=== PATIENT | female | born 1985 | race Caucasian/White ===

== ENCOUNTER 2023-07-18 10:11 | Outpatient (OUT) | payer BC, SELFPAY ==
[2023-07-18 10:45] LABS: Basophils Percent Auto 0.4 % (0.2-2.0); Eosinophils Absolute Auto 0.2 10^3/uL (0.0-0.7); Eosinophils Percent Auto 2.2 % (0.9-7.0); Hematocrit 36.9 % (36.0-48.0); Hemoglobin 11.5 g/dL (12.0-16.0); Immature Granulocytes Abs Auto 0.02 10^3/uL (0.00-0.03); Immature Granulocytes Pct Auto 0.3 % (0.0-0.5); Lymphocytes Absolute Auto 1.4 10^3/uL (1.2-3.8); Lymphocytes Percent Auto 19.2 % (20.5-60.0); Mean Corpuscular HGB Conc 31.2 g/dL (29.9-35.2); Mean Corpuscular Hemoglobin 27.1 pg (26.7-34.0); Mean Platelet Volume 9.6 fL (9.5-13.5); Monocytes Absolute Auto 0.6 10^3/uL (0.3-0.8); Monocytes Percent Auto 7.5 % (1.7-12.0); Neutrophils Absolute Auto 5.2 10^3/uL (1.4-6.5); Neutrophils Percent Auto 70.4 % (43.0-75.0); Platelet Count 367 10^3/uL (150-450); Red Blood Count 4.24 10^6/uL (4.20-5.40); Red Cell Distribution Width 13.7 % (11.0-15.0); White Blood Count 7.3 10^3/uL (4.0-11.0)
[2023-07-18 11:20] LABS: Estimated Average Glucose 114 mg/dL; Glycohemoglobin A1C 5.6 % (4.5-6.2)
[2023-07-18 11:58] LABS: Alanine Aminotransferase 35 U/L (14-59); Albumin Globulin Ratio 0.8; Albumin Level 3.1 g/dL (3.4-5.0); Alkaline Phosphatase 62 U/L (46-116); Anion Gap 12.5; Aspartate Amino Transferase 23 U/L (15-37); BUN Creatinine Ratio 14.9; Bilirubin Total 0.4 mg/dL (0.2-1.0); Calcium 8.9 mg/dL (8.5-10.1); Carbon Dioxide 29.5 mmol/L (21.0-32.0); Chloride 100 mmol/L (98-107); Cholesterol 140 mg/dL (<=200); Estimated GFR (African America >60 (>=60); Estimated GFR (Non-African Ame >60 (>=60); Free T3 2.97 pg/mL (2.18-3.98); Glucose 87 mg/dL (74-106); HDL Cholesterol 46 mg/dL (40-60); LDL Cholesterol Calculated 66.6 mg/dL; Sodium 139 mmol/L (136-145); Thyroid Stimulating Hormone 2.086 uIU/mL (0.358-3.740); Total Protein 7.1 g/dL (6.4-8.2); Triglycerides 137 mg/dL (<=150); VLDL CHOLESTEROL 27.4 mg/dL
[2023-07-19 11:09] LABS: Insulin 25.7 uIU/mL (2.6-24.9)
== END 2023-07-18 10:12 | disposition home or self-care (01) ==
LOC: LAB 10:16
PROVIDERS: PCP Family Medicine; Visit Provider Family Medicine
DX: Z00.00 Encounter for general adult medical examination without abnormal findings (principal)
CPT/HCPCS: 36415; 80053; 80061; 83036; 83525; 84436; 84443; 84481; 85025

== ENCOUNTER 2023-07-25 11:10 | Outpatient (OUT) | payer BC, SELFPAY ==
--- NOTE | 2023-07-25 11:18 | MM_ITS ---
Patient Name: BRAD FLEMING MR#: [id number] : 1985 Exam Date: 07/25/2023 Ordering Doctor: DR Dino Collins . RADIOLOGY REPORT PROCEDURE: MM TOMOSYNTHESIS SCREENING BI COMPARISON: MG MAMM DX 3D RT CAD, 05/25/2021. MAMMO POST BIOPSY RIGHT, 05/13/2020. MG MAMM SCREEN MONIKA W CAD, 01/30/2020. INDICATIONS: Screening Calculator Name NCI Breast Cancer Risk Assessment Tool 5 Year Breast Cancer Risk 0.60% Lifetime Breast Cancer Risk 15.10% Personal Breast Cancer No Personal Ovarian Cancer No Treatments None Family Cancers Grandmother-maternal with breast cancer at age 55. LOCATION: [facility] BREAST COMPOSITION: There are scattered areas of fibroglandular density. FINDINGS: DIAGNOSTIC CATEGORY 2--BENIGN FINDING: RIGHT BREAST: No significant suspicious finding. Small nodular density within lower-outer quadrant, mid breast containing a coarse benign-appearing calcification. Adjacent biopsy marker clip. LEFT BREAST: No significant suspicious finding. No significant change has occurred. RECOMMENDATIONS: ROUTINE MAMMOGRAM AND CLINICAL EVALUATION IN 12 MONTHS. PLEASE NOTE: A NORMAL MAMMOGRAM DOES NOT EXCLUDE THE POSSIBILITY OF BREAST CANCER. A CLINICALLY SUSPICIOUS PALPABLE LUMP SHOULD BE BIOPSIED. Dictated by: Thanh Kendrick M.D. on 07/25/2023 at 13:12 Approved by: Thanh Kendrick M.D. on 07/25/2023 at 13:17
== END 2023-07-25 11:11 | disposition home or self-care (01) ==
LOC: MAMMO 11:10
PROVIDERS: PCP Family Medicine; Visit Provider Family Medicine
DX: Z12.31 Encounter for screening mammogram for malignant neoplasm of breast (principal); Z80.3 Family history of malignant neoplasm of breast
CPT/HCPCS: 77063; 77067

== ENCOUNTER 2024-06-28 11:39 | Outpatient (OUT) | payer BC, SELFPAY ==
--- OUTSIDE RECORDS SUMMARY | 2024-06-28 11:44 | XMS_ITS | CCD ---
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 BLOOD SPECIMEN Ordering Facility: [facility] Address: [address] [place] [address] Performed By: #### 2 986-8, DHEAS #### [facility] CLIA [id number] [address] [place] [address] [place] NICOTINE METABOLITESon 05-03 Cotinine <1.0 Normal [facility] Comment on above: Result Comment: This test was developed and its performance characteristics determined by [facility]. It has not been cleared or approved by the Food and Drug Administration. Cotinine levels greater than 20.0 are consistent with the use of tobacco or tobacco cessation products. Performed By: #### N ICTBLD #### [facility] [address] [place] [address] Dr. Jolynn Hunt Nicotine <1.0 Normal [facility] Comment on above: Result Comment: This test was developed and its performance characteristics determined by [facility]. It has not been cleared or approved by the Food and Drug Administration. Nicotine levels greater than 2.0 are consistent with the use of tobacco or tobacco cessation products. Performed By: #### N ICTBLD #### [facility] [address] [place] [address] Dr. Jolynn Hunt INSULINon 04-29-2022 Insulin 27.2 uIU/mL Critically high 2.6-24.9 [facility] Comment on above: Performed By: #### I NSULIN ####[facility] [id number] [place], [place] [address]Dr. Jolynn Hunt CBC AUTO DIFFon 04-28-2022 BASO # 0.0 103/ul Normal 0.0-0.1 [facility] Comment on above: Performed By: #### C BC #### [facility] [address] [place] [address] Dr. Jolynn Hunt Basophils/100 WBC (Bld) 0.4 % Normal 0.2-2.0 [facility] Comment on above: Performed By: #### C BC #### [facility] [address] [place] [address] Dr. Jolynn Hunt EO # 0.2 103/ul Normal 0.0-0.7 [facility] Comment on above: Performed By: #### C BC #### [facility] [address] [place] [address] Dr. Jolynn Hunt Eosinophils/100 WBC (Bld) 1.5 % Normal 0.9-7.0 [facility] Comment on above: Performed By: #### C BC #### [facility] [address] [place] [address] Dr. Jolynn Hunt Erythrocyte distribution width (RBC) [Ratio] 15.2 % Critically high 11.0-15.0 [facility] Comment on above: Performed By: #### C BC #### [facility] [address] [place] [address] Dr. Jolynn Hunt Hematocrit (Bld) [Volume fraction] 39.6 % Normal 36.0-48.0 [facility] Comment on above: Performed By: #### C BC #### [facility] [address] [place] [address] Dr. Jolynn Hunt Hemoglobin (Bld) [Mass/Vol] 12.9 g/dL Normal 12.0-16.0 [facility] Comment on above: Performed By: #### C BC #### [facility] [address] [place] [address] Dr. Jolynn Hunt IG # 0.04 10e3/ul Critically high 0.00-0.03 [facility] Comment on above: Performed By: #### C BC #### [facility] [address] [place] [address] Dr. Jolynn Hunt IG % 0.4 % Normal 0.0-0.5 [facility] Comment on above: Performed By: #### C BC #### [facility] [address] [place] [address] Dr. Jolynn Hunt LYMPH # 1.8 103/ul Normal 1.2-3.8 [facility] Comment on above: Performed By: #### C BC #### [facility] [address] [place] [address] Dr. Jolynn Hunt Lymphocytes/100 WBC (Bld) 18.5 % Critically low 20.5-60.0 [facility] Comment on above: Performed By: #### C BC #### [facility] [address] [place] [address] Dr. Jolynn Hunt MANUAL DIFF REQ NO Normal [facility] Comment on above: Performed By: #### C BC #### [facility] [address] [address] [address] Jolynn Hunt MCH (RBC) [Entitic mass] 28.4 pg Normal 26.7-34.0 [facility] Comment on above: Performed By: #### C BC #### [facility] [address] [address] [address] Jolynn Hunt MCHC (RBC) [Mass/Vol] 32.6 g/dL Normal 29.9-35.2 [facility] Comment on above: Performed By: #### C BC #### [facility] [address] [place] [address] Dr. Jolynn Hunt MCV (RBC) [Entitic vol] 87.2 fL Normal 81.0-99.0 [facility] Comment on above: Performed By: #### C BC #### [facility] [address] [place] [address] Dr. Jolynn Hunt MONO # 0.6 103/ul Normal 0.3-0.8 [facility] Comment on above: Performed By: #### C BC #### [facility] [address] [place] [address] Dr. Jolynn Hunt Monocytes/100 WBC (Bld) 5.9 % Normal 1.7-12.0 [facility] Comment on above: Performed By: #### C BC #### [facility] [address] [place] [address] Dr. Jolynn Hunt NEUT # 7.3 103/ul Critically high 1.4-6.5 [facility] Comment on above: Performed By: #### C BC #### [facility] [address] [place] [address] Dr. Jolynn Hunt Neutrophils/100 WBC (Bld) 73.3 % Normal 43.0-75.0 [facility] Comment on above: Performed By: #### C BC #### [facility] [address] [place] [address] Dr. Jolynn Hunt Platelet mean volume (Bld) [Entitic vol] 8.9 fL Critically low 9.5-13.5 [facility] Comment on above: Performed By: #### C BC #### [facility] [address] [address] [address] Jolynn Hunt PLT 438 103/ul Normal 150-450 [facility] Comment on above: Performed By: #### C BC #### [facility] [address] [address] [address] Jolynn Hunt RBC 4.54 106/ul Normal 4.20-5.40 [facility] Comment on above: Performed By: #### C BC #### [facility] [address] [address] [address] Jolynn Hunt WBC 10.0 103/ul Normal 4.0-11.0 [facility] Comment on above: Performed By: #### C BC #### [facility] [address] [address] [address] Jolynn Hunt FREE THYROXINE INDEX T7on FTI 2.64 Normal 1.30-4.50 [facility] Comment on above: Performed By: #### T SH, T7, CMP, LIPID ####[facility] [address] [place], [place] [address]Dr. Jolynn Hunt T3U 29.0 % Critically low 30.0-39.0 [facility] Comment on above: Performed By: #### T SH, T7, CMP, LIPID ####[facility] [address] [place], [place] [address]LvDr. Jolynn Hunt T4 [Mass/Vol] 9.10 ug/dL Normal 4.80-13.90 [facility] Comment on above: Performed By: #### T SH, T7, CMP, LIPID ####[facility] [address] [id number]. Jolynn Hunt GLYCOHEMOGLOBIN A1Con 2022 ADA RECOMMENDATION SEE BELOW Normal [facility] Comment on above: Result Comment: ADA RECOMMENDED LIMIT 4.0 - 6.0 ADA THERAPEUTIC TARGET < 7.0 ACTION SUGGESTED > 7.0 Performed By: #### A 1C #### [facility] [address] [place], [place] [address] Dr. Jolynn Hunt Glucose [Mass/Vol] 108 mg/dL Normal [facility] Comment on above: Performed By: #### A 1C #### [facility] [address] [place], [place] [address] Dr. Jolynn Hunt HbA1c (Bld) [Mass fraction] 5.4 % Normal 4.5-6.2 [facility] Comment on above: Performed By: #### A 1C #### [facility] [address] [id number] [address] Jolynn Hunt LIPID PROFILEon 04-28-2022 CHOL-HDL RATIO NORM SEE BELOW Normal [facility] Comment on above: Result Comment: 3.3 - 4.4 LOW RISK 4.4 - 7.1 AVERAGE RISK 7.1 - 11.0 MODERATE RISK >11.0 HIGH RISK Performed By: #### T SH, T7, CMP, LIPID ####[facility] [address] [place] [id number] Hunt Cholesterol [Mass/Vol] 175 mg/dL Normal <=200 [facility] Comment on above: Performed By: #### T SH, T7, CMP, LIPID ####[facility] [address] [place] [id number] Hunt Cholesterol in HDL [Mass/Vol] 53 mg/dL Normal 40-60 [facility] Comment on above: Performed By: #### T SH, T7, CMP, LIPID ####[facility] [address] [place] [id number] Hunt Cholesterol in LDL [Mass/Vol] 89.8 mg/dL Normal [facility] Comment on above: Performed By: #### T SH, T7, CMP, LIPID ####[facility] [address] [place] [phone] Hunt Cholesterol.total/C holesterol in HDL [Mass ratio] 3.3 {ratio} Normal [facility] Comment on above: Performed By: #### T SH, T7, CMP, LIPID ####[facility] [address] [place] [phone] Hunt HDL NORMAL > or = 60 mg/dl - LO W CARDIOVASCULAR RISK <40 mg/dl - HIGH CARDIOVASCULAR RISK Normal [facility] Comment on above: Performed By: #### T SH, T7, CMP, LIPID ####[facility] [address] [place] [address]Dr. Jolynn Hunt LDL CALC NORMAL SEE BELOW Normal [facility] Comment on above: Result Comment: <100 mg/dl OPTIMAL 100 - 129 mg/dl NEAR OR ABOVE OPTIMAL 130 - 159 mg/dl BORDERLINE HIGH 160 - 189 mg/dl HIGH >190 mg/dl VERY HIGH Performed By: #### T SH, T7, CMP, LIPID ####[facility] [address] [place] [address]Dr. Jolynn Hunt Triglyceride [Mass/Vol] 161 mg/dL Critically high <=150 [facility] Comment on above: Performed By: #### T SH, T7, CMP, LIPID ####[facility] [address] [place] [address]Dr. Jolynn Hunt VLDL CALC 32.2 mg/dL Normal [facility] Comment on above: Performed By: #### T SH, T7, CMP, LIPID ####[facility] [address] [place] [address]Dr. Jolynn Hunt PROF 14(COMP METB)on 023 Albumin [Mass/Vol] 3.6 g/dL Normal 3.4-5.0 [facility] Comment on above: Performed By: #### T SH, T7, CMP, LIPID ####[facility] [address] [place] [address]Dr. Jolynn Hunt Albumin/Globulin [Mass ratio] 0.8 {ratio} Normal [facility] Comment on above: Performed By: #### T SH, T7, CMP, LIPID ####[facility] [address] [place] [address]Dr. Jolynn Hunt ALP [Catalytic activity/Vol] 78 U/L Normal 46-116 [facility] Comment on above: Performed By: #### T SH, T7, CMP, LIPID ####[facility] [address] [place] [id number]. Jolynn Hunt ALT [Catalytic activity/Vol] 29 U/L Normal 14-59 [facility] Comment on above: Performed By: #### T SH, T7, CMP, LIPID ####[facility] [address] [place] [address]Dr. Jolynn Hunt Anion gap [Moles/Vol] 12.8 mmol/L Normal [facility] Comment on above: Performed By: #### T SH, T7, CMP, LIPID ####[facility] [address] [place] [address]Dr. Jolynn Hunt AST [Catalytic activity/Vol] 20 U/L Normal 15-37 [facility] Comment on above: Performed By: #### T SH, T7, CMP, LIPID ####[facility] [address] [place] [address]Dr. Jolynn Hunt Bilirubin [Mass/Vol] 0.4 mg/dL Normal 0.2-1.0 [facility] Comment on above: Performed By: #### T SH, T7, CMP, LIPID ####[facility] [address] [place] [address]Dr. Jolynn Hunt Calcium [Mass/Vol] 9.2 mg/dL Normal 8.5-10.1 [facility] Comment on above: Performed By: #### T SH, T7, CMP, LIPID ####[facility] [address] [place] [address]Dr. Jolynn Hunt Chloride [Moles/Vol] 99 mmol/L Normal 98-107 [facility] Comment on above: Performed By: #### T SH, T7, CMP, LIPID ####[facility] [address] [place] [id number]. Jolynn Hunt CO2 [Moles/Vol] 29.3 mmol/L Normal 21.0-32.0 [facility] Comment on above: Performed By: #### T SH, T7, CMP, LIPID ####[facility] [address] [place] [address]Dr. Jolynn Hunt Creatinine [Mass/Vol] 0.47 mg/dL Critically low 0.55-1.02 [facility] Comment on above: Performed By: #### T SH, T7, CMP, LIPID ####[facility] [address] [place] [address]Dr. Jolynn Hunt EGFR-AF BRUNEIAN >60 Normal >=60 [facility] Comment on above: Performed By: #### T SH, T7, CMP, LIPID ####[facility] [address] [place] [address]Dr. Jolynn Hunt EGFR-NON AF BRUNEIAN >60 Normal >=60 [facility] Comment on above: Performed By: #### T SH, T7, CMP, LIPID ####[facility] [address] [place] [address]Dr. Jolynn Hunt Globulin (S) [Mass/Vol] 4.5 g/dL Normal [facility] Comment on above: Performed By: #### T SH, T7, CMP, LIPID ####[facility] [address] [place], [place] [address]Dr. Jolynn Hunt Glucose [Mass/Vol] 91 mg/dL Normal 74-106 [facility] Comment on above: Performed By: #### T SH, T7, CMP, LIPID ####[facility] [address] [place], [place] [address]Dr. Jolynn Hunt Potassium [Moles/Vol] 3.1 mmol/L Critically low 3.5-5.1 [facility] Comment on above: Performed By: #### T SH, T7, CMP, LIPID ####[facility] [address] [place], [place] [address]Dr. Jolynn Hunt Protein [Mass/Vol] 8.1 g/dL Normal 6.4-8.2 [facility] Comment on above: Performed By: #### T SH, T7, CMP, LIPID ####[facility] [address] [place], [place] [address]Dr. Jolynn Hunt Sodium [Moles/Vol] 138 mmol/L Normal 136-145 [facility] Comment on above: Performed By: #### T SH, T7, CMP, LIPID ####[facility] [address] [place], [place] [address]Uz. Jolynn Hunt Urea nitrogen [Mass/Vol] 9.0 mg/dL Normal 7.0-18.0 [facility] Comment on above: Performed By: #### T SH, T7, CMP, LIPID ####[facility] [address] [place], [place] [address]Qm. Jolynn Hunt Urea nitrogen/Creatinine [Mass ratio] 19.1 mg/mg Normal [facility] Comment on above: Performed By: #### T SH, T7, CMP, LIPID ####[facility] [address] [place], [place] [address]Qb. Jolynn Hunt TSHon 04-28-2022 TSH 6.052 uIU/mL Critically high 0.358-3.740 [facility] Comment on above: Performed By: #### T SH, T7, CMP, LIPID #### [facility] [address] [place], [place] [address] Dr. Jolynn Hunt Bacteria Ur Culton 2 Bacteria identified Cx Nom (U) ORGANISM ID: 1 50,000-<100,000 CFU/ml Escherichia coli ORGANISM ID: 1 (ESCHERICHIA COLI) ANTIBIOTIC INTERPRETATION PRISCILA STATUS REFERENCE RANGE Ampicillin R >=32 F Susceptible <=8 , Intermediate >8 , Resistant >16 Ampicillin/Sulbact R >=32 F Susceptible <=8 , Intermediate >8 , Resistant >16 Cefazolin S <=4 F Susceptible 0-16 , Intermediate <0 or >16 , Resistant >16 Cefepime S <=1 F Susceptible <=2 , Intermediate >2 , Resistant >=16 Ceftriaxone S <=1 F Susceptible <=1 , Intermediate >1 , Resistant >=4 Ciprofloxacin S <=0.25 F Susceptible <0.5 , Intermediate >=.5 , Resistant >=1 Ertapenem S <=0.5 F Susceptible <=0.5 , Intermediate >.5 , Resistant >1 Gentamicin S <=1 F Susceptible <=4 , Intermediate >4 , Resistant >8 Meropenem S <=0.25 F Susceptible <=1 , Intermediate >1 , Resistant >2 Nitrofurantoin S <=16 F Susceptible <=32 , Intermediate >32 , Resistant >64 Piperacillin/Tazobac S <=4 F Susceptible <=16 , Intermediate >16 , Resistant >64 Tobramycin S <=1 F Susceptible <=4 , Intermediate >4 , Resistant >8 Trimeth sulfameth S <=20 F Susceptible <=40 , Resistant >40 Abnormal [facility] Comment on above: Performed By: #### 6 30-4 #### [facility] CLIA [id number] [address] [place] [address] [place] [facility]on SARS-CoV-2 (COVID-19) RNA STEF+probe Ql (Unsp spec) Not detected Normal NOT DETECTED [facility] Comment on above: Result Comment: When diagnostic testing is negative, the possibility of a false negative should be considered in the context of a patient's recent exposures and the presence of clinical signs and symptoms consistent with SARS-CoV-2. This test is not yet approved or cleared by the [place] FDA. When there are no FDA-approved or cleared tests available, and other criteria are met, FDA can make tests available under an emergency access mechanism called an Emergency Use Authorization (EUA). The EUA for this test is supported by the [place] of Health and Human Service's declaration that circumstances exist to justify the emergency use of in vitro diagnostics for the detection and/or diagnosis of the virus that causes COVID-19. This EUA will remain in effect for the duration of the COVID-19 declaration justifying emergency of IVDs, unless it is terminated or revoked by the FDA (after which the test may no longer be used). Performed By: #### C VDTB ####[facility] [address] [place] [address]Dr. Jolynn Hunt INFLUENZA A AND B AGon 02-17 [facility] SEE BELOW Normal [facility] Comment on above: Result Comment: Nega tive for Flu A protein angiten. Infection due to Flu A cannot be ruled out. Flu A angiten in the sample may be below the detection limit of the test. Performed By: #### I NFLUAB #### [facility] [address] [address] [address] Jolynn Hunt [facility] SEE BELOW Normal [facility] Comment on above: Result Comment: Nega tive for Flu B protein antigen. Infection due to Flu B cannot be ruled out. Flu B antigen in the sample may be below the detection limit of the test. Performed By: #### I NFLUAB #### [facility] [address] [place] [address] Dr. Jolynn Hunt INFLUENZA A AG Negative Normal NEGATIVE SEE COMMENT [facility] Comment on above: Performed By: #### I NFLUAB #### [facility] [address] [place] [address] Dr. Jolynn Hunt INFLUENZA B AG Negative Normal NEGATIVE SEE COMMENT [facility] Comment on above: Performed By: #### I NFLUAB #### [facility] [address] [place] [address] Dr. Jolynn Hunt INTERNAL CONTROLS Within Normal Limits Normal Wi thin Normal Limits [facility] Comment on above: Performed By: #### I NFLUAB #### [facility] [address] [place] [address] Dr. Jolynn Hunt CBC panel Auto (Bld)on 11-25 Erythrocyte distribution width (RBC) [Ratio] 14.0 % 11.5 - 15.0 % [facility] Hematocrit (d) [Volume fraction] 40.8 % 36.0 - 46.0 % [facility] Hemoglobin (d) [Mass/Vol] 12.6 g/dL 11.5 - 15.5 g/dL [facility] MCH (RBC) [Entitic mass] 27.3 pg 26.0 - 34.0 pg [facility] MCHC (RBC) [Mass/Vol] 30.9 g/dL 30.5 - 36.0 g/dL [facility] MCV (RBC) [Entitic vol] 88.3 fL 80.0 - 100.0 fL [facility] Nucleated RBC (Bld) [#/Vol] <0.01 k/uL [facility] Platelet mean volume (Bld) [Entitic vol] 9.0 fL 9.0 - 12.7 fL [facility] Platelets (Bld) [#/Vol] 465 10*3/uL High 150 - 400 k/uL [facility] RBC (Bld) [#/Vol] 4.62 10*6/uL 3.90 - 5.2 0 m/uL [facility] WBC (Bld) [#/Vol] 9.74 10*3/uL 3.70 - 11. 00 k/uL [facility] Comprehensive metabolic 2000 panelon 11-25-2021 Albumin [Mass/Vol] 4.5 g/dL 3.9 - 4.9 g/dL [facility] ALP [Catalytic activity/Vol] 92 U/L 34 - 123 U/L [facility] ALT [Catalytic activity/Vol] 21 U/L 7 - 38 U/L [facility] Anion gap [Moles/Vol] 11 mmol/L 9 - 18 mmol/L [facility] AST [Catalytic activity/Vol] 16 U/L 13 - 35 U/L [facility] Bilirubin [Mass/Vol] 0.3 mg/dL 0.2 - 1.3 mg/dL [facility] Calcium [Mass/Vol] 9.6 mg/dL 8.5 - 10. 2 mg/dL [facility] Chloride [Moles/Vol] 98 mmol/L 97 - 105 mmol/L [facility] CO2 [Moles/Vol] 30 mmol/L 22 - 30 mmol/L [facility] Creatinine [Mass/Vol] 0.57 mg/dL Low 0.58 - 0.96 mg/dL [facility] Estimated Glomerular Filtration Rate 122 mL/min/1.73m >=60 mL/min/1.73m [facility] Glucose [Mass/Vol] 98 mg/dL 74 - 99 mg/dL [facility] Potassium [Moles/Vol] 3.4 mmol/L Low 3.7 - 5.1 mmol/L [facility] Protein [Mass/Vol] 8.1 g/dL High 6.3 - 8.0 g/dL [facility] Sodium [Moles/Vol] 139 mmol/L 136 - 144 mmol/L [facility] Urea nitrogen [Mass/Vol] 12 mg/dL 7 - 21 mg/dL [facility] VITAMIN B12 BLOODon 11-26-19 Cobalamin (Vitamin B12) [Mass/Vol] 224 pg/mL Low 232 - 1,245 pg/mL [facility] XR LSPINE MIN 4 VIEWSon XR LSPINE MIN 4 VIEWS EXAMINATION: XR LSPINE MIN 4 VIEWS HISTORY: Prolapsed lumbar intervertebral disc COMPARISON: No relevant comparison available. FINDINGS: BONES: No significant spondylosis, scoliosis, fracture, or visible bony lesion. DISC SPACES: Mild-moderate narrowing L4-L5, L5-S1. PARASPINOUS: Negative. No paraspinous abnormality is seen. OTHER: Negative. IMPRESSION: 1. Mild to moderate disc space narrowing at L4-L5 and L5-S1 suggesting degenerative changes. Consider MRI for further evaluation. Electronically authenticated by: DEANGELO MIGUEL Date: 2021-10-12 19:59 Normal [facility] CBC AUTO DIFFon 07-01-2021 BASO # 0.0 103/ul Normal 0.0-0.1 [facility] Comment on above: Performed By: #### C BC #### [facility] [address] [address] [address] Jolynn Hunt Basophils/100 WBC (Bld) 0.4 % Normal 0.2-2.0 [facility] Comment on above: Performed By: #### C BC #### [facility] [address] [address] [address] Jolynn Hunt EO # 0.1 103/ul Normal 0.0-0.7 [facility] Comment on above: Performed By: #### C BC #### [facility] [address] [address] [address] Jolynn Hunt Eosinophils/100 WBC (Bld) 1.6 % Normal 0.9-7.0 [facility] Comment on above: Performed By: #### C BC #### [facility] [address] [place] [address] Dr. Jolynn Hunt Erythrocyte distribution width (RBC) [Ratio] 13.9 % Normal 11.0-15.0 [facility] Comment on above: Performed By: #### C BC #### [facility] [address] [place] [address] Dr. Jolynn Hunt Hematocrit (Bld) [Volume fraction] 39.9 % Normal 36.0-48.0 [facility] Comment on above: Performed By: #### C BC #### [facility] [address] [place] [address] Dr. Jolynn Hunt Hemoglobin (Bld) [Mass/Vol] 12.2 g/dL Normal 12.0-16.0 [facility] Comment on above: Performed By: #### C BC #### [facility] [address] [place] [address] Dr. Jolynn Hunt IG # 0.03 10e3/ul Normal 0.00-0.03 [facility] Comment on above: Performed By: #### C BC #### [facility] [address] [place] [address] Dr. Jolynn Hunt IG % 0.4 % Normal 0.0-0.5 [facility] Comment on above: Performed By: #### C BC #### [facility] [address] [place] [address] Dr. Jolynn Hunt LYMPH # 1.5 103/ul Normal 1.2-3.8 [facility] Comment on above: Performed By: #### C BC #### [facility] [address] [place] [address] Dr. Jolynn Hunt Lymphocytes/100 WBC (Bld) 17.8 % Critically low 20.5-60.0 [facility] Comment on above: Performed By: #### C BC #### [facility] [address] [place] [address] Dr. Jolynn Hunt MANUAL DIFF REQ NO Normal [facility] Comment on above: Performed By: #### C BC #### [facility] [address] [place] [address] Dr. Jolynn Hunt MCH (RBC) [Entitic mass] 26.5 pg Critically low 26.7-34.0 [facility] Comment on above: Performed By: #### C BC #### [facility] [address] [place] [address] Dr. Jolynn Hunt MCHC (RBC) [Mass/Vol] 30.6 g/dL Normal 29.9-35.2 [facility] Comment on above: Performed By: #### C BC #### [facility] [address] [place] [address] Dr. Jolynn Hunt MCV (RBC) [Entitic vol] 86.7 fL Normal 81.0-99.0 [facility] Comment on above: Performed By: #### C BC #### [facility] [address] [place] [address] Dr. Jolynn Hunt MONO # 0.6 103/ul Normal 0.3-0.8 [facility] Comment on above: Performed By: #### C BC #### [facility] [address] [place] [address] Dr. Jolynn Hunt Monocytes/100 WBC (Bld) 6.8 % Normal 1.7-12.0 [facility] Comment on above: Performed By: #### C BC #### [facility] [address] [place] [address] Dr. Jolynn Hunt NEUT # 6.0 103/ul Normal 1.4-6.5 [facility] Comment on above: Performed By: #### C BC #### [facility] [address] [place] [address] Dr. Jolynn Hunt Neutrophils/100 WBC (Bld) 73.0 % Normal 43.0-75.0 [facility] Comment on above: Performed By: #### C BC #### [facility] [address] [place] [address] Dr. Jolynn Hunt Platelet mean volume (Bld) [Entitic vol] 9.2 fL Critically low 9.5-13.5 [facility] Comment on above: Performed By: #### C BC #### [facility] [address] [place], [place] [address] Dr. Jolynn Hunt PLT 421 103/ul Normal 150-450 [facility] Comment on above: Performed By: #### C BC #### [facility] [address] [place], [place] [address] Dr. Jolynn Hunt RBC 4.60 106/ul Normal 4.20-5.40 [facility] Comment on above: Performed By: #### C BC #### [facility] [address] [place], [place] [address] Dr. Jolynn Hunt WBC 8.2 103/ul Normal 4.0-11.0 [facility] Comment on above: Performed By: #### C BC #### [facility] [address] [place], [place] [address] ABD/PELVIS WO CONon 07-01 CT ABD/PELVIS WO CON EXAMINATION: CT ABD/PELVIS WO CON, 07/01/2021 9:52 AM EDT HISTORY: Left sided abdominal pain COMPARISON: CT 10/03/2015. TECHNIQUE: CT scan of the abdomen and pelvis was performed without IV contrast. CT dose reduction technique was used, including Automated Exposure Control. FINDINGS: Kidneys are normal in size without perinephric stranding or hydronephrosis. There is no discrete renal or ureteral calculus. Bladder is nondistended without bladder stone. Right hemidiaphragm is chronically elevated. There is a background of diffuse fatty infiltration of the liver. The liver measures 14.6 cm craniocaudal in the midclavicular line. No findings of cirrhosis. Gallbladder surgically absent. No biliary ductal dilatation. Pancreas, spleen, and adrenal glands are normal. Small and large bowel loops are of normal caliber. There is a moderate stool burden predominantly in the left colon to the rectum. No significant diverticular disease. No gross bowel inflammation. Normal appendix is seen. Uterus is identified, tilted into the right pelvis. Cysts noted in both ovaries. No adnexal abnormality. There is a amount of free pelvic fluid that is within physiologic limits adjacent to the uterus. No free air. There is an increased number of small lymph nodes within the mesenteric root, similar to previous study and none are enlarged. No abdominal pelvic lymphadenopathy. Limited imaging of lower thorax demonstrates clear lungs. Heart size within normal limits. Mild degenerative changes throughout the spine, worse at L5-S1 where there is vacuum phenomenon. There is a tiny fat-containing umbilical hernia. IMPRESSION: 1. Negative for urinary calculus. No obstructive or inflammatory changes of the kidneys. 2. Normal appendix. 3. Moderate stool burden, predominantly in the left colon to the rectum. No significant diverticular disease. No gross bowel inflammation. 4. No gross adnexal abnormality. Tiny amount of free pelvic fluid adjacent to the uterus is within physiologic limits. 5. Cholecystectomy and upper limits of normal size liver with diffuse fatty infiltration of the liver. Normal noncontrast pancreas. No biliary ductal dilatation. Electronically authenticated by: BEENA CANAS Date: 2021-07-01 10:58 Normal [facility] PREG HCG QUALon 07-01-2021 , QUAL Negative Normal NEGATIVE [facility] Comment on above: Performed By: #### P REG #### [facility] [address] [place] [address] Dr. Jolynn Hunt PROF CHEM 8 (BAS METB)on Anion gap [Moles/Vol] 13.4 mmol/L Normal [facility] Comment on above: Performed By: #### B MP #### [facility] [address] [place] [address] Dr. Jolynn Hunt Calcium [Mass/Vol] 8.9 mg/dL Normal 8.5-10.1 [facility] Comment on above: Performed By: #### B MP #### [facility] [address] [place] [address] Dr. Jolynn Hunt Chloride [Moles/Vol] 100 mmol/L Normal 98-107 [facility] Comment on above: Performed By: #### B MP #### [facility] [address] [place] [address] Dr. Jolynn Hunt CO2 [Moles/Vol] 29.6 mmol/L Normal 22.0-30.0 [facility] Comment on above: Performed By: #### B MP #### [facility] [address] [place] [address] Dr. Jolynn Hunt Creatinine [Mass/Vol] 0.56 mg/dL Normal 0.52-1.04 [facility] Comment on above: Performed By: #### B MP #### [facility] [address] [address] [address] Jolynn Hunt EGFR-AF BRUNEIAN >60 Normal >=60 [facility] Comment on above: Performed By: #### B MP #### [facility] [address] [address] [address] Jolynn Hunt EGFR-NON AF BRUNEIAN >60 Normal >=60 [facility] Comment on above: Performed By: #### B MP #### [facility] [address] [address] [address] Jolynn Hunt Glucose [Mass/Vol] 96 mg/dL Normal 74-106 [facility] Comment on above: Performed By: #### B MP #### [facility] [address] [address] [address] Jolynn Hunt Potassium [Moles/Vol] 3.0 mmol/L Critically low 3.4-5.0 [facility] Comment on above: Performed By: #### B MP #### [facility] [address] [address] [address] Jolynn Hunt Sodium [Moles/Vol] 140 mmol/L Normal 137-145 [facility] Comment on above: Performed By: #### B MP #### [facility] [address] [address] [address] Jolynn Hunt Urea nitrogen [Mass/Vol] 9.0 mg/dL Normal 7.0-18.0 [facility] Comment on above: Performed By: #### B MP #### [facility] [address] [address] [address] Jolynn Hunt Urea nitrogen/Creatinine [Mass ratio] 16.1 mg/mg Normal [facility] Comment on above: Performed By: #### B MP #### [facility] [address] [address] [address] Jolynn Hunt CNOVSPon 12-10-2020 CNOVSP Visit (SP) Office ( [place]) -- BRAD FLEMING ([id number]) 1985 F Date Time Provider Department 12/10/20 1:30 PM JASMINA JACINTO During your visit today, we recorded the following information about you: Temperature Pulse Respiration Blood pressure 98.3 degrees 96/minute 14/minute 135/94 Weight Last Period 92.5 kg 11/25/20 Jasmina Jacinto APRN.MAT PACKER 12/10/2020 3:45 PM Signed DATE OF SERVICE: 12/10/2020 REASON FOR VISIT: Post op visit, pain DIAGNOSIS: Complex ovarian cyst HISTORY TO DATE: 1) 08/2020: She has a pelvic ultrasound on 08/27/2020 as part of her workup and was found to have a 5cm complex right ovarian cyst with a solid area containing vascular flow. Her CA125 was normal. No other tumor markers were checked. 2) 11/10/2020: SURGERY - Laparoscopic right ovarian cystectomy? 3) 11/26/2020: Surgical pathology showed focal psammoma bodies with associated serous epithelium on the outer surface of removed cyst. Plan for conservative management with US q 4-6 months. Date of last office visit: 11/26/2020, post op televisit PAST MEDICAL HISTORY Diagnosis Date - Childhood asthma - Ectopic 2015 at 5 weeks - Essential hypertension - Low iron - PCOS (polycystic ovarian syndrome) - Primary hypertension 10/14/2020 - SAB (spontaneous ) 2011 with D AND C PAST SURGICAL HISTORY Procedure Laterality Date - DILATION AND CURRETAGE 2012 Missed at 12 weeks - ENDOMETRIAL BIOPSY 2017 - EXTRACTION ERUPTED TOOTH removal of wisdom teeth - REMOVAL GALLBLADDER 2007 Family History Problem Relation Age of Onset - Thyroid Mother - Miscarriages / Stillbirths Mother - Hypertension Father - Hypertension Brother - Breast Cancer Maternal Grandmother - Hypertension Paternal Grandmother - Diabetes Paternal Grandmother - Diabetes Paternal Grandfather - Hypertension Paternal Grandfather - Skin Cancer Paternal Grandfather - other (down syndrome) Paternal Uncle - Skin Cancer Paternal Uncle - other (female cancer unknown?) Paternal cousin PATHOLOGY: 10/28/20: FINAL DIAGNOSIS Right ovarian cyst, cystectomy - 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 ? MJM 11/03/2020 COMMENT The entire specimen was submitted for histologic evaluation. Two of the fourteen slides show focal psammoma bodies with associated serous epithelium on the outer surface of the cyst. These are not present in the tissue submitted for frozen section, however. Given this finding, the presence of an ovarian or peritoneal low-grade serous neoplasm cannot be excluded. Drs. Ho and Immanuel Santana reviewed slides A5 and A13 in intradepartmental consultation via telepathology with concurrence. The unexpected finding was discussed with Dr. Robledo by telephone on 11/03/2020 at 13:15. The case was also discussed with, and the slides reviewed by, the frozen section pathologist on the same day. TUMOR MARKERS: CA 125 (U/mL) Date Value 09/01/2020 8 RECENT IMAGIN08/27/2020 - US Pelvis: Indication: Evaluation of abnormal uterine bleeding: menorrhagia Impression Normal appearing anteverted uterus that measures 75 mm x 39 mm x 57 mm. Left ovary is visualized and appears normal. The right ovary is visualized, measures 64 mm x 53 mm x 37 mm, and contains a complex cyst that measures 53 mm x 33 mm x 53 mm. Within the cyst, there is a solid component with vascular flow within it that measures 40 mm x 28 mm x 29 mm. There is no free fluid visualized in the peritoneal cavity. Recommendations Complex ovarian cyst contains concerning features. Consider surgical evaluation or consultation with NEUROUROLOGIST Oncology 12/04/20 CT Abdomen/Pelvis IMPRESSION: 1. ?Ovoid fluid attenuation structure in the lower uterine segment, nonspecific. ?This could represent a subendometrial cyst or loculated fluid in the endometrial cavity. ?Postsurgical fluid collection/abscess is not excluded. 2. ?Otherwise, no acute process noted in the abdomen or pelvis. ?No residual or recurrent adnexal mass is seen. 3. ?Normal CT appearance of the appendix. ?No findings to suggest acute appendicitis. 4. ?Hepatic steatosis. HEALTH MAINTENANCE: Last mammogram: Spring 2020- Negative Last colonoscopy: N/A Last Pap: 2018- Negative Last HPV: 2018 - Negative ECOG performance status ECOG PERFORMANCE STATUS: 0- Fully active, able to carry on all pre-disease performance w/o restriction. SUBJECTIVE/INTERVAL HISTORY: Brad Fleming reports that she feels okay. Reports lower abdominal pain that developed about 10 days ago after squatting. Pain has slightly improved, but worsens throughout the day and patient notices significant cramping generalized to her lower abdomen. Patient also reported she had her period 2 weeks ago and noticed brown discharge yesterday, now res (more content not included)... Normal [facility] 12-08-2020 CNPN Telephone (GYNML) -- BRAD FLEMING ([id number]) 1985 F Date Time Provider Department 12/08/20 JOI SOARES [facility] During your visit today, we recorded the following information about you: Joi Soares RN 12/08/2020 2:07 PM Signed Pt LVM stating she continues to have pressure down there . Attempted to reach pt. LVM for pt to call the office in regards to her complaints. Will await return call. Joi Soares RN 12/08/2020 2:55 PM Signed Pt called back stating her pain/cramping/pressure is just above pubic bone. Denies dysuria, foul smelling urine, hematuria, urgency or frequency. Denies f/c/n/v. States she had her period 2 weeks ago and started having brown discharge last night. Pain/cramping/pressure is worse at night when she lays down, comes and goes and does radiate to the lower back. She has a hx of herniated lumbar disc. Allergies As of Date: 12/08/2020 Noted Allergy Reaction BEE VENOM PROTEIN (HONEY BEE) 08/27/2020 2 - Rash Comments: Rash spreads from bee stings PENICILLINS 09/07/2014 4 - Hives TIZANIDINE 05/07/2020 1 - Mental Status Change TRAMADOL 08/27/2020 14 - Other: See Comments Comments: dizziness Date Reviewed: 11/28/2020 Reviewed by: Caitlyn Sneed MD - Fully Assessed Reason for Visit: Returning Patient's Call [[id number]] Prescriptions as of 12/08/2020 - ibuprofen (MOTRIN) 600 mg tablet Take 1 tablet by mouth every 8 hours as needed for pain. - docusate sodium (COLACE) 100 mg capsule Take 1 capsule by mouth twice daily. - acetaminophen (TYLENOL EXTRA STRENGTH) 500 mg tablet Take 2 tablets by mouth every 6 hours as needed for pain. - acetaminophen/pyrilamine/c aff (MIDOL COMPLETE ORAL) Take by mouth as needed. - ergocalciferol 50,000 unit capsule (VITAMIN D2, DRISDOL) Take 1 capsule by mouth one time a week for 12 doses. for low vitamin D to replenish stores- - cyclobenzaprine (FLEXERIL) 10 mg tablet Take 10 mg by mouth once daily. - Etodolac 500 mg tablet Take 500 mg by mouth twice daily. - ferrous sulfate 325 mg (65 mg iron) tablet Take 1 tablet by mouth twice daily. - lisinopril-hydroCHLOROthia zide (PRINZIDE,ZESTORETIC) 10-12.5 mg per tablet Take 1 tablet by mouth once daily. - metFORMIN (GLUCOPHAGE) 850 mg tablet Take 850 mg by mouth twice daily. - KLOR-CON M20 20 mEq tablet Take 20 mEq by mouth twice daily. - epinephrine (EPIPEN 2-SIMÓN INJECTION) 1 application by INJECTION(UNSPECIFIED PARENTERAL ROUTES) route as needed (for bee sting). - melatonin 10 mg tab Take 10 mg by mouth at bedtime as needed for for insomnia. Problem List As Of Date 12/08/2020 Noted Resolved Primary hypertension [I10] 10/14/2020 Obesity (BMI 30-39.9) [E66.9] 10/14/2020 PCOS (polycystic ovarian syndrome) [E28.2] 10/14/2020 RLS (restless legs syndrome) [G25.81] 10/14/2020 Encounter Status:Closed by JOI SOARES on 12/08/20 [facility] CNPN Telephone (GYNML) -- BERNADETTEBRAD ([id number]) 1985 F Date Time Provider Department 12/08/20 JOI SOARES During your visit today, we recorded the following information about you: Allergies As of Date: 12/08/2020 Noted Allergy Reaction BEE VENOM PROTEIN (HONEY BEE) 08/27/2020 2 - Rash Comments: Rash spreads from bee stings PENICILLINS 09/07/2014 4 - Hives TIZANIDINE 05/07/2020 1 - Mental Status Change TRAMADOL 08/27/2020 14 - Other: See Comments Comments: dizziness Date Reviewed: 11/28/2020 Reviewed by: Caitlyn Sneed MD - Fully Assessed Reason for Visit: error [[id number]] Prescriptions as of 12/09/2020 - ibuprofen (MOTRIN) 600 mg tablet Take 1 tablet by mouth every 8 hours as needed for pain. - docusate sodium (COLACE) 100 mg capsule Take 1 capsule by mouth twice daily. - acetaminophen (TYLENOL EXTRA STRENGTH) 500 mg tablet Take 2 tablets by mouth every 6 hours as needed for pain. - acetaminophen/pyrilamine/c aff (MIDOL COMPLETE ORAL) Take by mouth as needed. - ergocalciferol 50,000 unit capsule (VITAMIN D2, DRISDOL) Take 1 capsule by mouth one time a week for 12 doses. for low vitamin D to replenish stores- - cyclobenzaprine (FLEXERIL) 10 mg tablet Take 10 mg by mouth once daily. - Etodolac 500 mg tablet Take 500 mg by mouth twice daily. - ferrous sulfate 325 mg (65 mg iron) tablet Take 1 tablet by mouth twice daily. - lisinopril-hydroCHLOROthia zide (PRINZIDE,ZESTORETIC) 10-12.5 mg per tablet Take 1 tablet by mouth once daily. - metFORMIN (GLUCOPHAGE) 850 mg tablet Take 850 mg by mouth twice daily. - KLOR-CON M20 20 mEq tablet Take 20 mEq by mouth twice daily. - epinephrine (EPIPEN 2-SIMÓN INJECTION) 1 application by INJECTION(UNSPECIFIED PARENTERAL ROUTES) route as needed (for bee sting). - melatonin 10 mg tab Take 10 mg by mouth at bedtime as needed for for insomnia. Problem List As Of Date 12/08/2020 Noted Resolved Primary hypertension [I10] 10/14/2020 Obesity (BMI 30-39.9) [E66.9] 10/14/2020 PCOS (polycystic ovarian syndrome) [E28.2] 10/14/2020 RLS (restless legs syndrome) [G25.81] 10/14/2020 Encounter Status:Closed by JOI SOARES on 12/09/20 [facility] 12-04-2020 CNPN Telephone (GYNML) -- BRAD FLEMING ([id number]) 1985 F Date Time Provider Department 12/04/20 JASMINA JACINTO [facility] During your visit today, we recorded the following information about you: Jasmina Jacinto APRN.MAT PACKER 12/04/2020 4:47 PM Signed Called patient to discuss CT results: IMPRESSION: 1. ?Ovoid fluid attenuation structure in the lower uterine segment, nonspecific. ?This could represent a subendometrial cyst or loculated fluid in the endometrial cavity. ?Postsurgical fluid collection/abscess is not excluded. 2. ?Otherwise, no acute process noted in the abdomen or pelvis. ?No residual or recurrent adnexal mass is seen. 3. ?Normal CT appearance of the appendix. ?No findings to suggest acute appendicitis. 4. ?Hepatic steatosis. Patient reports ongoing pain just beneath her umbilicus. Reports some relief with motrin. Denies fever or chills. Will discuss imaging further with Dr. Sneed. Instructed patient to avoid heavy lifting, continue motrin/tylenol and discussed symptoms that would warrant an ER visit. Patient agreeable to plan and all questions answered at this time. Jasmina Jacinto APRN.MAT PACKER December 04, 2020 4:46 PM Allergies As of Date: 12/04/2020 Noted Allergy Reaction BEE VENOM PROTEIN (HONEY BEE) 08/27/2020 2 - Rash Comments: Rash spreads from bee stings PENICILLINS 09/07/2014 4 - Hives TIZANIDINE 05/07/2020 1 - Mental Status Change TRAMADOL 08/27/2020 14 - Other: See Comments Comments: dizziness Date Reviewed: 11/28/2020 Reviewed by: Caitlyn Sneed MD - Fully Assessed Reason for Visit: Results [95] Prescriptions as of 12/04/2020 - iv contrast (will be provided with radiology test) CT ABD/PEL -Inject, intravenously, once for 1 dose.No IV access, insert saline lock prior to the beginning of sedation, infusion, injection of imaging exam. Discontinue saline lock post exam. If Pt. has a central line or IVAD, may access for administration according to line specific nursing protocol. Once exam is complete flush line and de-access according to line specific nursing protocol in the CT contrast administration guidelines link. - enteric contrast (will be provided with radiology test) For CT ABD/PEL W IVCON Routine order Administer, As Directed One Time Only, via Oral, Rectal, both Oral and Rectal, Enteric Tube, Stoma or Indwelling Catheter, Enteric Contrast as designated per enteric contrast guidelines - ibuprofen (MOTRIN) 600 mg tablet Take 1 tablet by mouth every 8 hours as needed for pain. - docusate sodium (COLACE) 100 mg capsule Take 1 capsule by mouth twice daily. - acetaminophen (TYLENOL EXTRA STRENGTH) 500 mg tablet Take 2 tablets by mouth every 6 hours as needed for pain. - acetaminophen/pyrilamine/c aff (MIDOL COMPLETE ORAL) Take by mouth as needed. - ergocalciferol 50,000 unit capsule (VITAMIN D2, DRISDOL) Take 1 capsule by mouth one time a week for 12 doses. for low vitamin D to replenish stores- - cyclobenzaprine (FLEXERIL) 10 mg tablet Take 10 mg by mouth once daily. - Etodolac 500 mg tablet Take 500 mg by mouth twice daily. - ferrous sulfate 325 mg (65 mg iron) tablet Take 1 tablet by mouth twice daily. - lisinopril-hydroCHLOROthia zide (PRINZIDE,ZESTORETIC) 10-12.5 mg per tablet Take 1 tablet by mouth once daily. - metFORMIN (GLUCOPHAGE) 850 mg tablet Take 850 mg by mouth twice daily. - KLOR-CON M20 20 mEq tablet Take 20 mEq by mouth twice daily. - epinephrine (EPIPEN 2-SIMÓN INJECTION) 1 application by INJECTION(UNSPECIFIED PARENTERAL ROUTES) route as needed (for bee sting). - melatonin 10 mg tab Take 10 mg by mouth at bedtime as needed for for insomnia. Problem List As Of Date 12/04/2020 Noted Resolved Primary hypertension [I10] 10/14/2020 Obesity (BMI 30-39.9) [E66.9] 10/14/2020 PCOS (polycystic ovarian syndrome) [E28.2] 10/14/2020 RLS (restless legs syndrome) [G25.81] 10/14/2020 Encounter Status:Closed by JASMINA JACINTO on 12/04/[address] [facility] [address] ABD/PEL W IVCONon 021 [facility] 12-02-2020 CNPN Telephone (GYNML) -- BRAD FLEMING ([id number]) 1985 F Date Time Provider Department 12/02/20 SHO MILNER GYN During your visit today, we recorded the following information about you: Sho Milner RN 12/02/2020 10:32 AM Signed Returned patient's call. Patient stated that she has has some consistent right sided abdominal pain since last evening. Stated was squatting and bending at mom's house when she had a sharp pain in her right side, below her belly button incision. Has been unable to lay on that side since. Pain alternates between sharp and a continual dull ache. Did take 600mg of Motrin this AM that helped a bit . When she lays back with no pressure on the area, states that it subsides. Denies fever/ chills. No N/V. No change in bowels/ urination. Passing gas. No abnormal vaginal bleeding. Discussed worsening S/S. She will take Motrin Q6 hours and try heating pad in the meantime.Will update medical team. Sho Milner RN 12/02/2020 12:08 PM Signed Spoke with patient in regards to MAT PACKER recommendation to monitor pain and continue current regimen. She voiced understanding and will update office with any changes. Aware of worsening S/S. Will call office with update. Sho Milner RN 12/03/2020 11:07 AM Signed Patient called to update that the pain she has been having has now moved from the right side to now under her belly button radiating down her stomach. Stated that besides the location moving, everything else is the same. She is unsure what to do as she cannot continue to function with the pain. Will update medical team. Allergies As of Date: 12/02/2020 Noted Allergy Reaction BEE VENOM PROTEIN (HONEY BEE) 08/27/2020 2 - Rash Comments: Rash spreads from bee stings PENICILLINS 09/07/2014 4 - Hives TIZANIDINE 05/07/2020 1 - Mental Status Change TRAMADOL 08/27/2020 14 - Other: See Comments Comments: dizziness Date Reviewed: 11/28/2020 Reviewed by: Caitlyn Sneed MD - Fully Assessed Reason for Visit: Patient Update [1234] Prescriptions as of 12/03/2020 - iv contrast (will be provided with radiology test) CT ABD/PEL -Inject, intravenously, once for 1 dose.No IV access, insert saline lock prior to the beginning of sedation, infusion, injection of imaging exam. Discontinue saline lock post exam. If Pt. has a central line or IVAD, may access for administration according to line specific nursing protocol. Once exam is complete flush line and de-access according to line specific nursing protocol in the CT contrast administration guidelines link. - enteric contrast (will be provided with radiology test) For CT ABD/PEL W IVCON Routine order Administer, As Directed One Time Only, via Oral, Rectal, both Oral and Rectal, Enteric Tube, Stoma or Indwelling Catheter, Enteric Contrast as designated per enteric contrast guidelines - ibuprofen (MOTRIN) 600 mg tablet Take 1 tablet by mouth every 8 hours as needed for pain. - docusate sodium (COLACE) 100 mg capsule Take 1 capsule by mouth twice daily. - acetaminophen (TYLENOL EXTRA STRENGTH) 500 mg tablet Take 2 tablets by mouth every 6 hours as needed for pain. - acetaminophen/pyrilamine/c aff (MIDOL COMPLETE ORAL) Take by mouth as needed. - ergocalciferol 50,000 unit capsule (VITAMIN D2, DRISDOL) Take 1 capsule by mouth one time a week for 12 doses. for low vitamin D to replenish stores- - cyclobenzaprine (FLEXERIL) 10 mg tablet Take 10 mg by mouth once daily. - Etodolac 500 mg tablet Take 500 mg by mouth twice daily. - ferrous sulfate 325 mg (65 mg iron) tablet Take 1 tablet by mouth twice daily. - lisinopril-hydroCHLOROthia zide (PRINZIDE,ZESTORETIC) 10-12.5 mg per tablet Take 1 tablet by mouth once daily. - metFORMIN (GLUCOPHAGE) 850 mg tablet Take 850 mg by mouth twice daily. - KLOR-CON M20 20 mEq tablet Take 20 mEq by mouth twice daily. - epinephrine (EPIPEN 2-SIMÓN INJECTION) 1 application by INJECTION(UNSPECIFIED PARENTERAL ROUTES) route as needed (for bee sting). - melatonin 10 mg tab Take 10 mg by mouth at bedtime as needed for for insomnia. Problem List As Of Date 12/02/2020 Noted Resolved Primary hypertension [I10] 10/14/2020 Obesity (BMI 30-39.9) [E66.9] 10/14/2020 PCOS (polycystic ovarian syndrome) [E28.2] 10/14/2020 RLS (restless legs syndrome) [G25.81] 10/14/2020 Encounter Status:Closed by SHO MILNER on 12/02/20 [facility] 11-27-2020 ANTONIN Telephone (GYN) -- BRAD FLEMING ([id number]) 1985 F Date Time Provider Department 11/27/20 CAITLYN SNEED GYN During your visit today, we recorded the following information about you: Candelaria Reaves 11/27/2020 10:22 AM Signed Called and left voicemail to make US appointment in 4-6 months. Allergies As of Date: 11/27/2020 Noted Allergy Reaction BEE VENOM PROTEIN (HONEY BEE) 08/27/2020 2 - Rash Comments: Rash spreads from bee stings PENICILLINS 09/07/2014 4 - Hives TIZANIDINE 05/07/2020 1 - Mental Status Change TRAMADOL 08/27/2020 14 - Other: See Comments Comments: dizziness Date Reviewed: 11/12/2020 Reviewed by: Jenaro Ribeiro APRN.MAT PACKER - Fully Assessed Reason for Visit: Appointment [186] Prescriptions as of 11/27/2020 - ibuprofen (MOTRIN) 600 mg tablet Take 1 tablet by mouth every 8 hours as needed for pain. - docusate sodium (COLACE) 100 mg capsule Take 1 capsule by mouth twice daily. - acetaminophen (TYLENOL EXTRA STRENGTH) 500 mg tablet Take 2 tablets by mouth every 6 hours as needed for pain. - acetaminophen/pyrilamine/c aff (MIDOL COMPLETE ORAL) Take by mouth as needed. - ergocalciferol 50,000 unit capsule (VITAMIN D2, DRISDOL) Take 1 capsule by mouth one time a week for 12 doses. for low vitamin D to replenish stores- - cyclobenzaprine (FLEXERIL) 10 mg tablet Take 10 mg by mouth once daily. - Etodolac 500 mg tablet Take 500 mg by mouth twice daily. - ferrous sulfate 325 mg (65 mg iron) tablet Take 1 tablet by mouth twice daily. - lisinopril-hydroCHLOROthia zide (PRINZIDE,ZESTORETIC) 10-12.5 mg per tablet Take 1 tablet by mouth once daily. - metFORMIN (GLUCOPHAGE) 850 mg tablet Take 850 mg by mouth twice daily. - KLOR-CON M20 20 mEq tablet Take 20 mEq by mouth twice daily. - epinephrine (EPIPEN 2-SIMÓN INJECTION) 1 application by INJECTION(UNSPECIFIED PARENTERAL ROUTES) route as needed (for bee sting). - melatonin 10 mg tab Take 10 mg by mouth at bedtime as needed for for insomnia. Problem List As Of Date 11/27/2020 Noted Resolved Primary hypertension [I10] 10/14/2020 Obesity (BMI 30-39.9) [E66.9] 10/14/2020 PCOS (polycystic ovarian syndrome) [E28.2] 10/14/2020 RLS (restless legs syndrome) [G25.81] 10/14/2020 Encounter Status:Closed by CANDELARIA REAVES on 11/27/20 [facility] CNOVSPon 11-12-2020 CNOVSP Visit (SP) Office (G YNML) -- BERNADETTEBRAD ([id number]) 1985 F Date Time Provider Department 11/12/20 10:15 AM JENARO RIBEIRO During your visit today, we recorded the following information about you: Temperature Pulse Blood pressure 98.1 degrees 98/minute 119/77 Jenaro Ribeiro APRN.MAT PACKER 11/13/2020 1:21 PM Signed DATE OF SERVICE: 11/12/2020 PROBLEM: Brad Fleming presents for postop visit. 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 ? [facility] 11/03/2020 COMMENT The entire specimen was submitted for histologic evaluation. Two of the fourteen slides show focal psammoma bodies with associated serous epithelium on the outer surface of the cyst. These are not present in the tissue submitted for frozen section, however. Given this finding, the presence of an ovarian or peritoneal low-grade serous neoplasm cannot be excluded. Drs. Ho and Immanuel Santana reviewed slides A5 and A13 in intradepartmental consultation via telepathology with concurrence. The unexpected finding was discussed with Dr. Robledo by telephone on 11/03/2020 at 13:15. The case was also discussed with, and the slides reviewed by, the frozen section pathologist on the same day. SUBJECTIVE/INTERVAL HISTORY: Brad Fleming reports that she feels well. No fever or chills. No shortness of breath, cough, or chest pain. No incisional redness, swelling, or drainage. Patient reports that her appetite is good. No nausea, vomiting, diarrhea, or constipation. No dysuria, gross hematuria, urinary frequency, urinary urgency, or incontinence. Intermittent abdominal pain that is worsened by long car rides. OBJECTIVE: BP 119/77 Pulse 98 Temp 36.7 ?C (98.1 ?F) LMP 10/02/2020 GEN-no acute distress ABDOMEN: Abdomen soft, non-tender, non-distended. Incision healing well. ASSESSMENT: 35 yo female s/p ovarian cystectomy on 11/10/2020 PLAN: - patient doing well post operatively with mild pain relieved w motrin - continue post operative restrictions - arrange tele-visit with Dr.Al Denise to further discuss pathology results. Jenaro Ribeiro APRN.CNP Referring Provider: CAITLYN SNEED [[id number]] Allergies As of Date: 11/12/2020 Noted Allergy Reaction BEE VENOM PROTEIN (HONEY BEE) 08/27/2020 2 - Rash Comments: Rash spreads from bee stings PENICILLINS 09/07/2014 4 - Hives TIZANIDINE 05/07/2020 1 - Mental Status Change TRAMADOL 08/27/2020 14 - Other: See Comments Comments: dizziness Date Reviewed: 11/12/2020 Reviewed by: Jenaro Ribeiro APRN.MAT PACKER - Fully Assessed Reason for Visit: Established Patient [175] Primary Visit Diagnosis:Post-operative state [Z98.890] Order(s):ibuprofen (MOTRIN) 600 mg tabletTake 1 tablet by mouth every 8 hours as needed for pain.Disp: 40 tabletRfl: 0 Prescriptions as of 11/13/2020 - ibuprofen (MOTRIN) 600 mg tablet Take 1 tablet by mouth every 8 hours as needed for pain. - docusate sodium (COLACE) 100 mg capsule Take 1 capsule by mouth twice daily. - acetaminophen (TYLENOL EXTRA STRENGTH) 500 mg tablet Take 2 tablets by mouth every 6 hours as needed for pain. - acetaminophen/pyrilamine/c aff (MIDOL COMPLETE ORAL) Take by mouth as needed. - ergocalciferol 50,000 unit capsule (VITAMIN D2, DRISDOL) Take 1 capsule by mouth one time a week for 12 doses. for low vitamin D to replenish stores- - cyclobenzaprine (FLEXERIL) 10 mg tablet Take 10 mg by mouth once daily. - Etodolac 500 mg tablet Take 500 mg by mouth twice daily. - ferrous sulfate 325 mg (65 mg iron) tablet Take 1 tablet by mouth twice daily. - lisinopril-hydroCHLOROthia zide (PRINZIDE,ZESTORETIC) 10-12.5 mg per tablet Take 1 tablet by mouth once daily. - metFORMIN (GLUCOPHAGE) 850 mg tablet Take 850 mg by mouth twice daily. - KLOR-CON M20 20 mEq tablet Take 20 mEq by mouth twice daily. - epinephrine (EPIPEN 2-SIMÓN INJECTION) 1 application by INJECTION(UNSPECIFIED PARENTERAL ROUTES) route as needed (for bee sting). - melatonin 10 mg tab Take 10 mg by mouth at bedtime as needed for for insomnia. Problem List As Of Date 11/12/2020 Noted Resolved Primary hypertension [I10] 10/14/2020 Obesity (BMI 30-39.9) [E66.9] 10/14/2020 PCOS (polycystic ovarian syndrome) [E28.2] 10/14/2020 RLS (restless legs syndrome) [G25.81] 10/14/2020 Encounter Status:Closed by JENARO RIBEIRO on 11/13/20 [facility] 11-06-2020 OZZIE Telephone (GYN) -- BRAD FLEMING ([id number]) 1985 F Date Time Provider Department 11/06/20 JASMINA JACINTO During your visit today, we recorded the following information about you: Jasmina Jacinto APRN.CNP 11/06/2020 9:21 AM Signed Left voicemail for patient to return call to office to discuss pathology results and plan of care. Will await call back. Jasmina Jacinto APRN.MAT PACKER November 06, 2020 9:21 AM Allergies As of Date: 11/06/2020 Noted Allergy Reaction BEE VENOM PROTEIN (HONEY BEE) 08/27/2020 2 - Rash Comments: Rash spreads from bee stings PENICILLINS 09/07/2014 4 - Hives TIZANIDINE 05/07/2020 1 - Mental Status Change TRAMADOL 08/27/2020 14 - Other: See Comments Comments: dizziness Date Reviewed: 10/28/2020 Reviewed by: Chico Medellin RN - Fully Assessed Reason for Visit: Results [95] Prescriptions as of 11/24/2020 - ibuprofen (MOTRIN) 600 mg tablet Take 1 tablet by mouth every 8 hours as needed for pain. - docusate sodium (COLACE) 100 mg capsule Take 1 capsule by mouth twice daily. - acetaminophen (TYLENOL EXTRA STRENGTH) 500 mg tablet Take 2 tablets by mouth every 6 hours as needed for pain. - acetaminophen/pyrilamine/c aff (MIDOL COMPLETE ORAL) Take by mouth as needed. - ergocalciferol 50,000 unit capsule (VITAMIN D2, DRISDOL) Take 1 capsule by mouth one time a week for 12 doses. for low vitamin D to replenish stores- - cyclobenzaprine (FLEXERIL) 10 mg tablet Take 10 mg by mouth once daily. - Etodolac 500 mg tablet Take 500 mg by mouth twice daily. - ferrous sulfate 325 mg (65 mg iron) tablet Take 1 tablet by mouth twice daily. - lisinopril-hydroCHLOROthia zide (PRINZIDE,ZESTORETIC) 10-12.5 mg per tablet Take 1 tablet by mouth once daily. - metFORMIN (GLUCOPHAGE) 850 mg tablet Take 850 mg by mouth twice daily. - KLOR-CON M20 20 mEq tablet Take 20 mEq by mouth twice daily. - epinephrine (EPIPEN 2-SIMÓN INJECTION) 1 application by INJECTION(UNSPECIFIED PARENTERAL ROUTES) route as needed (for bee sting). - melatonin 10 mg tab Take 10 mg by mouth at bedtime as needed for for insomnia. Problem List As Of Date 11/06/2020 Noted Resolved Primary hypertension [I10] 10/14/2020 Obesity (BMI 30-39.9) [E66.9] 10/14/2020 PCOS (polycystic ovarian syndrome) [E28.2] 10/14/2020 RLS (restless legs syndrome) [G25.81] 10/14/2020 Encounter Status:Closed by JASMINA JACINTO on 11/24/20 [facility] 11-03-2020 CNPN Telephone (GYNML) -- BRAD FLEMING ([id number]) 1985 F Date Time Provider Department 11/03/20 NANCY JAMISON During your visit today, we recorded the following information about you: Nancy Jamison RN 11/03/2020 10:07 AM Signed Patient had Laparoscopic partial right oophorectomy, lysis of adhesions (GynOnc), chromopertubation/ablation of endometriotic lesion. With Dr Gutierrez, on 10/28/20. November 03, 2020 10:03 AM Patient called for post op follow up assessment. Reports she is doing Pretty good Pain: Patient rates pain 2 on a scale of 0-10. 0 being no pain and 10 being worst pain imaginable. Patient states pain is tolerable and managed by Tylenol. Diet: Patient is able tolerate fluids and normal diet. Bowel Movement: Patient is able to pass gas and has had a bowel movement. Voiding: Patient is able to void without difficulty Vaginal Discharge: Denies heavy vaginal bleeding Skin Incision: Denies drainage, redness, or signs of infection. - adhesive present: Yes - Does report hives on abdomen. Noticed on Monday/Monday. Denies itching. Will continue to monitor and call if worsens. Medication: Denies questions or concerns about medication. Post op restrictions reviewed with patient including - activity- no heavy lifting, on pelvic rest - keep incision clean and dry. Ok to use mild antibacterial soap. - reviewed signs and symptoms to notify office including signs of infection, fever, heavy vaginal bleeding. - she is aware of post op appointment with Jenaro Ribeiro NP on 11/12/20 Patient verbalized understanding and denies further questions at this time. Understands to call the office with further concerns/questions. Survivorship treatment summary initiated: Path in process Nancy Jamison RN Allergies As of Date: 11/03/2020 Noted Allergy Reaction BEE VENOM PROTEIN (HONEY BEE) 08/27/2020 2 - Rash Comments: Rash spreads from bee stings PENICILLINS 09/07/2014 4 - Hives TIZANIDINE 05/07/2020 1 - Mental Status Change TRAMADOL 08/27/2020 14 - Other: See Comments Comments: dizziness Date Reviewed: 10/28/2020 Reviewed by: Chico Medellin RN - Fully Assessed Reason for Visit: Post Op Call [[id number]] Prescriptions as of 11/03/2020 - docusate sodium (COLACE) 100 mg capsule Take 1 capsule by mouth twice daily. - ibuprofen (MOTRIN) 600 mg tablet Take 1 tablet by mouth every 6 hours as needed for pain. - oxyCODONE IR (ROXICODONE) 5 mg immediate release tablet Take 1 tablet by mouth every 6 hours as needed for pain for up to 7 days. - acetaminophen (TYLENOL EXTRA STRENGTH) 500 mg tablet Take 2 tablets by mouth every 6 hours as needed for pain. - acetaminophen/pyrilamine/c aff (MIDOL COMPLETE ORAL) Take by mouth as needed. - ergocalciferol 50,000 unit capsule (VITAMIN D2, DRISDOL) Take 1 capsule by mouth one time a week for 12 doses. for low vitamin D to replenish stores- - cyclobenzaprine (FLEXERIL) 10 mg tablet Take 10 mg by mouth once daily. - Etodolac 500 mg tablet Take 500 mg by mouth twice daily. - ferrous sulfate 325 mg (65 mg iron) tablet Take 1 tablet by mouth twice daily. - lisinopril-hydroCHLOROthia zide (PRINZIDE,ZESTORETIC) 10-12.5 mg per tablet Take 1 tablet by mouth once daily. - metFORMIN (GLUCOPHAGE) 850 mg tablet Take 850 mg by mouth twice daily. - KLOR-CON M20 20 mEq tablet Take 20 mEq by mouth twice daily. - epinephrine (EPIPEN 2-SIMÓN INJECTION) 1 application by INJECTION(UNSPECIFIED PARENTERAL ROUTES) route as needed (for bee sting). - melatonin 10 mg tab Take 10 mg by mouth at bedtime as needed for for insomnia. Problem List As Of Date 11/03/2020 Noted Resolved Primary hypertension [I10] 10/14/2020 Obesity (BMI 30-39.9) [E66.9] 10/14/2020 PCOS (polycystic ovarian syndrome) [E28.2] 10/14/2020 RLS (restless legs syndrome) [G25.81] 10/14/2020 Encounter Status:Closed by NANCY JAMISON on 11/03/20 [facility] ANES POSTPROC EVALon 021 ANES POSTPROC EVAL HNO ID: [id number] Author: Antonio Ma I, MD Service: Anesthesiology Author Type: Anesthesiologist Type: Anesthesia Postprocedure Evaluation Filed: 10/28/2020 12:35 PM Note Text: POST ANESTHESIA EVALUATION NOTE : 1985 Procedure Summary Date: 10/28/20 Room / Location: ORA / OR Anesthesia Start: 845 Anesthesia Stop: 1109 Procedures: LAPROSCOPIC OVARY CYSTECTOMY (Right Pelvis) CHROMOTUBATION OVIDUCT (Bilateral Vagina ) LAPAROSCOPIC LYSIS ADHESIONS PERITONEUM (N/A Abdomen) Diagnosis: Cyst of right ovary (Cyst of right ovary [N83.201]) Surgeons: Caitlyn Sneed MD; Bo Galdamez MD Responsible Provider: Antonio Ma I, MD Anesthesia Type: general ASA Status: 2 Anesthesia Type: general Last vitals Vitals Value Taken Time BP 138/80 10/28/20 1230 Temp 36.3 ?C (97.3 ?F) 10/28/20 1106 Pulse 100 10/28/20 1233 Resp 16 10/28/20 1233 SpO2 100 % 10/28/20 1233 Vitals shown include unvalidated device data. Post Anesthesia Patient Status Patient Evaluation: PACU. PACU/ICU Patient Condition: stable. Anticipated Disposition: inpatient floor planned admission. Neurological Status: aware and responsive. Pulmonary Status: breathing comfortably on supplemental oxygen Airway Control: returned to baseline unsupported. Cardiovascular Status: stable. Pain Management: clinically adequate Postoperative Hydration: acceptable. Intraoperative Events: no significant anesthesia events Post Operative Nausea/Vomiting Status: PONV - significant post operative nausea or vomiting with additional medications being ordered/administered. Anesthetic Observations: Recommendation: continue current plan of care. No complications documented. SIGNATURE: Antonio Ma MD PATIENT NAME: Brad Fleming DATE: October 28, 2020 TIME: 12:34 PM CSN: [id number] [facility] ANES PRE-OPon 10-28-2020 ANES PRE-OP HNO ID: [id number] Author: Antonio Ma I, MD Service: Anesthesiology Author Type: Anesthesiologist Type: Anesthesia Preprocedure Evaluation Filed: 10/28/2020 8:11 AM Note Text: ANESTHESIOLOGY DAY OF SURGERY NOTE : 1985 Procedure(s) (LRB): LAPROSCOPIC OVARY CYSTECTOMY (Right) LAPAROSCOPIC OOPHORECTOMY (Right) CHROMOTUBATION OVIDUCT (Bilateral) LAPAROSCOPY SURGICAL WITH SALPINGOSTOMY (Bilateral) LAPAROSCOPIC SALPINGECTOMY (Bilateral) Surgeon(s): MD Bo Smiley MD Estimated body mass index is 39.3 kg/m? as calculated from the following: Height as of 10/14/20: 154.9 cm (5' 1 ). Weight as of 10/14/20: 94.3 kg (208 lb). Most recent hematocrit and potassium results: Hematocrit 40.6 09/01/2020 Potassium 3.7 09/01/2020 Relevant Problems CARDIO (+) Primary hypertension I - PHYSICAL EVALUATION AIRWAY Patient intubated: No. Tracheostomy tube not present Mallampati: III. TM distance: >3 FB. Mouth opening: adequate. Short neck: no. Thick neck: yes DENTAL Dental findings: missing tooth/teeth. Additional exam findings: no II - ANESTHESIA PLAN ASA Score: 2 Anesthetic Plan: general Airway type: ETT NPO Status: adequate Administration of chronic beta velma medication planned. Monitoring plan: standard ASA. Postoperative analgesic plan: parenteral or oral opioids. Anesthetic Risks, Benefits, Alternatives, Personnel Discussed. Consent obtained from: patient.Patient / Surrogate agrees to blood products: blood products not planned DNR status not reviewed with patient and/or family prior to surgery. Significant changes in the patient condition since the History and Physical, not otherwise documented in primary service progress note: no. Vitals Value Taken Time BP 113/67 10/28/20 0721 Pulse 94 10/28/20 0721 Resp 18 10/28/20720 Temp 36.8 ?C (98.2 ?F) 10/28/20720 SpO2 98 % 10/28/20720 Facility-Administered Medications as of 10/28/2020 Medication Dose Route Frequency - lidocaine 10 mg/mL (1 %) 1-2 mg injection (XYLOCAINE) 0.1-0.2 mL INTRADERMAL PRN - lactated ringers iv infusion 5-30 mL/hr INTRAVENOUS CONTINUOUS - clindamycin iv piggyback 900 mg in D5W 50 mL (CLEOCIN) 900 mg INTRAVENOUS Pre-Op Once And - aztreonam 2 g in D5W 100 mL MB+ (AZACTAM) 2 g INTRAVENOUS Pre-Op Once - [COMPLETED] acetaminophen 1,000 mg tab(s) (TYLENOL) 1,000 mg ORAL Pre-Op Once - [COMPLETED] promethazine 12.5 mg tab(s) (PHENERGAN) 12.5 mg ORAL Pre-Op Once Outpatient Medications as of 10/28/2020 Medication Sig - ergocalciferol 50,000 unit capsule (VITAMIN D2, DRISDOL) Take 1 capsule by mouth one time a week for 12 doses. for low vitamin D to replenish stores- - cyclobenzaprine (FLEXERIL) 10 mg tablet Take 10 mg by mouth once daily. - Etodolac 500 mg tablet Take 500 mg by mouth twice daily. - ferrous sulfate 325 mg (65 mg iron) tablet Take 1 tablet by mouth twice daily. - lisinopril-hydroCHLOROthia zide (PRINZIDE,ZESTORETIC) 10-12.5 mg per tablet Take 1 tablet by mouth once daily. - metFORMIN (GLUCOPHAGE) 850 mg tablet Take 850 mg by mouth twice daily. - KLOR-CON M20 20 mEq tablet Take 20 mEq by mouth twice daily. - melatonin 10 mg tab Take 10 mg by mouth at bedtime as needed for for insomnia. - epinephrine (EPIPEN 2-SIMÓN INJECTION) 1 application by INJECTION(UNSPECIFIED PARENTERAL ROUTES) route as needed (for bee sting). I have interviewed and examined the patient. I have reviewed the medical record and/or the pre-anesthesia evaluation, pertinent labs, and test results. This contains updated information obtained within 48 hours of Surgery/Procedure. SIGNATURE: Antonio Ma MD PATIENT NAME: Brad Fleming DATE: October 28, 2020 TIME: 8:10 AM CSN: [id number] Normal [facility] CYTOLOGYon 10-28-2020 CYTOLOGY Specimen originated from [facility] Specimen #: [id number] Submitting Physician: CAITLYN ROBLEDO MD SPECIMEN SUBMITTED A: PELVIC WASHING (THINPREP AND CELL BLOCK) FINAL DIAGNOSIS A. PELVIC WASHING (THINPREP AND CELL BLOCK) Negative for malignant cells. Single psammomatous calcification without associated epithelium. Fam Troy M.D. (Electronic Signature) CLINICAL DATA Cyst of right ovary GROSS DESCRIPTION 19 ml hazy pale pink fluid. 1 ThinPrep, cell block STAINS A: PELVIC WASHING (THINPREP AND CELL BLOCK) THIN PREP Non-White Lead Grinder, CELL BLOCK, H&E, Initial Date of Report: 10/29/2020 Date of Procedure: 10/28/2020 Date of Receipt: 10/29/2020 Submitted by: CAITLYN ROBLEDO MD Location: OR Diagnostic [place] [address]. [place] Number: [id number] Normal [facility] HISTORY PHYSICALon HISTORY PHYSICAL HNO ID: [id number] Author: Bo Galdamez MD Service: Gynecology Author Type: Physician Type: HANDP Filed: 10/28/2020 9:07 AM Note Text: UPDATED HISTORY AND PHYSICAL EXAMINATION SERVICE DATE: 10/28/2020 SERVICE TIME: 8:20 AM PHYSICAL EXAM MUST BE COMPLETED ON ADMISSION The History and Physical (completed in the past 30 days) has been reviewed and the patient has been examined. The contents accurately reflect the patient's condition with the following additions or revisions since the HANDP was completed. Examination indicates no changes. This HANDP can be found in the Electronic Medical Record dated 10/14/2020. SIGNATURE: Carley Mayfield MD PATIENT NAME: Brad Fleming DATE: October 28, 2020 TIME: 8:20 AM Attending note: I spoke to pt prior to the procedure starts and confirm with pt again regarding our plans. The plan for procedure is laparoscopy, chromotubation, possible bilat neosalpingostomy, possible bilat salpingectomy. She agrees to have bilat salpingectomy if we feel that it is necessary. Aidee Mclain MD [facility] NURSING PROGon 10-28-2020 NURSING PROG HNO ID: [id number] Author: Anahy Medley RN Service: Nursing Author Type: Registered Nurse Type: Nursing Progress Note Filed: 10/28/2020 1:52 PM Note Text: PATIENT EDUCATION PATIENT NAME: Brad Fleming PATIENT LOCATION: [facility] OR POOL/FV OR POOL READINESS TO LEARN COGNITIVE ABILITY: Alert and oriented MOTIVATION TO LEARN: Eager FAMILY SUPPORT: High - Very involved in pt care INSTRUCTION PROVIDED TO: Patient and family member PATIENT LEARNS BEST BY: Written Instruction - Hand-outs FACTORS AFFECTING LEARNING: None PHYSICAL LIMITATIONS AFFECTING LEARNING: None LEARNING RESPONSE DIAGNOSIS: ADULT: PATIENT/FAMILY RESPONSE: Verbalizes understanding of instructions givens METHOD OF INSTRUCTION: Written instruction - handouts FOLLOW-UP PLAN: Patient instructed to call with any further issues INSTRUCTIONAL AIDS USED: NA SUPPLEMENTAL MATERIAL PROVIDED TO PATIENT: None REFERRAL (RECOMMENDATION): None Electronically Signed By: Anahy Medley PATIENT EDUCATION PATIENT NAME: Brad Fleming PATIENT LOCATION: [facility] OR POOL/FV OR POOL READINESS TO LEARN COGNITIVE ABILITY: Alert and oriented MOTIVATION TO LEARN: Eager FAMILY SUPPORT: High - Very involved in pt care INSTRUCTION PROVIDED TO: Patient and family member- PATIENT LEARNS BEST BY: Individual Instruction FACTORS AFFECTING LEARNING: None PHYSICAL LIMITATIONS AFFECTING LEARNING: None LEARNING RESPONSE DIAGNOSIS: ADULT:PATIENT/FAMILY RESPONSE: Verbalizes understanding of instructions given METHOD OF INSTRUCTION: Written instruction - handouts FOLLOW-UP PLAN: Patient instructed to call with any further issues INSTRUCTIONAL AIDS USED: NA SUPPLEMENTAL MATERIAL PROVIDED TO PATIENT: None REFERRAL (RECOMMENDATION): None Electronically Signed By: Anahy Medley [facility] NURSING PROG HNO ID: [id number] Author: Yolanda Cifuentes RN Service: Nursing Author Type: Registered Nurse Type: Nursing Progress Note Filed: 10/28/2020 12:24 PM Note Text: Scopolamine Transdermal Patch URL of this page: http://www.nlm.nih.gov/med lineplus/druginfo/meds/a68 2509.html Why is this medication prescribed? Scopolamine is used to prevent nausea and vomiting caused by motion sickness. This medication is sometimes prescribed for other uses; ask your doctor or pharmacist for more information. How should this medicine be used? Scopolamine comes as a patch to be placed on the skin behind your ear. Apply one patch to a clean, dry, hairless area behind the ear. The patch should be applied at least 4 hours before its effects will be needed. Each patch is good for 3 days. Follow the directions on your prescription label carefully, and ask your doctor or pharmacist to explain any part you do not understand. Use the scopolamine patch exactly as directed. To apply the patch, follow the directions provided by the wireless sales associate and these steps: 1. After washing the area behind the ear, wipe the area with a clean, dry tissue to ensure that the area is dry. 2. Remove the patch from its protective pouch. To expose the adhesive surface of the patch, the clear plastic protective strip should be peeled off and discarded. Contact with the exposed adhesive layer should be avoided to prevent contamination of fingers with scopolamine. Temporary blurred vision and dilation of the pupils may result if scopolamine comes into contact with your eyes. 3. Place the adhesive side against the skin. 4. Press the patch firmly for 10 to 20 seconds. Be sure that the edges adhere to your skin. 5. After you have placed the patch behind your ear, wash your hands thoroughly. At the end of 3 days, or when the scopolamine patch is no longer needed, (usually the day after surgery) remove the patch and throw it away. Wrap the patch in tissue or paper to avoid exposing anyone else to the remaining medication. Wash your hands and the area behind your ear thoroughly to remove any traces of scopolamine from the area. If a new patch needs to be applied, place a fresh patch on the hairless area behind your other ear. What special precautions should I follow before using scopolamine patches? tell your doctor and pharmacist if you are allergic to scopolamine or any other drugs. tell your doctor and pharmacist what prescription and nonprescription medications you are taking, especially medications that decrease mental alertness; cough, cold, and allergy products; and vitamins. tell your doctor if you have or have ever had glaucoma; heart, liver, or kidney disease; stomach or intestinal obstruction; or difficulty urinating. tell your doctor if you are , plan to become , or are breast-feeding. If you become while using scopolamine patches, call your doctor immediately. if you are having surgery, including dental surgery, tell the doctor or dentist that you are using scopolamine patches. you should know that this drug may make you drowsy. Do not drive a car or operate machinery until you know how scopolamine patches will affect you. This is especially important during the first 3 to 5 days of therapy and when your dose is increased. talk to your doctor about the safe use of alcohol while taking this drug. Alcohol increases the side effects caused by scopolamine patches. What should I do if I forget a dose? Apply the missed patch as soon as you remember it. Do not apply more than one patch at a time. What side effects can this medication cause? Scopolamine patches may cause side effects. Tell your doctor if any of these symptoms are severe or do not go away: drowsiness disorientation dry mouth blurred vision dilated pupils confusion hallucinations difficulty urinating rash If you experience any of the following symptoms, remove the patch and call your doctor immediately: eye pain dizziness rapid pulse What should I know about storage and disposal of this medication? Keep this medication in the container it came in, tightly closed, and out of reach of children. Store it at room temperature and away from excess heat and moisture (not in the bathroom). Throw away any medication that is outdated or no longer needed. Talk to your pharmacist about the proper disposal of your medication. In case of emergency/overdose In case of overdose, call your local poison control center at . If the victim has collapsed or is not breathing, call local emergency services at 764. What other information should I know? Keep all appointments with your doctor and the laboratory. The patch is not affected by limited exposure to water during bathing or swimming. Do not let anyone else use your medication. Ask your pharmacist any questions you have about refilling (more content not included)... Normal [facility] OPERATIVE NOon 10-28-2020 OPERATIVE NO HNO ID: [id number] Author: Caitlyn Sneed MD Service: Gynecology Oncology Author Type: Physician Type: Operative Report Filed: 11/10/2020 6:38 PM Note Text: OPERATIVE/PROCEDURE REPORT LOG ID: [id number] SURGERY/PROCEDURE DATE: 10/28/2020 INCISION/PROCEDURE START TIME: 9:17 AM INCISION CLOSE/PROCEDURE END TIME: 10:49 AM SURGEON(S)/PROCEDURALIST(S ) AND STICK FEEDER(S): Surgeon(s) and Role: Panel 1: * Caitlyn Sneed MD - Primary Panel 2: * Bo Galdamez MD - Primary * Carley Mayfield MD - Fellow * Wendy Andre MD - Fellow No Additional Staff SURGERY/PROCEDURE(S): 1. Laparoscopic right ovarian cystectomy ANESTHESIA: General SURGERY/PROCEDURE DETAILS: The patient was taken to the operating room. After induction of general anesthesia, she was prepped and draped in the dorsal lithotomy position. A veliz catheter was placed. An incision was made and the subcutaneous tissue was dissected to the level of the fascia. The fascia was elevated and incised sharply and the peritoneal cavity entered using the open Stuart technique. The abdomen was insufflated with CO2 and pneumoperitoneum was created. A 12mm balloon trocar was inserted and a 10mm 0 degree scope was then placed and the peritoneal cavity was inspected. The bowel, omentum, diaphragm and liver were grossly normal in appearance. With the patient in steep trendelenburg, a cyst was visualized arising from the right side. The left adnexa was normal in appearance. A 5mm incisions were placed in the left lower quadrant and one in the right lower quadrant and laparoscopic trocars were inserted. Pelvic washings were obtained. An incision was made using monopolar cautery through the cyst wall. .Next, a cystectomy was performed stripping the cyst out of the ovary. The cyst was then placed in an endobag and submitted to pathology. The ovarian parynchema was inspected and hemostasis was assured. We then turned the procedure over to Dr. Mclain Pathology returned showing benign findings. The ports were then removed and pneumoperitoneum was evacuated. The fascia underlying the umbilical incision was closely using 0-vicryl suture. The skin was closed using 4-0 Monocryl suture.The patient tolerated the procedure well and was taken to recovery in stable condition. All sponge, needle and instrument counts were correct. x2 ? PRE-OP/PRE-PROCEDURE DIAGNOSIS: right ovarian cyst POST-OP/POST-PROCEDURE DIAGNOSIS: Same as Preop ESTIMATED BLOOD LOSS: 5 mls SPECIMENS: right ovarian cyst IMPLANTABLE DEVICES: None DRAINS: None COMPLICATIONS: None PARTICIPATION IN SURGERY/PROCEDURE: I/primary surgeon/proceduralist performed the procedure with assistance. SIGNATURE: Caitlyn Sneed MD PATIENT NAME: Brad Fleming DATE: November 07, 2020 TIME: 1:19 AM [facility] OPERATIVE NO HNO ID: [id number] Author: Bo Galdamez MD Service: Gynecology Author Type: Physician Type: Operative Report Filed: 11/04/2020 6:14 PM Note Text: NEUROUROLOGIST OPERATIVE/PROCEDURE REPORT LOG ID: [id number] Surgery/Procedure Date: 10/28/2020 Incision/Procedure Start Time: 9:17 AM Incision Close/Procedure End Time: Surgeon(s)/Proceduralist(s ) and Bottle House Quality Control Technician(s): Surgeon(s) and Role: Panel 1: * Caitlyn Sneed MD - Primary Panel 2: * Bo Galdamez MD - Primary * Carley Mayfield MD - Fellow * Wendy Andre MD - Fellow Informed Consent: Informed Consent obtained and on the chart Procedure: Laparoscopic partial right oophorectomy, lysis of adhesions (GynOnc), chromopertubation/ablation of endometriotic lesion. (LAMONT) Pre-Op/Pre-Procedure Diagnosis: Complex right ovarian cyst, fertility testing (for the chromotubation part of the procedure) Post-Op/Post-Procedure Diagnosis: Same as pre-op diagnosis Antibiotic: Pre-op antibiotics as ordered Procedure Details: Patient was taken to the operating room where the sign-in and time out were completed. General anesthesia was induced and found to be adequate. Once anesthesia was found to be adequate, her arms were then tucked to the side, she was placed in dorsal lithotomy position her legs were placed in Yellowfin stirrups with careful attention not to hyperflex or hyperextend the knees or hips. SCDs were placed and turned on for DVT prophylaxis. Exam under anesthesia was performed. Patient was prepped and draped in the usual fashion. A Veliz catheter was placed in the urinary bladder under sterile conditions An open-sided speculum was placed in the patient's vagina with clear visualization of the cervix. The anterior lip of the cervix was grasped with a single tooth tenaculum. and the cervix was serially dilated to allow placement of a Rumy device was placed in the uterus and left in place throughout the laparoscopic portion of the procedure. GynOnc then performed the laparoscopic entry with initial evaluation and right ovarian cystectomy with partial oophorectomy. Please see their operative report. Following GynOnc, we then performed chromopertubation, introducing dilute methylene blue through the Rumy manipulator. This demonstrated bilateral fill and spill from both fallopian tubes. Bilateral fallopian tubes had normal gross appearance with fimbrae present. One superficial lesion (less than 5 mm in size) at the left uterosacral ligament that likely endometriotic lesion was ablated using ligasure. The umbilicus was closed by GynOnc with the assistance of LAMONT fellow using 0-vicryl in an open fashion. The remaining skin incisions were closed by GynOnc team. The instruments were removed from the vagina. The Veliz catheter was removed. Sign-out was completed. IV Fluids: 1700mL Urine Output: 300 mL Estimated Blood Loss: 10mL Specimens: Partial right ovary with ovarian cyst, peritoneal washings Implantable Devices: None Drains: None Complications: None A digital sweep of the vaginal canal was performed by Carley Mayfield MD and it was ascertained that no instruments or other foreign bodies are retained within the cavity. Sponge, lap, and needle counts were correct times two and the patient was taken to the recovery room with stable vital signs after tolerating the procedure well. Bo Galdamez MD performed the LAMONT portion of the case with assistance of the LAMONT fellow. Findings: Uterus: Normal in size and appearnce, small subserosal fibroid 1cm in the posterior aspect of the uterus Right Ovary: Enlarged to 6cm with ovarian cyst. Gross rupture of cyst upon removal for mucinous fluid. Approximately 40% of ovarian cortex remained following partial cystectomy. Left Ovary: Normal Right Fallopian Tube: Normal gross appearance, fill and spill with chromopertubation. Left Fallopian Tube: Normal gross appearance, fill and spill with chromopertubation. 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 [facility] 11/03/2020 COMMENT The entire specimen was submitted for histologic evaluation. Two of the fourteen slides show focal psammoma bodies with associated serous epithelium on the outer surface of the cyst. These are not present in the tissue submitted for frozen section, however. Given this finding, the presence of an ovarian or peritoneal low-grade serous neoplasm cannot be excluded. Drs. Ho and Immanuel Santana reviewed slides A5 and A13 in intradepartmental consultation via telepathology with concurrence. The unexpected finding was discussed with Dr. Robledo by telephone on 11/03/2020 at 13:15. The case was also discussed with, and the slides reviewed by, the frozen section pathologist on the same day. Fam Troy M.D. (Electronic Signature) SPECIMEN SUBMITTED A: RIGHT OVARIAN CYST CLINICAL DATA CYST OF RIGHT OVARY LAPAROSCOPIC OVARIAN CYSTECTOMY INTRAOPERATIVE CONSULT DIAGNOSIS FSA1: Mucinous neoplasm. No evidence of borderline tumor or malignancy on entry level sales representative frozen section (Dr. Coles). Intraoperative consultation performed at [facility], [address] [place] [address] GROSS DESCRIPTION A. Received fresh for frozen section designated right ovarian cyst is a ruptured and fragmented cyst that weighs 12 grams and aggregates to 8 x 4 x 0.6 cm. The outer surface is pink-mclain and smooth. The inner lining contains multiple cystic papillations containing mucinous material. These papillations occupy 80% of the inner lining. The cyst wall measures 0.2 cm in thickness. There is no normal appearing ovarian parenchyma. Process Improvement Manager sections are submitted as follows: FSA1 cyst for frozen section, A2-A7 cyst in formalin for permanent section. The remainder of the specimen is subsequently submitted in cassettes A8-A14. WE/virgilio 10/28/2020 MANISHA/jessica 10/30/2020 Gross examination performed at [place] [address] Date of Report: 11/03/2020 Date of Procedure: 10/28/2020 Date of Receipt: 10/28/2020 Submitted by: CAITLYN ROBLEDO MD Location: [facility] Diagnostic interpretation performed at [facility], [address] [place] [address]. CLIA Number: [id number] Normal [facility] 10-23-2020 CNPN Telephone (GYN) -- BRAD FLEMING ([id number]) 1985 F Date Time Provider Department 10/23/20 SHO MILNER During your visit today, we recorded the following information about you: Sho Milner RN 10/23/2020 4:08 PM Signed Patient's FMLA form completed and faxed with confirmation. Will place to be scanned. Sho Milner RN 11/17/2020 11:58 AM Signed Spoke with patient. She stated that [facility] updated that they faxed additional paperwork to our office. Paperwork was not received. Patient will call [facility] to have them send papers to office. Correct fax number given. Allergies As of Date: 10/23/2020 Noted Allergy Reaction BEE VENOM PROTEIN (HONEY BEE) 08/27/2020 2 - Rash Comments: Rash spreads from bee stings PENICILLINS 09/07/2014 4 - Hives TIZANIDINE 05/07/2020 1 - Mental Status Change TRAMADOL 08/27/2020 14 - Other: See Comments Comments: dizziness Date Reviewed: 10/14/2020 Reviewed by: Neva Moore APRN.MAT PACKER - Fully Assessed Reason for Visit: [facility] Paperwork [[id number]] Prescriptions as of 11/17/2020 - ibuprofen (MOTRIN) 600 mg tablet Take 1 tablet by mouth every 8 hours as needed for pain. - docusate sodium (COLACE) 100 mg capsule Take 1 capsule by mouth twice daily. - acetaminophen (TYLENOL EXTRA STRENGTH) 500 mg tablet Take 2 tablets by mouth every 6 hours as needed for pain. - acetaminophen/pyrilamine/c aff (MIDOL COMPLETE ORAL) Take by mouth as needed. - ergocalciferol 50,000 unit capsule (VITAMIN D2, DRISDOL) Take 1 capsule by mouth one time a week for 12 doses. for low vitamin D to replenish stores- - cyclobenzaprine (FLEXERIL) 10 mg tablet Take 10 mg by mouth once daily. - Etodolac 500 mg tablet Take 500 mg by mouth twice daily. - ferrous sulfate 325 mg (65 mg iron) tablet Take 1 tablet by mouth twice daily. - lisinopril-hydroCHLOROthia zide (PRINZIDE,ZESTORETIC) 10-12.5 mg per tablet Take 1 tablet by mouth once daily. - metFORMIN (GLUCOPHAGE) 850 mg tablet Take 850 mg by mouth twice daily. - KLOR-CON M20 20 mEq tablet Take 20 mEq by mouth twice daily. - epinephrine (EPIPEN 2-SIMÓN INJECTION) 1 application by INJECTION(UNSPECIFIED PARENTERAL ROUTES) route as needed (for bee sting). - melatonin 10 mg tab Take 10 mg by mouth at bedtime as needed for for insomnia. Problem List As Of Date 10/23/2020 Noted Resolved Primary hypertension [I10] 10/14/2020 Obesity (BMI 30-39.9) [E66.9] 10/14/2020 PCOS (polycystic ovarian syndrome) [E28.2] 10/14/2020 RLS (restless legs syndrome) [G25.81] 10/14/2020 Encounter Status:Closed by SHO MILNER on 10/23/20 Normal [facility] Type and SCR (30D)on 021 ABO/RH(D) Positive Normal [facility] Comment on above: Performed By: #### T [id number] ####[facility] [place], [place] [phone] [facility] OZZIE Telephone (ABAD) -- BRAD FLEMING ([id number]) 1985 F Date Time Provider Department 10/09/20 NANCY JAMISON During your visit today, we recorded the following information about you: Nancy Jamison RN 10/09/2020 12:24 PM Signed Procedure: Ovarian cystectomy Physician: Caitlyn Owusu Location: [facility]: [phone] Date AND Time: 10/28/20 MEDICAL CLEARANCE: TBd CARDIAC CLEARANCE: TBD PRE ADMISSION TESTIN10/14/20 AT: Nga THE FOLLOWING WAS EVALUATED Motivation To Learn: Interested Family/Significant Other Support: Unable to assess - Family not present Cognitive Ability: Alert and oriented Patient Learns Best By: Individual Instruction Written Instruction - Hand-outs Verbal Instruction The Following Influencing Factors Were Barriers To This Education Session: None The Following Physical Limitations Were Barriers To This Education Session: None Instruction Provided To: Patient MEDICATION INFORMATION ASPIRIN and ADVIL can make you more prone to bleeding after surgery. Please STOP taking these medications at least (5) days before and for (3) days after surgery or procedure. Some common medications that contain ASPIRIN or act like Aspirin are TO BE AVOIDED: This is a list of the medications you should avoid: Advill Celebrex Motrin Aggrenox Clinoril Naprosyn(naproxen) Agrylin NSAIDS Pepto-Bismol Aleve Ecotrin Persantine Martina-W[place] Excedrin Plaquenil Anacin Heparin Plavix Ascriptin Herbals Pletal Aspergum Ibuprofen Ticlid Lev Indocin Trental Bextra Midol Vanquish Bufferin Gingko Biloba Vitamin E (MVI) MEDICATIONS YOU MAY SUBSTITUTE Anacin 3 Fioricet * Tylenol with codeine * Darvocet N 100 * Plenadol Percocet * Datril Sine-Aide Tylenol Excedrin PM (*Denotes prescription needed to obtain these medications) Learning Topic: Pre/Post op information Instructions reviewed for arrival time, parking and admission. Specific topics reviewed and discussed with all surgical patients include: No eating, drinking, or smoking after midnight prior to surgery. Medications as prescribed by anesthesia or the physician. Bowel Prep as indicated. None needed Hibiclens shower tam and morning of surgery. Patient will purchase OTC Review of information contained in surgical packet Pre-operative and intra-operative general activities were reviewed including: Holding Area, assessments, surgical positioning, and Family Waiting Area. Written post-operative instructions were given to the patient regarding post-op activity, pain control, symptoms to report. Post-operative instructions provided and reviewed with patient/family: ACTIVITY - No heavy lifting (>5-10 lbs), no pushing/pulling, OK to climb stairs DRIVING - No driving while taking prescription pain medication, or within 24 hours of anesthesia, OK to ride in a car. DIET - Advance diet as tolerated and as ordered by MD, drink 8 glasses of water a day, eat a diet high in protein and fiber unless otherwise directed by MD. CATHETER - Will be inserted during surgery, you may go home with a catheter. If you go home with a catheter you will have to come back to the office for a voiding trial, UTI symptoms reviewed and patient instructed to notify MD of any of these symptoms. INCISION CARE - Keep incision clean and dry, alyx to be removed 7-10 days after surgery, steristrips do not need to be removed by MD BATHING - OK to shower after surgery unless otherwise directed by MD, no tub baths. PAIN MEDICATION - IV pain medication after surgery, IV DRYWALL INSTALLER if ordered by MD, discharged home with a prescription for PO pain medication, pain management after surgery, side effects of pain medication (including constipation, dizziness, drowsiness, and medication interactions). DVT PROPHYLAXIS - Early ambulation, SCDs, injectable anticoagulants (heparin, lovenox, etc) RESPIRATORY - Incentive spirometer, coughing/deep breathing exercises, ambulation. RETURN TO WORK - As directed by physician, please send any FMLA papers to physician's engineering secretary. SYMPTOMS TO NOTIFY MD - Fever, chills, nausea, vomiting, increased or severe pain, heavy vaginal bleeding, foul smelling vaginal drainage, pain or swelling in extremities. URGENT SYMPTOMS - Call 911 or go to ER if any shortness of breath, difficulty breathing, or chest pain. HOW TO CONTACT PHYSICIAN - Physician's office phone number given to patient, if after hours patient instructed to call gas operator and ask for the doctor infection control nurse. Patient and family have phone number to call 24 hours/day. Patient Evaluation: Verbalizes understanding Patient and/or family express understanding of upcoming surgery and the operative process. Questions answered. Follow Up Plan: Follow up as needed Supplemental Material Given: Pre-operative teaching packet provided to the patient: INPATIENT/OUTPATIEN (more content not included)... Normal [facility] Vital Signs Date Time Vital Sign Value Performing Clinician Mihaela ye 01-03-2023 10:27-0400 Body height 154.9 cm Jenny Fog GASOLINE ENGINE ASSEMBLER.MAT PACKER Work Phone: [facility] 01-03-2023 10:27-0400 Body weight 93.44 kg Jenny Fog GASOLINE ENGINE ASSEMBLER.MAT PACKER Work Phone: [facility] 01-03-2023 10:27-0400 Diastolic blood pressure 82 mm[Hg] Jenny Fog GASOLINE ENGINE ASSEMBLER.MAT PACKER Work Phone: [facility] 01-03-2023 10:27-0400 Systolic blood pressure 130 mm[Hg] Jenny Fog GASOLINE ENGINE ASSEMBLER.MAT PACKER Work Phone: [facility] 11-25-2021 09:52-0400 Body height 154.9 cm Jenny Fog GASOLINE ENGINE ASSEMBLER.MAT PACKER Work Phone: [facility] 11-25-2021 09:52-0400 Body weight 91.17 kg Jenny Ye APRN.MAT PACKER Work Phone: [facility] 11-25-2021 09:52-0400 Diastolic blood pressure 88 mm[Hg] Jenny Ye GASOLINE ENGINE ASSEMBLER.MAT PACKER Work Phone: [facility] 11-25-2021 09:52-0400 Systolic blood pressure 138 mm[Hg] Jenny Ye GASOLINE ENGINE ASSEMBLER.MAT PACKER Work Phone: [facility] Encounters Encounter Date Encounter Type Care Provider Facility Start: 04-05-2024 End: 04-05-2024 Refill Jenny Ye GASOLINE ENGINE ASSEMBLER.MAT PACKER Work Phone: Obstetrics/Gynecology Comment on above: Refill Request Start: 01-08-2024 End: 01-12-2024 Telephone encounter Jenny Ye APRN.MAT PACKER Work Phone: Obstetrics/Gynecology Start: 12-29-2023 End: 12-29-2023 Refill Jenny Ye GASOLINE ENGINE ASSEMBLER.MAT PACKER Work Phone: Obstetrics/Gynecology Comment on above: Refill Request Start: 01-05-2023 Telephone encounter Jenny Varma APRN.MAT PACKER Work Phone: CB/Gynecology Comment on above: Results Start: 01-05-2023 End: 01-05-2023 ambulatory Tayla Willard MD Work Phone: Obstetrics/Gynecology Start: 01-05-2023 End: 01-05-2023 Patient encounter procedure Tayla Willard MD Work Phone: [facility] Start: 01-03-2023 End: 01-04-2023 ambulatory JENNY YE Facility:[facility] Start: 01-03-2023 End: 01-03-2023 Patient encounter procedure Jenny Ye GASOLINE ENGINE ASSEMBLER.MAT PACKER Work Phone: Obstetrics/Gynecology Comment on above: Encounter for gyneco logical examination (general) (routine) without abnormal findings (Primary Dx); Screening for malignant neoplasm of cervix; History of abnormal cervical Pap smear; Counseling for initiation of control method; Encounter for screening breast examination; Abnormal uterine bleeding (AUB); PCOS (polycystic ovarian syndrome); Vaginal discharge Start: 01-03-2023 End: 01-03-2023 Patient encounter status Jenny Ye APRN.CNP Work Phone: [facility] Work Phone: Start: 05-02-2022 Encounter for genera l adult medical examination without abnormal findings DR KEILA MCCORMICK . [facility] Start: 04-28-2022 End: 04-29-[address] KEILA MCCORMICK . Facility:[facility] Start: 04-28-2022 End: 04-29-2022 Encounter for general adult medical examination without abnormal findings DR KEILA MCCORMICK . Facility:[facility] Start: 04-07-2022 End: 04-07-[address] KEILA MCCORMICK . Facility: Start: 02-23-2022 Telephone encounter Jenny Varma APRN.MAT PACKER Work Phone: CB/Gynecology Comment on above: Results Start: 02-21-2022 End: 02-22-2022 ambulatory JENNY YE Facility:[facility] Start: 02-21-2022 Telephone encounter Jenny Varma APRN.MAT PACKER Work Phone: Obstetrics/Gynecology Comment on above: Urinary Problem Start: 02-17-2022 End: 02-17-[address] KEILA MCCORMICK . Facility: Start: 11-25-2021 Telephone encounter Jenny Varma APRN.MAT PACKER Work Phone: Obstetrics/Gynecology Comment on above: Results Start: 11-25-2021 End: 11-25-2021 Patient encounter procedure Jenny Ye APRN.MAT PACKER Work Phone: Obstetrics/Gynecology Comment on above: Encounter for gyneco logical examination (general) (routine) without abnormal findings (Primary Dx); Encounter for screening breast examination; PCOS (polycystic ovarian syndrome); Menorrhagia with regular cycle; Medication management Start: 11-25-2021 End: 11-25-2021 Patient encounter status Jenny Ye APRN.MAT PACKER Work Phone: Obstetrics/Gynecology Start: 10-21-2021 End: 10-22-[address] KEILA MCCORMICK . Facility:[facility] Start: 10-12-2021 End: 10-13-[address] KEILA MCCORMICK . Facility:[facility] Start: 07-01-2021 End: 07-01-[address] KEILA MCCORMICK . Facility:[facility] Start: 12-04-2020 End: 12-04-2020 Subsequent hospital visit by physician [facility] Radiology Ct Scan Comment on above: Post-operative state [Z98.890] Start: 10-09-2017 End: 10-10-2017 Patient encounter DEFAULT PHYSICIAN Facility:[facility] Procedures Date Procedure Procedure Detail Performing Clinician Start: 01-05-2023 Us pelvic nonobstetr ic real-time image complete Jenny Ye GASOLINE ENGINE ASSEMBLER.MAT PACKER Work Phone: Start: 12-04-2020 Ct abdomen & pelvis w/contrast material Jasmina Jacinto APRN.MAT PACKER Work Phone: Start: 10-12-2020 Antibody screen Comment on above: Performed By: #### T [id number] ####[facility] [place], [place] [phone] Plan of Treatment Date Care Activity Detail Author Start: 01-04-2028 HPV Testing HPV Testing [facility] Start: 01-04-2028 Pap Testing Pap Testing [facility] Start: 01-04-2028 Screening for malign ant neoplasm of cervix Cervical Cancer Screening [facility] Start: 09-28-2025 HPV TESTING HPV TESTING [facility] Start: 09-21-2025 PAP TESTING PAP TESTING [facility] Start: 11-19-2024 End: 11-19-2024 Patient encounter procedure 11/19/2024 9:20 AM EDT Office Visit Obstetrics/Gynecology [address] [place] [address] [place] [address] [place] [address] Annual Obstetrics/Gynecology Comment on above: Annual Start: 01-09-2024 End: 01-09-2024 Patient encounter procedure 01/09/2024 11:00 AM EDT Office Visit Obstetrics/Gynecology [address] [place] [address] Jenny Ye APRN.MAT PACKER [address] [facility] [place] [address] annual Obstetrics/Gynecology Comment on above: annual Start: 11-12-2023 Covid-19 Vaccine () Covid-19 Vaccine () [facility] Start: 11-12-2023 Influenza vaccination Influenza Vacc ine (#1) [facility] Start: 01-03-2023 End: 01-04-2024 DHEA-S BLD [facility] Work Phone: Comment on above: Expected: 01/03/2023 , Expires: 01/04/2024 Start: 01-03-2023 End: 01-04-2024 Hemoglobin A1c in Blood [facility] Work Phone: Comment on above: Expected: 01/03/2023 , Expires: 01/04/2024 Start: 01-03-2023 End: 01-04-2024 INSULIN, FREE [facility] Work Phone: Comment on above: Expected: 01/03/2023 , Expires: 01/04/2024 Start: 01-03-2023 End: 01-04-2024 PELVIC US WHI PELVIC US WHI Anc Imaging Routine Abnormal uterine bleeding (AUB) PCOS (polycystic ovarian syndrome) Expected: 01/03/2023, Expires: 01/04/2024 [facility] Work Phone: Comment on above: Expected: 01/03/2023 , Expires: 01/04/2024 Start: 01-03-2023 End: 01-04-2024 Testosterone [Mass/volume] in Serum or Plasma [facility] Work Phone: Comment on above: Expected: 01/03/2023 , Expires: 01/04/2024 Start: 11-11-2022 Covid-19 Vaccine () Covid-19 Vaccine ( season) [facility] Start: 03-13-2022 Depression Assessment Depression Ass essment [facility] Start: 02-21-2022 End: 04-23-2022 Bacteria identified in Urine by Culture [facility] Work Phone: Comment on above: Expected: 02/21/2022 , Expires: 04/23/2022 Start: 12-23-2021 COVID-19 VACCINE (4 - Booster for Pfizer series) COVID-19 VACCINE (4 - Booster for Pfizer series) [facility] Start: 11-11-2021 Influenza vaccination INFLUENZA (#1) [facility] Start: 10-27-2021 COVID-19 VACCINE (3 - Booster for Pfizer series) COVID-19 VACCINE (3 - Booster for Pfizer series) [facility] Start: 03-13-2021 DEPRESSION ASSESSMENT DEPRESSION ASS ESSMENT [facility] Start: 10-10-2006 Hepatitis B Vaccine (1 of 3 - 19+ 3-dose series) Hepatitis B Vaccine (1 of 3 - 19+ 3-dose series) [facility] Start: 10-10-2006 Urine microalbumin profile [facility] Start: 10-10-2005 ANNUAL PCP TEAM JEWELRY COATER DIONNA DISEASE VISIT ANNUAL PCP TEAM CHRONIC DISEASE VISIT [facility] Start: 10-10-2005 Anxiety Screening Anxiety Screening [facility] Start: 10-10-2005 BP CONTROLLED (<130/80) BP CON TROLLED (<130/80) [facility] Start: 10-10-2005 Depression Screening Depression Scre ening [facility] Start: 10-10-2005 HEPATITIS C SCREENING HEPATITIS C [facility] Start: 10-10-2005 Hepatitis C screening Hepatitis C [facility] Start: 10-10-2005 HIV SCREENING HIV SCREENING [facility] Start: 10-10-2005 HIV screening HIV Screening [facility] Start: 1999 Adult depression screening assessment DEPRESSION SCREENING [facility] Start: 1987 HEPATITIS B (1 of 3 - 3-dose series) HEPATITIS B (1 of 3 - 3-dose series) [facility] Start: 1987 Hepatitis B Vaccine (1 of 3 - 3-dose series) Hepatitis B Vaccine (1 of 3 - 3-dose series) [facility] BACTERIAL VAGINOSIS NAAT BACTERI AL VAGINOSIS NAAT Lab Routine Vaginal discharge 01/03/2023 11:00 AM EDT [facility] Work Phone: DEN[place]/TRICHOMONAS NAAT DEN[place] /TRICHOMONAS NAAT Lab Routine Vaginal discharge 01/03/2023 11:00 AM EDT [facility] Work Phone: PAP TEST PAP TEST Lab Rou mary kate Screening for malignant neoplasm of cervix History of abnormal cervical Pap smear 01/03/2023 10:50 AM EDT [facility] Work Phone: [facility] Immunizations Immunization Date Immunization Notes Care Provider Fa [facility] 01-02-2023 influenza virus vacc ine, unspecified formulation Jenny Fog GASOLINE ENGINE ASSEMBLER.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 1987 Unknown [id number] [id number] [id number] 1987 Unknown [id number] 2.16.84 [id number] 1987 Unknown [id number] 2.16.84 [id number] 1987 Unknown [id number] 2.16.84 [id number] 1987 Unknown [id number] 2.16.84 [id number] 1987 Unknown [id number] 2.16.84 [id number] 1959 Unknown [id number] 1959 Unknown [id number] 1959 Unknown [id number] 1959 Unknown [id number] Social History Date Type Detail Facility Start: 08-27-2020 Tobacco smoking stat us GAIS Never smoked tobacco [facility] Start: 08-27-2020 Tobacco use and exposure Smoke less tobacco non-user [facility] Start: 11-25-2021 End: 01-03-2023 Alcohol intake Current drinker of alcohol (finding) [facility] Start: 08-27-2020 History SDOH Alcohol Comment rare [facility] Start: 1985 Sex Assigned At Not on file [facility] Start: 11-15-2021 End: 11-25-2021 Exposure to SARS-CoV-2 (event) Not sure [facility] Start: 08-27-2020 End: 01-03-2023 History of Social function [facility] Start: 08-27-2020 End: 01-03-2023 Tobacco use panel [facility] National Score (1-10 0), lower number is lower risk 86 [facility] Start: 11-02-2020 End: 12-02-2020 Exposure to SARS-CoV-2 (event) Unable to assess [facility] Clinical Notes 10-28-2020 to 04-05-2024 Telephone Encounter - Ruthy Veliz RN - 04/05/2024 10:59 AM ESTTelephone Encounter - Ruthy Veliz RN - 04/05/2024 10:59 AM ESTTelephone Encounter - Marissa Mccabe RN - 04/05/2024 10:47 AM EST Note Date & Type Note Facility 04-05-2024 Telephone encount er Note Annual 11/2024 [facility] 04-05-2024 Miscellaneous Notes Formattin g of this note might be different from the original. Annual 11/2024 Received call from pharmacy requesting refill. Last NEUROUROLOGIST annual: 01/03/2023 Upcoming NEUROUROLOGIST annual: None (cancelled 01/09/2024) Requested Prescriptions Pending Prescriptions Disp Refills metFORMIN ER (GLUCOPHAGE XR) 750 mg 24 hr tablet 180 tablet 0 Sig: Take 1 tablet by mouth two times a day. Call placed to patient, transferred to [facility] to schedule annual. Message sent to Jenny Ye CNP. Marissa Mccabe RN documented in this encounter [facility] 04-05-2024 Telephone encount er Note Received call from pharmacy requesting refill. Last NEUROUROLOGIST annual: 01/03/2023 Upcoming NEUROUROLOGIST annual: None (cancelled 01/09/2024) Requested Prescriptions Pending Prescriptions Disp Refills metFORMIN ER (GLUCOPHAGE XR) 750 mg 24 hr tablet 180 tablet 0 Sig: Take 1 tablet by mouth two times a day. Call placed to patient, transferred to [facility] to schedule annual. Message sent to Jenny Ye CNP. Marissa Mccabe RN [facility] 01-12-2024 Telephone encount er Note Call placed to the patient. Left a message for the patient to call the office and speak with a nurse for any further concerns with pain. [facility] 01-12-2024 Miscellaneous Notes Formattin g of this note might be different from the original. Call placed to the patient. Left a message for the patient to call the office and speak with a nurse for any further concerns with pain. Call placed to the patient. Left a message for the patient to call the office and speak with a nurse. Left message on voicemail to return the call to the office for message below. Shaunna Vasquez RN Patient sent a message that she wants an appt for pain and medication. documented in this encounter [facility] 01-10-2024 Telephone encount er Note Call placed to the patient. Left a message for the patient to call the office and speak with a nurse. [facility] 01-08-2024 Telephone encount er Note Left message on voicemail to return the call to the office for message below. Shaunna Vasquez RN [facility] 01-08-2024 Telephone encount er Note Patient sent a message that she wants an appt for pain and medication. [facility] 12-29-2023 Telephone encount er Note Received call from pharmacy for refill request. Last NEUROUROLOGIST annual: 01/03/2023 Upcoming NEUROUROLOGIST annual: 01/09/2024 (pt requesting before appt) Requested Prescriptions Pending Prescriptions Disp Refills metFORMIN ER (GLUCOPHAGE XR) 750 mg 24 hr tablet 180 tablet 0 Sig: Take 1 tablet by mouth two times a day. Message forwarded to Jenny Ye CNP. Marissa Mccabe RN [facility] 12-29-2023 Miscellaneous Notes Formattin g of this note is different from the original. Received call from pharmacy for refill request. Last NEUROUROLOGIST annual: 01/03/2023 Upcoming NEUROUROLOGIST annual: 01/09/2024 (pt requesting before appt) Requested Prescriptions Pending Prescriptions Disp Refills metFORMIN ER (GLUCOPHAGE XR) 750 mg 24 hr tablet 180 tablet 0 Sig: Take 1 tablet by mouth two times a day. Message forwarded to Jenny Ye CNP. Marissa Mccabe RN documented in this encounter [facility] 01-07-2023 History of Presen t illness Narrative The patient presents for requested ultrasound. Full report available in the Imaging tab in [employer]. Tayla Willard MD documented in this encounter [facility] 01-06-2023 Miscellaneous Notes Formattin g of this note might be different from the original. [employer] message sent with information below. Shaunna Vasquez RN Sounds good. Encourage the following: Fertility -- Make sure you are taking a daily vitamin with folic acid. This will help protect the baby from neural tube defects. We like to have this on board 3 months prior to trying for . It takes most healthy couples 6-12 months to successfully conceive. Fertility is 1/3 female cause, 1/3 male cause, and 1/3 unknown cause. There are ovulation predictor kits that you can get over the counter. These will predict ovulation within 24-48 hours. You should use these from the last day of your menstrual period until you get a ++ peak. Best time for intercourse will be around the time of ovulation (5 days prior, the day of, and the day after). The egg only lasts 24 hours, however semen can last in the female reproductive tract for up to 5 days. Tracking cycles on an shanique, such as [employer] will help to assist in ovulatory timing and optimal intercourse timing. If you are having abnormal periods (less than 21 days or more than 35 days), negative ovulation kits, are unsuccessful within 6-12 months of consecutive trying, or having any other issues or concerns, please call the office. Called patient, verified name and , message below given. Patient verbalizes understanding, denies further questions/concerns. Patient does not want control at this time, she will be trying to conceive in the near future. Shaunna Vasquez, RN US reviewed. No clear / structural cause of aub that occurred this month nor heavy, painful periods. Could be a/w pcos. Pls see if interested in bc. Ensure no contraindications including migraine w/ aura, htn, cva, dvt or smoking. Jenny Ye APRN.MAT PACKER documented in this encounter [facility] 01-03-2023 Miscellaneous Notes Addended by: JENNY YE on: 01/03/2023 10:58 AM Modules accepted: Orders documented in this encounter [facility] 01-03-2023 Nurse Note [employer] Administrator offered: Patient declines. documented in this encounter [facility] 01-03-2023 History of Presen t illness Narrative Brad is a 37 year old who presents for an annual gynecologic exam with complaints, irregular bleeding. Menses: cycles every 25-40 days. Hx pcos. This month she had a normal period on 12/25 then started bleeding this week, heavy w/ large clots only for 1hour. She reports dysmenorrhea. Heavy flow saturating through pads/tampons in 1 hour. Admits to vag discharge. No odor, itching or concerns for std. Contraception: none HPV vaccine: No Last Pap: 09/28/2020 normal HPV: 10/02/2020 negative History of abnormal pap: Yes,colpo 2019 Last mammogram: 2020normal MGM breast cancer Sexually active: Yes, . Patient concerns for STD exposure: No. 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 LMP: 12/25/2022 (Exact Date), Having periods Age at Menarche: Age at First : Age at Menopause: [employer] History Comments: Sexual Activity: Yes; Male Contraception: No contraception data on record PAST MEDICAL HISTORY Diagnosis Date Childhood asthma Ectopic 2015 at 5 weeks Essential hypertension Low iron PCOS (polycystic ovarian syndrome) Primary hypertension 10/14/2020 SAB (spontaneous ) 2012 with D & C PAST SURGICAL HISTORY Procedure Laterality Date DILATION & CURETTAGE DX&/THER NONOBSTETRIC 2011 Missed at 12 weeks ENDOMETRIAL BX W/WO ENDOCERVIX BX W/O DILAT SPX 2018 EXTRACTION ERUPTED TOOTH removal of wisdom teeth REMOVAL GALLBLADDER 2008 FAMILY HISTORY Problem Relation Age of Onset Thyroid Mother Miscarriages / Stillbirths Mother Hypertension Father Hypertension Brother Breast Cancer Maternal Grandmother Hypertension Paternal Grandmother Diabetes Paternal Grandmother Diabetes Paternal Grandfather Hypertension Paternal Grandfather Skin Cancer Paternal Grandfather other (down syndrome) Paternal Uncle Skin Cancer Paternal Uncle other (female cancer unknown?) Paternal cousin SOCIAL HISTORY Social History Tobacco Use Smoking status: Never Smokeless tobacco: Never Vaping Use Vaping Use: Never used Substance Use Topics Alcohol use: Yes Comment: rare Drug use: Never REVIEW OF SYSTEMS Abdomen: No abdominal pain, nausea, vomiting, diarrhea, or constipation. No bloating, early satiety, indigestion, or increased flatulence. Bladder: No dysuria, gross hematuria, urinary frequency, urinary urgency, or incontinence. Breast: No breast lumps, nipple d/c, overlying skin changes, redness or skin retraction. Allergies and current medication updated:Yes EXAM: BP 130/82 Ht 5' 1 (1.55m) Wt 206 lb (93.4kg) LMP 12/25/2022 BMI 38.94 kg/(m^2). GENERAL: pleasant, female in no apparent distress HEENT: Normocephalic NECK: full range of motion DERMATOLOGY: Normal BREAST: soft, non-tender, symmetric, no dominant mass, normal nipple-areolar complex, no lymphadenopathy, and no nipple discharge CHEST: Normal inspiratory effort ABDOMEN: soft and non-tender PELVIC: external genitalia normal, normal Bartholin's glands, urethra, [place]'s glands, no vulvar lesions, no cervical lesions, good vaginal support, physiologic discharge present, normal appearing perineal body and perianal region. Friable cervix w/ pap. BIMANUAL: uterus normal size, shape and consistency, no adnexal masses, and non-tender RECTOVAGINAL: deferred. NEURO: alert and oriented x3,exam grossly non-focal EXTREMITIES: normal ASSESSMENT/PLAN: 1) Health maintenance: Pap done with HPV. If normal, can revert back to q3y Mammogram starting age 40. Nutrition, exercise and routine health maintenance exams reviewed. Pelvic US / fasting labs. Aub could be a/w pcos. Consider bc if desired/results wnl. Vaginitis collected to r/o infection as possible cause. 2) Contraception: none. Contraceptive options reviewed and information provided. 3) STD screening: Declined STD check. 4) Follow up one year or sooner as needed Jenny Ye APRN.CNP documented in this encounter [facility] 02-23-2022 Miscellaneous Notes Formattin g of this note might be different from the original. Call place to patient who was identified by name and . Reviewed/discussed Jenny Ye CNP previous message in detail. Patient verbalized understanding and states has no questions at this time. Terri Peters RN Pls let pt know +UTI. Continue macrobid as prescribed, increase water intake. Call if sx persist. Jenny Ye APRN.CNP documented in this encounter [facility] 02-21-2022 Miscellaneous Notes Formattin g of this note might be different from the original. Outgoing call placed to pt. Pt verified by name and . Pt notified of rx sent to pharmacy. Pt advised to complete UC first before starting medication. Pt verbalizes understanding. No further questions at this time. Ashia Albright RN Rx Macrobid filed. Marian De Los Santos APRN.CNP Outgoing call placed to pt. Pt verified by name and . Pt called in regard to UTI sx. Pt is experiencing cloudy urine, urgency, frequency, urinary incontinence, decreased urine output, an increase in vaginal discharge, itching, burning with urination. Pt denies redness and irritation. Pt denies concern for STI exposure. Pharmacy verified. UC ordered; pt notified. Message sent to Marian De Los Santos CNP for review. Ashia Albright RN Believes she has a UTI documented in this encounter [facility] 11-25-2021 Miscellaneous Notes Formattin g of this note might be different from the original. Outgoing call placed to pt. Pt verified by name and . Reviewed Jenny Ye CNP message in detail. Pt verbalizes understanding. No further questions at this time. Ashia Albright RN Labs look fine. Vitamin B12 slightly low, which could be from metformin. I recommend taking a daily supplement just to help boost this slightly. Also please let her know I changed her metformin to 750 BID from 850, as I want her to try the ER version. Thanks! Jenny Ye APRN.ANTONI documented in this encounter [facility] 11-25-2021 Nurse Note Solaris Administrator offered: Patient declines. documented in this encounter [facility] 11-25-2021 History of Presen t illness Narrative Brad is a 36 year old who presents for an annual gynecologic exam with complaints, heavy bleeding. H/o PCOS and R ovarian cyst removal in 2020. Menses: cycles every 28 days. Usually lasts 5 days with heavy bleeding and clotting. Not currently on control and not interested in starting - pt interested in conceiving, although not actively TTC. Has seen [facility] in the past. HPV vaccine: No Last Pap: 09/28/2020 normal HPV: 10/02/2020 negative History of abnormal pap: Yes; biopsy - benign around 2018 at outside hospital. Last mammogram: Yes, a few months ago. Biopsy - benign in 2019 at outside hospital. Family h/o of breast CA - Materal grandmother. Patient concerns for STD exposure: No. 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 LMP: 11/05/2021 (Exact Date), Having periods Age at Menarche: Age at First : Age at Menopause: White Lead Grinder History Comments: Sexual Activity: Yes; Male Contraception: No contraception data on record PAST MEDICAL HISTORY Diagnosis Date Childhood asthma Ectopic 2015 at 5 weeks Essential hypertension Low iron PCOS (polycystic ovarian syndrome) Primary hypertension 10/14/2020 SAB (spontaneous ) 2012 with D & C PAST SURGICAL HISTORY Procedure Laterality Date DILATION & CURETTAGE DX&/THER NONOBSTETRIC 2011 Missed at 12 weeks ENDOMETRIAL BX W/WO ENDOCERVIX BX W/O DILAT SPX 2018 EXTRACTION ERUPTED TOOTH removal of wisdom teeth REMOVAL GALLBLADDER 2008 FAMILY HISTORY Problem Relation Age of Onset Thyroid Mother Miscarriages / Stillbirths Mother Hypertension Father Hypertension Brother Breast Cancer Maternal Grandmother Hypertension Paternal Grandmother Diabetes Paternal Grandmother Diabetes Paternal Grandfather Hypertension Paternal Grandfather Skin Cancer Paternal Grandfather other (down syndrome) Paternal Uncle Skin Cancer Paternal Uncle other (female cancer unknown?) Paternal cousin SOCIAL HISTORY Social History Tobacco Use Smoking status: Never Smokeless tobacco: Never Vaping Use Vaping Use: Never used Substance Use Topics Alcohol use: Yes Comment: rare Drug use: Never REVIEW OF SYSTEMS Abdomen: No abdominal pain, nausea, vomiting, diarrhea, or constipation. No bloating, early satiety, indigestion, or increased flatulence. Bladder: No dysuria, gross hematuria, urinary frequency, urinary urgency, or incontinence. Breast: No breast lumps, nipple d/c, overlying skin changes, redness or skin retraction. Allergies and current medication updated:Yes EXAM: BP 138/88 Ht 5' 1 (1.55m) Wt 201 lb (91.2kg) LMP 11/05/2021 BMI 38.00 kg/(m^2). GENERAL: pleasant, female in no apparent distress HEENT: Normocephalic NECK: full range of motion DERMATOLOGY: Normal BREAST: soft, non-tender, symmetric, no dominant mass, normal nipple-areolar complex, no lymphadenopathy, no nipple discharge, and dense tissue. CHEST: Normal inspiratory effort ABDOMEN: Deferred PELVIC: external genitalia normal, normal Bartholin's glands, urethra, [place]'s glands, no vulvar lesions, no cervical lesions, good vaginal support, physiologic discharge present, normal appearing perineal body and perianal region BIMANUAL: uterus normal size, shape and consistency, no adnexal masses, and non-tender RECTOVAGINAL: deferred. NEURO: alert and oriented x3,exam grossly non-focal EXTREMITIES: normal ASSESSMENT/PLAN: 1) Health maintenance: Pap/HPV up to date. Guidelines reviewed. Nutrition, exercise and routine health maintenance exams reviewed. 2) Contraception: none. Pt trying to conceive. Discussed use of NSAIDs for heavy bleeding and cramping. Pt to f/u with fertility if no success in 6 months or periods become irregular. Refilled metformin and ordered labs. Pt will sign release form for outside hospital records. 3) STD screening: Declined STD check. 4) Follow up one year or sooner as needed Marian Clifton PEARL DIVER TEACHING PROVIDER (Physician/PA/GASOLINE ENGINE ASSEMBLER) NOTE OF PERSONAL INVOLVEMENT IN CARE: I have personally seen and examined the patient and performed the medical decision-making components. I have reviewed the Advanced Practice Registered Nurse (GASOLINE ENGINE ASSEMBLER) Student's documentation and verified the findings in the note as written. Any additions or changes are noted in bold/italics. I agree with the above. Labs ordered. Pap utd. Metformin refilled. Signature: Jenny Ye Date: 11/25/2021 Time: 10:27 AM Jenny Ye APRN.MAT PACKER documented in this encounter [facility] 12-10-2020 Note HNO ID: [id number] Author: Jasmina Jacinto APRN.ANTONI Service: ? Author Type: Nurse Practitioner Type: Progress Notes Filed: 12/10/2020 3:45 PM Note Text: DATE OF SERVICE: 12/10/2020 REASON FOR VISIT: Post op visit, pain DIAGNOSIS: Complex ovarian cyst HISTORY TO DATE: 1) 08/2020: She has a pelvic ultrasound on 08/27/2020 as part of her workup and was found to have a 5cm complex right ovarian cyst with a solid area containing vascular flow. Her CA125 was normal. No other tumor markers were checked. 2) 11/10/2020: SURGERY - Laparoscopic right ovarian cystectomy? 3) 11/26/2020: Surgical pathology showed focal psammoma bodies with associated serous epithelium on the outer surface of removed cyst. Plan for conservative management with US q 4-6 months. Date of last office visit: 11/26/2020, post op televisit PAST MEDICAL HISTORY Diagnosis Date - Childhood asthma - Ectopic 2015 at 5 weeks - Essential hypertension - Low iron - PCOS (polycystic ovarian syndrome) - Primary hypertension 10/14/2020 - SAB (spontaneous ) 2011 with D AND C PAST SURGICAL HISTORY Procedure Laterality Date - DILATION AND CURRETAGE 2011 Missed at 12 weeks - ENDOMETRIAL BIOPSY 2018 - EXTRACTION ERUPTED TOOTH removal of wisdom teeth - REMOVAL GALLBLADDER 2008 Family History Problem Relation Age of Onset - Thyroid Mother - Miscarriages / Stillbirths Mother - Hypertension Father - Hypertension Brother - Breast Cancer Maternal Grandmother - Hypertension Paternal Grandmother - Diabetes Paternal Grandmother - Diabetes Paternal Grandfather - Hypertension Paternal Grandfather - Skin Cancer Paternal Grandfather - other (down syndrome) Paternal Uncle - Skin Cancer Paternal Uncle - other (female cancer unknown?) Paternal cousin PATHOLOGY: 10/28/20: FINAL DIAGNOSIS Right ovarian cyst, cystectomy - 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 ? [facility] 11/03/2020 COMMENT The entire specimen was submitted for histologic evaluation. Two of the fourteen slides show focal psammoma bodies with associated serous epithelium on the outer surface of the cyst. These are not present in the tissue submitted for frozen section, however. Given this finding, the presence of an ovarian or peritoneal low-grade serous neoplasm cannot be excluded. Drs. Ho and Immanuel Santana reviewed slides A5 and A13 in intradepartmental consultation via telepathology with concurrence. The unexpected finding was discussed with Dr. Robledo by telephone on 11/03/2020 at 13:15. The case was also discussed with, and the slides reviewed by, the frozen section pathologist on the same day. TUMOR MARKERS: CA 125 (U/mL) Date Value 09/01/2020 8 RECENT IMAGIN08/27/2020 - US Pelvis: Indication: Evaluation of abnormal uterine bleeding: menorrhagia Impression Normal appearing anteverted uterus that measures 75 mm x 39 mm x 57 mm. Left ovary is visualized and appears normal. The right ovary is visualized, measures 64 mm x 53 mm x 37 mm, and contains a complex cyst that measures 53 mm x 33 mm x 53 mm. Within the cyst, there is a solid component with vascular flow within it that measures 40 mm x 28 mm x 29 mm. There is no free fluid visualized in the peritoneal cavity. Recommendations Complex ovarian cyst contains concerning features. Consider surgical evaluation or consultation with NEUROUROLOGIST Oncology 12/04/20 CT Abdomen/Pelvis IMPRESSION: 1. ?Ovoid fluid attenuation structure in the lower uterine segment, nonspecific. ?This could represent a subendometrial cyst or loculated fluid in the endometrial cavity. ?Postsurgical fluid collection/abscess is not excluded. 2. ?Otherwise, no acute process noted in the abdomen or pelvis. ?No residual or recurrent adnexal mass is seen. 3. ?Normal CT appearance of the appendix. ?No findings to suggest acute appendicitis. 4. ?Hepatic steatosis. HEALTH MAINTENANCE: Last mammogram: Spring 2020- Negative Last colonoscopy: N/A Last Pap: 2018- Negative Last HPV: 2018 - Negative ECOG performance status ECOG PERFORMANCE STATUS: 0- Fully active, able to carry on all pre-disease performance w/o restriction. SUBJECTIVE/INTERVAL HISTORY: Brad Fleming reports that she feels okay. Reports lower abdominal pain that developed about 10 days ago after squatting. Pain has slightly improved, but worsens throughout the day and patient notices significant cramping generalized to her lower abdomen. Patient also reported she had her period 2 weeks ago and noticed brown discharge yesterday, now resolved. No foul odor present. Patient reports intermittent nausea, decreased appetite. Denies vomiting. Denies any changes to her bowel and bladder habits. No shortness of breath, cough, or chest pain. Her ECOG performance status is 1 (restricted in physically strenuous activity but ambulatory and able t (more content not included)... [facility] 11-26-2020 Note HNO ID: [id number] Author: Caitlyn Sneed MD Service: ? Author Type: Physician Type: Progress Notes Filed: 11/28/2020 1:10 PM Note Text: TELEVISIT PROGRESS NOTE This is a telephone encounter initiated for an established patient, parent or guardian not originating from a related Evaluation AND Management service provided within the previous 7 days nor leading to an Evaluation AND Management service or procedure within the next 24 hours or soonest available appointment. Patient name and birthday verified: Yes Location of patient: Home Duration: 4 minutes Persons Present: patient DATE OF SERVICE: 11/26/2020 REASON FOR VISIT: Post op visit DIAGNOSIS: Complex ovarian cyst HISTORY TO DATE: 1) 08/2020: She has a pelvic ultrasound on 08/27/2020 as part of her workup and was found to have a 5cm complex right ovarian cyst with a solid area containing vascular flow. Her CA125 was normal. No other tumor markers were checked. 2) 11/10/2020: SURGERY - Laparoscopic right ovarian cystectomy? 3) 11/26/2020: Surgical pathology showed focal psammoma bodies with associated serous epithelium on the outer surface of removed cyst. Plan for conservative management with US q 4-6 months. Date of last office visit: 11/12/2020 PAST MEDICAL HISTORY Diagnosis Date - Childhood asthma - Ectopic 2015 at 5 weeks - Essential hypertension - Low iron - PCOS (polycystic ovarian syndrome) - Primary hypertension 10/14/2020 - SAB (spontaneous ) 2012 with D AND C PAST SURGICAL HISTORY Procedure Laterality Date - DILATION AND CURRETAGE 2012 Missed at 12 weeks - ENDOMETRIAL BIOPSY 2018 - EXTRACTION ERUPTED TOOTH removal of wisdom teeth - REMOVAL GALLBLADDER 2008 Family History Problem Relation Age of Onset - Thyroid Mother - Miscarriages / Stillbirths Mother - Hypertension Father - Hypertension Brother - Breast Cancer Maternal Grandmother - Hypertension Paternal Grandmother - Diabetes Paternal Grandmother - Diabetes Paternal Grandfather - Hypertension Paternal Grandfather - Skin Cancer Paternal Grandfather - other (down syndrome) Paternal Uncle - Skin Cancer Paternal Uncle - other (female cancer unknown?) Paternal cousin PATHOLOGY: 10/28/20: FINAL DIAGNOSIS Right ovarian cyst, cystectomy - 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 ? [facility] 11/03/2020 COMMENT The entire specimen was submitted for histologic evaluation. Two of the fourteen slides show focal psammoma bodies with associated serous epithelium on the outer surface of the cyst. These are not present in the tissue submitted for frozen section, however. Given this finding, the presence of an ovarian or peritoneal low-grade serous neoplasm cannot be excluded. Drs. Ho and Immanuel Santana reviewed slides A5 and A13 in intradepartmental consultation via telepathology with concurrence. The unexpected finding was discussed with Dr. Robledo by telephone on 11/03/2020 at 13:15. The case was also discussed with, and the slides reviewed by, the frozen section pathologist on the same day. TUMOR MARKERS: CA 125 (U/mL) Date Value 09/01/2020 8 RECENT IMAGIN08/27/2020 - US Pelvis: Indication: Evaluation of abnormal uterine bleeding: menorrhagia Impression Normal appearing anteverted uterus that measures 75 mm x 39 mm x 57 mm. Left ovary is visualized and appears normal. The right ovary is visualized, measures 64 mm x 53 mm x 37 mm, and contains a complex cyst that measures 53 mm x 33 mm x 53 mm. Within the cyst, there is a solid component with vascular flow within it that measures 40 mm x 28 mm x 29 mm. There is no free fluid visualized in the peritoneal cavity. Recommendations Complex ovarian cyst contains concerning features. Consider surgical evaluation or consultation with NEUROUROLOGIST Oncology HEALTH MAINTENANCE: Last mammogram: Spring 2020- Negative Last colonoscopy: N/A Last Pap: 2018- Negative Last HPV: 2018 - Negative ECOG performance status ECOG PERFORMANCE STATUS: 0- Fully active, able to carry on all pre-disease performance w/o restriction. SUBJECTIVE HISTORY: Brad Fleming reports that she is doing well postoperatively. No abdominal pain, nausea, vomiting, diarrhea, or constipation. No bloating, early satiety, indigestion, or increased flatulence. No dysuria, gross hematuria, urinary frequency, urinary urgency, or incontinence. No shortness of breath, cough, or chest pain. Her ECOG performance status is zero (fully active, able to carry on all pre-disease performance without restriction). OBJECTIVE: Deferred 2/2 telemedicine visit ASSESSMENT: 1. 35 yo F with PCOS presenting with a right complex ovarian cyst - s/p Right ovarian cystectomy. Pathology positive for focal psammoma bodies with associated epithelium on the outer surface of the cyst. *PMHx of HTN, anemia, and prior ectopic (more content not included)... [facility] 11-12-2020 Note HNO ID: [id number] Author: Jenaro Ribeiro APRN.ANTONI Service: ? Author Type: Nurse Practitioner Type: Progress Notes Filed: 11/13/2020 1:21 PM Note Text: DATE OF SERVICE: 11/12/2020 PROBLEM: Brad Fleming presents for postop visit. 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 ? [facility] 11/03/2020 COMMENT The entire specimen was submitted for histologic evaluation. Two of the fourteen slides show focal psammoma bodies with associated serous epithelium on the outer surface of the cyst. These are not present in the tissue submitted for frozen section, however. Given this finding, the presence of an ovarian or peritoneal low-grade serous neoplasm cannot be excluded. Drs. Ho and Immanuel Santana reviewed slides A5 and A13 in intradepartmental consultation via telepathology with concurrence. The unexpected finding was discussed with Dr. Robledo by telephone on 11/03/2020 at 13:15. The case was also discussed with, and the slides reviewed by, the frozen section pathologist on the same day. SUBJECTIVE/INTERVAL HISTORY: Brad Fleming reports that she feels well. No fever or chills. No shortness of breath, cough, or chest pain. No incisional redness, swelling, or drainage. Patient reports that her appetite is good. No nausea, vomiting, diarrhea, or constipation. No dysuria, gross hematuria, urinary frequency, urinary urgency, or incontinence. Intermittent abdominal pain that is worsened by long car rides. OBJECTIVE: BP 119/77 Pulse 98 Temp 36.7 ?C (98.1 ?F) LMP 10/02/2020 GEN-no acute distress ABDOMEN: Abdomen soft, non-tender, non-distended. Incision healing well. ASSESSMENT: 35 yo female s/p ovarian cystectomy on 11/10/2020 PLAN: - patient doing well post operatively with mild pain relieved w motrin - continue post operative restrictions - arrange tele-visit with Dr.Al Denise to further discuss pathology results. Jenaro Ribeiro APRN.[facility] 10-28-2020 Note HNO ID: [id number] Author: Sherry Braun (Insane [employer]) Service: Pharmacy Author Type: ? Type: Plan of Care Filed: 10/28/2020 12:55 PM Note Text: PHARMACY BEDSIDE DELIVERY SERVICE Patient Name: Brad Fleming The marked outpatient medications were FILLED AND PICKED UP AT [facility]. Medication List START taking these medications acetaminophen 500 mg tablet Commonly known as: TYLENOL EXTRA STRENGTH Take 2 tablets by mouth every 6 hours as needed for pain. docusate sodium 100 mg capsule Commonly known as: COLACE Take 1 capsule by mouth twice daily. ibuprofen 600 mg tablet Commonly known as: MOTRIN Take 1 tablet by mouth every 6 hours as needed for pain. oxyCODONE IR 5 mg immediate release tablet Commonly known as: ROXICODONE Take 1 tablet by mouth every 6 hours as needed for pain for up to 7 days. CONTINUE taking these medications cyclobenzaprine 10 mg tablet Commonly known as: FLEXERIL EPIPEN 2-SIMÓN INJECTION ergocalciferol (vitamin D2) 50,000 unit capsule Commonly known as: VITAMIN D2 Take 1 capsule by mouth one time a week for 12 doses. for low vitamin D to replenish stores- Etodolac 500 mg tablet ferrous sulfate 325 mg (65 mg iron) tablet KLOR-CON M20 20 mEq tablet Generic drug: potassium chloride ER lisinopril-hydroCHLOROthiazide 10-12.5 mg per tablet Commonly known as: PRINZIDE,ZESTORETIC melatonin 10 mg Tab metFORMIN 850 mg tablet Commonly known as: GLUCOPHAGE MIDOL COMPLETE ORAL You might also be taking other medications not listed above. If you have questions about any of your other medications, talk to the person who prescribed them or your Primary Care Provider. Sherry Braun ([employer]) PAGER: [phone] October 28, 2020 12:55 PM [facility] 10-28-2020 Note HNO ID: [id number] Author: Desirae Dillon ([employer]) Service: Pharmacy Author Type: ? Type: Plan of Care Filed: 10/28/2020 12:43 PM Note Text: PHARMACY BEDSIDE DELIVERY SERVICE Patient Name: Brad Fleming The marked outpatient medications were filled and picked up at pharmacy. Medication List START taking these medications acetaminophen 500 mg tabletX Commonly known as: TYLENOL EXTRA STRENGTH Take 2 tablets by mouth every 6 hours as needed for pain. docusate sodium 100 mg capsuleX Commonly known as: COLACE Take 1 capsule by mouth twice daily. ibuprofen 600 mg tabletX Commonly known as: MOTRIN Take 1 tablet by mouth every 6 hours as needed for pain. oxyCODONE IR 5 mg immediate release tabletX Commonly known as: ROXICODONE Take 1 tablet by mouth every 6 hours as needed for pain for up to 7 days. CONTINUE taking these medications cyclobenzaprine 10 mg tablet Commonly known as: FLEXERIL EPIPEN 2-SIMÓN INJECTION ergocalciferol (vitamin D2) 50,000 unit capsule Commonly known as: VITAMIN D2 Take 1 capsule by mouth one time a week for 12 doses. for low vitamin D to replenish stores- Etodolac 500 mg tablet ferrous sulfate 325 mg (65 mg iron) tablet KLOR-CON M20 20 mEq tablet Generic drug: potassium chloride ER lisinopril-hydroCHLOROthiazide 10-12.5 mg per tablet Commonly known as: PRINZIDE,ZESTORETIC melatonin 10 mg Tab metFORMIN 850 mg tablet Commonly known as: GLUCOPHAGE MIDOL COMPLETE ORAL You might also be taking other medications not listed above. If you have questions about any of your other medications, talk to the person who prescribed them or your Primary Care Provider. Desirae Dillon ([employer]) PAGER: [phone] October 28, 2020 12:43 PM [facility] 10-28-2020 Note HNO ID: [id number] Author: SYBIL Nixon Service: ? Author Type: Pickle Solution Maker Type: Anesthesia Procedure Notes Filed: 10/28/2020 9:08 AM Note Text: ANESTHESIOLOGY PROCEDURE NOTE PIV General Information Procedure Start Time/Medication Administration: 10/28/2020 8:55 AM Patient Location: OR Staffing Anesthesiologist: Antonio Ma I, MD CAA: SYBIL Nixon Student: SYBIL Mathews Student Performed by: KEVON student Preparation Sterility Preparation: hand hygiene performed prior to procedure Site Prep: alcohol Procedure Details Indication: need for IV access Needle Size/Type: 20 gauge angiocath Orientation: Right Location: Hand Imaging Guidance Used: No SIGNATURE: SYBIL Nixon PATIENT NAME: Brad Fleming DATE: October 28, 2020 TIME: 9:08 AM CSN: [id number] [facility] 10-28-2020 Note HNO ID: [id number] Author: SYBIL Nixon Service: ? Author Type: Pickle Solution Maker Type: Anesthesia Procedure Notes Filed: 10/28/2020 9:01 AM Note Text: ANESTHESIOLOGY PROCEDURE NOTE Airway General Information Procedure Start Time/Medication Administration: 10/28/2020 8:53 AM Patient location during procedure: OR Patient identity confirmed: arm band Staffing KEVON Student: SYBIL Mathews Student Performed by: KEVON student Indications and Patient Condition Preoxygenated: yes Patient position: sniffing Difficult Mask: No Indications for airway management: anesthesia anesthesia circuit Method: sleep Final Airway Details Final airway type: endotracheal airway Final Endotracheal Airway: ETT Cuffed: yes Successful intubation technique: direct laryngoscopy Endotracheal tube insertion site: oral Blade: Ingrid Blade size: #4 ETT size (mm): 7.0 Measured from: teeth Measurement (cm): 21 Placement verified by: chest auscultation and capnometry Cormack-Lehane Classification: grade I - full view of glottis Number of attempts at approach: 1 Airway not difficult SIGNATURE: SYBIL Nixon PATIENT NAME: Brad Fleming DATE: October 28, 2020 TIME: 9:01 AM CSN: [id number] [facility] Evaluation note Diagnosis Encounter for gynecological examination (general) (routine) without abnormal findings- Primary Encounter for screening breast examination PCOS (polycystic ovarian syndrome) Polycystic ovaries Menorrhagia with regular cycle Excessive or frequent menstruation Medication management Encounter for long-term (current) use of other medications [facility] Diagnosis Urinary urgency- Primary Urgency of urination documented in this encounter [facility] note* Diagnosis Encounter for gynecological examination (general) (routine) without abnormal findings- Primary Screening for malignant neoplasm of cervix Screening for malignant neoplasm of the cervix History of abnormal cervical Pap smear Personal history of other genital system and obstetric disorders Counseling for initiation of control method General counseling for initiation of other contraceptive measures Encounter for screening breast examination Abnormal uterine bleeding (AUB) PCOS (polycystic ovarian syndrome) Polycystic ovaries Vaginal discharge Leukorrhea, not specified as infective documented in this encounter [facility]* Diagnosis Abnormal uterine bleeding (AUB) PCOS (polycystic ovarian syndrome) Polycystic ovaries documented in this encounter [facility] note* Diagnosis Post-operative state Other postprocedural status Right lower quadrant abdominal pain Abdominal pain, right lower quadrant documented in this encounter [facility] for referral (narrative)* Diagnostic Procedure Only (Routine) - Authorized Specialty Diagnoses / Procedures [facility] Referred To Contact JINRIKISHA DRIVER Diagnoses Abnormal uterine bleeding (AUB) PCOS (polycystic ovarian syndrome) Procedures PELVIC US WHI US PELVIC NONOBSTETRIC REAL-TIME IMAGE COMPLETE Jenny Ye APRN.CNP [address] [place] [address] [address] [place] [address] [place] [address] Referral ID Status Reason Start Date Expiration Date Visits Requested Visits Authorized [id number] Authorized Auto-Generat ed Referral 03/12/2023 1 1 [facility] for visit Narrative* Diagnostic Procedure Only (Routine) - Closed Specialty Diagnoses / Procedures [facility] Referred To Contact JINRIKISHA DRIVER Diagnoses Abnormal uterine bleeding (AUB) PCOS (polycystic ovarian syndrome) Procedures PELVIC US WHI US PELVIC NONOBSTETRIC REAL-TIME IMAGE COMPLETE Jenny Ye, ELIZABETH.ANTONI [address] [place] [address] Boom Operator [place] [phone] Referral ID Status Reason Start Date Expiration Date V isits Requested Visits Authorized [id number] Closed Auto-Generate d Referral 01/03/2023 03/12/2023 1 1 [facility] Summary Purpose Family History No Family History Records FoundNo Family History Records FoundNo Family History Records FoundNo Family History Records FoundNo Family History Records Found Advance Directives No Advanced Directives Records FoundNo Advanced Directives Records FoundNo Advanced Directives Records FoundNo Advanced Directives Records FoundNo Advanced Directives Records Found Reason for Referral Specialty Diagnoses / Procedures Referred By Wilber t Referred To Contact CT IMAGING Diagnoses Post-operative state Right lower quadrant abdominal pain Procedures CT ABD/PEL W IVCON CT ABD & PELVIS W/CONTRAST Jasmina Jacinto APRN.MAT PACKER [address] [place] [address] [place] [id number] Referral ID Status Reason Start Date Expiration Date V isits Requested Visits Authorized Closed Auto-Generate d Referral 12/04/2020 01/02/2021 2 2 Additional Source Comments INFORMATION SOURCE (unrecogn ized section and content) DATE CREATED AUTHOR 10/10/2017 [facility] DATE CREATED AUTHOR AUTHOR'S ORGANIZ ATION 12/11/2020 [facility] DATE CREATED AUTHOR AUTHOR'S ORGANIZ ATION 05/25/2022 [facility] DATE CREATED AUTHOR AUTHOR'S ORGANIZ ATION 01/07/2023 [facility] DATE CREATED AUTHOR AUTHOR'S ORGANIZ ATION 01/14/2024 [facility] Source Comments (unrecognize d section and content) In the event this informatio n is protected by the Federal Confidentiality of Alcohol and Drug Abuse Patient Records regulations: The Federal rules restrict any use of the information to criminally investigate or prosecute any alcohol or drug abuse patient.[facility] the event this information is protected by the Federal Confidentiality of Alcohol and Drug Abuse Patient Records regulations: The Federal rules restrict any use of the information to criminally investigate or prosecute any alcohol or drug abuse patient.[facility] the event this information is protected by the Federal Confidentiality of Alcohol and Drug Abuse Patient Records regulations: The Federal rules restrict any use of the information to criminally investigate or prosecute any alcohol or drug abuse patient.[facility] the event this information is protected by the Federal Confidentiality of Alcohol and Drug Abuse Patient Records regulations: The Federal rules restrict any use of the information to criminally investigate or prosecute any alcohol or drug abuse patient.[facility] the event this information is protected by the Federal Confidentiality of Alcohol and Drug Abuse Patient Records regulations: The Federal rules restrict any use of the information to criminally investigate or prosecute any alcohol or drug abuse patient.[facility] the event this information is protected by the Federal Confidentiality of Alcohol and Drug Abuse Patient Records regulations: The Federal rules restrict any use of the information to criminally investigate or prosecute any alcohol or drug abuse patient.[facility] the event this information is protected by the Federal Confidentiality of Alcohol and Drug Abuse Patient Records regulations: The Federal rules restrict any use of the information to criminally investigate or prosecute any alcohol or drug abuse patient.[facility] the event this information is protected by the Federal Confidentiality of Alcohol and Drug Abuse Patient Records regulations: The Federal rules restrict any use of the information to criminally investigate or prosecute any alcohol or drug abuse patient.[facility] the event this information is protected by the Federal Confidentiality of Alcohol and Drug Abuse Patient Records regulations: The Federal rules restrict any use of the information to criminally investigate or prosecute any alcohol or drug abuse patient.[facility] the event this information is protected by the Federal Confidentiality of Alcohol and Drug Abuse Patient Records regulations: The Federal rules restrict any use of the information to criminally investigate or prosecute any alcohol or drug abuse patient.[facility] the event this information is protected by the Federal Confidentiality of Alcohol and Drug Abuse Patient Records regulations: The Federal rules restrict any use of the information to criminally investigate or prosecute any alcohol or drug abuse patient.[facility] the event this information is protected by the Federal Confidentiality of Alcohol and Drug Abuse Patient Records regulations: The Federal rules restrict any use of the information to criminally investigate or prosecute any alcohol or drug abuse patient.[facility] Reason for Visit (unrecogniz ed section and content) Reason Comments Well Woman Last pap and HPV was 09/2020--neg, irregular periods Reason Comments Results Reason Comments Urinary Problem Reason Comments Well Woman Last pap and HPV 09/11--neg, Specialty Diagnoses / Procedures Referred By Wilber t Referred To Contact CT IMAGING Diagnoses Post-operative state Right lower quadrant abdominal pain Procedures CT ABD/PEL W IVCON CT ABD & PELVIS W/CONTRAST Jasmina Jacinto APRN.MAT PACKER [address] [place] [address] [place] [address] Referral ID Status Reason Start Date Expiration Date V isits Requested Visits Authorized [id number] Closed Auto-Generate d Referral 12/04/2020 01/02/2021 2 2 Reason Onset Date Comments Refill Request 12/29/2023 Reason Onset Date Comments Refill Request 04/05/2024 Care Teams (unrecognized sec tion and content) Knife Setter Grinder Machine Relationship Specialty Start Date End Date Keila Mccormick MD [address] [place] [address] PCP - General Family Practice 10/14/20 Glenda Martínez Referring JINRIKISHA DRIVER 06/26/20 Knife Setter Grinder Machine Relationship Specialty Start Date End Date Keila Mccormick MD [address] [place] [address] PCP - General Family Practice 10/14/20 Glenda Martínez Referring JINRIKISHA DRIVER 06/26/20 Knife Setter Grinder Machine Relationship Specialty Start Date End Date Keila Mccormick MD [address] [place] [address] PCP - General Family Medicine 10/14/20 Glenda Martínez Referring JINRIKISHA DRIVER 06/26/20 Knife Setter Grinder Machine Relationship Specialty Start Date End Date Keila Mccormick MD [address] [place] [address] PCP - General Family Medicine 10/14/20 Glenda Martínez Referring JINRIKISHA DRIVER 06/26/20 Knife Setter Grinder Machine Relationship Specialty Start Date End Date Keila Mccormick MD PCP - General Family Medicine 10/14/20 Glenda Martínez Referring JINRIKISHA DRIVER 06/26/20 Knife Setter Grinder Machine Relationship Specialty Start Date End Date Keila Mccormick MD PCP - General Family Medicine 10/14/20 Glenda Martínez Referring JINRIKISHA DRIVER 06/26/20 Knife Setter Grinder Machine Relationship Specialty Start Date End Date Keila Mccormick MD PCP - General Family Medicine 10/14/20 Glenda Martínez Referring JINRIKISHA DRIVER 06/26/20 Knife Setter Grinder Machine Relationship Specialty Start Date End Date Keila Mccormick MD PCP - General Family Medicine 10/14/20 Glenda Martínez Referring JINRIKISHA DRIVER 06/26/20 Knife Setter Grinder Machine Relationship Specialty Start Date End Date Keila Mccormick MD PCP - General Family Medicine 10/14/20 Glenda Martínez Referring Student Support Services Director 06/26/20 Knife Setter Grinder Machine Relationship Specialty Start Date End Date Keila Mccormick MD PCP - General Family Medicine 10/14/20 Glenda Martínez Referring Student Support Services Director 06/26/20 FOR RECORDS PERTAINING TO PATIENTS WHO ARE OR HAVE BEEN ENROLLED IN A CHEMICAL DEPENDENCY/SUBSTANCEABUSE PROGRAM, SOME INFORMATION MAY BE OMITTED. This clinical summary was aggregated from multiple sources. Caution should be exercised in using it in the provision of clinical care. This summary normalizes information from multiple sources, and as a consequence, information in this document may materially change the coding, format and clinical context of patient data. In addition, data may be omitted in some cases. CLINICAL DECISIONS SHOULD BE BASED ON THE PRIMARY CLINICAL RECORDS. [facility] [employer] [facility]. provides no warranty or guarantee of the accuracy or completeness of information in this document.
[2024-06-28 12:10] LABS: Estimated Average Glucose 111 mg/dL; Glycohemoglobin A1C 5.5 % (4.5-6.2)
[2024-06-28 12:12] LABS: Basophils Percent Auto 0.4 % (0.2-2.0); Eosinophils Absolute Auto 0.2 10^3/uL (0.0-0.7); Eosinophils Percent Auto 2.2 % (0.9-7.0); Immature Granulocytes Abs Auto 0.02 10^3/uL (0.00-0.03); Immature Granulocytes Pct Auto 0.3 % (0.0-0.5); Lymphocytes Absolute Auto 1.4 10^3/uL (1.2-3.8); Lymphocytes Percent Auto 20.8 % (20.5-60.0); Mean Corpuscular HGB Conc 31.6 g/dL (29.9-35.2); Mean Corpuscular Hemoglobin 27.2 pg (26.7-34.0); Mean Corpuscular Volume 86.2 fL (81.0-99.0); Mean Platelet Volume 9.2 fL (9.5-13.5); Monocytes Absolute Auto 0.5 10^3/uL (0.3-0.8); Monocytes Percent Auto 6.8 % (1.7-12.0); Neutrophils Absolute Auto 4.7 10^3/uL (1.4-6.5); Neutrophils Percent Auto 69.5 % (43.0-75.0); Platelet Count 420 10^3/uL (150-450); Red Blood Count 4.41 10^6/uL (4.20-5.40); Red Cell Distribution Width 13.6 % (11.0-15.0); White Blood Count 6.7 10^3/uL (4.0-11.0)
[2024-06-28 13:20] LABS: Alanine Aminotransferase 42 U/L (14-59); Albumin Globulin Ratio 0.9; Albumin Level 3.6 g/dL (3.4-5.0); Alkaline Phosphatase 71 U/L (46-116); Anion Gap 13.3; Aspartate Amino Transferase 46 U/L (15-37); BUN Creatinine Ratio 19.7; Bilirubin Total 0.3 mg/dL (0.2-1.0); Calcium 9.2 mg/dL (8.5-10.1); Carbon Dioxide 27.7 mmol/L (21.0-32.0); Chloride 102 mmol/L (98-107); Chol HDL Ratio 3.3; Cholesterol 165 mg/dL (<=200); Estimated GFR (African America >60 (>=60 mL/min/1.73m^2); Estimated GFR (Non-African Ame >60 (>=60 mL/min/1.73m^2); Free T3 2.98 pg/mL (2.18-3.98); Globulin 4.1 g/dL; Glucose 86 mg/dL (74-106); HDL Cholesterol 50 mg/dL (40-60); Sodium 140 mmol/L (136-145); Thyroid Stimulating Hormone 2.774 uIU/mL (0.358-3.740); Total Protein 7.7 g/dL (6.4-8.2); Triglycerides 201 mg/dL (<=150); VLDL CHOLESTEROL 40.2 mg/dL
== END 2024-06-28 11:40 | disposition home or self-care (01) ==
PROVIDERS: PCP Family Medicine; Visit Provider Family Medicine
DX: I49.8 Other specified cardiac arrhythmias (principal)
CPT/HCPCS: 36415; 80053; 80061; 83036; 83540; 84436; 84443; 84481; 85025

== ENCOUNTER 2024-07-11 12:49 | Outpatient (OUT) | payer BC, SELFPAY | END 2024-07-11 12:50 | disposition home or self-care (01) | LOC: CARD 12:49 | PROVIDERS: PCP Family Medicine; Visit Provider Family Medicine | DX: I49.8 Other specified cardiac arrhythmias (principal) | CPT/HCPCS: 93242 ==

== ENCOUNTER 2024-07-23 22:33 | Emergency (ER) | payer OTHER, SELFPAY ==
--- OUTSIDE RECORDS SUMMARY | 2024-07-23 22:42 | XMS_ITS | CCD ---
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 Name Role Phone PHYSICIAN, DEFAULT Unavailable Unavailable PHYSICIAN, DEFAULT Unavailable Unavailable Gelnda Martínez Unavailable Keila Mccormick MD Primary Care Provider [phone] Glenda Martínez Unavailable Keila Mccormick MD Primary Care Provider [phone] ANNY ., DR PEDRAZA Primary Care Unavailable RENATA TRERELL Attending Unavailable RENATA TERRELL Admitting Unavailable RENATA TERRELL Consulting Unavailable HOY [...] Unavailable Keila Mccormick MD Primary Care Provider [phone] JENNY YE Referring Unavailable KEILA MCCORMICK Primary Care Unavailable JENNY YE Referring Unavailable KEILA MCCORMICK Primary Care Unavailable Glenda Martínez Unavailable Unavailable Keila Mccormick MD Primary Care Provider [phone] Allergies Allergy Classification Reported Allergen(s) Allergy Type Date of Onset Reaction(s) Facility (13 sources) Penicillins; Translations: [PENICILLINS] Drug Allergy 5 Hives [facility] (13 sources) tiZANidine; Translations: [TIZANIDINE] Drug Allergy 1 Mental Status Change [facility] (13 sources) traMADol; Translations: [TRAMADOL] Drug Allergy 1 Other: See Comments [facility] (13 sources) Bee Venom Protein (Honey Bee); Translations: [BEE VENOM PROTEIN (HONEY BEE)] Drug Allergy 1 Rash [facility] (1 source) Penicillins Drug allergy (disorder) 5 [facility] (1 source) tiZANidine Drug Allergy 1 [facility] (1 source) traMADol Drug Allergy [facility] Medications Current Medications Medication Drug Class(es) [...] Comment on above: Take 1 tablet by [facility] once daily. 24 hr metFORMIN hydrochloride [...] Comment on above: Take 1 tablet by [facility] twice daily. Take 850 mg by mouth twice daily. Take 1 tablet by [facility] two times a day. nitrofurantoin, macrocrystals 25 mg / nitrofurantoin, monohydrate 75 mg oral capsule (2 sources) Nitrofuran Antibacterial Start: End: take 1 capsule by mouth twice daily nitrofurantoin monohydrate and macrocrystal (MACROBID) 100 mg capsule Take 1 capsule by mouth twice daily for 7 days. 14 capsule 0 02/21/2022 02/28/2022 Active Comment on above: Take 1 capsule by [facility] twice daily for 7 days. microencapsulated potassium [...] on above: Take 2 tablets by [facility] every 6 hours as needed for pain. [...] on above: Take 1 capsule by [facility] twice daily. ergocalciferol 1.25 mg oral capsule (6 sources) Provitamin D2 Compound Start: 09-05-19 End: 01-06-20 take 1 capsule by mouth every week ergocalciferol 50,000 unit capsule (VITAMIN D2, DRISDOL) Take 1 capsule by mouth one time a week for 12 doses. for low vitamin D to replenish stores- 12 capsule 0 09/04/2020 01/05/2023 Discontinued Comment on above: Take 1 capsule by [facility] one time a week for 12 doses. [...] Comment on above: Take 1 tablet by [facility] every 8 hours as needed for pain. 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; Translations: [CUSTODIAL USE ORAL HYPOGLYCEMIC DX] Onset: 07-05-2021 Episodic Other aftercare (1 source) Other halfway (current) drug therapy; Translations: [OTH ORTHOTIST PROSTHETIST CURRENT DRUG THERAPY] Onset: 07-05-2021 Episodic Other [...] Test Name Value Interpretation Reference Range Facility [facility] 01-08-2024 OZZIE Telephone (DEIRDRE) -- BRAD FLEMING ([id number]) 1985 F Date Time Provider Department 01/08/24 [...] Date Reviewed: 01/03/2023 Reviewed by: Jenny Ye APRN.EXTENSION WORK DIRECTOR - Fully Assessed Prescriptions as of 01/12/2024 [...] Status:Closed by RUTHY VELIZ on 01/12/24 Normal [facility] PELVIC US WHIon 01-05-2023 [facility] B-HCG SerPl-aCncon HCG.beta subunit Qn m[IU]/mL Normal <5.0 [facility] Comment on above: Order Comment: Speci men Type: BLOOD SPECIMEN Ordering Facility: [facility] Address: [address] [place] [address] Result Comment: Laney marks Performed By: #### 2 1198-7 #### [facility] CLIA [id number] [address] [place] [address] [place] CBC panel Auto (Bld)on 01-03 Erythrocyte distribution width (RBC) [Ratio] 13.7 % Normal 11.5-15.0 [facility] Comment on above: Order Comment: Speci men Type: BLOOD SPECIMEN Ordering Facility: [facility] Address: [address] [place] [address] Performed By: #### 5 8410-2 #### [facility] CLIA [id number] [address] [place] [address] [place] Hematocrit (Bld) [Volume fraction] 39.8 % Normal 36.0-46.0 [facility] Comment on above: Order Comment: Speci men Type: BLOOD SPECIMEN Ordering Facility: [facility] Address: [address] [place] [address] Performed By: #### 5 8410-2 #### [facility] CLIA [id number] [address] [place] [address] [place] Hemoglobin (Bld) [Mass/Vol] 12.5 g/dL Normal 11.5-15.5 [facility] Comment on above: Order Comment: Speci men Type: BLOOD SPECIMEN Ordering Facility: [facility] Address: [address] [place] [address] Performed By: #### 5 8410-2 #### [facility] CLIA [id number] STATES [facility] MCH (RBC) [Entitic mass] 27.7 pg Normal 26.0-34.0 [facility] Comment on above: Order Comment: Speci men Type: BLOOD SPECIMEN Ordering Facility: [facility] Address: [address] [place] [address] Performed By: #### 5 8410-2 #### [facility] CLIA [id number] [place] [address] [place] MCHC (RBC) [Mass/Vol] 31.4 g/dL Normal 30.5-36.0 [facility] Comment on above: Order Comment: Speci men Type: BLOOD SPECIMEN Ordering Facility: [facility] Address: [address] [place] [address] Performed By: #### 5 8410-2 #### [facility] [place] [id number] [address] [place] [address] [place] MCV (RBC) [Entitic vol] 88.1 fL Normal 80.0-100.0 [facility] Comment on above: Order Comment: Speci men Type: BLOOD SPECIMEN Ordering Facility: [facility] Address: [address] [place] [address] Performed By: #### 5 8410-2 #### [facility] [place] [id number] [address] [place] [address] [place] Nucleated RBC (Bld) [#/Vol] 10*3/uL Normal <0.01 [facility] Comment on above: Order Comment: Speci men Type: BLOOD SPECIMEN Ordering Facility: [facility] Address: [address] [place] [address] Performed By: #### 5 8410-2 #### [facility] [place] [id number] [address] [place] [address] [place] Platelet mean volume (Bld) [Entitic vol] 9.1 fL Normal 9.0-12.7 [facility] Comment on above: Order Comment: Speci men Type: BLOOD SPECIMEN Ordering Facility: [facility] Address: [address] [place] [address] Performed By: #### 5 8410-2 #### [facility] CLIA [id number] [address] [place] [address] [place] Platelets (Bld) [#/Vol] 419 10*3/uL High 150-400 [facility] Comment on above: Order Comment: Speci men Type: BLOOD SPECIMEN Ordering Facility: [facility] Address: [address] [place] [address] Performed By: #### 5 8410-2 #### [facility] CLIA [id number] [address] [place] [address] [place] RBC (Bld) [#/Vol] 4.52 10*6/uL Normal 3.90-5.20 [facility] Comment on above: Order Comment: Speci men Type: BLOOD SPECIMEN Ordering Facility: [facility] Address: [address] [place] [address] Performed By: #### 5 8410-2 #### [facility] CLIA [id number] [address] [place] [address] [place] WBC (Bld) [#/Vol] 6.74 10*3/uL Normal 3.70-11.00 [facility] Comment on above: Order Comment: Speci men Type: BLOOD SPECIMEN Ordering Facility: [facility] Address: [address] [place] [address] Performed By: #### 5 8410-2 #### [facility] CLIA [id number] [address] [place] [address] [place] Erythrocyte distribution width (RBC) [Ratio] 13.7 % 11.5 - 15.0 % [facility] Hematocrit (Bld) [Volume fraction] 39.8 % 36.0 - 46.0 % [facility] Hemoglobin (Bld) [Mass/Vol] 12.5 g/dL 11.5 - 15.5 g/dL [facility] MCH (RBC) [Entitic mass] 27.7 pg 26.0 - 34.0 pg [facility] MCHC (RBC) [Mass/Vol] 31.4 g/dL 30.5 - 36.0 g/dL [facility] MCV (RBC) [Entitic vol] 88.1 fL 80.0 - 100.0 fL [facility] Nucleated RBC (Bld) [#/Vol] <0.01 k/uL [facility] Platelet mean volume (Bld) [Entitic vol] 9.1 fL 9.0 - 12.7 fL [facility] Platelets (Bld) [#/Vol] 419 10*3/uL High 150 - 400 k/uL [facility] RBC (Bld) [#/Vol] 4.52 10*6/uL 3.90 - 5.2 0 m/uL [facility] WBC (Bld) [#/Vol] 6.74 10*3/uL 3.70 - 11. 00 k/uL [facility] DHEA-S BLDon 01-03-2023 DHEA-S [Mass/Vol] 140.6 ug/dL Normal 60.9-337.0 [facility] Comment on above: Order Comment: Speci men Type: BLOOD SPECIMEN Ordering Facility: [facility] Address: [address] [place] [address] Result Comment: Refe rence ranges are age and gender specific. For additional information, reference range tables can be found in the laboratory test directory. The normal values are based on the following source: Dehydroepiandrosterone sulfate (DHEA S) [package insert V 17.0 [place] Citizen]. [facility], [place], [place]: October 2012. Performed By: #### 2 986-8, DHEAS #### [facility] CLIA [id number] [address] [place] [address] [place] GLUCOSE FASTING BLDon 2022 Glucose post fast [Mass/Vol] 94 mg/dL 74 - 99 mg/dL [facility] Glucose p fast SerPl-mCncon 01-03-2023 Glucose post fast [Mass/Vol] 94 mg/dL Normal 74-99 [facility] Comment on above: Order Comment: Speci men Type: BLOOD SPECIMEN Ordering Facility: [facility] Address: [address] [place] [address] Result Comment: Amer ican Diabetes Association guidelines [...] Performed By: #### 1 558-6, 3016-3 #### [facility] CLIA [id number] [address] [place] [address] [place] HCG QUANTITATIVEon HCG.beta subunit Qn <5.0 mIU/mL [facility] HbA1c (Bld)on 01-03-2023 Average glucose Estimated from glycated hemoglobin (Bld) [Mass/Vol] 111 mg/dL Normal [facility] Comment on above: Order Comment: Devon delacruz Type: BLOOD SPECIMEN Ordering Facility: [facility] Address: [address] [place] [address] Result Comment: eAG: (Estimated average glucose) is a calculated value from HgbA1c and is visitor services representative of the average blood glucose level in the last 2-3 month period. Performed By: #### 5 5454-3 #### [facility] CLIA [id number] [address] [place] [address] [place] HbA1c (Bld) [Mass fraction] 5.5 % Normal 4.3-5.6 [facility] Comment on above: Order Comment: Devon delacruz Type: BLOOD SPECIMEN Ordering Facility: [facility] Address: [address] [place] [address] Result Comment: Amer ican Diabetes Association guidelines indicate that patients with HgbA1c in the range 5.7-6.4% are at increased risk for development of diabetes, and intervention by lifestyle modification may be beneficial. HgbA1c greater or equal to 6.5% is considered diagnostic of diabetes. Performed By: #### 5 5454-3 #### [facility] CLIA [id number] [address] [place] [id number] [place] INSULIN, FREEon 01-03-2023 Insulin Free Qn 29.8 mU/L High 3.0-25.0 [facility] Comment on above: Order Comment: Speci men Type: BLOOD SPECIMEN Ordering Facility: [facility] Address: [address] [place] [address] Performed By: #### F INS #### [facility] CLIA [id number] [address] [facility] [address] [place] [address] [place] TSH BLDon 01-03-2023 TSH Qn 2.950 m[IU]/L 0.270 - 4.200 mIU/L [facility] TSH SerPl-aCncon 01-03-2023 TSH Qn 2.950 m[IU]/L Normal 0.270-4.200 [facility] Comment on above: Order Comment: Specpa delacruz Type: BLOOD SPECIMEN Ordering Facility: [facility] Address: [address] [place] [address] Result Comment: If t he patient is , TSH reference range varies by gestational period: First Trimester (weeks 9-12): 0.180-2.990 mIU/L Second Trimester: 0.110-3.980 mIU/L Third Trimester: 0.480-4.710 mIU/L Jono Reaves et al. A Practical Approach for the Verifications and Determination of Site- and Trimester-Specific Reference Intervals for Thyroid Function tests in . Thyroid, 2019:29:3:412-420. Isaac Damico, et al. 2017 Guidelines of the [place] Thyroid Association for the Diagnosis and Management of Thyroid Disease during and the . Thyroid, 2017:27:3:315-389. Performed By: #### 1 558-6, 3016-3 #### [facility] CLIA [id number] [facility] [place] [address] [place] Testost SerPl-mCncon 023 Testosterone [Mass/Vol] 23 ng/dL Normal <40 [facility] Comment on above: Order Comment: Devon delacruz Type: BLOOD SPECIMEN Ordering Facility: [facility] Address: [address] [place] [address] Performed By: #### 2 986-8, DHEAS #### [facility] CLIA [id number] [address] [place] [address] [place] NICOTINE METABOLITESon 05-03 Cotinine <1.0 Normal [facility] Comment on above: Result Comment: This test was developed and its performance characteristics determined by [facility]. It has not been cleared or approved by the Food and Drug Administration. Cotinine levels greater than 20.0 are consistent with the use of tobacco or tobacco cessation products. Performed By: #### N ICTBLD #### [facility] [address] [place] [address] Dr. Jolynn Hunt Nicotine <1.0 Normal [facility] Comment on above: Result Comment: This test was developed and its performance characteristics determined by [facility]. It has not been cleared or approved by the Food and Drug Administration. Nicotine levels greater than 2.0 are consistent with the use of tobacco or tobacco cessation products. Performed By: #### N ICTBLD #### [facility] [address] [place] [address] Dr. Jolynn Hunt INSULINon 04-29-2022 Insulin 27.2 uIU/mL Critically high 2.6-24.9 [facility] Comment on above: Performed By: #### I NSULIN ####[facility] [address] [place], [place] [address]Dr. Jolynn Hunt CBC AUTO DIFFon 04-28-2022 BASO # 0.0 103/ul Normal 0.0-0.1 [facility] Comment on above: Performed By: #### C BC #### [facility] [address] [place] [address] Dr. Jolynn Hunt Basophils/100 WBC (Bld) 0.4 % Normal 0.2-2.0 [facility] Comment on above: Performed By: #### C BC #### [facility] [address] [place] [address] Dr. Jolynn Hunt EO # 0.2 103/ul Normal 0.0-0.7 [facility] Comment on above: Performed By: #### C BC #### [facility] [address] [place] [address] Dr. Jolynn Hunt Eosinophils/100 WBC (Bld) 1.5 % Normal 0.9-7.0 [facility] Comment on above: Performed By: #### C BC #### [facility] [address] [place] [address] Dr. Jolynn Hunt Erythrocyte distribution width (RBC) [Ratio] 15.2 % Critically high 11.0-15.0 [facility] Comment on above: Performed By: #### C BC #### [facility] [address] [place] [address] Dr. Jolynn Hunt Hematocrit (Bld) [Volume fraction] 39.6 % Normal 36.0-48.0 [facility] Comment on above: Performed By: #### C BC #### [facility] [address] [place] [address] Dr. Jolynn Hunt Hemoglobin (Bld) [Mass/Vol] 12.9 g/dL Normal 12.0-16.0 [facility] Comment on above: Performed By: #### C BC #### [facility] [address] [place] [address] Dr. Jolynn Hunt IG # 0.04 10e3/ul Critically high 0.00-0.[address] [facility] Comment on above: Performed By: #### C BC #### [facility] [address] [place] [address] Dr. Jolynn Hunt IG % 0.4 % Normal 0.0-0.5 [facility] Comment on above: Performed By: #### C BC #### [facility] [address] [place] [address] Dr. Jolynn Hunt LYMPH # 1.8 103/ul Normal 1.2-3.8 [facility] Comment on above: Performed By: #### C BC #### [facility] [address] [place] [address] Dr. Jolynn Hunt Lymphocytes/100 WBC (Bld) 18.5 % Critically low 20.5-60.0 [facility] Comment on above: Performed By: #### C BC #### [facility] [address] [place] [address] Dr. Jolynn Hunt MANUAL DIFF REQ NO Normal [facility] Comment on above: Performed By: #### C BC #### [facility] [address] [place] [address] [address] Jolynn Hunt MCH (RBC) [Entitic mass] 28.4 pg Normal 26.7-34.0 [facility] Comment on above: Performed By: #### C BC #### [facility] [address] [place] [address] [address] Jolynn Hunt MCHC (RBC) [Mass/Vol] 32.6 g/dL Normal 29.9-35.2 [facility] Comment on above: Performed By: #### C BC #### [facility] [address] [place] [address] Dr. Jolynn Hunt MCV (RBC) [Entitic vol] 87.2 fL Normal 81.0-99.0 [facility] Comment on above: Performed By: #### C BC #### [facility] [address] [place] [address] Dr. Jolynn Hunt MONO # 0.6 103/ul Normal 0.3-0.8 [facility] Comment on above: Performed By: #### C BC #### [facility] [address] [place] [address] Dr. Jolynn Hunt Monocytes/100 WBC (Bld) 5.9 % Normal 1.7-12.0 [facility] Comment on above: Performed By: #### C BC #### [facility] [address] [place] [address] Dr. Jolynn Hunt NEUT # 7.3 103/ul Critically high 1.4-6.5 [facility] Comment on above: Performed By: #### C BC #### [facility] [address] [place] [address] Dr. Jolynn Hunt Neutrophils/100 WBC (Bld) 73.3 % Normal 43.0-75.0 [facility] Comment on above: Performed By: #### C BC #### [facility] [address] [place] [address] Dr. Jolynn Hunt Platelet mean volume (Bld) [Entitic vol] 8.9 fL Critically low 9.5-13.5 [facility] Comment on above: Performed By: #### C BC #### [facility] [address] [place] [address] [address] Jolynn Hunt PLT 438 103/ul Normal 150-450 [facility] Comment on above: Performed By: #### C BC #### [facility] [address] [place] [address] [address] Jolynn Hunt RBC 4.54 106/ul Normal 4.20-5.40 [facility] Comment on above: Performed By: #### C BC #### [facility] [address] [place] [address] [address] Jolynn Hunt WBC 10.0 103/ul Normal 4.0-11.0 [facility] Comment on above: Performed By: #### C BC #### [facility] [address] [place] [address] [address] Jolynn Hunt FREE THYROXINE INDEX T7on FTI 2.64 Normal 1.30-4.50 [facility] Comment on above: Performed By: #### T SH, T7, CMP, LIPID ####[facility] [address] [place], [place] [address]QgDr. Jolynn Hunt T3U 29.0 % Critically low 30.0-39.0 [facility] Comment on above: Performed By: #### T SH, T7, CMP, LIPID ####[facility] [address] [place], [place] [address]HdDr. Jolynn Hunt T4 [Mass/Vol] 9.10 ug/dL Normal 4.80-13.90 [facility] Comment on above: Performed By: #### T SH, T7, CMP, LIPID ####[facility] [address] [place] [id number]. Jolynn Hunt GLYCOHEMOGLOBIN A1Con 2022 ADA RECOMMENDATION SEE BELOW Normal [facility] Comment on above: Result Comment: ADA RECOMMENDED LIMIT 4.0 - 6.0 ADA THERAPEUTIC TARGET < 7.0 ACTION SUGGESTED > 7.0 Performed By: #### A 1C #### [facility] [address] [place], [place] [address] Dr. Jolynn Hunt Glucose [Mass/Vol] 108 mg/dL Normal [facility] Comment on above: Performed By: #### A 1C #### [facility] [address] [place], [place] [address] Dr. Jolynn Hunt HbA1c (Bld) [Mass fraction] 5.4 % Normal 4.5-6.2 [facility] Comment on above: Performed By: #### A 1C #### [facility] [address] [place] [id number] Jolynn Hunt LIPID PROFILEon 04-28-2022 CHOL-HDL RATIO NORM SEE BELOW Normal [facility] Comment on above: Result Comment: 3.3 - 4.4 LOW RISK 4.4 - 7.1 AVERAGE RISK 7.1 - 11.0 MODERATE RISK >11.0 HIGH RISK Performed By: #### T SH, T7, CMP, LIPID ####[facility] [address] [place] [address]DrColby Hunt Cholesterol [Mass/Vol] 175 mg/dL Normal <=200 [facility] Comment on above: Performed By: #### T SH, T7, CMP, LIPID ####[facility] [address] [place] [address]DrColby Hunt Cholesterol in HDL [Mass/Vol] 53 mg/dL Normal 40-60 [facility] Comment on above: Performed By: #### T SH, T7, CMP, LIPID ####[facility] [address] [place] [address]DrColby Hunt Cholesterol in LDL [Mass/Vol] 89.8 mg/dL Normal [facility] Comment on above: Performed By: #### T SH, T7, CMP, LIPID ####[facility] [address] [place] [address]DrColby Hunt Cholesterol.total/C holesterol in HDL [Mass ratio] 3.3 {ratio} Normal [facility] Comment on above: Performed By: #### T SH, T7, CMP, LIPID ####[facility] [address] [place] [address]DrColby Hunt HDL NORMAL > or = 60 mg/dl - LO W CARDIOVASCULAR RISK <40 mg/dl - HIGH CARDIOVASCULAR RISK Normal [facility] Comment on above: Performed By: #### T SH, T7, CMP, LIPID ####[facility] [address] [place] [address]Dr. Jolynn Hunt LDL CALC NORMAL SEE BELOW Normal [facility] Comment on above: Result Comment: <100 mg/dl OPTIMAL 100 - 129 mg/dl NEAR OR ABOVE OPTIMAL 130 - 159 mg/dl BORDERLINE HIGH 160 - 189 mg/dl HIGH >190 mg/dl VERY HIGH Performed By: #### T SH, T7, CMP, LIPID ####[facility] [address] [place] [address]Dr. Jolynn Hunt Triglyceride [Mass/Vol] 161 mg/dL Critically high <=150 [facility] Comment on above: Performed By: #### T SH, T7, CMP, LIPID ####[facility] [address] [place] [address]Dr. Jolynn Hunt VLDL CALC 32.2 mg/dL Normal [facility] Comment on above: Performed By: #### T SH, T7, CMP, LIPID ####[facility] [address] [place] [address]Dr. Jolynn Hunt PROF 14(COMP METB)on 023 Albumin [Mass/Vol] 3.6 g/dL Normal 3.4-5.0 [facility] Comment on above: Performed By: #### T SH, T7, CMP, LIPID ####[facility] [address] [place] [address]Dr. Jolynn Hunt Albumin/Globulin [Mass ratio] 0.8 {ratio} Normal [facility] Comment on above: Performed By: #### T SH, T7, CMP, LIPID ####[facility] [address] [place] [address]Dr. Jolynn Hunt ALP [Catalytic activity/Vol] 78 U/L Normal 46-116 [facility] Comment on above: Performed By: #### T SH, T7, CMP, LIPID ####[facility] [address] [place] [address]Dr. Jolynn Hunt ALT [Catalytic activity/Vol] 29 U/L Normal 14-59 [facility] Comment on above: Performed By: #### T SH, T7, CMP, LIPID ####[facility] [address] [place] [address]Dr. Jolynn Hunt Anion gap [Moles/Vol] 12.8 mmol/L Normal [facility] Comment on above: Performed By: #### T SH, T7, CMP, LIPID ####[facility] [address] [place] [address]Dr. Jolynn Hunt AST [Catalytic activity/Vol] 20 U/L Normal 15-37 [facility] Comment on above: Performed By: #### T SH, T7, CMP, LIPID ####[facility] [address] [place] [address]Dr. Jolynn Hunt Bilirubin [Mass/Vol] 0.4 mg/dL Normal 0.2-1.0 [facility] Comment on above: Performed By: #### T SH, T7, CMP, LIPID ####[facility] [address] [place] [address]Dr. Jolynn Hunt Calcium [Mass/Vol] 9.2 mg/dL Normal 8.5-10.1 [facility] Comment on above: Performed By: #### T SH, T7, CMP, LIPID ####[facility] [address] [place] [address]Dr. Jolynn Hunt Chloride [Moles/Vol] 99 mmol/L Normal 98-107 [facility] Comment on above: Performed By: #### T SH, T7, CMP, LIPID ####[facility] [address] [place] [id number]. Jolynn Hunt CO2 [Moles/Vol] 29.3 mmol/L Normal 21.0-32.0 [facility] Comment on above: Performed By: #### T SH, T7, CMP, LIPID ####[facility] [address] [place] [address]Dr. Jolynn Hunt Creatinine [Mass/Vol] 0.47 mg/dL Critically low 0.55-1.02 [facility] Comment on above: Performed By: #### T SH, T7, CMP, LIPID ####[facility] [address] [place] [address]Dr. Jolynn Hunt EGFR-AF SOUTH [place]OREAN >60 Normal >=60 [facility] Comment on above: Performed By: #### T SH, T7, CMP, LIPID ####[facility] [address] [place] [address]Dr. Jolynn Hunt EGFR-NON AF [place]OU[place]OREAN >60 Normal >=60 [facility] Comment on above: Performed By: #### T SH, T7, CMP, LIPID ####[facility] [address] [place] [address]Dr. Jolynn Hunt Globulin (S) [Mass/Vol] 4.5 g/dL Normal [facility] Comment on above: Performed By: #### T SH, T7, CMP, LIPID ####[facility] [address] [place], [place] [address]Dr. Jolynn Hunt Glucose [Mass/Vol] 91 mg/dL Normal 74-[address] [facility] Comment on above: Performed By: #### T SH, T7, CMP, LIPID ####[facility] [address] [place], [place] [address]Dr. Jolynn Hunt Potassium [Moles/Vol] 3.1 mmol/L Critically low 3.5-5.1 [facility] Comment on above: Performed By: #### T SH, T7, CMP, LIPID ####[facility] [address] [place], [place] [address]Dr. Jolynn Hunt Protein [Mass/Vol] 8.1 g/dL Normal 6.4-8.[address] [facility] Comment on above: Performed By: #### T SH, T7, CMP, LIPID ####[facility] [address] [place], [place] [address]Dr. Jolynn Hunt Sodium [Moles/Vol] 138 mmol/L Normal 136-[address] [facility] Comment on above: Performed By: #### T SH, T7, CMP, LIPID ####[facility] [address] [place], [place] [address]Fi. Jolynn Hunt Urea nitrogen [Mass/Vol] 9.0 mg/dL Normal 7.0-18.0 [facility] Comment on above: Performed By: #### T SH, T7, CMP, LIPID ####[facility] [address] [place], [place] [address]Mz. Jolynn Hunt Urea nitrogen/Creatinine [Mass ratio] 19.1 mg/mg Normal [facility] Comment on above: Performed By: #### T SH, T7, CMP, LIPID ####[facility] [address] [place], [place] [address]Jp. Jolynn Hunt TSHon 04-28-2022 TSH 6.052 uIU/mL Critically high 0.358-3.740 [facility] Comment on above: Performed By: #### T SH, T7, CMP, LIPID #### [facility] [address] [place], [place] [address] Dr. Jolynn Hunt Bacteria Ur Culton 2 [...] F Susceptible <=40 , Resistant >40 Abnormal [facility] Comment on above: Performed By: #### 6 30-4 #### [facility] CLIA [id number] [address] [place] [address] [place] Covid-19 [facility] ([facility])on SARS-CoV-2 (COVID-19) RNA STEF+probe Ql (Unsp spec) Not detected Normal NOT DETECTED [facility] Comment on above: Result Comment: When diagnostic [...] for this test is supported by the [place] of Health and Human Service's declaration that [...] Performed By: #### C VDTB ####[facility] [address] [place] [address]Dr. Jolynn Hunt INFLUENZA A AND B AGon 02-17 [facility] SEE BELOW Normal [facility] Comment on above: Result Comment: Nega tive for Flu A protein angiten. Infection due to Flu A cannot be ruled out. Flu A angiten in the sample may be below the detection limit of the test. Performed By: #### I NFLUAB #### [facility] [address] [place] [address] [address] Jolynn Hunt [facility] SEE BELOW Normal [facility] Comment on above: Result Comment: Nega tive for Flu B protein antigen. Infection due to Flu B cannot be ruled out. Flu B antigen in the sample may be below the detection limit of the test. Performed By: #### I NFLUAB #### [facility] [address] [place] [address] Dr. Jolynn Hunt INFLUENZA A AG Negative Normal NEGATIVE SEE COMMENT [facility] Comment on above: Performed By: #### I NFLUAB #### [facility] [address] [place] [address] Dr. Jolynn Hunt INFLUENZA B AG Negative Normal NEGATIVE SEE COMMENT [facility] Comment on above: Performed By: #### I NFLUAB #### [facility] [address] [place] [address] Dr. Jolynn Hunt INTERNAL CONTROLS Within Normal Limits Normal Wi thin Normal Limits [facility] Comment on above: Performed By: #### I NFLUAB #### [facility] [address] [place] [address] Dr. Jolynn Hunt CBC panel Auto (Bld)on 11-25 Erythrocyte distribution width (RBC) [Ratio] 14.0 % 11.5 - 15.0 % [facility] Hematocrit (d) [Volume fraction] 40.8 % 36.0 - 46.0 % [facility] Hemoglobin (d) [Mass/Vol] 12.6 g/dL 11.5 - 15.5 g/dL [facility] MCH (RBC) [Entitic mass] 27.3 pg 26.0 - 34.0 pg [facility] MCHC (RBC) [Mass/Vol] 30.9 g/dL 30.5 - 36.0 g/dL [facility] MCV (RBC) [Entitic vol] 88.3 fL 80.0 - 100.0 fL [facility] Nucleated RBC (Bld) [#/Vol] <0.01 k/uL [facility] Platelet mean volume (Bld) [Entitic vol] 9.0 fL 9.0 - 12.7 fL [facility] Platelets (Bld) [#/Vol] 465 10*3/uL High 150 - 400 k/uL [facility] RBC (Bld) [#/Vol] 4.62 10*6/uL 3.90 - 5.2 0 m/uL [facility] WBC (Bld) [#/Vol] 9.74 10*3/uL 3.70 - 11. 00 k/uL [facility] Comprehensive metabolic 2000 panelon 11-25-2021 Albumin [Mass/Vol] 4.5 g/dL 3.9 - 4.9 g/dL [facility] ALP [Catalytic activity/Vol] 92 U/L 34 - 123 U/L [facility] ALT [Catalytic activity/Vol] 21 U/L 7 - 38 U/L [facility] Anion gap [Moles/Vol] 11 mmol/L 9 - 18 mmol/L [facility] AST [Catalytic activity/Vol] 16 U/L 13 - 35 U/L [facility] Bilirubin [Mass/Vol] 0.3 mg/dL 0.2 - 1.3 mg/dL [facility] Calcium [Mass/Vol] 9.6 mg/dL 8.5 - 10. 2 mg/dL [facility] Chloride [Moles/Vol] 98 mmol/L 97 - 105 mmol/L [facility] CO2 [Moles/Vol] 30 mmol/L 22 - 30 mmol/L [facility] Creatinine [Mass/Vol] 0.57 mg/dL Low 0.58 - 0.96 mg/dL [facility] Estimated Glomerular Filtration Rate 122 mL/min/1.73m >=60 mL/min/1.73m [facility] Glucose [Mass/Vol] 98 mg/dL 74 - 99 mg/dL [facility] Potassium [Moles/Vol] 3.4 mmol/L Low 3.7 - 5.1 mmol/L [facility] Protein [Mass/Vol] 8.1 g/dL High 6.3 - 8.0 g/dL [facility] Sodium [Moles/Vol] 139 mmol/L 136 - 144 mmol/L [facility] Urea nitrogen [Mass/Vol] 12 mg/dL 7 - 21 mg/dL [facility] VITAMIN B12 BLOODon 11-26-19 Cobalamin (Vitamin B12) [Mass/Vol] 224 pg/mL Low 232 - 1,245 pg/mL [facility] XR LSPINE MIN 4 VIEWSon XR LSPINE [...] Date: 2021-10-12 19:59 Normal [facility] CBC AUTO DIFFon 07-01-2021 BASO # 0.0 103/ul Normal 0.0-0.1 [facility] Comment on above: Performed By: #### C BC #### [facility] [address] [place] [address] [address] Jolynn Hunt Basophils/100 WBC (Bld) 0.4 % Normal 0.2-2.0 [facility] Comment on above: Performed By: #### C BC #### [facility] [address] [place] [address] [address] Jolynn Hunt EO # 0.1 103/ul Normal 0.0-0.7 [facility] Comment on above: Performed By: #### C BC #### [facility] [address] [place] [address] [address] Jolynn Hunt Eosinophils/100 WBC (Bld) 1.6 % Normal 0.9-7.0 [facility] Comment on above: Performed By: #### C BC #### [facility] [address] [place] [address] Dr. Jolynn Hunt Erythrocyte distribution width (RBC) [Ratio] 13.9 % Normal 11.0-15.0 [facility] Comment on above: Performed By: #### C BC #### [facility] [address] [place] [address] Dr. Jolynn Hunt Hematocrit (Bld) [Volume fraction] 39.9 % Normal 36.0-48.0 [facility] Comment on above: Performed By: #### C BC #### [facility] [address] [place] [address] Dr. Jolynn Hunt Hemoglobin (Bld) [Mass/Vol] 12.2 g/dL Normal 12.0-16.0 [facility] Comment on above: Performed By: #### C BC #### [facility] [address] [place] [address] Dr. Jolynn Hunt IG # 0.03 10e3/ul Normal 0.00-0.03 [facility] Comment on above: Performed By: #### C BC #### [facility] [address] [place] [address] Dr. Jolynn Hunt IG % 0.4 % Normal 0.0-0.5 [facility] Comment on above: Performed By: #### C BC #### [facility] [address] [place] [address] Dr. Jolynn Hunt LYMPH # 1.5 103/ul Normal 1.2-3.8 [facility] Comment on above: Performed By: #### C BC #### [facility] [address] [place] [address] Dr. Jolynn Hunt Lymphocytes/100 WBC (Bld) 17.8 % Critically low 20.5-60.0 [facility] Comment on above: Performed By: #### C BC #### [facility] [address] [place] [address] Dr. Jolynn Hunt MANUAL DIFF REQ NO Normal [facility] Comment on above: Performed By: #### C BC #### [facility] [address] [place] [address] Dr. Jolynn Hunt MCH (RBC) [Entitic mass] 26.5 pg Critically low 26.7-34.0 [facility] Comment on above: Performed By: #### C BC #### [facility] [address] [place] [address] Dr. Jolynn Hunt MCHC (RBC) [Mass/Vol] 30.6 g/dL Normal 29.9-35.2 [facility] Comment on above: Performed By: #### C BC #### [facility] [address] [place] [address] Dr. Jolynn Hunt MCV (RBC) [Entitic vol] 86.7 fL Normal 81.0-99.0 [facility] Comment on above: Performed By: #### C BC #### [facility] [address] [place] [address] Dr. Jolynn Hunt MONO # 0.6 103/ul Normal 0.3-0.8 [facility] Comment on above: Performed By: #### C BC #### [facility] [address] [place] [address] Dr. Jolynn Hunt Monocytes/100 WBC (Bld) 6.8 % Normal 1.7-12.0 [facility] Comment on above: Performed By: #### C BC #### [facility] [address] [place] [address] Dr. Jolynn Hunt NEUT # 6.0 103/ul Normal 1.4-6.5 [facility] Comment on above: Performed By: #### C BC #### [facility] [address] [place] [address] Dr. Jolynn Hunt Neutrophils/100 WBC (Bld) 73.0 % Normal 43.0-75.0 [facility] Comment on above: Performed By: #### C BC #### [facility] [address] [place] [address] Dr. Jolynn Hunt Platelet mean volume (Bld) [Entitic vol] 9.2 fL Critically low 9.5-13.5 [facility] Comment on above: Performed By: #### C BC #### [facility] [address] [place], [place] [address] Dr. Jolynn Hunt PLT 421 103/ul Normal 150-450 [facility] Comment on above: Performed By: #### C BC #### [facility] [address] [place], [place] [address] Dr. Jolynn Hunt RBC 4.60 106/ul Normal 4.20-5.40 [facility] Comment on above: Performed By: #### C BC #### [facility] [address] [place], [place] [address] Dr. Jolynn Hunt WBC 8.2 103/ul Normal 4.0-11.0 [facility] Comment on above: Performed By: #### C BC #### [facility] [address] [place], [place] [address] ABD/PELVIS WO CONon [...] Date: 2021-07-01 10:58 Normal [facility] PREG HCG QUALon 07-01-2021 , QUAL Negative Normal NEGATIVE [facility] Comment on above: Performed By: #### P REG #### [facility] [address] [place] [address] Dr. Jolynn Hunt PROF CHEM 8 (BAS METB)on Anion gap [Moles/Vol] 13.4 mmol/L Normal [facility] Comment on above: Performed By: #### B MP #### [facility] [address] [place] [address] Dr. Jolynn Hunt Calcium [Mass/Vol] 8.9 mg/dL Normal 8.5-10.1 [facility] Comment on above: Performed By: #### B MP #### [facility] [address] [place] [address] Dr. Jolynn Hunt Chloride [Moles/Vol] 100 mmol/L Normal 98-107 [facility] Comment on above: Performed By: #### B MP #### [facility] [address] [place] [address] Dr. Jolynn Hunt CO2 [Moles/Vol] 29.6 mmol/L Normal 22.0-30.0 [facility] Comment on above: Performed By: #### B MP #### [facility] [address] [place] [address] Dr. Jolynn Hunt Creatinine [Mass/Vol] 0.56 mg/dL Normal 0.52-1.04 [facility] Comment on above: Performed By: #### B MP #### [facility] [address] [place] [address] [address] Jolynn Hunt EGFR-AF [place]OREAN >60 Normal >=60 [facility] Comment on above: Performed By: #### B MP #### [facility] [address] [place] [address] [address] Jolynn Hunt EGFR-NON AF [place] >60 Normal >=60 [facility] Comment on above: Performed By: #### B MP #### [facility] [address] [place] [address] [address] Jolynn Hunt Glucose [Mass/Vol] 96 mg/dL Normal 74-106 [facility] Comment on above: Performed By: #### B MP #### [facility] [address] [place] [address] [address] Jolynn Hunt Potassium [Moles/Vol] 3.0 mmol/L Critically low 3.4-5.0 [facility] Comment on above: Performed By: #### B MP #### [facility] [address] [place] [address] [address] Jolynn Hunt Sodium [Moles/Vol] 140 mmol/L Normal 137-[address] [facility] Comment on above: Performed By: #### B MP #### [facility] [address] [place] [address] [address] Jolynn Hunt Urea nitrogen [Mass/Vol] 9.0 mg/dL Normal 7.0-18.0 [facility] Comment on above: Performed By: #### B MP #### [facility] [address] [place] [address] [address] Jolynn Hunt Urea nitrogen/Creatinine [Mass ratio] 16.1 mg/mg Normal [facility] Comment on above: Performed By: #### B MP #### [facility] [address] [place] [address] [address] Jolynn Hunt CNOVSPon 12-10-2020 CNOVSP Visit (SP) Office ( YMAL) -- BRAD FLEMING ([id number]) 1985 F Date Time Provider Department 12/10/20 1:30 PM JASMINA JACINTO During your visit today, we recorded the following information about you: Temperature Pulse Respiration Blood pressure 98.3 degrees 96/minute 14/minute 135/94 Weight Last Period 92.5 kg 11/25/20 Jasmina Jacinto APRN.EXTENSION WORK DIRECTOR 12/10/2020 3:45 PM Signed DATE OF SERVICE: [...] features. Consider surgical evaluation or consultation with IT LEAD Oncology 12/04/20 CT Abdomen/Pelvis IMPRESSION: 1. ?Ovoid [...] now res (more content not included)... Normal [facility] 12-08-2020 CNPN Telephone (GYNML) -- BRAD FLEMING ([id number]) 1985 F Date Time Provider Department 12/08/20 JOI SOARES [facility] During your visit today, we recorded the [...] Encounter Status:Closed by JOI SOARES on 12/08/20 [facility] CNPN Telephone (GYNML) -- BERNADETTEBRAD ([id number]) 1985 F Date Time Provider Department 12/08/20 [...] Encounter Status:Closed by JOI SOARES on 12/09/20 [facility] 12-04-2020 CNPN Telephone (GYNML) -- BRAD FLEMING ([id number]) 1985 F Date Time Provider Department 12/04/20 JASMINA JACINTO [facility] During your visit today, we recorded the following information about you: Jasmina Jacinto APRN.EXTENSION WORK DIRECTOR 12/04/2020 4:47 PM Signed Called patient to [...] questions answered at this time. Jasmina Jacinto APRN.EXTENSION WORK DIRECTOR December 04, 2020 4:46 PM Allergies As [...] Encounter Status:Closed by JASMINA JACINTO on 12/04/[address] [facility] [address] ABD/PEL W IVCONon 021 [facility] [place] 12-02-2020 CNPN Telephone (GYNML) -- BRAD FLEMING ([id number]) 1985 F Date Time Provider Department 12/02/20 [...] Signed Spoke with patient in regards to EXTENSION WORK DIRECTOR recommendation to monitor pain and continue current [...] Encounter Status:Closed by SHO MILNER on 12/02/20 [facility] [place] 11-27-2020 ANTONIN Telephone (GYN) -- BRAD LFEMING ([id number]) 1985 F Date Time Provider Department 11/27/20 [...] Date Reviewed: 11/12/2020 Reviewed by: Jenaro Ribeiro APRN.EXTENSION WORK DIRECTOR - Fully Assessed Reason for Visit: Appointment [...] Encounter Status:Closed by CANDELARIA REAVES on 11/27/20 [facility] CNOVSPon 11-12-2020 CNOVSP Visit (SP) Office (G YNML) -- BERNADETTEBRAD ([id number]) 1985 F Date Time Provider Department 11/12/20 10:15 AM JENARO RIBEIRO During your visit today, we recorded the following information about you: Temperature Pulse Blood pressure 98.1 degrees 98/minute 119/77 Jenaro Ribeiro APRN.EXTENSION WORK DIRECTOR 11/13/2020 1:21 PM Signed DATE OF SERVICE: 11/12/2020 PROBLEM: Brad Fleming presents for postop visit. 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 ? [facility] 11/03/2020 COMMENT The entire specimen was submitted [...] Jenaro Ribeiro APRN.CNP Referring Provider: CAITLYN SNEED [[id number]] Allergies As of Date: 11/12/2020 Noted Allergy Reaction BEE VENOM PROTEIN (HONEY BEE) 08/27/2020 2 - Rash Comments: Rash spreads from bee stings PENICILLINS 09/07/2014 4 - Hives TIZANIDINE 05/07/2020 1 - Mental Status Change TRAMADOL 08/27/2020 14 - Other: See Comments Comments: dizziness Date Reviewed: 11/12/2020 Reviewed by: Jenaro Ribeiro APRN.EXTENSION WORK DIRECTOR - Fully Assessed Reason for Visit: Established [...] Encounter Status:Closed by JENARO RIBEIRO on 11/13/20 [facility] 11-06-2020 OZZIE Telephone (GYN) -- BRAD FLEMING ([id number]) 1985 F Date Time Provider Department 11/06/20 JASMINA JACINTO During your visit today, we recorded the following information about you: Jasmina Jacinto APRN.CNP 11/06/2020 9:21 AM Signed Left voicemail for patient to return call to office to discuss pathology results and plan of care. Will await call back. Jasmina Jacinto APRN.EXTENSION WORK DIRECTOR November 06, 2020 9:21 AM Allergies As [...] Encounter Status:Closed by JASMINA JACINTO on 11/24/20 [facility] [place] 11-03-2020 CNPN Telephone (GYNML) -- BRAD FLEMING ([id number]) 1985 F Date Time Provider Department 11/03/20 [...] Encounter Status:Closed by NANCY JAMISON on 11/03/20 [facility] ANES POSTPROC EVALon 021 ANES POSTPROC EVAL HNO ID: [id number] Author: Antonio Ma I, MD Service: Anesthesiology [...] October 28, 2020 TIME: 12:34 PM CSN: [id number] [facility] ANES PRE-OPon 10-28-2020 ANES PRE-OP HNO ID: [id number] Author: Antonio Ma I, MD Service: Anesthesiology [...] October 28, 2020 TIME: 8:10 AM CSN: [id number] [facility] CYTOLOGYon 10-28-2020 CYTOLOGY Specimen originated from [facility] Specimen #: [id number] Submitting Physician: CAITLYN ROBLEDO MD SPECIMEN SUBMITTED [...] WASHING (THINPREP AND CELL BLOCK) THIN PREP Non-Spikemaking Supervisor, CELL BLOCK, H&E, Initial Date of Report: 10/29/2020 Date of Procedure: 10/28/2020 Date of Receipt: 10/29/2020 Submitted by: CAITLYN ROBLEDO MD Location: [place] [address]. [place] Number: [id number] [facility] HISTORY PHYSICALon HISTORY PHYSICAL HNO ID: [id number] Author: Bo Galdamez MD Service: Gynecology Author [...] Electronic Medical Record dated 10/14/2020. SIGNATURE: Carley Mayfiled MD PATIENT NAME: Brad Fleming DATE: October 28, 2020 TIME: 8:20 AM Attending note: I spoke to pt prior to the procedure starts and confirm with pt again regarding our plans. The plan for procedure is laparoscopy, chromotubation, possible bilat neosalpingostomy, possible bilat salpingectomy. She agrees to have bilat salpingectomy if we feel that it is necessary. Aidee Mclain MD [facility] NURSING PROGon 10-28-2020 NURSING PROG HNO ID: [id number] Author: Anahy Medley RN Service: Nursing Author [...] (RECOMMENDATION): None Electronically Signed By: Anahy Medley [facility] NURSING PROG HNO ID: [id number] Author: Yolanda Cifuentes RN Service: Nursing Author [...] patch, follow the directions provided by the wearing apparel shaker and these steps: 1. After washing the [...] not breathing, call local emergency services at 478. What other information should I know? Keep all appointments with your doctor and the laboratory. The patch is not affected by limited exposure to water during bathing or swimming. Do not let anyone else use your medication. Ask your pharmacist any questions you have about refilling (more content not included)... [facility] OPERATIVE NOon 10-28-2020 OPERATIVE NO HNO ID: [id number] Author: Caitlyn Sneed MD Service: Gynecology Oncology Author Type: Physician Type: Operative Report Filed: 11/10/2020 6:38 PM Note Text: OPERATIVE/PROCEDURE REPORT LOG ID: [id number] SURGERY/PROCEDURE DATE: 10/28/2020 INCISION/PROCEDURE START TIME: 9:17 AM INCISION CLOSE/PROCEDURE END TIME: 10:49 AM SURGEON(S)/PROCEDURALIST(S ) AND RELIEF DOCKING MASTER(S): Surgeon(s) and Role: Panel 1: * Caitlyn [...] DATE: November 07, 2020 TIME: 1:19 AM [facility] OPERATIVE NO HNO ID: [id number] Author: Bo Galdamez MD Service: Gynecology Author Type: Physician Type: Operative Report Filed: 11/04/2020 6:14 PM Note Text: IT LEAD OPERATIVE/PROCEDURE REPORT LOG ID: [id number] Surgery/Procedure Date: 10/28/2020 Incision/Procedure Start Time: 9:17 AM Incision Close/Procedure End Time: Surgeon(s)/Proceduralist(s ) and [address] Office Assistant(s): Surgeon(s) and Role: Panel 1: * Caitlyn Sneed MD - Primary Panel 2: * Bo Gladamez MD - Primary * Carley Mayfield MD [...] TIME: 10:41 AM PAGER/CONTACT #: .[email or web address] [facility] SURGICAL PATHOLOGYon 021 SURGICAL PATHOLOGY Specimen originated from [facility] Specimen #: [id number] Submitting Physician: CAITLYN ROBLEDO MD FINAL DIAGNOSIS Right ovarian cyst, cystectomy - 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 [facility] 11/03/2020 COMMENT The entire specimen was submitted [...] evidence of borderline tumor or malignancy on visitor services representative frozen section (Dr. Coles). Intraoperative consultation performed at [facility], [address] [place] [address] GROSS DESCRIPTION A. Received fresh for frozen [...] There is no normal appearing ovarian parenchyma. Tea Bag Packer sections are submitted as follows: FSA1 cyst for frozen section, A2-A7 cyst in formalin for permanent section. The remainder of the specimen is subsequently submitted in cassettes A8-A14. WE/virgilio 10/28/2020 MANISHA/jessica 10/30/2020 Gross examination performed at [place] [address] Date of Report: 11/03/2020 Date of Procedure: 10/28/2020 Date of Receipt: 10/28/2020 Submitted by: CAITLYN ROBLEDO MD Location: [facility] Diagnostic interpretation performed at [facility], [address] [place] [address]. CLIA Number: [id number] Normal [facility] 10-23-2020 CNPN Telephone (GYN) -- BRAD FLEMING ([id number]) 1985 F Date Time Provider Department 10/23/20 SHO MILNER During your visit today, we recorded the following information about you: Sho Milner RN 10/23/2020 4:08 PM Signed Patient's FMLA form completed and faxed with confirmation. Will place to be scanned. Sho Milner RN 11/17/2020 11:58 AM Signed Spoke with patient. She stated that [facility] updated that they faxed additional paperwork to our office. Paperwork was not received. Patient will call [facility] to have them send papers to office. Correct fax number given. Allergies As of Date: 10/23/2020 Noted Allergy Reaction BEE VENOM PROTEIN (HONEY BEE) 08/27/2020 2 - Rash Comments: Rash spreads from bee stings PENICILLINS 09/07/2014 4 - Hives TIZANIDINE 05/07/2020 1 - Mental Status Change TRAMADOL 08/27/2020 14 - Other: See Comments Comments: dizziness Date Reviewed: 10/14/2020 Reviewed by: Neva Moore APRN.EXTENSION WORK DIRECTOR - Fully Assessed Reason for Visit: [facility] Paperwork [4228] Prescriptions as of 11/17/2020 - ibuprofen (MOTRIN) [...] Status:Closed by SHO MILNER on 10/23/20 Normal [facility] Type and SCR (30D)on 021 ABO/RH(D) Positive [facility] Comment on above: Performed By: #### T SCR30 ####[facility] [place], [place] [phone] [facility]2020 OZZIE Telephone (ABAD) -- BRAD FLEMING ([id number]) 1985 F Date Time Provider Department 10/09/20 NANCY JAMISON During your visit today, we recorded the following information about you: Nancy Jamison RN 10/09/2020 12:24 PM Signed Procedure: Ovarian cystectomy Physician: Caitlyn Owusu Location: [facility]: [phone] Date AND Time: 10/28/20 MEDICAL CLEARANCE: TBd [...] Naprosyn(naproxen) Agrylin NSAIDS Pepto-Bismol Aleve Ecotrin Persantine Martina-Lee Excedrin Plaquenil Anacin Heparin Plavix Ascriptin Herbals [...] - IV pain medication after surgery, IV DAIRY PROCESSING EQUIPMENT OPERATOR if ordered by MD, discharged home with a prescription for PO pain medication, pain management after surgery, side effects of pain medication (including constipation, dizziness, drowsiness, and medication interactions). DVT PROPHYLAXIS - Early ambulation, SCDs, injectable anticoagulants (heparin, lovenox, etc) RESPIRATORY - Incentive spirometer, coughing/deep breathing exercises, ambulation. RETURN TO WORK - As directed by physician, please send any FMLA papers to physician's medical secretary teacher. SYMPTOMS TO NOTIFY MD - Fever, chills, nausea, vomiting, increased or severe pain, heavy vaginal bleeding, foul smelling vaginal drainage, pain or swelling in extremities. URGENT SYMPTOMS - Call 911 or go to ER if any shortness of breath, difficulty breathing, or chest pain. HOW TO CONTACT PHYSICIAN - Physician's office phone number given to patient, if after hours patient instructed to call tube operator and ask for the doctor solution make up operator. Patient and family have phone number to call 24 hours/day. Patient Evaluation: Verbalizes understanding Patient and/or family express understanding of upcoming surgery and the operative process. Questions answered. Follow Up Plan: Follow up as needed Supplemental Material Given: Pre-operative teaching packet provided to the patient: INPATIENT/OUTPATIEN (more content not included)... [facility] Vital Signs Date Time Vital Sign Value Performing Clinician Mihaela ye 01-03-2023 10:27-0400 Body height 154.9 cm Jenny Fog ESTIMATOR AND DRAFTER SUPERVISOR.EXTENSION WORK DIRECTOR Work Phone: [facility] 01-03-2023 10:27-0400 Body weight 93.44 kg Jenny Fog ESTIMATOR AND DRAFTER SUPERVISOR.EXTENSION WORK DIRECTOR Work Phone: [facility] 01-03-2023 10:27-0400 Diastolic blood pressure 82 mm[Hg] Jenny Fog ESTIMATOR AND DRAFTER SUPERVISOR.EXTENSION WORK DIRECTOR Work Phone: [facility] 01-03-2023 10:27-0400 Systolic blood pressure 130 mm[Hg] Jenny Fog ESTIMATOR AND DRAFTER SUPERVISOR.EXTENSION WORK DIRECTOR Work Phone: [facility] 11-25-2021 09:52-0400 Body height 154.9 cm Jenny Fog ESTIMATOR AND DRAFTER SUPERVISOR.EXTENSION WORK DIRECTOR Work Phone: [facility] 11-25-2021 09:52-0400 Body weight 91.17 kg Jenny Ye APRN.EXTENSION WORK DIRECTOR Work Phone: [facility] 11-25-2021 09:52-0400 Diastolic blood pressure 88 mm[Hg] Jenny Ye ESTIMATOR AND DRAFTER SUPERVISOR.EXTENSION WORK DIRECTOR Work Phone: [facility] 11-25-2021 09:52-0400 Systolic blood pressure 138 mm[Hg] Jenny Ye ESTIMATOR AND DRAFTER SUPERVISOR.EXTENSION WORK DIRECTOR Work Phone: [facility] Encounters Encounter Date Encounter Type Care Provider Facility Start: 04-05-2024 End: 04-05-2024 Refill Jenny Ye ESTIMATOR AND DRAFTER SUPERVISOR.EXTENSION WORK DIRECTOR Work Phone: Obstetrics/Gynecology Comment on above: Refill Request Start: 01-08-2024 End: 01-12-2024 Telephone encounter Jenny Ye APRN.EXTENSION WORK DIRECTOR Work Phone: Obstetrics/Gynecology Start: 12-29-2023 End: 12-29-2023 Refill Jenny Ye ESTIMATOR AND DRAFTER SUPERVISOR.EXTENSION WORK DIRECTOR Work Phone: Obstetrics/Gynecology Comment on above: Refill Request Start: 01-05-2023 Telephone encounter Jenny Varma APRN.EXTENSION WORK DIRECTOR Work Phone: CB/Gynecology Comment on above: Results Start: 01-05-2023 End: 01-05-2023 ambulatory Tayla Willard MD Work Phone: Obstetrics/Gynecology Start: 01-05-2023 End: 01-05-2023 Patient encounter procedure Tayla Willard MD Work Phone: [facility] Start: 01-03-2023 End: 01-04-2023 ambulatory JENNY YE Facility:[facility] Start: 01-03-2023 End: 01-03-2023 Patient encounter procedure Jenny Ye ESTIMATOR AND DRAFTER SUPERVISOR.EXTENSION WORK DIRECTOR Work Phone: Obstetrics/Gynecology Comment on above: Encounter for gyneco logical examination (general) (routine) without abnormal findings (Primary Dx); Screening for malignant neoplasm of cervix; History of abnormal cervical Pap smear; Counseling for initiation of control method; Encounter for screening breast examination; Abnormal uterine bleeding (AUB); PCOS (polycystic ovarian syndrome); Vaginal discharge Start: 01-03-2023 End: 01-03-2023 Patient encounter status Jenny Ye APRN.CNP Work Phone: [facility] Work Phone: Start: 05-02-2022 Encounter for genera l adult medical examination without abnormal findings DR KEILA MCCORMICK . [facility] Start: 04-28-2022 End: 04-29-[address] KEILA MCCORMICK . Facility:[facility] Start: 04-28-2022 End: 04-29-2022 Encounter for general adult medical examination without abnormal findings DR KEILA MCCORMICK . Facility:[facility] Start: 04-07-2022 End: 04-07-[address] KEILA MCCORMICK . Facility: Start: 02-23-2022 Telephone encounter Jenny Varma APRN.EXTENSION WORK DIRECTOR Work Phone: CB/Gynecology Comment on above: Results Start: 02-21-2022 End: 02-22-2022 ambulatory JENNY YE Facility:[facility] Start: 02-21-2022 Telephone encounter Jenny Varma APRN.EXTENSION WORK DIRECTOR Work Phone: Obstetrics/Gynecology Comment on above: Urinary Problem Start: 02-17-2022 End: 02-17-[address] KEILA MCCORMICK . Facility: Start: 11-25-2021 Telephone encounter Jenny Varma APRN.EXTENSION WORK DIRECTOR Work Phone: Obstetrics/Gynecology Comment on above: Results Start: 11-25-2021 End: 11-25-2021 Patient encounter procedure Jenny Ye APRN.EXTENSION WORK DIRECTOR Work Phone: Obstetrics/Gynecology Comment on above: Encounter for gyneco logical examination (general) (routine) without abnormal findings (Primary Dx); Encounter for screening breast examination; PCOS (polycystic ovarian syndrome); Menorrhagia with regular cycle; Medication management Start: 11-25-2021 End: 11-25-2021 Patient encounter status Jenny Ye APRN.EXTENSION WORK DIRECTOR Work Phone: Obstetrics/Gynecology Start: 10-21-2021 End: 10-22-[address] KEILA MCCORMICK . Facility:[facility] Start: 10-12-2021 End: 10-13-[address] KEILA MCCORMICK . Facility:[facility] Start: 07-01-2021 End: 07-01-[address] KEILA MCCORMICK . Facility:[facility] Start: 12-04-2020 End: 12-04-2020 Subsequent hospital visit by physician [facility] Radiology Ct Scan Comment on above: Post-operative state [Z98.890] Start: 10-09-2017 End: 10-10-2017 Patient encounter DEFAULT PHYSICIAN Facility:[facility] Procedures Date Procedure Procedure Detail Performing Clinician Start: 01-05-2023 Us pelvic nonobstetr ic real-time image complete Jenny Ye ESTIMATOR AND DRAFTER SUPERVISOR.EXTENSION WORK DIRECTOR Work Phone: Start: 12-04-2020 Ct abdomen & pelvis w/contrast material Jasmina Jacinto APRN.EXTENSION WORK DIRECTOR Work Phone: Start: 10-12-2020 Antibody screen Comment on above: Performed By: #### T SCR30 ####[facility] [place], [place] [phone] Plan of Treatment Date Care Activity Detail Author Start: 01-04-2028 HPV Testing HPV Testing [facility] Start: 01-04-2028 Pap Testing Pap Testing [facility] Start: 01-04-2028 Screening for malign ant neoplasm of cervix Cervical Cancer Screening [facility] Start: 09-28-2025 HPV TESTING HPV TESTING [facility] Start: 09-21-2025 PAP TESTING PAP TESTING [facility] Start: 11-19-2024 End: 11-19-2024 Patient encounter procedure 11/19/2024 9:20 AM EDT Office Visit Obstetrics/Gynecology [id number] [place] [id number] [place] [id number] [place] [id number] Annual Obstetrics/Gynecology Comment on above: Annual Start: 01-09-2024 End: 01-09-2024 Patient encounter procedure 01/09/2024 11:00 AM EDT Office Visit Obstetrics/Gynecology [id number] [place] [id number] Jenny Ye APRN.EXTENSION WORK DIRECTOR [id number] [facility] [place] [id number] annual Obstetrics/Gynecology Comment on above: annual Start: 11-12-2023 Covid-19 Vaccine () Covid-19 Vaccine () [facility] Start: 11-12-2023 Influenza vaccination Influenza Vacc ine (#1) [facility] Start: 01-03-2023 End: 01-04-2024 DHEA-S BLD [facility] Work Phone: Comment on above: Expected: 01/03/2023 , Expires: 01/04/2024 Start: 01-03-2023 End: 01-04-2024 Hemoglobin A1c in Blood [facility] Work Phone: Comment on above: Expected: 01/03/2023 , Expires: 01/04/2024 Start: 01-03-2023 End: 01-04-2024 INSULIN, FREE [facility] Work Phone: Comment on above: Expected: 01/03/2023 , Expires: 01/04/2024 Start: 01-03-2023 End: 01-04-2024 PELVIC US WHI PELVIC US WHI Anc Imaging Routine Abnormal uterine bleeding (AUB) PCOS (polycystic ovarian syndrome) Expected: 01/03/2023, Expires: 01/04/2024 [facility] Work Phone: Comment on above: Expected: 01/03/2023 , Expires: 01/04/2024 Start: 01-03-2023 End: 01-04-2024 Testosterone [Mass/volume] in Serum or Plasma [facility] Work Phone: Comment on above: Expected: 01/03/2023 , Expires: 01/04/2024 Start: 11-11-2022 Covid-19 Vaccine () Covid-19 Vaccine ( season) [facility] Start: 03-13-2022 Depression Assessment Depression Ass essment [facility] Start: 02-21-2022 End: 04-23-2022 Bacteria identified in Urine by Culture [facility] Work Phone: Comment on above: Expected: 02/21/2022 , Expires: 04/23/2022 Start: 12-23-2021 COVID-19 VACCINE (4 - Booster for Pfizer series) COVID-19 VACCINE (4 - Booster for Pfizer series) [facility] Start: 11-11-2021 Influenza vaccination INFLUENZA (#1) [facility] Start: 10-27-2021 COVID-19 VACCINE (3 - Booster for Pfizer series) COVID-19 VACCINE (3 - Booster for Pfizer series) [facility] Start: 03-13-2021 DEPRESSION ASSESSMENT DEPRESSION ASS ESSMENT [facility] Start: 10-10-2006 Hepatitis B Vaccine (1 of 3 - 19+ 3-dose series) Hepatitis B Vaccine (1 of 3 - 19+ 3-dose series) [facility] Start: 10-10-2006 Urine microalbumin profile [facility] Start: 10-10-2005 ANNUAL PCP TEAM BLANKET BINDER DIONNA DISEASE VISIT ANNUAL PCP TEAM CHRONIC DISEASE VISIT [facility] Start: 10-10-2005 Anxiety Screening Anxiety Screening [facility] Start: 10-10-2005 BP CONTROLLED (<130/80) BP CON TROLLED (<130/80) [facility] Start: 10-10-2005 Depression Screening Depression Scre ening [facility] Start: 10-10-2005 HEPATITIS C SCREENING HEPATITIS C [facility] Start: 10-10-2005 Hepatitis C screening Hepatitis C [facility] Start: 10-10-2005 HIV SCREENING HIV SCREENING [facility] Start: 10-10-2005 HIV screening HIV Screening [facility] Start: 1999 Adult depression screening assessment DEPRESSION SCREENING [facility] Start: 1985 HEPATITIS B (1 of 3 - 3-dose series) HEPATITIS B (1 of 3 - 3-dose series) [facility] Start: 1985 Hepatitis B Vaccine (1 of 3 - 3-dose series) Hepatitis B Vaccine (1 of 3 - 3-dose series) [facility] BACTERIAL VAGINOSIS NAAT BACTERI AL VAGINOSIS NAAT Lab Routine Vaginal discharge 01/03/2023 11:00 AM EDT [facility] Work Phone: DENVER/TRICHOMONAS NAAT [place] /TRICHOMONAS NAAT Lab Routine Vaginal discharge 01/03/2023 11:00 AM EDT [facility] Work Phone: PAP TEST PAP TEST Lab Rou mary kate Screening for malignant neoplasm of cervix History of abnormal cervical Pap smear 01/03/2023 10:50 AM EDT [facility] Work Phone: [facility] Immunizations Immunization Date Immunization Notes Care Provider Fa [facility] 01-02-2023 influenza virus vacc ine, unspecified formulation Jenny Fog ESTIMATOR AND DRAFTER SUPERVISOR.EXTENSION WORK DIRECTOR Work Phone: [facility] 01-08-2020 influenza virus vacc ine, unspecified formulation Jenny Fog ESTIMATOR AND DRAFTER SUPERVISOR.EXTENSION WORK DIRECTOR Work Phone: [facility] Payers Date Payer Category Payer Unknown 2017 Medicaid [id number] 1985 Unknown [id number] 2.16.84 [id number] 1985 Unknown [id number] 2.16.84 [id number] 1985 Unknown [id number] 2.16.84 [id number] 1985 Unknown [id number] 2.16.84 [id number] 1985 Unknown [id number] 2.16.84 [id number] 1985 Unknown [id number] 2.16.84 [id number] 1959 Unknown [id number] 1959 Unknown [id number] 1959 Unknown [id number] 1959 Unknown [id number] Social History Date Type Detail Facility Start: 08-27-2020 Tobacco smoking stat us TXIS Never smoked tobacco [facility] Start: 08-27-2020 Tobacco use and exposure Smoke less tobacco non-user [facility] Start: 11-25-2021 End: 01-03-2023 Alcohol intake Current drinker of alcohol (finding) [facility] Start: 08-27-2020 History SDOH Alcohol Comment rare [facility] Start: 1985 Sex Assigned At Not on file [facility] Start: 11-15-2021 End: 11-25-2021 Exposure to SARS-CoV-2 (event) Not sure [facility] Start: 08-27-2020 End: 01-03-2023 History of Social function [facility] Start: 08-27-2020 End: 01-03-2023 Tobacco use panel [facility] National Score (1-10 0), lower number is lower risk 86 [facility] Start: 11-02-2020 End: 12-02-2020 Exposure to SARS-CoV-2 (event) Unable to assess [facility] Clinical Notes 10-28-2020 to 04-05-2024 Telephone Encounter - Ruthy Veliz RN - 04/05/2024 10:59 AM ESTTelephone Encounter - Ruthy Veliz RN - 04/05/2024 10:59 AM ESTTelephone Encounter - Marissa Mccabe RN - 04/05/2024 10:47 AM EST Note Date & Type Note Facility 04-05-2024 Telephone encount er Note Annual 11/2024 [facility] 04-05-2024 Miscellaneous Notes Formattin g of this note might be different from the original. Annual 11/2024 Received call from pharmacy requesting refill. Last IT LEAD annual: 01/03/2023 Upcoming IT LEAD annual: None (cancelled 01/09/2024) Requested Prescriptions Pending Prescriptions Disp Refills metFORMIN ER (GLUCOPHAGE XR) 750 mg 24 hr tablet 180 tablet 0 Sig: Take 1 tablet by mouth two times a day. Call placed to patient, transferred to [facility] to schedule annual. Message sent to Jenny Ye CNP. Marissa Mccabe RN documented in this encounter [facility] 04-05-2024 Telephone encount er Note Received call from pharmacy requesting refill. Last IT LEAD annual: 01/03/2023 Upcoming IT LEAD annual: None (cancelled 01/09/2024) Requested Prescriptions Pending Prescriptions Disp Refills metFORMIN ER (GLUCOPHAGE XR) 750 mg 24 hr tablet 180 tablet 0 Sig: Take 1 tablet by mouth two times a day. Call placed to patient, transferred to [facility] to schedule annual. Message sent to Jenny Ye CNP. Marissa Mccabe RN [facility] 01-12-2024 Telephone encount er Note Call placed to the patient. Left a message for the patient to call the office and speak with a nurse for any further concerns with pain. [facility] 01-12-2024 Miscellaneous Notes Formattin g of this [...] pain and medication. documented in this encounter [facility] 01-10-2024 Telephone encount er Note Call placed to the patient. Left a message for the patient to call the office and speak with a nurse. [facility] 01-08-2024 Telephone encount er Note Left message on voicemail to return the call to the office for message below. Shaunna Vasquez RN [facility] 01-08-2024 Telephone encount er Note Patient sent a message that she wants an appt for pain and medication. [facility] 12-29-2023 Telephone encount er Note Received call from pharmacy for refill request. Last IT LEAD annual: 01/03/2023 Upcoming IT LEAD annual: 01/09/2024 (pt requesting before appt) Requested Prescriptions Pending Prescriptions Disp Refills metFORMIN ER (GLUCOPHAGE XR) 750 mg 24 hr tablet 180 tablet 0 Sig: Take 1 tablet by mouth two times a day. Message forwarded to Jenny Ye CNP. Marissa Mccabe RN [facility] 12-29-2023 Miscellaneous Notes Formattin g of this note is different from the original. Received call from pharmacy for refill request. Last IT LEAD annual: 01/03/2023 Upcoming IT LEAD annual: 01/09/2024 (pt requesting before appt) Requested Prescriptions Pending Prescriptions Disp Refills metFORMIN ER (GLUCOPHAGE XR) 750 mg 24 hr tablet 180 tablet 0 Sig: Take 1 tablet by mouth two times a day. Message forwarded to Jenny Ye CNP. Marissa Mccabe RN documented in this encounter [facility] 01-07-2023 History of Presen t illness Narrative The patient presents for requested ultrasound. Full report available in the Imaging tab in [employer]. Tayla Willard MD documented in this encounter [facility] 01-06-2023 Miscellaneous Notes Formattin g of this note might be different from the original. Guidefitter message sent with information below. Shaunna Vasquez [...] Tracking cycles on an shanique, such as [employer] will help to assist in ovulatory timing [...] htn, cva, dvt or smoking. Jenny Ye APRN.EXTENSION WORK DIRECTOR documented in this encounter [facility] 01-03-2023 Miscellaneous Notes Addended by: JENNY YE on: 01/03/2023 10:58 AM Modules accepted: Orders documented in this encounter [facility] 01-03-2023 Nurse Note Fresh Food Manager offered: Patient declines. documented in this encounter [facility] 01-03-2023 History of Presen t illness Narrative [...] L0 SAB1 IAB0 Ectopic1 Multiple0 Live Births0 Spikemaking Supervisor History LMP: 12/25/2022 (Exact Date), Having periods Age at Menarche: Age at First : Age at Menopause: Spikemaking Supervisor History Comments: Sexual Activity: Yes; Male Contraception: [...] external genitalia normal, normal Bartholin's glands, urethra, [place]'s glands, no vulvar lesions, no cervical lesions, [...] Jenny Ye APRN.CNP documented in this encounter [facility] 02-23-2022 Miscellaneous Notes Formattin g of this [...] Jenny Ye APRN.CNP documented in this encounter [facility] 02-21-2022 Miscellaneous Notes Formattin g of this [...] has a UTI documented in this encounter [facility] 11-25-2021 Miscellaneous Notes Formattin g of this [...] Jenny Ye APRN.ANTONI documented in this encounter [facility] 11-25-2021 Nurse Note Fresh Food Manager offered: Patient declines. documented in this encounter [facility] 11-25-2021 History of Presen t illness Narrative [...] L0 SAB1 IAB0 Ectopic1 Multiple0 Live Births0 Spikemaking Supervisor History LMP: 11/05/2021 (Exact Date), Having periods Age at Menarche: Age at First : Age at Menopause: Spikemaking Supervisor History Comments: Sexual Activity: Yes; Male Contraception: [...] external genitalia normal, normal Bartholin's glands, urethra, [place]'s glands, no vulvar lesions, no cervical lesions, [...] year or sooner as needed Marian Clifton FIELD RADIO TECHNICIAN TEACHING PROVIDER (Physician/PA/ESTIMATOR AND DRAFTER SUPERVISOR) NOTE OF PERSONAL INVOLVEMENT IN CARE: I have personally seen and examined the patient and performed the medical decision-making components. I have reviewed the Advanced Practice Registered Nurse (ESTIMATOR AND DRAFTER SUPERVISOR) Student's documentation and verified the findings in the note as written. Any additions or changes are noted in bold/italics. I agree with the above. Labs ordered. Pap utd. Metformin refilled. Signature: Jenny Ye Date: 11/25/2021 Time: 10:27 AM Jenny Ye APRN.EXTENSION WORK DIRECTOR documented in this encounter [facility] 12-10-2020 Note HNO ID: [id number] Author: Jasmina Jacinto APRN.ANTONI Service: ? Author [...] features. Consider surgical evaluation or consultation with IT LEAD Oncology 12/04/20 CT Abdomen/Pelvis IMPRESSION: 1. ?Ovoid [...] and able t (more content not included)... [facility] 11-26-2020 Note HNO ID: [id number] Author: Caitlyn Sneed MD Service: ? Author [...] of a mucinous cystadenoma (see comment). ? [facility] 11/03/2020 COMMENT The entire specimen was submitted [...] features. Consider surgical evaluation or consultation with IT LEAD Oncology HEALTH MAINTENANCE: Last mammogram: Spring 2020- [...] and prior ectopic (more content not included)... [facility] 11-12-2020 Note HNO ID: [id number] Author: Jenaro Ribeiro APRN.ANTONI Service: ? Author Type: Nurse Practitioner Type: Progress Notes Filed: 11/13/2020 1:21 PM Note Text: DATE OF SERVICE: 11/12/2020 PROBLEM: Brad Fleming presents for postop visit. 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 ? [facility] 11/03/2020 COMMENT The entire specimen was submitted [...] to further discuss pathology results. Jenaro Ribeiro APRN.[facility] 10-28-2020 Note HNO ID: [id number] Author: Sherry Braun ([employer]) Service: Pharmacy Author Type: ? Type: Plan of Care Filed: 10/28/2020 12:55 PM Note Text: PHARMACY BEDSIDE DELIVERY SERVICE Patient Name: Brad Fleming The marked outpatient medications were FILLED AND PICKED UP AT [facility]. Medication List START taking these medications acetaminophen [...] or your Primary Care Provider. Sherry Braun ([facility]) PAGER: [phone] October 28, 2020 12:55 PM [facility] 10-28-2020 Note HNO ID: [id number] Author: Desirae Dillon ([facility]) Service: Pharmacy Author Type: ? Type: Plan [...] or your Primary Care Provider. Desirae Dillon ([facility]) PAGER: [phone] October 28, 2020 12:43 PM [facility] 10-28-2020 Note HNO ID: [id number] Author: SYBIL Nixon Service: ? Author Type: Research & Analytics Manager Type: Anesthesia Procedure Notes Filed: 10/28/2020 9:08 [...] October 28, 2020 TIME: 9:08 AM CSN: [id number] [facility] 10-28-2020 Note HNO ID: [id number] Author: SYBIL Nixon Service: ? Author Type: Research & Analytics Manager Type: Anesthesia Procedure Notes Filed: 10/28/2020 9:01 [...] October 28, 2020 TIME: 9:01 AM CSN: [id number] [facility] Evaluation note Diagnosis Encounter for gynecological examination (general) (routine) without abnormal findings- Primary Encounter for screening breast examination PCOS (polycystic ovarian syndrome) Polycystic ovaries Menorrhagia with regular cycle Excessive or frequent menstruation Medication management Encounter for long-term (current) use of other medications [facility] Urinary urgency- Primary Urgency of urination documented in this encounter [facility] note* Diagnosis Encounter for gynecological examination (general) [...] specified as infective [facility] Diagnosis Abnormal uterine bleeding (AUB) PCOS (polycystic ovarian syndrome) Polycystic ovaries documented in this encounter [facility] note* Diagnosis Post-operative state Other postprocedural status Right lower quadrant abdominal pain Abdominal pain, right lower quadrant documented in this encounter [facility] for referral (narrative)* Diagnostic Procedure Only (Routine) - Authorized Specialty Diagnoses / Procedures [facility] Referred To Contact COMMERCIAL FRONT LOAD DRIVER Diagnoses Abnormal uterine bleeding (AUB) PCOS (polycystic ovarian syndrome) Procedures PELVIC US WHI US PELVIC NONOBSTETRIC REAL-TIME IMAGE COMPLETE Jenny Ye APRN.CNP [address] [place] [address] [address] [place] [address] Referral ID Status Reason Start Date Expiration Date Visits Requested Visits Authorized [id number] Authorized Auto-Generat ed Referral 03/12/2023 1 1 [facility] for visit Narrative* Diagnostic Procedure Only (Routine) - Closed Specialty Diagnoses / Procedures [facility] Referred To Contact COMMERCIAL FRONT LOAD DRIVER Diagnoses Abnormal uterine bleeding (AUB) PCOS (polycystic ovarian syndrome) Procedures PELVIC US WHI US PELVIC NONOBSTETRIC REAL-TIME IMAGE COMPLETE Jenny Ye, ELIZABETH.ANTONI [address] [place] [address] Cane Cutter [place] [id number] Referral ID Status Reason Start Date Expiration Date V isits Requested Visits Authorized [id number] Closed Auto-Generate d Referral 01/03/2023 03/12/2023 1 1 [facility] Summary Purpose Family History No Family History [...] CT ABD & PELVIS W/CONTRAST Jasmina Jacinto APRN.EXTENSION WORK DIRECTOR [address] [place] [address] [place] [id number] Referral ID Status Reason Start Date Expiration Date V isits Requested Visits Authorized Closed Auto-Generate d Referral 12/04/2020 01/02/2021 2 2 Additional Source Comments INFORMATION SOURCE (unrecogn ized section and content) DATE CREATED AUTHOR 10/10/2017 [facility] DATE CREATED AUTHOR AUTHOR'S ORGANIZ ATION 12/11/2020 [facility] DATE CREATED AUTHOR AUTHOR'S ORGANIZ ATION 05/25/2022 [facility] DATE CREATED AUTHOR AUTHOR'S ORGANIZ ATION 01/07/2023 [facility] DATE CREATED AUTHOR AUTHOR'S ORGANIZ ATION 01/14/2024 [facility] Source Comments (unrecognize d section and content) In the event this informatio n is protected by the Federal Confidentiality of Alcohol and Drug Abuse Patient Records regulations: The Federal rules restrict any use of the information to criminally investigate or prosecute any alcohol or drug abuse patient.[facility] the event this information is protected by the Federal Confidentiality of Alcohol and Drug Abuse Patient Records regulations: The Federal rules restrict any use of the information to criminally investigate or prosecute any alcohol or drug abuse patient.[facility] the event this information is protected by the Federal Confidentiality of Alcohol and Drug Abuse Patient Records regulations: The Federal rules restrict any use of the information to criminally investigate or prosecute any alcohol or drug abuse patient.[facility] the event this information is protected by the Federal Confidentiality of Alcohol and Drug Abuse Patient Records regulations: The Federal rules restrict any use of the information to criminally investigate or prosecute any alcohol or drug abuse patient.[facility] the event this information is protected by the Federal Confidentiality of Alcohol and Drug Abuse Patient Records regulations: The Federal rules restrict any use of the information to criminally investigate or prosecute any alcohol or drug abuse patient.[facility] the event this information is protected by the Federal Confidentiality of Alcohol and Drug Abuse Patient Records regulations: The Federal rules restrict any use of the information to criminally investigate or prosecute any alcohol or drug abuse patient.[facility] the event this information is protected by the Federal Confidentiality of Alcohol and Drug Abuse Patient Records regulations: The Federal rules restrict any use of the information to criminally investigate or prosecute any alcohol or drug abuse patient.[facility] the event this information is protected by the Federal Confidentiality of Alcohol and Drug Abuse Patient Records regulations: The Federal rules restrict any use of the information to criminally investigate or prosecute any alcohol or drug abuse patient.[facility] the event this information is protected by the Federal Confidentiality of Alcohol and Drug Abuse Patient Records regulations: The Federal rules restrict any use of the information to criminally investigate or prosecute any alcohol or drug abuse patient.[facility] the event this information is protected by the Federal Confidentiality of Alcohol and Drug Abuse Patient Records regulations: The Federal rules restrict any use of the information to criminally investigate or prosecute any alcohol or drug abuse patient.[facility] the event this information is protected by the Federal Confidentiality of Alcohol and Drug Abuse Patient Records regulations: The Federal rules restrict any use of the information to criminally investigate or prosecute any alcohol or drug abuse patient.[facility] the event this information is protected by the Federal Confidentiality of Alcohol and Drug Abuse Patient Records regulations: The Federal rules restrict any use of the information to criminally investigate or prosecute any alcohol or drug abuse patient.[facility] Reason for Visit (unrecogniz ed section and [...] CT ABD & PELVIS W/CONTRAST Jasmina Jacinto APRN.EXTENSION WORK DIRECTOR [address] [place] [address] [place] [id number] Referral ID Status Reason Start Date Expiration Date V isits Requested Visits Authorized [id number] Closed Auto-Generate d Referral 12/04/2020 01/02/2021 2 2 Reason Onset Date Comments Refill Request 12/29/2023 Reason Onset Date Comments Refill Request 04/05/2024 Care Teams (unrecognized sec tion and content) Body Shop Supervisor Relationship Specialty Start Date End Date Keila Mccormick MD [address] [place] [address] PCP - General Family Practice 10/14/20 Glenda Martínez Referring COMMERCIAL FRONT LOAD DRIVER 06/26/20 Body Shop Supervisor Relationship Specialty Start Date End Date Keila Mccormick MD [address] [place] [address] PCP - General Family Practice 10/14/20 Glenda Martínez Referring COMMERCIAL FRONT LOAD DRIVER 06/26/20 Body Shop Supervisor Relationship Specialty Start Date End Date Keila Mccormick MD [address] [place] [address] PCP - General Family Medicine 10/14/20 Glenda Martínez Referring COMMERCIAL FRONT LOAD DRIVER 06/26/20 Body Shop Supervisor Relationship Specialty Start Date End Date Keila Mccormick MD [address] [place] [address] PCP - General Family Medicine 10/14/20 Glenda Martínez Referring COMMERCIAL FRONT LOAD DRIVER 06/26/20 Body Shop Supervisor Relationship Specialty Start Date End Date Keila Mccormick MD PCP - General Family Medicine 10/14/20 Glenda Martínez Referring COMMERCIAL FRONT LOAD DRIVER 06/26/20 Body Shop Supervisor Relationship Specialty Start Date End Date Keila Mccormick MD PCP - General Family Medicine 10/14/20 Glenda Martínez Referring COMMERCIAL FRONT LOAD DRIVER 06/26/20 Body Shop Supervisor Relationship Specialty Start Date End Date Keila Mccormick MD PCP - General Family Medicine 10/14/20 Glenda Martínez Referring COMMERCIAL FRONT LOAD DRIVER 06/26/20 Body Shop Supervisor Relationship Specialty Start Date End Date Keila Mccormick MD PCP - General Family Medicine 10/14/20 Glenda Martínez Referring COMMERCIAL FRONT LOAD DRIVER 06/26/20 Body Shop Supervisor Relationship Specialty Start Date End Date Keila Mccormick MD PCP - General Family Medicine 10/14/20 Glenda Martínez Referring Ict Educator 06/26/20 Body Shop Supervisor Relationship Specialty Start Date End Date Keila Mccormick MD PCP - General Family Medicine 10/14/20 Glenda Martínez Referring Ict Educator 06/26/20 FOR RECORDS PERTAINING TO PATIENTS WHO [...] BE BASED ON THE PRIMARY CLINICAL RECORDS. [facility]. provides no warranty or guarantee of the accuracy or completeness of information in this document.
[2024-07-23 22:44] VITALS: BP 140/83; PULSE 91; TEMP 36.8; O2SAT 96; BMI 40.2
--- NOTE | 2024-07-23 23:33 | ED_ITS ---
HPI HPI - Extremity Injury (Upper) General Chief Complaint: Extremity Injury, Upper Stated Complaint: right upper extremity injury Time Seen by Provider: 07/23/24 23:32 Source: patient Mode of arrival: walk-in Limitations: no limitations History of Present Illness HPI narrative: states toilet seat at work came down and struck her on the right hand. Presents complaining of pain of her hand. Denies numbness or weakness. No othe injury Related Data Home Medications ?Medication ?Instructions ?Recorded ?Confirmed lisinopril 10 tab 07/23/24 mg-hydrochlorothiazide 12.5 mg tablet metformin 750 mg tablet,extended mg PO 07/23/24 release 24 hr Allergies Allergy/AdvReac Type Severity Reaction Status Date / Time Penicillins Allergy Anaphylaxis Verified 07/23/24 22:49 tizanidine (From Zanaflex) Allergy Hallucinati Verified 07/23/24 22:49 ng Opioid HPI Opioid Management Most Recent Pain and Opioid Data: Last Pain Scale 6 Today, 22:53 Review of Systems ROS Status of ROS 10 or more systems reviewed and unremark able except as noted in history and below PFSH PFSH Social History Little interest or pleasure in doing things: not at all Feeling down, depressed, or hopeless: not at all Exam Constitutional Vital Signs, click to edit/add: Last Vital Signs Temp 98.3 F 07/23/24 22:44 Pulse 91 H 07/23/24 22:44 Resp 18 07/23/24 22:44 BP 140/83 07/23/24 22:44 Pulse Ox 96 07/23/24 22:44 O2 Del Method Room Air 07/23/24 22:44 Common normals: no apparent distress, average body habitus, oriented x3, no limitations, healthy appearing, alert and well nourished [facility] Common normals: normocephalic and head/scalp atraumatic Eye Common normals: PERRL and EOMs intact bilaterally Respiratory Common normals: normal respiratory effort, no retractions, no use of accessory muscles and clear to auscultation bilaterally Cardio Common normals: regular rate, regular rhythm, S1 normal heart sound and S2 normal heart sound Extremity Other: mild swelling dorsum right hand at web space btw thumb and index finger. No discoloration Neuro Common normals: oriented x3, CN's II-XII intact bilaterally, moves all extremities and no focal motor deficits Sensorium/orientation: awake Psych Appearance: grossly normal Course Vital Signs Vital signs: Vital Signs Temperature 98.3 F 07/23/24 22:44 Pulse Rate 91 H 07/23/24 22:44 Respiratory Rate 18 07/23/24 22:44 Blood Pressure 140/83 07/23/24 22:44 Pulse Oximetry 96 07/23/24 22:44 Oxygen Delivery Method Room Air 07/23/24 22:44 Temperature 98.3 F 07/23/24 22:44 Pulse Rate 91 H 07/23/24 22:44 Respiratory Rate 18 07/23/24 22:44 Blood Pressure 140/83 07/23/24 22:44 Pulse Oximetry 96 07/23/24 22:44 Oxygen Delivery Method Room Air 07/23/24 22:44 MDM - Extremity Injury (Upper) MDM Narrative Medical decision making narrative: patient presents from work after toilet seat fell onto her hand. has mild contusion of the right hand. xray neg for fracture. She has FROM of the hand. Given dose of ibuprofen and discharged home Discharge Plan Discharge Chief Complaint: Extremity Injury, Upper Clinical Impression: Contusion of hand, right Patient Disposition: Home, Self-Care Prescriptions / Home Meds: No Action lisinopril-hydrochlorothiazide 10-12.5 mg tablet metformin 750 mg tablet extended release 24 hr PO Print Language: Tajik Instructions: Contusion in Adults (ED) Referrals: Dino Collins MD [Primary Care Provider, Family Practice] - 1 week
[2024-07-23] MEDS: IBUPROFEN 400 MG TABLET 800 MG PO (23:57)
== END 2024-07-23 23:59 | disposition home or self-care (01) ==
PROVIDERS: Emergency Provider Internal Medicine; PCP Family Medicine
DX: S60.221A Contusion of right hand, initial encounter (principal); W23.0XXA Caught, crushed, jammed, or pinched between moving objects, initial encounter
CPT/HCPCS: 73130; 99283

== ENCOUNTER 2025-02-04 10:59 | Outpatient (OUT) | payer BC, SELFPAY ==
--- OUTSIDE RECORDS SUMMARY | 2025-02-04 11:02 | XMS_ITS | Clinical Summary ---
Demographics Address [address] [place] [address] Home Phone Work Phone Mobile Phone Email Address Preferred Language Unknown Marital Status Church Affiliation Unknown Race White Ethnic Group Unknown Author Organization [facility] Healthcare Address [address] [place] [address] Care Team Providers Care Electrician Outside Name Role Phone Unavailable Primary Care Provider Unavailabl e Social History Tobacco UseTypesPacks/DayYears UsedDateSmoking Tobacco: Never Assessed CommentsUnknownSex and Gender InformationValueDate RecordedSex Assigned at Not on fileLegal PtmOfsaxb24/15/2023 7:21 PM EDTGender IdentityNot on fileSexual OrientationNot on file Last Filed Vital Signs Vital SignReadingTime TakenCommentsBlood Viqyuslr548/8101/23/2019 12:00 PM EST Pulse--Temperature--Respiratory Rate--Oxygen Saturation--Inhaled Oxygen Concentration--Hjbwtg88.3 kg (208 lb)01/23/2019 12:00 PM MAUPkoste749.6 cm (5' 1.25 )01/19/2021 12:00 PM ESTBody Mass Index38.9801/23/2019 12:00 PM EST Plan of Treatment Not on file Insurance * Guarantor: Anjali Lehman TypeRelation to PatientDate of BirthPhone Billing AddressPersonal/LstjboHccr86/31/1986 [address] [place] [address]
--- OUTSIDE RECORDS SUMMARY | 2025-02-04 11:07 | XMS_ITS | CCD ---
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 assessed and is not applicable. Implants: are not applicable. Sign Out: Specimens are all correctly labeled and sent. All instruments, equipment, possible retained foreign bodies are accounted for. Yes. The post-procedure plan of care has been communicated to the patient or surrogate. PROCEDURE NOTE: GROSS LESIONS: Yes, left vulvar lesions sup/inf/medial BIOPSY: Area was cleansed with betadine and anesthetized with 3mL 1% lidocaine. 5mm Ap punch used to biopsy region. HEMOSTASIS: Obtained with suture 4-0 vicryl Procedure Summary: Patient tolerated procedure well. Pt tolerated the procedure well ASSESSMENT: left vulvar lesions PLAN: Specimens labeled and sent to Pathology. Will notify patient of results in 1-2 weeks. Post-procedure instructions reviewed and written material given to the patient. MD Naina Oakley Amy L, MD 12/02/2024 11:03 AM Signed VULVAR BIOPSY PATIENT INSTRUCTIONS Many conditions may cause your wire preparation machine tender to suggest a vulvar biopsy including vulvar itching unresponsive to therapy, ulcerated lesions, pigmented lesions, and tumors. The biopsy result will assist your wire preparation machine tender to devise a treatment plan suitable to your condition. 1. Usually, there is a local discomfort, swelling, and skin discoloration. Using cold compresses overnight usually alleviates the discomfort considerably. Warm compresses thereafter can be used as needed. Prescribed analgesic (pain killers) are not necessary. You may use Advil, Tylenol, etc. for pain relief. 2. You may shower or take tub baths. 3. If sutures are used, they will dissolve in 7-14 days. 4. You should call the office if there is excessive bleeding, swelling, fever, chills, sweats, or difficulty walking. 5. Biopsy results will be available in 7-10 days. If you have not heard your results in 2 weeks please contact your physician. Referring Provider: NANCY GOOD [[id number]] Allergies As of Date: 12/02/2024 Noted Allergy Reaction BEE VENOM PROTEIN (HONEY BEE) 08/27/2020 2 - Rash Comments: Rash spreads from bee stings PENICILLINS 09/07/2014 4 - Hives TIZANIDINE 05/07/2020 1 - Mental Status Change TRAMADOL 08/27/2020 14 - Other: See Comments Comments: dizziness Date Reviewed: 12/02/2024 Reviewed by: Michelle Pat MA - Fully Assessed Reason for Visit: Vulvar Biopsy [Other] Primary Visit Diagnosis:Vulvar lesion [N90.89] Order(s):SURGICAL PATHOLOGY [YFV0555] Order #: [id number]. #:[id number] Prescriptions as of 12/02/2024 - metFORMIN ER (GLUCOPHAGE XR) 750 mg 24 hr tablet Take 1 tablet by mouth two times a day. - cyclobenzaprine (FLEXERIL) 10 mg tablet Take 10 mg by mouth once daily. - Etodolac 500 mg tablet Take 500 mg by mouth twice daily. - ferrous sulfate 325 mg (65 mg iron) tablet Take 1 tablet by mouth twice daily. - lisinopril-hydroCHLOROthiazide (PRINZIDE,ZESTORETIC) 10-12.5 mg per tablet Take 1 tablet by mouth once daily. - KLOR-CON M20 20 mEq tablet Take 20 mEq by mouth twice daily. - epinephrine (EPIPEN 2-SIMÓN INJECTION) 1 application by INJECTION(UNSPECIFIED PARENTERAL ROUTES) route as needed (for bee sting). Problem List As Of Date 12/02/2024 Noted Resolved Primary hypertension [I10] 10/14/2020 Obesity (BMI 30-39.9) [E66.9] 10/14/2020 PCOS (polycystic ovarian syndrome) [E28.2] 10/14/2020 RLS (restless legs syndrome) [G25.81] 10/14/2020 Other instructions from your clinician: VULVAR BIOPSY PATIENT INSTRUCTIONS Many conditions may cause your gyneco (more content not included)...Normal [facility] OhioPathology biopsy report Abhijeet (Tiss)on [id number] DISCLAIMERNormOhioHealth Marion General HospitalComment on above:Order Comment: Specimen Type: TISSUE SPECIMEN Ordering Facility: [facility] Address: [address] [place], [place] [address]Result Comment: Laboratory Developed Test (LDT) Disclaimer: Performance characteristics of immunohistochemical, immunofluorescent, and chromogenic in-situ hybridization tests have been determined by the performing laboratory within the [facility] Department of Pathology and Laboratory Medicine ([facility], [facility], [facility], [facility], [facility], [facility], or [facility]) in a manner consistent with CLIA requirements. One or more of these tests may not have been cleared or approved by the FDA. The [facility] Department of Pathology and Laboratory Medicineis regulated under CLIA as qualified to perform high-complexity testing. These tests are used for clinical purposes. These should not be regarded as investigational or for research. Positive and negative controls stain appropriately.Performed By: #### 34598-8 #### [facility] CLIA [id number] [address] [place], [place] [address]K [address] OF AMERICACASE REPORTNormOhioHealth Marion General HospitalComment on above:Order Comment: Specimen Type: TISSUE SPECIMEN Ordering Facility: [facility] Address: [address] [place], [place] [address]Result Comment: Surgical Pathology Report Case: [id number] Authorizing Provider: Nancy Good MD Collected: 12/02/2024 11:40 AM Ordering Location: Obstetrics/Gynecology Received: 12/02/2024 11:02 PM Pathologist: Urban Sandhu MD Specimens: A) - Vulva, Biopsy, superior B) - Vulva, Biopsy, inferior C) - Vulva, Biopsy, medialPerformed By: #### 51354-5 #### [facility] CLIA [id number] [address] [place] [address] STATES OF AMERICACLINICAL HISTORYVulvar lesionsNormalCFostoria City Hospital on above:Order Comment: Specimen Type: TISSUE SPECIMEN Ordering Facility: [facility] Address: [address] [place], [place] [address]Performed By: #### 07988-9 #### [facility] CLIA [id number] [address] [place], [place] [address]FINVA DIAGNOSISNormal [facility] on above:Order Comment: Specimen Type: TISSUE SPECIMEN Ordering Facility: [facility] Address: [address] [place], [place] [address]Result Comment: A. Superior vulva, excision: - Hemangioma. B . Inferior vulva, excision: - Benign squamous papilloma. C. Medial vulva, excision: - Benign basal hyperpigmentation. ACV/jdn 12/04/2024 at 1408 EDT Performed By: #### 19884-8 #### [facility] CLIA [id number] [address] [place] [address] PERFORMING LABNoVeterans Health Administration on above:Order Comment: Specimen Type: TISSUE SPECIMEN Ordering Facility: [facility] Address: [address] [place], [place] [address]Result Comment: Diagnostic interpretation performed at: [facility], [address] [place] [address] CLIA# [id number] Harpooner: JOSHUA Dominguezerformed By: #### 84929-7 #### [facility] [id number] [address] [place] [address] [place] STATES OF AMERICAGROSS DESCRIPTIONNormal [facility] OhioComment on above:Order Comment: Specimen Type: TISSUE SPECIMEN Ordering Facility: [facility] Address: [address] [place], [place] [address]Result Comment: A. Vulva, Biopsy Received in formalin is a cylindrical segment of skin and subcutaneous tissue measuring 0.5 x 0.4 x0.5 cm. On the skin surface there is a 0.4 cm, mclain-brown, slightly elevated area. The specimen is bisected. Totally submitted in one cassette. B. Vulva, Biopsy Received in formalin is a cylindrical segment of skin and subcutaneous tissue measuring 0.2 x 0.2 x0.3 cm. On the skin surface there is a 0.2 cm, mclain, slightly elevated area. The specimen is not sectioned. Totally submitted in one cassette. C. Vulva, Biopsy Received in formalin is a cylindrical segment of skin and subcutaneous tissue measuring 0.5 x 0.4 x0.3 cm. On the skin surface there is a 0.4 cm, mclain-brown, slightly elevated area. The specimen is bisected. Totally submitted in one cassette. 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 Please see report under the imaging tab. Ricco Bermudez MD Referring Provider: NANCY GOOD [[id number]] Allergies As of Date: 11/21/2024 Noted Allergy Reaction BEE VENOM PROTEIN (HONEY BEE) 08/27/2020 2 - Rash Comments: Rash spreads from bee stings PENICILLINS 09/07/2014 4 - Hives TIZANIDINE 05/07/2020 1 - Mental Status Change TRAMADOL 08/27/2020 14 - Other: See Comments Comments: dizziness Date Reviewed: 11/19/2024 Reviewed by: Nancy Good MD - Fully Assessed Visit Diagnoses:Pelvic pain in female [R10.2] Dyspareunia in female [N94.10] Order(s):ENDOMETRIOSIS [facility] [[id number]] Order #: [id number]. #:[id number]: 1 Prescriptions as of 11/21/2024 - metFORMIN ER (GLUCOPHAGE XR) 750 mg 24 hr tablet Take 1 tablet by mouth two times a day. - cyclobenzaprine (FLEXERIL) 10 mg tablet Take 10 mg by mouth once daily. - Etodolac 500 mg tablet Take 500 mg by mouth twice daily. - ferrous sulfate 325 mg (65 mg iron) tablet Take 1 tablet by mouth twice daily. - lisinopril-hydroCHLOROthiazide (PRINZIDE,ZESTORETIC) 10-12.5 mg per tablet Take 1 tablet by mouth once daily. - KLOR-CON M20 20 mEq tablet Take 20 mEq by mouth twice daily. - epinephrine (EPIPEN 2-SIMÓN INJECTION) 1 application by INJECTION(UNSPECIFIED PARENTERAL ROUTES) route as needed (for bee sting). Problem List As Of Date 11/21/2024 Noted Resolved Primary hypertension [I10] 10/14/2020 Obesity (BMI 30-39.9) [E66.9] 10/14/2020 PCOS (polycystic ovarian syndrome) [E28.2] 10/14/2020 RLS (restless legs syndrome) [G25.81] 10/14/2020 Encounter Status:Closed by RICCO BERMUDEZ on 11/21/24NoUniversity [facility] endometriosis confirmed by laparoscopy [PhenX]on 11-21-2024 Indication pelvic pain, dyspareunia Impression 1. Anteverted fibroid uterus that measures 72 mm x 43 mm x 51 mm. The two largest fibroids are described below. This measurement does not include the 30 mm x 31 mm x 28 mm posterior pedunculated fibroid. 2. The left ovary measures 28 mm x 19 mm x 25 mm, and contains a 15 mm x 11 mm x 13 mm unilocular non-simple cyst with low level echoes, smooth inner wall and some surrounding blood flow (O-RADS 2) . This finding is suggestive of a hemorrhagic corpus luteum vs endometrioma. However, other ovarian pathology cannot be completely excluded. 3. Normal appearing right ovary. 4. No adnexal masses were observed. 5. There is no free fluid visualized in the peritoneal cavity. 6. Focused transvaginal ultrasound with sliding sign evaluation. Anterior compartment: normal bladder, no adhesions along vesicouterine reflexion. Posterior compartment: No lesions along rectovaginal septum or within anterior rectal wall. The posterior cervix is adherent to surrounding bowel with tethering. There is thickening of the left uterosacral ligament. Adnexa: Both ovaries are lateral and separate from the uterus. Both ovaries are adherent to the pelvic side wall. Recommendations Consider MRI of pelvis to further evaluate patient's symptoms, ultrasound findings and evaluate for possible deep infiltrating endometriosis. Menstrual History LMP on 10/21/2024 Method Transabdominal and transvaginal ultrasound examination. 3D ultrasound examination. Color Doppler examination Uterus Uterus: Visualized Uterus position: anteverted Description of uterine malformations: normally shaped Myometrium: heterogeneous Endometrium: homogenous Cervix details: normal Uterus length 72 mm Uterus width 51 mm Uterus height 43 mm Uterus Vol 82.8 cm Endometrial thickness, total 6.4 mm Fibroids: Fibroids identified Uterine fibroid D1 11 mm Uterine fibroid D2 11 mm Uterine fibroid D3 10 mm Uterine fibroid mean 10.6 mm Uterine fibroid vol 0.619 cm Uterine fibroids findings: intramural Uterine fibroid D1 30 mm Uterine fibroid D2 31 mm Uterine fibroid D3 28 mm Uterine fibroid mean 30.0 mm Uterine fibroid vol 14.062 cm Uterine fibroids findings: Pedunculated Right Ovary Rt ovary: Normal Rt ovary morphology: premenopausal normal follicular Rt ovary D1 24 mm Rt ovary D2 16 mm Rt ovary D3 13 mm Rt ovary Vol 2.6 cm Left Ovary Lt ovary: Visualized Lt ovary D1 28 mm Lt ovary D2 19 mm Lt ovary D3 25 mm Lt ovary Vol 6.8 cm Lt ovarian corpus luteum: Lt ovarian cyst(s): Cysts identified Lt ovarian cyst D1 15 mm Lt ovarian cyst D2 11 mm Lt ovarian cyst D3 13 mm Lt ovarian cyst mean 13.0 mm Lt ovarian cyst vol 1.123 cm Lt ovarian cyst findings: Unilocular non-simple cyst with low level echoes, smooth wall and surrounding blood flow. Cul de Sac Visualized. no free fluid visualized Performed By: Aidee Nicholson RDMS Read By: Ricco Bermudez M.D.MATERNAL MEDICINESamaritan HospitalRadiology Study observation (narrative)[facility]itan HospitalCNOVon [id number] Visit (DEIRDRE) BRAD FLEMING ([id number]) 1985 F Date Time Provider Department 11/19/24 9:20 AM NANCY GOOD During your visit today, we recorded the following information about you: Blood pressure Weight Height Last Period 108 93.9 kg 1.549 m 10/21/24 Jacqueline Josue MA 11/19/2024 9:54 AM Signed Senior Design Engineering Specialist offered: Patient declines. Nancy Good MD 11/19/2024 9:54 AM Signed Brad is a 39 year old who presents for an annual gynecologic exam with complaints, pain with intercourse. States at times occurs only with insertion but sometimes during the entire time and sometimes afterwards Still get period: Yes Bleeding amount bothersome: Yes Bleeding between periods: No Period symptoms: Acne; Cramps; Mood change; Pelvic pain Time with current partner: 10.5 years Number of lifetime partners: 5 control frequency: Never HPV vaccine: Unsure; HPV:negative Last pap smear: 2022 History of abnormal pap: Yes, history of abnormal PAP smears Leep: No. Cone biopsy: No. 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 OB History Gravida2 Para0 Term0 Preterm0 AB2 Living0 SAB1 IAB0 Ectopic1 Multiple0 Live Births0 Senior Director Marketing History LMP: 10/21/2024, Having periods Age at Menarche: 12 Age at First : Age at Menopause: Senior Director Marketing History Comments: Sexual Activity: Yes; Male Contraception: None Menstrual Tracking History Flowsheet Row Office Visit from 11/19/2024 in Obstetrics/Gynecology Period Cycle (Days) 30 Period Duration (Days) 5 Menstrual Flow Heavy PAST MEDICAL HISTORY Diagnosis Date Childhood asthma (HCC) Coitus painful for female Ectopic (HCC) 2014 at 5 weeks Essential hypertension Infertility, female Low iron PCOS (polycystic ovarian syndrome) Polycystic ovary syndrome Postcoital bleeding Little Primary hypertension 10/14/2020 SAB (spontaneous ) (HCC) 2011 with D AND C PAST SURGICAL HISTORY Procedure Laterality Date COLPOSCOPY CERVIX VAG LOOP ELTRD BX CERVIX DILATION AND CURETTAGE DXAND/THER NONOBSTETRIC 2011 Missed at 12 weeks ENDOMETRIAL BX W/WO ENDOCERVIX BX W/O DILAT SPX 2018 EXTRACTION ERUPTED TOOTH removal of wisdom teeth PAST SURGICAL HISTORY OF 10/28/2020 LAPROSCOPIC OVARY CYSTECTOMY (Right) REMOVAL GALLBLADDER 2008 FAMILY HISTORY Problem Relation [...] Never Smokeless tobacco: Never Vaping Use Vaping status: Never Used Substance Use Topics Alcohol use: Yes Comment: rare Drug use: Never REVIEW OF SYSTEMS Abdomen: No abdominal pain, nausea, vomiting, diarrhea, or constipation. No bloating, early satiety, indigestion, or increased flatulence. Bladder: No dysuria, gross hematuria, urinary frequency, urinary urgency, or incontinence. Breast: No breast lumps, nipple d/c, overlying skin changes, redness or skin retraction. Allergies and current medication updated:Yes SENSITIVE EXAM: The sensitive examination was discussed with the Patient or Patient's Authorized Edge Setter. As applicable, any other physician, advance practice provider, medical student, or other health professional student that will be observing or involved in the sensitive examination for educational or training purposes was discussed with the Patient or Authorized Edge Setter. The Patient or Authorized Edge Setter has agreed to proceed with the sensitive examination. (Sensitive examination includes inspection and/or palpation of the breasts, pelvis, prostate and anorectal regions). EXAM: BP 108/78 Ht 5' 1 (1.55m) Wt 207 lb 0.2 oz (93.9kg) LMP 10/21/2024 BMI 39.13 kg/(m2). GENERAL: pleasant, female in no apparent distress HEENT: Normocephalic, atraumatic, mucus membranes moist, and no lesions NECK: Supple, full range of motion, no adenopathy, and thyroid normal DERMATOLOGY: Normal, without lesions, non-icteric, and non-hirsute BREAST: soft, non-tender, symmetric, no dominant mass, normal nipple-areolar complex, no lymphadenopathy, and no nipple discharge CHEST: Normal inspiratory effort ABDOMEN: soft, non-tender, and no masses PELVIC: external genitalia normal, normal Bartholin's glands, urethra, [place]'s glands, left sided pigmented ? Skin tag vs lesion, right side pigmented lesions, no cervical lesio (more content not included)...NormalPremier Health Miami Valley HospitalLVIC US WHIon [id number] ClinicB-HCG SerPl-aCncon 01-03-2023 HCG.beta subunit Qnm[IU]/mLNormal<5.0Avon HospitalComment on above:Order Comment: Specimen Type: BLOOD SPECIMEN Ordering Facility: [facility] Address: [address] [place], [place] [address]Nvrqfp Comment: NegativePerformed By: #### 72167-4 #### [facility] CLIA [id number] [address] [address] [facility] OF AMERICACB panel Auto (Bld)on 01-03-2023 Erythrocyte distribution width (RBC) [Ratio]13.7 %Iefcaf53.5-15.0Av Hospital Comment on above:Order Comment: Specimen Type: BLOOD SPECIMEN Ordering Facility: [facility] Address: [address] [place], [place] [address]Performed By: #### 21427-4 #### [facility] IA [id number] [address] [place] [address] [facility] AMERICAHematocrit (Bld) [Volume fraction]39.8 % Ulxpkv48.0-46.0Av HospitalComment on above:Order Comment: Specimen Type: BLOOD SPECIMEN Ordering Facility: [facility] Address: [address] [place], [place] [address]Performed By: #### 34618-9 #### [facility] IA [id number] [address] [place] [address] [facility] OF AMERICAHemoglobin (Bld) [Mass/Vol]12.5 g/dL Vlaxpu49.5-15.5Avo HospitalComment on above:Order Comment: Specimen Type: BLOOD SPECIMEN Ordering Facility: [facility] Address: [address] [place], [place] [address]Performed By: #### 94333-9 #### [facility] IA [id number] [address] [place] [address] [facility] CENTERMCH (RBC) [Entitic mass]27.7 pgNormal 26.0-34.0Av HospitalComment on above:Order Comment: Specimen Type: BLOOD SPECIMEN Ordering Facility: [facility] Address: [address] [place], [place] [address]Performed By: #### 99365-9 #### [facility] IA [id number] [address] [place] [address] [facility] CENTERMC (RBC) [Mass/Vol]31.4 g/dLNormal 30.5-36.0Av HospitalComment on above:Order Comment: Specimen Type: BLOOD SPECIMEN Ordering Facility: [facility] Address: [address] [place], [place] [address]Performed By: #### 60436-5 #### [facility] IA [id number] [address] [place] [address] [place] OF AMERICAMCV (RBC) [Entitic vol]88.1 fLNormal 80.0-100.0Avon HospitalComment on above:Order Comment: Specimen Type: BLOOD SPECIMEN Ordering Facility: [facility] Address: [address] [place], [place] [address]Performed By: #### 17688-2 #### [facility] IA [id number] [address] [place] [address] [facility] AMERICANucleated RBC (Bld) [#/Vol]10*3/uLNormal <0.01Av HospitalComment on above:Order Comment: Specimen Type: BLOOD SPECIMEN Ordering Facility: [facility] Address: [address] [place], [place] [address]Performed By: #### 34867-2 #### [facility] IA [id number] [address] [address] [place] AMERICAPlatelet mean volume (Bld) [Entitic vol] 9.1 fLNormal9.0-12.7Avon HospitalComment on above:Order Comment: Specimen Type: BLOOD SPECIMEN Ordering Facility: [facility] Address: [address] [place], [place] [address]Performed By: #### 64960-7 #### [facility] IA [id number] [address] [address] [place] AMERICAPlatelets (Bld) [#/Vol]419 10*3/uLHigh 150-400Avon HospitalComment on above:Order Comment: Specimen Type: BLOOD SPECIMEN Ordering Facility: [facility] Address: [address] [place], [place] [address]Performed By: #### 37304-0 #### [facility] IA [id number] [address] [address] [place] AMERICARBC (Bld) [#/Vol]4.52 10*6/uLNormal 3.90-5.20Avon HospitalComment on above:Order Comment: Specimen Type: BLOOD SPECIMEN Ordering Facility: [facility] Address: [address] [place], [place] [address]Jbmjjepdc By: #### 89388-1 #### [facility] CLIA [id number] [address] [place], [place] [address] [place], [place] [address]WBC (Bld) [#/Vol]6.74 10*3/uLNormal 3.70-11.00Pittsfield HospitalComment on above:Order Comment: Specimen Type: BLOOD SPECIMEN Ordering Facility: [facility] Address: [address] [place], [place] [address]Sabganxmz By: #### 99841-5 #### [facility] CLIA [id number] [address] [place] [address] [facility] MEDICAL CENTERErythrocyte distribution width (RBC) [Ratio]13.7 %11.5 - 15.0 %[facility] HospitalHematocrit (Bld) [Volume fraction]39.8 %36.0 - 46.0 %[facility] HospitalHemoglobin (Bld) [Mass/Vol]12.5 g/dL11.5 - 15.5 g/dLKettering Health Greene MemorialH (RBC) [Entitic mass]27.7 pg26.0 - 34.0 pgClevelTyler HospitalHC (RBC) [Mass/Vol]31.4 g/dL30.5 - 36.0 g/dLKettering Health Greene MemorialV (RBC) [Entitic vol]88.1 fL80.0 - 100.0 fLCleveland ClinicNucleated RBC (Bld) [#/Vol] <0.01 k/uLSamaritan HospitalPlatelet mean volume (Bld) [Entitic vol]9.1 fL9.0 - 12.7 fLCleveland ClinicPlatelets (Bld) [#/Vol]419 10*3/qHIxza569 - 400 k/uL [facility] HospitalRBC (Bld) [#/Vol]4.52 10*6/uL3.90 - 5.20 m/uLSamaritan HospitalWBC (Bld) [#/Vol]6.74 10*3/uL3.70 - 11.00 k/uLSamaritan HospitalDHEA-S BLDon 94-74-8670VEQZ-S [Mass/Vol]140.6 ug/nOXryjbf82.9-337.0Av HospitalComment on above:Order Comment: Specimen Type: BLOOD SPECIMEN Ordering Facility: [facility] Address: [address] [place], [place] [address]Qnpcue Comment: Reference ranges are age and gender specific. For additional information, referencerange tables can be found in the laboratory test directory. The normal values are based on the following source: Dehydroepiandrosterone sulfate (DHEA S) [package insert V 17.0 Swiss]. [facility], [place], [place]: October 2012.Performed By: #### 2986-8, DHEAS #### [facility] CLIA [id number] [address] [facility] [place] [address] [place] OF AMERICAGLUCOSE FASTING BLDon 99-04-6941Haxrzzo post fast [Mass/Vol]94 mg/dL74 - 99 mg/dLSamaritan Hospital Glucose p fast SerPl-mCncon 50-20-2949Wpnekpg post fast [Mass/Vol]94 mg/dLNormal 74-99Av HospitalComment on above:Order Comment: Specimen Type: BLOOD SPECIMEN [facility] [facility]OSP[facility] Address: [address] [place] [address]Kwdmfr Comment: [place] [employer] guidelines state that a diabetes mellitus diagnosis is preliminarily made when the fasting plasma glucose meets or exceeds 126 mg/dL. In the absence of unequivocal hyperglycemia, results should be confirmed with repeat testing. Patients are at increasedrisk for diabetes mellitus (prediabetes) when the fasting glucose is 100 to 125 mg/dL.Performed By: #### 1558-6, 3016-3 #### [facility] CLIA [id number] [address] [place] [address] [place] OF AMERICAHCG QUANTITATIVEon 92-43-2359BHM.beta subunit Qn<5.0 mIU/mLCleveland GuvaclUvC6o (Bld)on 36-93-6054Plmtqct glucose Estimated from glycated hemoglobin (Bld) [Mass/Vol]111 mg/dLNoVA Hospital Comment on above:Order Comment: Specimen Type: BLOOD SPECIMEN Ordering Facility: [facility] Address: [address] [id number] Comment: eAG: (Estimated average glucose) is a calculated value from HgbA1c and is manufacturers representative of the average blood glucose level in the last 2-3 month period.Performed By: #### 07419-5 #### [facility] IA [id number] [address] [place] [address] [place] PAWDXJPNdT3y (Bld) [Mass fraction] 5.5 %Normal4.3-5.6Avon HospitalComment on above:Order Comment: Specimen Type: BLOOD SPECIMEN Ordering Facility: [facility] Address: [address] [place], [place] [address]Result Comment: [place] [employer] guidelines indicate that patients with HgbA1c in the range 5.7-6.4% are at increased risk for development of diabetes, and intervention by lifestyle modification may be beneficial. HgbA1c greater or equal to 6.5% is considered diagnostic of diabetes.Performed By: #### 21471-2 #### [facility] IA [id number] [address] [place] [address] [place] OF AMERICAINSULIN, FREEon 01-03-2023 Insulin Free Qn29.8 mU/LHigh3.0-25.0Av HospitalComment on above:Order Comment: Specimen Type: BLOOD SPECIMEN Ordering Facility: [facility] Address: [address] [place], [place] [address]Performed By: #### FINS #### [facility] IA [id number] [address] [place] [address] [place] OF AMERICATS BLDon 34-04-1400WAE Qn 2.950 m[IU]/L0.270 - 4.200 mIU/LCleveland [facility] Medical CenterTS SerPl-aCncon 12-87-9033NGI Qn2.950 m[IU]/LNormal0.270-4.200Avon HospitalComment on above:Order Comment: Specimen Type: BLOOD SPECIMEN Ordering Facility: [facility] Address: [address] [place], [place] [id number] Comment: If the patient is , TSH reference range varies by gestational period: First Trimester (weeks 9-12): 0.180-2.990 mIU/L Second Trimester: 0.110-3.980 mIU/L Third Trimester: 0.480-4.710 mIU/L Jono Reaves et al. A Practical Approach for the Verifications and Determination of Site- and Trimester-Specific Reference Intervals for Thyroid Function tests in . Thyroid, 2019:29:3:412-420.Isaac Damico, et al. 2017 Guidelines of the [place] Thyroid Association for the Diagnosis and Management of Thyroid Disease during and the . Thyroid, 2017:27:3:315-389. Performed By: #### 1558-6, 3016-3 #### [facility] CLIA [id number] [address] [place] [address] [place] OF AMERICATestost SerPl-mCncon 01-03-2023 Testosterone [Mass/Vol]23 ng/dLNormal<40Pittsfield HospitalComment on above:Order Comment: Specimen Type: BLOOD SPECIMEN Ordering Facility: [facility] Address: [address] [place], [place] [address]Performed By: #### 2986-8, DHEAS #### [facility] CLIA [id number] [address] [facility] [id number] [place] [address] [place] OF AMERICANICOTINE METABOLITESon 15-44-8774Jievatjh<1.0NoBlanchard Valley Health System Bluffton HospitalComment on above:Result Comment: This test was developed and its performance characteristics determined by [facility]. It has not been cleared or approved by the Food and Drug Administration. Cotinine levels greater than 20.0 are consistent with the use of tobacco or tobacco cessation products.Performed By: #### NICTBLD #### [facility] [address] [address] [address] Jolynn Camara<1.0NormSt. Vincent HospitalComment on above:Result Comment: This test was developed and its performance characteristics determined by [facility]. It has not been cleared or approved by the Food and Drug Administration. Nicotine levels greater than 2.0 are consistent with the use of tobacco or tobacco cessation products.Performed By: #### NICTBLD #### [facility] [address] [address] [address] Jolynn HuntINSULINon 34-35-2845Dfkglnp21.2 uIU/mLCritically high2.6-24.9The [facility] HospitalComment on above:Performed By: #### INSULIN ####[facility] [address] [address]Dr. Jolynn VargasC AUTO DIFFon 46-24-9500RAUY #0.0 103/ulNormal0.0-0.1The [facility] HospitalComment on above:Performed By: #### CBC #### [facility] [address] [address] [address] Jloynn HuntBasophils/100 WBC (Bld)0.4 %Normal0.2-2.0[facility] Comment on above:Performed By: #### CBC #### [facility] [address] [address] [address] Jolynn Soares #0.2 103/ulNormal0.0-0.7The [facility] HospitalComment on above: Performed By: #### CBC #### [facility] [address] [place] [address] Dr. Jolynn Fuentesosinophils/100 WBC (Bld)1.5 %Normal0.9-7.0The [facility] Comment on above:Performed By: #### CBC #### [facility] [address] [address] [address] Jolynn Fuentesrythrocyte distribution width (RBC) [Ratio]15.2 %Critically high 11.0-15.0The [facility] HospitalComment on above:Performed By: #### CBC #### [facility] [address] [place] [address] Dr. Jolynn HuntHematocrit (Bld) [Volume fraction]39.6 %Pacbpk38.0-48.0The [facility] HospitalComment on above:Performed By: #### CBC #### [facility] [address] [place], [place] [id number] Dr. Jolynn HuntHemoglobin (Bld) [Mass/Vol]12.9 g/yTHsbcky20.0-16.0The [facility] HospitalComment on above:Performed By: #### CBC #### [facility] [address] [place] [address] Dr. Jolynn Shipman #0.04 10e3/ulCritically high0.00-0.03The [facility] Comment on above:Performed By: #### CBC #### [facility] [address] [place] [address] Dr. Jolynn Shipman %0.4 %Normal0.0-0.5The [facility] HospitalComment on above: Performed By: #### CBC #### [facility] [address] [place] [address] Dr. Jolynn Brady #1.8 103/ulNormal1.2-3.8The [facility] HospitalComment on above:Performed By: #### CBC #### [facility] [address] [place] [address] Dr. Jolynn Scruggshocytes/100 WBC (Bld)18.5 %Critically low20.5-60.0The [facility] HospitalComment on above:Performed By: #### CBC #### [facility] [address] [place] [address] Dr. Jolynn MarieUAL DIFF REQNONormalThe [facility] HospitalComment on above: Performed By: #### CBC #### [facility] [address] [place] [address] Dr. Jolynn Torre (RBC) [Entitic mass]28.4 imOyjkiq00.7-34.0The [facility] HospitalComment on above:Performed By: #### CBC #### [facility] [address] [place] [address] Dr. Jolynn Torre (RBC) [Mass/Vol]32.6 g/fIRzjpcp06.9-35.2The [facility] HospitalComment on above:Performed By: #### CBC #### [facility] [address] [address] [address] Jolynn TorreV (RBC) [Entitic vol]87.2 cTHjvatt57.0-99.0The [facility] HospitalComment on above:Performed By: #### CBC #### [facility] [address] [place] [address] Dr. Jolynn Yu #0.6 103/ulNormal0.3-0.8The [facility] HospitalComment on above:Performed By: #### CBC #### [facility] [address] [place] [address] Dr. Jolynn Whiteocytes/100 WBC (Bld)5.9 %Normal1.7-12.0The [facility] Comment on above:Performed By: #### CBC #### [facility] [address] [place] [address] Dr. Jolynn Beck #7.3 103/ulCritically high1.4-6.5The [facility] Comment on above:Performed By: #### CBC #### [facility] [address] [place] [address] Dr. Jolynn Dos Santosutrophils/100 WBC (Bld)73.3 %Hyppto36.0-75.0The [facility] HospitalComment on above:Performed By: #### CBC #### [facility] [address] [place] [address] Dr. Jolynn Larkin mean volume (Bld) [Entitic vol]8.9 fLCritically low 9.5-13.5The [facility] HospitalComment on above:Performed By: #### CBC #### [facility] [address] [place] [address] Dr. Jolynn HuntPLT438 103/evWtikjz226-792Ity [facility] HospitalComment on above: Performed By: #### CBC #### [facility] [address] [place] [address] Dr. Jolynn HuntRBC4.54 106/ulNormal4.20-5.40The [facility] HospitalComment on above:Performed By: #### CBC #### [facility] [address] [address] [address] Jolynn HuntWBC10.0 103/ulNormal4.0-11.0The [facility] on above:Performed By: #### CBC #### [facility] [address] [address] [address] Jolynn Lozoya THYROXINE INDEX T7on 85-74-5122WCN8.42Qobssr9.30-4.50The [facility] HospitalCommclaren lapeer region on above:Performed By: #### TSH, T7, CMP, LIPID ####[facility] [address] [address]DrColby HuntT3U29.0 %Critically low30.0-39.0The [facility] on above:Performed By: #### TSH, T7, CMP, LIPID ####[facility] [address]afa[address] [address]Dr. Jolynn HuntT4 [Mass/Vol] 9.10 ug/dLNormal4.80-13.90The [facility] on above:Performed By: #### TSH, T7, CMP, LIPID ####[facility] [address] [address]Dr. Jolynn HuntGLYCOHEMOGLOBIN A1Con 75-67-6138JCJ RECOMMENDATIONSEE [facility] CenterCommclaren lapeer region on above:Result Comment: ADA RECOMMENDED LIMIT 4.0 - 6.0 ADA THERAPEUTIC TARGET < 7.0 ACTION SUGGESTED > 7.0Performed By: #### A1C #### [facility] [address] [address] [address] Jolynn HuntGlucose [Mass/Vol]108 mg/dLCorey Hospital on above:Performed By: #### A1C #### [facility] [address] [address] [address] Jolynn HuntHbA1c (Bld) [Mass fraction]5.4 %Normal4.5-6.2The [facility] on above:Performed By: #### A1C #### [facility] [address] [address] [address] Jolynn HuntLIPID PROFILEon 84-42-4183OZAT-HDL RATIO NORMSMercy Health West HospitalCommclaren lapeer region on above:Result Comment: 3.3 - 4.4 LOW RISK 4.4 - 7.1 AVERAGE RISK 7.1 - 11.0 MODERATE RISK >11.0 HIGH RISKPerformed By: #### TSH, T7, CMP, LIPID ####[facility] [address] [address]Dr. Jolynn HuntCholesterol [Mass/Vol]175 mg/dLNormal<=200[facility] on above:Performed By: #### TSH, T7, CMP, LIPID ####[facility] [address] [place], [place] [address]Dr. Jolynn Hunt Cholesterol in HDL [Mass/Vol]53 mg/iZEpecnc59-72Ptb [facility] HospitalCommclaren lapeer region on above:Performed By: #### TSH, T7, CMP, LIPID ####[facility] [address] [address]Dr. Jolynn HuntCholesterol in LDL [Mass/Vol]89.8 mg/dLCorey Hospital on above:Performed By: #### TSH, T7, CMP, LIPID ####[facility] [address] [address]Dr. Jolynn HuntCholesterol.total/Cholesterol in HDL [Mass ratio]3.3 {ratio}NormalWexner Medical CenterCommclaren lapeer region on above:Performed By: #### TSH, T7, CMP, LIPID ####[facility] [address] [address]Dr. Jolynn ChangHDL NORMAL> or = 60 mg/dl - LOW CARDIOVASCULAR RISK <40 mg/dl - HIGH CARDIOVASCULAR RISKRegional Medical CenterCommclaren lapeer region on above:Performed By: #### TSH, T7, CMP, LIPID ####[facility] [address] [address]Dr. Yumikolan ChangLDL CALC NORMALSEE [facility] Conne[facility] Medical CenterCommclaren lapeer region on above:Result Comment: <100 mg/dl OPTIMAL 100 - 129 mg/dl NEAR OR ABOVE OPTIMAL 130 - 159 mg/dl BORDERLINE HIGH 160 - 189 mg/dl HIGH >190 mg/dl VERY HIGHPerformed By: #### TSH, T7, CMP, LIPID ####[facility] [address] [address]Dr. Jolynn HuntTriglyceride [Mass/Vol]161 mg/dLCritically high<=150The [facility] on above:Performed By: #### TSH, T7, CMP, LIPID ####[facility] [address] [address]Dr. Jolynn HuntVLDL CALC32.2 mg/dLNormalThe [facility] HospitalComment on above: Performed By: #### TSH, T7, CMP, LIPID ####[facility] [address] [address]Dr. Jolynn ChangPROF 14(COMP METB)on 04-28-2022 Albumin [Mass/Vol]3.6 g/dLNormal3.4-5.0The [facility] on above: Performed By: #### TSH, T7, CMP, LIPID ####[facility] [address] [address]Dr. Jolynn HuntAlbumin/Globulin [Mass ratio]0.8 {ratio}NormalThe [facility] on above:Performed By: #### TSH, T7, CMP, LIPID ####[facility] [address] [address]Dr. Jolynn HuntALP [Catalytic activity/Vol]78 U/FRzkjcs16-128Hwm [facility] on above:Performed By: #### TSH, T7, CMP, LIPID ####[facility] [address]bsii[address] [address]Dr. Jolynn HuntALT [Catalytic activity/Vol]29 U/WIaocyh03-97Amv [facility] on above: Performed By: #### TSH, T7, CMP, LIPID ####[facility] [address] [address]Dr. Jolynn HuntAnion gap [Moles/Vol]12.8 mmol/L NormalThe Eva HospitalComment on above:Performed By: #### TSH, T7, CMP, LIPID ####[facility] [address]bb[address] [address]Dr. Yilan ChangAST [Catalytic activity/Vol]20 U/JJxpzat00-99Syd [facility] on above:Performed By: #### TSH, T7, CMP, LIPID ####[facility] [address] [address]Dr. Yilan Hunt Bilirubin [Mass/Vol]0.4 mg/dLNormal0.2-1.0The [facility] HospitalCommclaren lapeer region on above: Performed By: #### TSH, T7, CMP, LIPID ####[facility] Yinncfrvjw[address] [place], [place] [address]Dr. Yilan ChangCalcium [Mass/Vol]9.2 mg/dLNormal 8.5-10.1The [facility] on above:Performed By: #### TSH, T7, CMP, LIPID ####[facility] Awhlvcvrhr[address] [place], [place] [address]Dr. Yilan ChangChloride [Moles/Vol]99 mmol/PJcware46-927Tud [facility] on above:Performed By: #### TSH, T7, CMP, LIPID ####[facility] Ituosizgbn[address] [place], [place] [address]Dr. Yilan ChangCO2 [Moles/Vol]29.3 mmol/AHubxkf26.0-32.0The [facility] on above: Performed By: #### TSH, T7, CMP, LIPID ####[facility] Yszrlujjno[address] [place], [place] [address]Dr. Yilan ChangCreatinine [Mass/Vol]0.47 mg/dL Critically low0.55-1.02The [facility] on above:Performed By: #### TSH, T7, CMP, LIPID ####[facility] W[address]fs[address] [place], [place] [address]Dr. Yilan ChangEGFR-AF ALGERIAN>60Normal>=60The [facility] Hospitalment on above:Performed By: #### TSH, T7, CMP, LIPID ####[facility] [address] [address]Dr. Yilan ChangEGFR-NON AF ALGERIAN>60Normal>=60The [facility] Hospitalment on above:Performed By: #### TSH, T7, CMP, LIPID ####[facility] [address]hua[address] [address]Dr. Jolynn HuntGlobulin (S) [Mass/Vol]4.5 g/dLNormalThe [facility] HospitalComment on above:Performed By: #### TSH, T7, CMP, LIPID ####[facility] [address] [address]Dr. Yilan ChangGlucose [Mass/Vol]91 mg/qNUqssqa36-959 The [facility] HospitalComment on above:Performed By: #### TSH, T7, CMP, LIPID ####[facility] [address] [address]Dr. Jolynn HuntPotassium [Moles/Vol]3.1 mmol/LCritically low3.5-5.1The [facility] HospitalComment on above:Performed By: #### TSH, T7, CMP, LIPID ####[facility] [address] [address]Dr. Jolynn Hunt Protein [Mass/Vol]8.1 g/dLNormal6.4-8.2The [facility] HospitalComment on above: Performed By: #### TSH, T7, CMP, LIPID ####[facility] [address]gk[address] [place], [place] [address]Dr. Yilan ChangSodium [Moles/Vol]138 mmol/L Kjoakp174-059Evw [facility] Hospitalment on above:Performed By: #### TSH, T7, CMP, LIPID ####[facility] Mydnnuylkk[address] [place], [place] [address]Dr. Yilan ChangUrea nitrogen [Mass/Vol]9.0 mg/dLNormal7.0-18.0The [facility] Hospitalment on above:Performed By: #### TSH, T7, CMP, LIPID ####[facility] Msxzcaww[address] [place], [place] [address]DrColby HuntUrea nitrogen/Creatinine [Mass ratio]19.1 mg/mgNormalThe [facility] HospitalComment on above:Performed By: #### TSH, T7, CMP, LIPID ####[facility] [address] [place], [place] [address]MoDr. Jolynn Robledo 78-64-1581AME7.052 uIU/mLCritically high0.358-3.740[facility] CenterCommclaren lapeer region on above:Performed By: #### TSH, T7, CMP, LIPID #### [facility] [address] [place], [place] [address] Dr. Jolynn Recinos 16-80-4410Yukpsbqb identified Cx Nom (U) ORGANISM ID: 1 [...] S <=20 F Susceptible <=40 , Resistant >40AbWhitesburg ARH HospitalComment on above:Performed By: #### 630-4 #### [facility] CLIA [id number] [address] [place] [address] OF AMERICACovid-19 PCR (CVDTBH)on 05-37-8274ZBLO-CoV-2 (COVID-19) RNA STEF+probe Ql (Unsp spec)Not detectedNormal NOT DETECTEDThe [facility] HospitalComment on above:Result Comment: When diagnostic testing is negative, the possibility of a false negative should be c onsidered in the context of a patient's recent [...] for this test is supported by the [place] of Health and Human Service's declaration that circumstances exist to justify the emergency use of in vitro diagnostics for the detection and/or diagnosis of the virus that causes COVID-19. This EUA will remain in effect for the duration of the COVID-19 declaration justifying emergency of IVDs, unless it is terminated or revoked by the FDA (after which the test may no longer be used).Performed By: #### CVDTBH ####[facility] [address] [place] [address] Jolynn Díaz A AND B AGon 04-25-8680NEIHPVTGXIPLS BELOWNormut The [facility] HospitalComment on above:Result Comment: Negative for Flu A protein angiten. Infection due to Flu A cannot be ruled out. FluA angiten in the sample may be below the detection limit of the test.Performed By: #### INFLUAB #### [facility] [address] [place] [address] Dr. Jolynn HuntINFLUBNEGHSEE BELOWRegional Medical CenterComment on above: Result Comment: Negative for Flu B protein antigen. Infection due to Flu B cannot be ruled out. FluB antigen in the sample may be below the detection limit of the test.Performed By: #### INFLUAB #### [facility] [address] [place] [address] Dr. Jolynn Mabry AGNegativeNormalNEGATIVE SEE COMMENTThe [facility] on above:Performed By: #### INFLUAB #### [facility] [address] [place] [address] Dr. Jolynn Gomez AGNegativeNormalNEGATIVE SEE COMMENTThe [facility] on above:Performed By: #### INFLUAB #### [facility] [address] [place] [address] Dr. Jolynn HuntINTERNAL CONTROLSWithin Normal LimitsNormalWithin Normal Limits [facility] CenterCommclaren lapeer region on above:Performed By: #### INFLUAB #### [facility] [address] [place] [address] Dr. Jolynn HuntMARY [facility] panel Auto (Bld)on 88-96-1107Cngqpvtpzbt distribution width (RBC) [Ratio]14.0 %11.5 - 15.0 %[facility]aritan HospitalHematocrit (Bld) [Volume fraction]40.8 %36.0 - 46.0 %[facility] HospitalHemoglobin (Bld) [Mass/Vol]12.6 g/dL 11.5 - 15.5 g/dLPaulding County Hospital (RBC) [Entitic mass]27.3 pg26.0 - 34.0 pg Jacques ClinicMCHC (RBC) [Mass/Vol]30.9 g/dL30.5 - 36.0 g/dLSamaritan Hospital MCV (RBC) [Entitic vol]88.3 fL80.0 - 100.0 fLCleveland ClinicNucleated RBC (Bld) [#/Vol]<0.01 k/uLSamaritan HospitalPlatelet mean volume (Bld) [Entitic vol]9.0 fL 9.0 - 12.7 fLCleveland ClinicPlatelets (Bld) [#/Vol]465 10*3/kGEkfq724 - 400 k/uLSamaritan HospitalRBC (Bld) [#/Vol]4.62 10*6/uL3.90 - 5.20 m/uLSamaritan HospitalWBC (Bld) [#/Vol]9.74 10*3/uL3.70 - 11.00 k/uLSamaritan Hospital Comprehensive metabolic 2000 panelon 36-88-4585Oqfxemd [Mass/Vol]4.5 g/dL3.9 - 4.9 g/dLJohnston ClinicALP [Catalytic activity/Vol]92 U/L34 - 123 U/LCleveland ClinicALT [Catalytic activity/Vol]21 U/L7 - 38 U/LCleveland ClinicAnion gap [Moles/Vol]11 mmol/L9 - 18 mmol/LCleveland ClinicAST [Catalytic activity/Vol]16 U/L13 - 35 U/LCleveland ClinicBilirubin [Mass/Vol]0.3 mg/dL0.2 - 1.3 mg/dL [facility] HospitalCalcium [Mass/Vol]9.6 mg/dL8.5 - 10.2 mg/dLSamaritan Hospital Chloride [Moles/Vol]98 mmol/L97 - 105 mmol/LCleveland ClinicCO2 [Moles/Vol]30 mmol/L22 - 30 mmol/LCleveland ClinicCreatinine [Mass/Vol]0.57 mg/dLLow0.58 - 0.96 mg/dLSamaritan HospitalEstimated Glomerular Filtration Nfat974 mL/min/1.73m >=60 mL/min/1.73mCleveland Cambridge Medical CenterGlucose [Mass/Vol]98 mg/dL74 - 99 mg/dL [facility] HospitalPotassium [Moles/Vol]3.4 mmol/LLow3.7 - 5.1 mmol/LCleveland ClinicProtein [Mass/Vol]8.1 g/dLHigh6.3 - 8.0 g/dLWyandot Memorial Hospitalodium [Moles/Vol]139 mmol/L136 - 144 mmol/LCleveland ClinicUrea nitrogen [Mass/Vol]12 mg/dL7 - 21 mg/dLSamaritan HospitalVITAMIN B12 BLOODon 70-61-4852Wxzyjemxs (Vitamin B12) [Mass/Vol]224 pg/gAOck842 - 1,245 pg/mLCleveland ClinicXR LSPINE MIN 4 VIEWSon 02-25-9409JB LSPINE MIN 4 VIEWSEXAMINATION: XR LSPINE MIN 4 VIEWS HISTORY: Prolapsed [...] Electronically authenticated by: DEANGELO MIGUEL Date: 2021-10-12 19:59NormPremier Health [facility] AUTO DIFFon [id number] #0.0 103/ulNormal0.0-0.1[facility] Medical CenterComment on above:Performed By: #### CBC #### [facility] [address] [address] [address] Jolynn Proctorsophils/100 WBC (Bld)0.4 %Normal0.2-2.0[facility] Comment on above:Performed By: #### CBC #### [facility] [address] [address] [address] Jolynn Soares #0.1 103/ulNormal0.0-0.7ThAultman HospitalComment on above: Performed By: #### CBC #### [facility] [address] [address] [address] Jolynn Fuentesosinophils/100 WBC (Bld)1.6 %Normal0.9-7.0[facility] Comment on above:Performed By: #### CBC #### [facility] [address] [place] [address] Dr. Jolynn Fuentesrythrocyte distribution width (RBC) [Ratio]13.9 %Hklkdm85.0-15.0 The [facility] on above:Performed By: #### CBC #### [facility] [address] [place] [address] Dr. Jolynn HuntHematocrit (Bld) [Volume fraction]39.9 %Wtvxod68.0-48.0The [facility] HospitalComment on above:Performed By: #### CBC #### [facility] [address] [place] [address] Dr. Jolynn HuntHemoglobin (Bld) [Mass/Vol]12.2 g/kYTegdwh56.0-16.0The [facility] HospitalComment on above:Performed By: #### CBC #### [facility] [address] [place] [address] Dr. Jolynn Shipman #0.03 10e3/ulNormal0.00-0.03The [facility] HospitalCommclaren lapeer region on above:Performed By: #### CBC #### [facility] [address] [place] [address] Dr. Jolynn Shipman %0.4 %Normal0.0-0.5The [facility] HospitalCommclaren lapeer region on above: Performed By: #### CBC #### [facility] [address] [place] [address] Dr. Jolynn ScruggsH #1.5 103/ulNormal1.2-3.8The [facility] HospitalComment on above:Performed By: #### CBC #### [facility] [address] [place] [address] Dr. Jolynn Rdzmphocytes/100 WBC (Bld)17.8 %Critically low20.5-60.0The [facility] HospitalCommclaren lapeer region on above:Performed By: #### CBC #### [facility] [address] [place] [address] Dr. Jolynn MarieUAL DIFF REQNONormalThe Salem City HospitalComment on above: Performed By: #### CBC #### [facility] [address] [address] [address] Jolynn Torre (RBC) [Entitic mass]26.5 pgCritically low26.7-34.0The [facility] City HospitalComment on above:Performed By: #### CBC #### [facility] [address] [address] [address] Jolynn Torre (RBC) [Mass/Vol]30.6 g/iNLpycll01.9-35.2The [place] HospitalComment on above:Performed By: #### CBC #### [facility] [address] [place] [address] Dr. Jolynn TorreV (RBC) [Entitic vol]86.7 kTRgnjot12.0-99.0The [facility] City HospitalComment on above:Performed By: #### CBC #### [facility] [address] [place] [address] Dr. Jolynn Yu #0.6 103/ulNormal0.3-0.8The [facility] City HospitalComment on above:Performed By: #### CBC #### [facility] [address] [place] [address] Dr. Jolynn Whiteocytes/100 WBC (Bld)6.8 %Normal1.7-12.0The [facility] Comment on above:Performed By: #### CBC #### [facility] [address] [address] [address] Jolynn Beck #6.0 103/ulNormal1.4-6.5The [facility] City HospitalComment on above:Performed By: #### CBC #### [facility] [address] [address] [address] Jolynn Dos Santosutrophils/100 WBC (Bld)73.0 %Dzwwzq12.0-75.0The [facility] City HospitalComment on above:Performed By: #### CBC #### [facility] [address] [place] [address] Dr. Jolynn Pylelet mean volume (Bld) [Entitic vol]9.2 fLCritically low 9.5-13.5The [facility] City HospitalComment on above:Performed By: #### CBC #### [facility] [address] [address] [address] Jolynn HuntPLT421 103/jkKwdmeo171-815Orz [facility] City HospitalComment on above: Performed By: #### CBC #### [facility] [address] [address] [address] Jolynn HuntRBC4.60 106/ulNormal4.20-5.40The [facility] City HospitalComment on above:Performed By: #### CBC #### [facility] [address] [address] [address] Jolynn HuntWBC8.2 103/ulNormal4.0-11.0The [facility] City HospitalComment on above: Performed By: #### CBC #### [facility] [address] [place] [address] Dr. Jolynn HuntCT ABD/PELVIS WO CONon [id number] ABD/PELVIS WO CONEXAMINATION: CT ABD/PELVIS WO CON, 07/01/2021 9:52 AM [...] Electronically authenticated by: BEENA CANAS Date: 2021-07-01 10:58NormSt. Vincent HospitalPREG HCG QUALon [id number], QUALNegativeNormalNEGATIVE The [facility] City HospitalComment on above:Performed By: #### PREG #### [facility] [address] [place] [address] Dr. Jolynn HuntPROF CHEM 8 (BAS METB)on 40-48-1847Hzloi gap [Moles/Vol]13.4 mmol/LNormalWexner Medical CenterComment on above:Performed By: #### BMP #### [facility] [address] [place] [address] Dr. Jolynn HuntCalcium [Mass/Vol]8.9 mg/dLNormal8.5-10.1[facility] Comment on above:Performed By: #### BMP #### [facility] [address] [address] [address] Jolynn HuntChloride [Moles/Vol]100 mmol/MYoppyw72-914Cyh [facility] Comment on above:Performed By: #### BMP #### [facility] [address] [place] [address] Dr. Jolynn HuntCO2 [Moles/Vol]29.6 mmol/PQalang77.0-30.0[facility] Comment on above:Performed By: #### BMP #### [facility] [address] [address] [address] Jolynn HuntCreatinine [Mass/Vol]0.56 mg/dLNormal0.52-1.04The [facility] City HospitalComment on above:Performed By: #### BMP #### [facility] [address] [address] [address] Neil ChangEGFR-AF ALGERIAN>60Normal>=60The [facility] City HospitalComment on above:Performed By: #### BMP #### [facility] [address] [address] [address] Jolynn FuentesGFR-NON AF ALGERIAN>60Normal>=60The [facility] City HospitalComment on above:Performed By: #### BMP #### [facility] [address] [address] [address] Jolynn HuntGlucose [Mass/Vol]96 mg/uDDunfps36-610Mel [facility] Comment on above:Performed By: #### BMP #### [facility] [address] [address] [address] Jolynn HuntPotassium [Moles/Vol]3.0 mmol/LCritically low3.4-5.0The [facility] City HospitalComment on above:Performed By: #### BMP #### [facility] [address] [place] [address] Dr. Jolynn HuntSodium [Moles/Vol]140 mmol/RAlkium598-456Crw [facility] Comment on above:Performed By: #### BMP #### [facility] [address] [address] [address] Jolynn HuntUrea nitrogen [Mass/Vol]9.0 mg/dLNormal7.0-18.0The [facility] City HospitalComment on above:Performed By: #### BMP #### [facility] [address] [address] [address] Jolynn HuntUrea nitrogen/Creatinine [Mass ratio]16.1 mg/mgNormalThe [facility] City HospitalComment on above:Performed By: #### BMP #### [facility] [address] [address] [address] Jolynn Jacobo 27-20-2402VVCQAHRmxvw (SP) Office (GYNML) BRAD FLEMING ([id number]) 1985 F Date Time Provider Department 12/10/20 1:30 PM JASMINA JACINTO During your visit today, we recorded the following information about you: Temperature Pulse Respiration Blood pressure 98.3 degrees 96/minute 14/minute 135/94 Weight Last Period 92.5 kg 11/25/20 Jasmina Jacinto APRN.SPECIAL ED ASSISTANT 12/10/2020 3:45 PM Signed DATE OF SERVICE: [...] features. Consider surgical evaluation or consultation with TRAFFIC CONTROL FLAGGER Oncology 12/04/20 CT Abdomen/Pelvis IMPRESSION: 1. ?Ovoid [...] 2020- Negative Last colonoscopy: N/A Last Pap: 2019- Negative Last HPV: 2018 - Negative ECOG [...] discharge yesterday, now res (more content not included)...[facility] [id number] Telephone (GYN) BRAD FLEMING ([id number]) 1985 F Date Time Provider Department 12/08/20 [...] 6 hours as needed for pain. - acetaminophen/pyrilamine/caff (MIDOL COMPLETE ORAL) Take by mouth as [...] 1 tablet by mouth twice daily. - lisinopril-hydroCHLOROthiazide (PRINZIDE,ZESTORETIC) 10-12.5 mg per tablet Take 1 [...] 10/14/2020 Encounter Status:Closed by JOI SOARES on 12/08/20[facility] Telephone (GYNML) BRAD FLEMING ([id number]) 1985 F Date Time Provider Department 12/08/20 JOI SOARES [facility] During your visit today, we recorded [...] 6 hours as needed for pain. - acetaminophen/pyrilamine/caff (MIDOL COMPLETE ORAL) Take by mouth as [...] 1 tablet by mouth twice daily. - lisinopril-hydroCHLOROthiazide (PRINZIDE,ZESTORETIC) 10-12.5 mg per tablet Take 1 [...] 10/14/2020 Encounter Status:Closed by JOI SOARES on 12/09/20[facility] [id number] (GYNML) BRAD FLEMING ([id number]) 1985 F Date Time Provider Department 12/04/20 JASMINA JACINTO During your visit today, we recorded the following information about you: Jasmina Jacinto APRN.SPECIAL ED ASSISTANT 12/04/2020 4:47 PM Signed Called patient to [...] questions answered at this time. Jasmina Jacinto APRN.SPECIAL ED ASSISTANT December 04, 2020 4:46 PM Allergies As [...] 6 hours as needed for pain. - acetaminophen/pyrilamine/caff (MIDOL COMPLETE ORAL) Take by mouth as [...] 1 tablet by mouth twice daily. - lisinopril-hydroCHLOROthiazide (PRINZIDE,ZESTORETIC) 10-12.5 mg per tablet Take 1 [...] 10/14/2020 Encounter Status:Closed by JASMINA JACINTO on 12/04/20[facility] CT ABD/PEL W IVCONon 49-55-9791Zplutigxn ClinicCNPNon 71-42-9309YIUJYjjxyfadq (GYNML) BRAD FLEMING ([id number]) 1985 F Date Time Provider Department 12/02/20 SHO MILNER During your visit today, we [...] Signed Spoke with patient in regards to SPECIAL ED ASSISTANT recommendation to monitor pain and continue current [...] 6 hours as needed for pain. - acetaminophen/pyrilamine/caff (MIDOL COMPLETE ORAL) Take by mouth as [...] 1 tablet by mouth twice daily. - lisinopril-hydroCHLOROthiazide (PRINZIDE,ZESTORETIC) 10-12.5 mg per tablet Take 1 [...] 10/14/2020 Encounter Status:Closed by SHO MILNER on 12/02/20[facility] [place] [id number] (GYNML) BRAD FLEMING ([id number]) 1985 F Date Time Provider Department 11/27/20 CAITLYN SNEED During your visit today, we recorded the [...] Date Reviewed: 11/12/2020 Reviewed by: Jenaro Ribeiro APRN.SPECIAL ED ASSISTANT - Fully Assessed Reason for Visit: Appointment [...] 6 hours as needed for pain. - acetaminophen/pyrilamine/caff (MIDOL COMPLETE ORAL) Take by mouth as [...] 1 tablet by mouth twice daily. - lisinopril-hydroCHLOROthiazide (PRINZIDE,ZESTORETIC) 10-12.5 mg per tablet Take 1 [...] 10/14/2020 Encounter Status:Closed by CANDELARIA REAVES on 11/27/20[facility] CNOVSPon [id number] (SP) Office (GYNML) BRAD FLEMING ([id number]) 1985 F Date Time Provider Department 11/12/20 10:15 AM JENARO RIBEIRO [facility] During your visit today, we recorded the following information about you: Temperature Pulse Blood pressure 98.1 degrees 98/minute 119/77 Jenaro Ribeiro APRN.SPECIAL ED ASSISTANT 11/13/2020 1:21 PM Signed DATE OF SERVICE: 11/12/2020 PROBLEM: Brad Fleming presents for postop visit. 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 ? [facility] 11/03/2020 COMMENT The entire specimen was [...] to further discuss pathology results. Jenaro Ribeiro APRN.ANTONI Referring Provider: CAITLYN SNEED [[id number]] Allergies As of Date: 11/12/2020 Noted Allergy Reaction BEE VENOM PROTEIN (HONEY BEE) 08/27/2020 2 - Rash Comments: Rash spreads from bee stings PENICILLINS 09/07/2014 4 - Hives TIZANIDINE 05/07/2020 1 - Mental Status Change TRAMADOL 08/27/2020 14 - Other: See Comments Comments: dizziness Date Reviewed: 11/12/2020 Reviewed by: Jenaro Ribeiro APRN.SPECIAL ED ASSISTANT - Fully Assessed Reason for Visit: Established [...] 6 hours as needed for pain. - acetaminophen/pyrilamine/caff (MIDOL COMPLETE ORAL) Take by mouth as [...] 1 tablet by mouth twice daily. - lisinopril-hydroCHLOROthiazide (PRINZIDE,ZESTORETIC) 10-12.5 mg per tablet Take 1 [...] 10/14/2020 Encounter Status:Closed by JENARO RIBEIRO on 11/13/20[facility] [id number] (GYNML) BRAD FLEMING ([id number]) 1985 F Date Time Provider Department 11/06/20 JASMINA JACINTO During your visit today, we recorded the following information about you: Jasmina Jacinto APRN.CNP 11/06/2020 9:21 AM Signed Left voicemail for patient to return call to office to discuss pathology results and plan of care. Will await call back. Jasmina Jacinto APRN.CNP November 06, 2020 9:21 AM Allergies As [...] 6 hours as needed for pain. - acetaminophen/pyrilamine/caff (MIDOL COMPLETE ORAL) Take by mouth as [...] 1 tablet by mouth twice daily. - lisinopril-hydroCHLOROthiazide (PRINZIDE,ZESTORETIC) 10-12.5 mg per tablet Take 1 [...] 10/14/2020 Encounter Status:Closed by JASMINA JACINTO on 11/24/20[facility] 61-18-7915SNDEEexvpkxpy (GYNML) BRAD FLEMING ([id number]) 1985 F Date Time Provider Department 11/03/20 [...] 6 hours as needed for pain. - acetaminophen/pyrilamine/caff (MIDOL COMPLETE ORAL) Take by mouth as [...] 1 tablet by mouth twice daily. - lisinopril-hydroCHLOROthiazide (PRINZIDE,ZESTORETIC) 10-12.5 mg per tablet Take 1 [...] 10/14/2020 Encounter Status:Closed by NANCY JAMISON on 11/03/20[facility] POSTPROC EVALon [id number] POSTPROC EVALHNO ID: [id number] Author: Antonio Ma I, MD Service: Anesthesiology [...] October 28, 2020 TIME: 12:34 PM CSN: [id number] Hospital PRE-OPon 55-34-3462NHFH PRE-OPHNO ID: [id number] Author: Antonio Ma I, MD Service: Anesthesiology [...] no. Vitals Value Taken Time BP 113/67 10/28/20720 Pulse 94 10/28/20720 Resp 18 10/28/20720 Temp 36.8 ?C (98.2 [...] 1 tablet by mouth twice daily. - lisinopril-hydroCHLOROthiazide (PRINZIDE,ZESTORETIC) 10-12.5 mg per tablet Take 1 [...] October 28, 2020 TIME: 8:10 AM CSN: [id number] HospitalCYTOLOGYon [id number] Specimen originated from [facility] Specimen #: [id number] Submitting Physician: CAITLYN ROBLEDO MD SPECIMEN SUBMITTED [...] WASHING (THINPREP AND CELL BLOCK) THIN PREP Non-Senior Director Marketing, CELL BLOCK, H&E, Initial Date of Report: 10/29/2020 Date of Procedure: 10/28/2020 Date of Receipt: 10/29/2020 Submitted by: CAITLYN ROBLEDO MD Location: [facility] Diagnostic interpretation performed at [facility], [address] [place] [address] [place] [address]. CLIA Number: [id number] HospitalHISTORY PHYSICALon [id number] PHYSICALHNO ID: [id number] Author: oB Galdamez MD Service: Gynecology Author Type: Physician [...] feel that it is necessary. Aidee Mclain [facility] [id number] PROGHNO ID: [id number] Author: Anahy Medley RN Service: Nursing Author [...] REFERRAL (RECOMMENDATION): None Electronically Signed By: Anahy BedoyaWestwood Lodge Hospital ANAM ID: [id number] Author: Yolanda Cifuentes RN Service: Nursing Author Type: Registered Nurse Type: Nursing Progress Note Filed: 10/28/2020 12:24 PM Note Text: Scopolamine Transdermal Patch URL of this page: http://www.nlm.nih.gov/medlineplus/druginfo/meds/p759760.html Why is this medication prescribed? Scopolamine is [...] patch, follow the directions provided by the tag meter operator and these steps: 1. After washing the [...] not breathing, call local emergency services at 911. What other information should I know? Keep all appointments with your doctor and the laboratory. The patch is not affected by limited exposure to water during bathing or swimming. Do not let anyone else use your medication. Ask your pharmacist any questions you have about refilling (more content not included)...[facility] HospitalOPERATIVE NOon [id number] NOHNO ID: [id number] Author: Caitlyn Sneed MD Service: Gynecology Oncology Author Type: Physician Type: Operative Report Filed: 11/10/2020 6:38 PM Note Text: OPERATIVE/PROCEDURE REPORT LOG ID: [id number] SURGERY/PROCEDURE DATE: 10/28/2020 INCISION/PROCEDURE START TIME: 9:17 AM INCISION CLOSE/PROCEDURE END TIME: 10:49 AM SURGEON(S)/PROCEDURALIST(S) AND HARPOONER(S): Surgeon(s) and Role: Panel 1: * Caitlyn [...] Fleming DATE: November 07, 2020 TIME: 1:19 [facility] ID: [id number] Author: Bo Galdamez MD Service: Gynecology Author Type: Physician Type: Operative Report Filed: 11/04/2020 6:14 PM Note Text: TRAFFIC CONTROL FLAGGER OPERATIVE/PROCEDURE REPORT LOG ID: [id number] Surgery/Procedure Date: 10/28/2020 Incision/Procedure Start Time: 9:17 AM Incision Close/Procedure End Time: Surgeon(s)/Proceduralist(s) and District Service Manager(s): Surgeon(s) and Role: Panel 1: * Caitlyn [...] 28, 2020 TIME: 10:41 AM PAGER/CONTACT #: .[facility] PATHOLOGYon [id number] PATHOLOGY Specimen originated from [facility] Specimen #: [id number] Submitting Physician: CAITLYN ROBLEDO MD FINAL DIAGNOSIS Right ovarian cyst, cystectomy - 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 [facility] 11/03/2020 COMMENT The entire specimen was [...] evidence of borderline tumor or malignancy on manufacturers representative frozen section (Dr. Coles). Intraoperative consultation performed at [facility], [address] [place] [address] GROSS DESCRIPTION A. Received fresh for frozen [...] There is no normal appearing ovarian parenchyma. Edge Setter sections are submitted as follows: FSA1 cyst for frozen section, A2-A7 cyst in formalin for permanent section. The remainder of the specimen is subsequently submitted in cassettes A8-A14. WE/virgilio 10/28/2020 MANISHA/jessica 10/30/2020 Gross examination performed at [place] [address] Date of Report: 11/03/2020 Date of Procedure: 10/28/2020 Date of Receipt: 10/28/2020 Submitted by: CAITLYN ROBLEDO MD Location: [facility] Diagnostic interpretation performed at [facility], [address] [place] [address]. [place] Number: [id number] HospitalCNPNon 84-74-4817NNZQCcyebjesn (GYNML) BRAD FLEMING ([id number]) 1985 F Date Time Provider Department 10/23/20 SHO MILNER GYN During your visit today, we recorded the following information about you: Sho Milner RN 10/23/2020 4:08 PM Signed Patient's FMLA form completed and faxed with confirmation. Will place to be scanned. Sho Milner RN 11/17/2020 11:58 AM Signed Spoke with patient. She stated that [facility] updated that they faxed additional paperwork to our office. Paperwork was not received. Patient will call [email or web address] to have them send papers to office. Correct fax number given. Allergies As of Date: 10/23/2020 Noted Allergy Reaction BEE VENOM PROTEIN (HONEY BEE) 08/27/2020 2 - Rash Comments: Rash spreads from bee stings PENICILLINS 09/07/2014 4 - Hives TIZANIDINE 05/07/2020 1 - Mental Status Change TRAMADOL 08/27/2020 14 - Other: See Comments Comments: dizziness Date Reviewed: 10/14/2020 Reviewed by: Neva Moore APRN.SPECIAL ED ASSISTANT - Fully Assessed Reason for Visit: [place] Paperwork [8795] Prescriptions as of 11/17/2020 - ibuprofen (MOTRIN) 600 mg tablet Take 1 tablet by mouth every 8 hours as needed for pain. - docusate sodium (COLACE) 100 mg capsule Take 1 capsule by mouth twice daily. - acetaminophen (TYLENOL EXTRA STRENGTH) 500 mg tablet Take 2 tablets by mouth every 6 hours as needed for pain. - acetaminophen/pyrilamine/caff (MIDOL COMPLETE ORAL) Take by mouth as [...] 1 tablet by mouth twice daily. - lisinopril-hydroCHLOROthiazide (PRINZIDE,ZESTORETIC) 10-12.5 mg per tablet Take 1 [...] 10/14/2020 Encounter Status:Closed by SHO MILNER on 10/23/20[facility] Type and SCR (30D)on [id number]/RH(D)PositiveSaint Anne's HospitalComment on above:Performed By: #### [id number] ####[facility] [place], [place] [id number] 60-07-6758WERTVyslbsqlu (ABAD) BRAD FLEMING ([id number]) 1985 F Date Time Provider Department 10/09/20 NANCY JAMISON During your visit today, we recorded the following information about you: Nancy Jamison RN 10/09/2020 12:24 PM Signed Procedure: Ovarian cystectomy Physician: Caitlyn Owusu Location: [facility]: [phone] Date AND Time: 10/28/20 MEDICAL CLEARANCE: TBd [...] Naprosyn(naproxen) Agrylin NSAIDS Pepto-Bismol Aleve Ecotrin Persantine [place] Excedrin Plaquenil Anacin Heparin Plavix Ascriptin Herbals [...] - IV pain medication after surgery, IV FOAM TANK LAMINATOR if ordered by MD, discharged home with a prescription for PO pain medication, pain management after surgery, side effects of pain medication (including constipation, dizziness, drowsiness, and medication interactions). DVT PROPHYLAXIS - Early ambulation, SCDs, injectable anticoagulants (heparin, lovenox, etc) RESPIRATORY - Incentive spirometer, coughing/deep breathing exercises, ambulation. RETURN TO WORK - As directed by physician, please send any FMLA papers to physician's secretary of state. SYMPTOMS TO NOTIFY MD - Fever, chills, nausea, vomiting, increased or severe pain, heavy vaginal bleeding, foul smelling vaginal drainage, pain or swelling in extremities. URGENT SYMPTOMS - Call 911 or go to ER if any shortness of breath, difficulty breathing, or chest pain. HOW TO CONTACT PHYSICIAN - Physician's office phone number given to patient, if after hours patient instructed to call shot core drill operator helper and ask for the doctor senior treasury consultant. Patient and family have phone number to call 24 hours/day. Patient Evaluation: Verbalizes understanding Patient and/or family express understanding of upcoming surgery and the operative process. Questions answered. Follow Up Plan: Follow up as needed Supplemental Material Given: Pre-operative teaching packet provided to the patient: INPATIENT/OUTPATIEN (more content not included)...[facility] Vital Signs Date TimeVital SignValuePerforming CnnijcqyuTdapgulw02-61-9044 09:14-0400Body xudfqx778.9 Minal Good MD Work Phone: [facility]09-09-2025 09:14-0400Body mass index (BMI) [Ratio]39.11 kg/m2Nancy Good MD Work Phone: [facility]09-09-2025 09:14-0400Body ywszsw10.9 kgNancy Good MD Work Phone: [facility]09-09-2025 09:14-0400Diastolic blood drynuzee43 mm[Hg]Nancy Good MD Work Phone: [facility]09-09-2025 09:14-0400Systolic blood vbfijxqg384 mm[Hg]Nancy Good MD Work Phone: [facility]10-24-2023 10:27-0400Body .9 cmErica Fog CUSTOMER SALES SPECIALIST.SPECIAL ED ASSISTANT Work Phone: [facility]10-24-2023 10:27-0400Body wctumx34.44 kgErica Fog CUSTOMER SALES SPECIALIST.SPECIAL ED ASSISTANT Work Phone: [facility]10-24-2023 10:27-0400Diastolic blood fzufifmd94 mm[Hg]Jenny Fog CUSTOMER SALES SPECIALIST.SPECIAL ED ASSISTANT Work Phone: [facility]10-24-2023 10:27-0400Systolic blood mjixcfaq687 mm[Hg]Jenny Fog CUSTOMER SALES SPECIALIST.SPECIAL ED ASSISTANT Work Phone: [facility]09-15-2022 09:52-0400Body woygdo704.9 cmErica Fog CUSTOMER SALES SPECIALIST.SPECIAL ED ASSISTANT Work Phone: [facility]09-15-2022 09:52-0400Body oldkri92.17 kgErica Fog CUSTOMER SALES SPECIALIST.SPECIAL ED ASSISTANT Work Phone: [facility]09-15-2022 09:52-0400Diastolic blood guxopqpk79 mm[Hg]Jenny Fog CUSTOMER SALES SPECIALIST.SPECIAL ED ASSISTANT Work Phone: [facility]09-15-2022 09:52-0400Systolic blood mm[Hg]Jenny Fog CUSTOMER SALES SPECIALIST.SPECIAL ED ASSISTANT Work Phone: [facility] Encounters Encounter DateEncounter [facility] ProviderFacilityStart: 81-20-0928hsuhfbyoes MARCO FINKFacility:[facility] HospitalStart: 01-14-2025 End: 09-85-8545bxnyeggrzlPdsoaci Sakina NILLFacility:[facility]tart: 01-14-2025 End: 16-10-6769Xvymtlz encounter procedureMichael R NILL [phone]-JahnhLima [facility] [place] Start: 72-25-9811lnfejlpukmVdvhkaq NILLFacility:[facility]ueStart: 12-23-2024 End: 28-15-5979kitrcdplxuOJVNRGK HAIBACHFacility:[facility] Hospitaltart: 12-02-2024 End: 26-72-5856xiouiikltbWLH Jean Paul GOODFacility:[facility] Hospitaltart: 11-21-2024 End: 07-43-0301Gzhoxf-up encounterNancy Good MD Work Phone: Obstetrics/GynecologyStart: 11-21-2024 End: 74-10-6967Maxufbb encounter procedureOb Senior Director Marketing Main Us Work Phone: GynecologyComment on above:Pelvic pain in female; Dyspareunia in femaleStart: 11-21-2024 End: 51-81-7484rvucezbsmaPCZ L STEPHENSFacility:[facility] Hospitaltart: 11-19-2024 End: 37-58-8856Awhvwye encounter procedureNancy Good MD Work Phone: Obstetrics/GynecologyComment on above:Encounter for gynecological examination (general) (routine) without abnormal findings (Primary Dx); Pelvic pain in female; Dyspareunia in female; Vulvar lesionStart: 11-19-2024 End: 84-79-9612Smqgamo encounter statusNancy Good MD Work Phone: [facility]: 11-19-2024 End: 58-70-1603itldlrofrwQKJ L STEPHENSFacility:[facility] Hospitaltart: 97-29-8319Drtvicfvu for gynecological examination (general) (routine) without abnormal findingsNANCY LOTTTriHealth Bethesda Butler HospitalStart: 04-05-2024 End: 08-18-9392LudiybJbahkLoreta Ye APRN.CNP Work Phone: Obstetrics/GynecologyComment on above:Refill Request Start: 01-08-2024 End: 61-23-1538Kbwucggkb encounterJenny Ye APRN.ANTONI Work Phone: Obstetrics/GynecologyStart: 12-29-2023 End: 87-15-2403LhmjuoHxazp Lynne Fog APRN.SPECIAL ED ASSISTANT Work Phone: Obstetrics/GynecologyComment on above:Refill Request Start: 32-25-7151Obojtwqnh encounterJenny Ye APRN.SPECIAL ED ASSISTANT Work Phone: CB/GynecologyComment on above:ResultsStart: 01-05-2023 End: 22-31-0966bcukydiqkuBknideaj Kshettry MD Work Phone: Obstetrics/GynecologyStart: 01-05-2023 End: 97-79-6474Mebnnpe encounter Jet Willard MD Work Phone: cOLUMBIA ROADStart: 01-03-2023 End: 72-59-0471pafyfeomweFQWIN LYNNE FOGFacility:[facility] HospitalStart: 01-03-2023 End: 04-89-0951Tyietoe encounter procedureJenny eY APRN.SPECIAL ED ASSISTANT Work Phone: Obstetrics/GynecologyComment on above:Encounter for gynecological examination (general) (routine) without abnormal findings (Primary Dx); Screening for malignant neoplasm of cervix; History of abnormal cervical Pap smear; Counseling for initiation of control method; Encounter for screening breast examination; Abnormal uterine bleeding (AUB); PCOS (polycystic ovarian syndrome); Vaginal dischargeStart: 01-03-2023 End: 85-70-9148Damyyvu encounter statusJenny Ye APRN.CNP Work Phone: [facility] Work Phone: Start: 86-39-6912Xqlkstpal for general adult medical examination without abnormal findingsDR KEILA MCCORMICK .[facility]Start: [facility]28[facility]2022 End: 86-79-1951rbnuiwekqeMP KEILA HOY .Facility:Y6Inbfi: 04-28-2022 End: 11-61-2161Rxbyfztfl for general adult medical examination without abnormal findingsDR KELIA HOY .Facility:P4Idrdf: 04-07-2022 End: 06-68-2831cjhskpkpbiST KEILA HOY .Facility:G5Zjyzz: 87-49-4217Njwgivtmg encounterJenny Ye APRN.CNP Work Phone: CB/GynecologyComment on above:ResultsStart: 02-21-2022 End: 48-93-5626plwispqmfuUIRCG LYNNE FOGFacility:[facility]tart: 02-21-2022 Telephone encounterJenny Ye APRN.CNP Work Phone: Obstetrics/GynecologyComment on above:Urinary Problem Start: 02-17-2022 End: 43-69-2962xmdayyjchoZG KEILA HOY .Facility:F2Aeejn: 93-55-1885Cmtvivkoe encounterJenny Ye APRN.CNP Work Phone: Obstetrics/GynecologyComment on above:ResultsStart: 11-25-2021 End: 64-40-2005Ogjqznh encounter procedureJenny Ye APRN.CNP Work Phone: Obstetrics/GynecologyComment on above:Encounter for gynecological examination (general) (routine) without abnormal findings (Primary Dx); Encounter for screening breast examination; PCOS (polycystic ovarian syndrome); Menorrhagia with regular cycle; Medication managementStart: 11-25-2021 End: 52-21-2404Uvgfgju encounter statusJenny Ye APRN.CNP Work Phone: Obstetrics/GynecologyStart: 10-21-2021 End: 60-13-4215nfjpaexgqnLL KEILA HOY .Facility:D3Uliud: 10-12-2021 End: 14-97-0492uuagitunzkMB KEILA HOY .Facility:Q0Gxjxc: 07-01-2021 End: 27-92-2911kqietrbpkwJI KEILA HOY .Facility:P9Dmjkh: 12-04-2020 End: 78-99-8880Wadxkevyuk hospital visit by physicianCt [facility] Radiology Ct ScanComment on above:Post-operative state [Z98.890]Start: 10-09-2017 End: 16-92-0240Gpbzsag encounterDEFAULT PHYSICIANFacility:[facility] Procedures DateProcedureProcedure DetailPerforming ClinicianStart: 38-94-9555Pi pelvic nonobstetric real-time image completeNancy Good MD Work Phone: Start: 73-32-4882Zh pelvic nonobstetric real-time image completeJenny Ye CUSTOMER SALES SPECIALIST.SPECIAL ED ASSISTANT Work Phone: Start: 78-05-1084Xs abdomen & pelvis w/contrast materialStepalicia Jacinto CUSTOMER SALES SPECIALIST.SPECIAL ED ASSISTANT Work Phone: Start: 34-78-5448Towndoru screenComment on above: Performed By: #### [id number] ####[id number] [place], [place] [phone] NILL Dilation and curettageMichael NILL Excision of cyst of ovaryMichael NILL Plan of Treatment DateCare ActivityDetailAuthorStart: 66-69-8857IZH TestingHPV TestingWyandot Memorial Hospitaltart: 64-58-7821Dxe TestingPap TestingJohnston ClinicStart: 01-04-2028 Screening for malignant neoplasm of cervixCervical Cancer ScreeningJohnston ClinicStart: 11-21-2025 End: 24-47-1440Dubhbig encounter lgrjbyghp57/11/2026 10:45 AM EDT Office Visit Obstetrics/Gynecology [address] [place] [address] [place] [address] [address] [facility] [place] [address] annualObstetrics/GynecologyComment on above:annualStart: 50-37-7512PAH TESTINGHPV TESTINGWyandot Memorial Hospitaltart: 84-19-1740LDL TESTINGPAP TESTING [facility]tart: 12-02-2024 End: 27-48-0738Utohplk encounter jupgcsfuy84/22/2025 11:35 AM EDT Office Visit Obstetrics/Gynecology [address] [place] [address] [place] [address] [place] [address] Vulvar lesion [N90.89]Obstetrics/GynecologyComment on above:Vulvar lesion [N90.89]Start: 11-20-2024 End: 17-10-7570Ikugzah encounter zvavkwizs92/10/2025 2:30 PM EDT Office Visit Gynecology [address] [address] [address] [employer] [address] [place] [address] Pelvic pain in female [R10.2]; Dyspareunia in female [N94.10]GynecologyComment on above:Pelvic pain in female [R10.2]; Dyspareunia in female [N94.10]Start: 11-19-2024 End: 30-36-4104Tnm endometriosis confirmed by laparoscopy [PhenX]ENDOMETRIOSIS [facility] Anc Imaging Routine Pelvic pain in female Dyspareunia in female Expected: 11/19/2024, Expires: 11/19/2025[facility] Work Phone: Comment on above:Expected: 11/19/2024, Expires: 11/19/2025Start: 11-19-2024 End: 82-57-1495Fznctgv encounter ykslqzwcm20/09/2025 9:20 AM EDT Office Visit Obstetrics/Gynecology [address] [place] [address] [place] [address] [place] [address] AnnualObstetrics/GynecologyComment on above:AnnualStart: 11-11-2024 Influenza vaccinationInfluenza Vaccine (#1)[facility]: 01-09-2024 End: 57-32-7447Yfvovmg encounter onusiaiyy64/29/2024 11:00 AM EDT Office Visit Obstetrics/Gynecology [address] [facility] [place] [address] Jenny Ye APRN.SPECIAL ED ASSISTANT [address] [facility] [place] [address] annualObstetrics/GynecologyComment on above:annualStart: 88-58-4335Gfprw-19 Vaccine ()Covid-19 Vaccine ()[facility]tart: 52-28-7423Orziyvujd vaccinationInfluenza Vaccine (#1)[facility]tart: 01-03-2023 End: 88-92-0358VDGS-S BLDCCity Hospital Work Phone: Comment on above:Expected: 01/03/2023, Expires: 01/04/2024Start: 01-03-2023 End: 00-69-1914Xmwhfniwhy A1c in BloodChildren'S Hospital For Rehabilitation Work Phone: Comment on above:Expected: 01/03/2023, Expires: 01/04/2024Start: 01-03-2023 End: 58-23-9828PWDJCQB, FREEChildren'S Hospital For Rehabilitation Work Phone: Comment on above:Expected: 01/03/2023, Expires: 01/04/2024Start: 01-03-2023 End: 64-75-5685BYIJKA US WHIPELVIC US WHI Anc Imaging Routine Abnormal uterine bleeding (AUB) PCOS (polycystic ovarian syndrome) Expected: 01/03/2023, Expires: 01/04/2024[facility] Work Phone: Comment on above:Expected: 01/03/2023, Expires: 01/04/2024Start: 01-03-2023 End: 70-73-7831Bkluytjjonhs [Mass/volume] in Serum or PlasmaChildren'S Hospital For Rehabilitation Work Phone: Comment on above:Expected: 01/03/2023, Expires: 01/04/2024Start: 20-83-5048Uifqi-19 Vaccine ()Covid-19 Vaccine ()[facility]: 68-02-2245Kkbktoqjsw Assessment Depression AssessmentWyandot Memorial Hospitaltart: 02-21-2022 End: 26-86-2912Kumhdyrv identified in Urine by CultureChildren'S Hospital For Rehabilitation Work Phone: Comment on above:Expected: 02/21/2022, Expires: 04/23/2022Start: 12-22-0716IAUWF-19 VACCINE (4 - Booster for Pfizer series) COVID-19 VACCINE (4 - Booster for Pfizer series)[facility]: 18-90-8661Dcwkjigfx vaccinationINFLUENZA (#1)[facility]: 10-27-2021 COVID-19 VACCINE (3 - Booster for Pfizer series)COVID-19 VACCINE (3 - Booster for Pfizer series)[facility]: 36-75-2555JLUXGGWVCR ASSESSMENT DEPRESSION ASSESSMENTWyandot Memorial Hospitaltart: 27-80-6037SPT Vaccine (1 - 3-dose SCDM series)HPV Vaccine (1 - 3-dose SCDM series)[facility]: 62-44-9762Naavrrijw B Vaccine (1 of 3 - 19+ 3-dose series)Hepatitis B Vaccine (1 of 3 - 19+ 3-dose series)[facility]: 47-58-0009Ghqbs microalbumin profileWyandot Memorial Hospitaltart: 95-15-9242SZZJOC PCP TEAM CHRONIC DISEASE VISIT ANNUAL PCP TEAM CHRONIC DISEASE VISITWyandot Memorial Hospitaltart: 54-07-1208Mavhncj ScreeningAnxiety ScreeningWyandot Memorial Hospitaltart: 98-25-4959MF CONTROLLED (<130/80)BP CONTROLLED (<130/80)[facility]: 50-23-4611Vecchsxhga ScreeningDepression ScreeningWyandot Memorial Hospitaltart: 65-91-2723OCLHHGEMM C SCREENINGHEPATITIS C SCREENINGWyandot Memorial Hospitaltart: 15-59-2335Lzbcnmjil C screeningHepatitis C ScreeningWyandot Memorial Hospitaltart: 04-98-2036ZVS SCREENINGHIV SCREENINGUK Healthcarert: 57-65-6160XIK screeningHIV ScreeningWyandot Memorial Hospitaltart: 09-28-2767Smjre depression screening assessmentDEPRESSION SCREENING [facility]: 06-45-1047BEYWBVNZB B (1 of 3 - 3-dose series)HEPATITIS B (1 of 3 - 3-dose series)[facility]: 11-39-0705Uszgbqeid B Vaccine (1 of 3 - 3-dose series)Hepatitis B Vaccine (1 of 3 - 3-dose series)[facility] HospitalBACTERIAL VAGINOSIS NAATBACTERIAL VAGINOSIS NAAT Lab Routine Vaginal discharge 01/03/2023 11:00 AM [facility] Work Phone: Biopsy vulva/perineum 1 lesion spxBIOPSY OF VULVA Procedures Routine Vulvar lesion Ordered: 5CWright-Patterson Medical CenterComment on above:Ordered: 5CANDIDA/TRICHOMONAS NAATCANDIDA/TRICHOMONAS NAAT Lab Routine Vaginal discharge 01/03/2023 11:00 AM [facility] Work Phone: PAP TESTPAP TEST Lab Routine Screening for malignant neoplasm of cervix History of abnormal cervical Pap smear 01/03/2023 10:50 AM [facility] Work Phone: [facility] Immunizations Immunization DateImmunizationNotesCare HizgcqtnDkyayfks34-40-9978yvoyqmfnq virus vaccine, unspecified formulationNancy Good MD Work Phone: [facility] HospitalEoxodl70-91-7704gnjdfvcdl virus vaccine, unspecified formulationErica Chary CUSTOMER SALES SPECIALIST.SPECIAL ED ASSISTANT Work Phone: [facility] HospitalTwalqt04-08-1071JTZJW-77 original vaccine, age 12+ yr, monovalent (PFIZER-BIONTECH - PURPLE TOP)Nancy Good MD Work Phone: [facility] HospitalAkujkm31-72-2295UKQJT-89 original vaccine, age 12+ yr, monovalent (PFIZER-BIONTECH - CURRIE TOP)Nancy Good MD Work Phone: [facility] HospitalIffmpe47-49-2420BVAJ-VpX-7 mRNA (avokmzpzjyj-nypc-eppkawv) vaccineMichael NILL [phone]-IudiiLima City Hospital [facility] [place] 26-50-3010NPCMK-19 original vaccine, age 12+ yr, monovalent (Enlighted-XtremeMortgageWorx - CURRIE TOP)Nancy Good MD Work Phone: [facility] HospitalYiassp90-46-5065SKPQ-ZqU-1 mRNA (awngejthgwa-revp-jbynlpc) vaccineMichael NILL [phone]-BpvvvLima City Hospital [facility] [place] 85-15-8549ptnxsifax virus vaccine, unspecified formulationErica Fog CUSTOMER SALES SPECIALIST.SPECIAL ED ASSISTANT Work Phone: [facility] Payers DatePayer CategoryPayerPolicy [id number] Cross Blue ShieldBLUE CARD PPO OOS Member Subscriber Plan / Payer (Effective 2024-Present) Name: Annette Flemingember ID: [id number] Relation to Subscriber: Self Name: Brad Fleming Payer ID: [id number] (NAIC) Type: PPO Address: [facility] [id number] [id number] 2..1.517717.3.57[id number] 2..1.565139.3.57[id number] 2..1.473171.3.579.[id number] 2..1.344319.3.579.2.78065-98-1465Yhtjgxo1473105 2..840.1.850651.3.57[id number] 2..840.1.128074.3.57[id number] 2.0.1.331871.3.579.2.67504-90-4283ZyceginKKQ066L9267112-08-1107Wjqurio [id number] Social History DateTypeDetailFacilityStart: 08-27-2020 End: 02-77-8776Utqouxj smoking status NHISNever smoked tobaccoSamaritan Hospital Start: 08-27-2020 End: 33-64-9310Ezrvjic use and exposureSmokeless tobacco non-userWyandot Memorial Hospitaltart: 11-25-2021 End: 18-84-8404Hfdskrk intakeCurrent drinker of alcohol (finding)[facility] Hospitaltart: 23-42-5818Mzhsgjv SDOH Alcohol CommentrareClevelunc health blue ridge - valdese ClinicStart: 42-33-1228Trk Assigned At BirthNot on fileWyandot Memorial Hospitaltart: 11-15-2021 End: 40-49-8289Xvdhcczx to SARS-CoV-2 (event)Not sureWyandot Memorial Hospitaltart: 01-03-2023 End: 47-26-1221Bysuxrw of Social functionWyandot Memorial Hospitaltart: 01-03-2023 End: 06-29-0719Pjtrfgg use panelWilson Memorial Hospitaltart: 06-26-2020 National Score (1-100), lower number is lower ophc43WhptvpijmWyandot Memorial Hospitaltart: 11-02-2020 End: 62-74-6899Cvphwcru to SARS-CoV-2 (event)Unable to assessSamaritan Hospital Sexual OrientationLima City Hospital [facility] [place] Start: 58-67-1209TmjXotccu (finding)[facility] Clinical Notes 10-28-2020 to 01-15-2025 Note Date & VhtuGvbfJfiuxjuc64-77-2221 NoteHNO ID: [id number] Author: BONY RICHARDS RT(R) Service: Radiology Author Type: Technologist Type: Progress Notes Filed: 01/15/2025 19:52 Note Text: Radiology Service Progress Note PATIENT NAME: Brad Fleming DATE OF SERVICE: January 15, 2025 TIME: 7:52 PM PATIENT IDENTITY VERIFICATION COMPLETED USING TWO (2) IDENTIFIERS: Name and Date of confirmed by patient verbally and Name and Date of confirmed by identification band. FALL SCREENING: Has the patient had 2 falls in the last year or 1 fall with injury or currently using an Ambulatory Assistive Device (Walker, Cane, Wheelchair, Crutches, etc.)? No PATIENT GENDER DATA: Assigned female at . status: : No status: NO. PATIENT RELEVANT IMPLANT DATA REVIEWED: Yes PATIENT PRESENTS WITH AN IMPLANTABLE OR ATTACHED BUREAU DIRECTOR: No RADIOLOGY DEPARTMENT: MR; Exam(s) Completed: Body: Female Pelvis. Anesthesia: No. Aromatherapy Administered: No PERIPHERAL IV DATA: Site assessment: Clean,Dry and Intact, Site disposition Discontinued SIGNED BY: RT Frederick(R) January 15, 2025 7:52 [facility]11-05-2025 NoteHNO ID: [id number] Author: EMMA BURR RN Service: Nursing Author Type: Registered Nurse Type: Progress Notes Filed: 01/15/2025 19:32 Note Text: Radiology Service Progress Note DATE OF SERVICE: January 15, 2025 TIME: 7:27 PM PATIENT WEIGHT: 206 LBS PATIENT IDENTITY VERIFICATION COMPLETED USING TWO (2) STANDARD IDENTIFIERS: Name and Date of confirmed by patient verbally and Name and Date of confirmed by identification band. FALL SCREENING: Has the patient had 2 falls in the last year or 1 fall with injury or currently using an Ambulatory Assistive Device (Walker, Cane, Wheelchair, Crutches, etc.)? No PATIENT GENDER DATA: Assigned female at . status: : No status: NO. ALLERGIES: Reviewed and unchanged CONTRAST ALLERGY: No EXAM: MRI - CONTRAST TYPE: GROUP II IV SITE: Ambulatory: A peripheral IV was started in the Left antecubital site with a Angio cath: 22 gauge. and A Saline lock was inserted per protocol IV SITE APPEARANCE: Clean,Dry and Intact SIGNATURE: Emma Burr RN PATIENT NAME: Brad Fleming DATE: January 15, 2025 TIME: 7:27 [facility]11-04-2025 NoteGeneral Surgery Office/Clinic Note Chief Complaint consultation for rectal bleeding HPI Staff 39 year old female presents on consultation from Dr. Mccormick for rectal bleeding. Reports approximately5 year history of intermittent rectal bleeding with bowel movements. Reports blood is bright red. Verbalized blood on toilet tissue and in toilet water. She denies rectal pain. Denies change in bowelhabits but reports she has been experiencing recent rectal leakage. She believes leakage is stool. Denies nausea, vomiting or weight loss. Never had colonoscopy in the past. No known family history of colon cancer. No known family history of IBD. History of Present Illness 39 yo female with h/o htn, hypothyroidism, DMII, polycystic ovary syndrome, referred for rectal bleeding; patient reports 5 year h/o intermittent rectal bleeding with bms, now occurs with majority ofbms; red blood in toilet bowel and with wiping, rare clots; no pain or hemorrhoid prolapse; no crampy pain; stools chronically loose since cholecystectomy; no N/V or wt loss; has mild iron deficiencyfor many years due to heavy menses; on iron supplement; no previous colonoscopy; abd operations significant for ovarian cystectomy and cholecystectomy; on Etodolac daily, no asa; no tobacco use; no fmhx of GI malignancy or IBD. Review of Systems PHQ Score Initial Depression Screen Score: 0 SCORE ROS - Provider Constitutional: no fever, no sweats, no weight loss. Eyes: yes glasses, no blurred vision, no visual loss. ENMT: no dentures, no hoarseness, no swallowing difficulties, no hearing loss, no ear infection(s),no nose bleeds. Cardiovascular: normal blood pressure, no chest pain, regular heartbeat, no heart murmur. Respiratory: no shortness of breath, no cough, no asthma, no wheezing. Gastrointestinal: no nausea, no vomiting, no diarrhea, no constipation, no blood in stool, no change in bowel habits, no abdominal pain, no hepatitis. Genitourinary: no kidney stones, no urine infection, no dysuria. Musculoskeletal: no pain, no weakness. Skin: no changing moles, no rash, no skin lumps. Neurologic: no seizures, no epilepsy, no headache. Psychiatric: no emotional or psychiatric problem. Heme/Lymph: no bleeding problems, no anemia, no blood clots, no transfusions. Allergy/Immunologic: no swollen lymph nodes/glands, no IV drug abuse. Other: Additional ROS info: Except as noted in the above Review of Systems and in the History of Present Illness, all other systems have been reviewed and are negative or noncontributory. Physical Exam Vitals & Measurements HR: 72(Peripheral) RR: 16 BP: 118/74 HT: 61 in HT: 154.9 cm WT: 94.8 kg WT: 208.998 lb BMI: 39.51 HEENT: normal conjunctiva, sclera clear, no scleral icterus, EOM intact, PERRLA, oral mucosa moist without lesions. Neck: trachea midline, no mass, symmetric, no thyromegaly or nodules, no adenopathy Respiratory: lungs CTA, respirations non labored. Cardiovascular: regular rate and rhythm, no murmur, no pedal edema or varicosities. Gastrointestinal: obese, soft, non distended, no tenderness, no masses, no palpable hernias, diastasis recti no, no hepatosplenomegaly; normal bs Musculoskeletal: normal gait, digits and nails without infection, nodes, cyanosis, clubbing. Skin: no rashes, no lesions, no ulcers, no subcutaneous nodules, induration. Psychiatric/Neuro: oriented to time, place, person, judgement normal, affect appropriate for age, insight intact, no focal deficits. Tests: labs reviewed, review of old records completed , Discussed surgical options, risks, and possible complications with patient. Assessment/Plan 1. Rectal bleeding (K62.5: Hemorrhage of anus and rectum) plan colonoscopy under anesthesia for further evaluation, informed consent obtained. Follow-up No qualifying data available Problem List/Past Medical History Ongoing BMI 39.0-39.9,adult Endometriosis Essential hypertension Hypothyroidism Obesity due to excess calories Polycystic ovary syndrome Rectal bleeding Type 2 diabetes mellitus Historical No qualifying data Procedure/Surgical History Cholecystectomy, Dilation and curettage, Ovarian cystectomy. Medications cyclobenzaprine 10 mg Tab, 10 mg= 1 tab(s), Oral, TID, PRN etodolac 500 mg Tab, 500 mg= 1 tab(s), Oral, BID ferrous sulfate 325 mg Tab, 325 mg= 1 tab(s), Oral, BID hydrochlorothiazide-lisinopril 12.5 mg-10 mg Tab, 1 tab(s), Oral, Daily metformin 750 mg ER Tab, 750 mg= 1 tab(s), Oral, BID potassium chloride 20 mEq ER Tab, 20 mEq= 1 tab(s), Oral, Daily Allergies Zanaflex (Hallucinations) penicillin (Hives) traMADol (Dizziness) Social History Alcohol Never., 01/11/2025 Substance Abuse Never., 01/11/2025 Tobacco Never (less than 100 in lifetime) Tobacco Use:. Never Smokeless Tobacco Use:., 01/14/2025 Family History Hypertension: Father and Brother. Rectal cancer: Grandparent. Immunizations Vaccine Date Status SARS-CoV-2 (COVID-19) mRN (more content not included)...[facility] - AkronComment on above:Result Comment: Electronically Signed By: Chico COLE MD\Date and Time Signed: 01/14/25 15:21 GMG59-77-5084 NoteHNO ID: [id number] Author: MARCO FINK APRN.SPECIAL ED ASSISTANT Service: ? Author Type: Nurse Practitioner Type: Progress Notes Filed: 12/23/2024 12:10 Note Text: [facility] [place] Department of Benign Gynecology [facility] PATIENT NAME: Brad Fleming DATE: 12/23/2024 Patient Name and verified: Yes Patient Location: [place] This Virtual Visit was completed using My Chart Zoom platform. I have communicated my name and active licensure. The patient's identity and physical location were verified at the time of this visit. Either the patient or their legal manufacturers representative has been informed of the risks and benefits of -- and alternatives to -- treatment through a remote evaluation and consents to proceed with the evaluation remotely. Chief Complaint CC/REASON FOR VIRTUAL VISIT: menorrhagia History of Present Illness: Brad is a 39 year old who presents for a Distance Health visit to discuss pelvic pain and heavy menstrual bleeding. . Brad Fleming is a 39-year-old female with a history of PCOS, presenting with pelvic pain and heavy menstrual bleeding. Brad Fleming reports severe pelvic pain and heavy menstrual bleeding, which have been ongoing for several years. She can saturate an ultra tampon within 30 minutes. Her menstrual cycle occurs monthly, lasting approximately 7 days, with intermittent cessation of bleeding for 1-2 days before resuming. The bleeding is both heavy and painful. She has not tried hormonal treatments or control due to her desire to conceive. She has a history of two pregnancies: a miscarriage at 12 weeks and an ectopic at approximately 5.5 weeks, which was treated with an injection. She has been unable to conceive for the past 10 years despite a year of active trying. She previously sought fertility treatment, during which a 5 cm solid cyst was removed from her ovary. She has not pursued further fertility treatments since. The patient reports dyspareunia for almost a year. She denies pain with bowel or bladder movements but notes frequent rectal bleeding during defecation, which she initially attributed to hemorrhoids. She has not undergone a colonoscopy. 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 [facility] 11/03/2020 CONVERTED CLINICAL HISTORY CYST OF RIGHT OVARY LAPAROSCOPIC OVARIAN CYSTECTOMY FSA1: Mucinous neoplasm. No evidence of borderline tumor or malignancy on manufacturers representative frozen section (Dr. Coles). Intraoperative consultation performed at [facility] IMAGING 11/21/2024 2:11 PM - [facility], Scanning In Results-Findings Indication pelvic pain, dyspareunia Impression 1. Anteverted fibroid uterus that measures 72 mm x 43 mm x 51 mm. The two largest fibroids are described below. This measurement does not include the 30 mm x 31 mm x 28 mm posterior pedunculated fibroid. 2. The left ovary measures 28 mm x 19 mm x 25 mm, and contains a 15 mm x 11 mm x 13 mm unilocular non-simple cyst with low level echoes, smooth inner wall and some surrounding blood flow (O-RADS 2) . This finding is suggestive of a hemorrhagic corpus luteum vs endometrioma. However, other ovarian pathology cannot be completely excluded. 3. Normal appearing right ovary. 4. No adnexal masses were observed. 5. There is no free fluid visualized in the peritoneal cavity. 6. Focused transvaginal ultrasound with sliding sign evaluation. Anterior compartment: normal bladder, no adhesions along vesicouterine reflexion. Posterior compartment: No lesions along rectovaginal septum or within anterior rectal wall. The posterior cervix is adherent to surrounding bowel with tethering. There is thickening of the left uterosacral ligament. Adnexa: Both ovaries are lateral and separate from the uterus. Both ovaries are adherent to the pelvic side wall. Recommendations Consider MRI of pelvis to further evaluate patient's symptoms, ultrasound findings and evaluate for possible deep infiltrating endometriosis. Menstrual History LMP on 10/21/2024 Method Transabdominal and transvaginal ultrasound examination. 3D ultrasound examination. Color Doppler examination Uterus Uterus: Visualized Uterus position: anteverted Description of uterine malformations: normally shaped Myometrium: heterogeneous Endometrium: homogenous Cervix details: normal Uterus length 72 mm Uterus width 51 mm Uterus height 43 mm Uterus Vol 82.8 cm? Endometrial thicknes (more content not included)...[facility] 12-02-2024 NoteHNO ID: [id number] Author: NANCY GOOD MD Service: ? Author Type: Physician Type: Progress Notes Filed: 12/02/2024 11:27 Note Text: Brad Fleming is a 39 year old female who presents today for a vulvar biopsy. Indication: new vulvar lesion. UNIVERSAL PROTOCOL / SAFETY CHECKLIST Procedure to be Performed: vulvar biopsy/biopsies Sign In: A Moment of CARE was completed. Appropriate PPE (Personal Protective Equipment) worn by all providers involved with the procedure. Special equipment not required. Patient/Surrogate Stated/Verified: Patient name, Date of , Relevant allergies, and The intended procedure Time Out: Relevant labs, photos, and/or imaging studies have been reviewed. Intended patient and procedure match the source document(s) (e.g. consent, HANDP, associated studies [imaging, pathology]) match the intended patient and procedure. Consent obtained and matches the intended procedure. Yes. Correct side/site is not applicable. Medications required for this procedure are verified. Fire risk assessed and is not applicable. Implants: are not applicable. Sign Out: Specimens are all correctly labeled and sent. All instruments, equipment, possible retained foreign bodies are accounted for. Yes. The post-procedure plan of care has been communicated to the patient or surrogate. PROCEDURE NOTE: GROSS LESIONS: Yes, left vulvar lesions sup/inf/medial BIOPSY: Area was cleansed with betadine and anesthetized with 3mL 1% lidocaine. 5mm [place] punch used to biopsy region. HEMOSTASIS: Obtained with suture 4-0 vicryl Procedure Summary: Patient tolerated procedure well. Pt tolerated the procedure well ASSESSMENT: left vulvar lesions PLAN: Specimens labeled and sent to Pathology. Will notify patient of results in 1-2 weeks. Post-procedure instructions reviewed and written material given to the patient. Nancy Good, [facility]09-22-2025 NoteHNO ID: [id number] Author: MICHELLE PAT MA Service: ? Author Type: Motion Picture Critic Type: Progress Notes Filed: 12/02/2024 11:27 Note Text: Senior Design Engineering Specialist offered: Patient accepts, visit chaperoned by Michelle Pat MA. [facility]09-11-2025 Telephone encounter Note* Telephone Encounter - Shaunna Vasquez RN - 11/21/2024 3:18 PM EDT Patient calling back in to review message below. All questions answered. Patient's mom also has questions - advised would send information in [facility], can let mom review, message back or call in withany further needs/complaints. Patient verbalized understanding. Shaunna Vasquez RN [facility]09-11-2025 Miscellaneous Notes* Telephone Encounter - Shaunna Vasquez RN - 11/21/2024 3:18 PM EDT Patient calling back in to review message below. All questions answered. Patient's mom also has questions - advised would send information in [facility], can let mom review, message back or call in withany further needs/complaints. Patient verbalized understanding. Shaunna Vasquez RN * Telephone Encounter - Shaunna Vasquez RN - 11/21/2024 2:34 PM EDT Called patient, verified name and , message below given. Patient verbalizes understanding, denies further questions/concerns. Shaunna Vasquez RN * Telephone Encounter - Nancy Good MD - 11/21/2024 2:24 PM EDT Benign appearing left ovarian cyst, small fibroids and The posterior cervix is adherent to surrounding bowel with tethering. There is thickening of the left uterosacral ligament. Findings are cw endometriosis. Consult to migs placed.Migs will discuss treatment options [facility] Telephone encounter Note * Telephone Encounter - Shaunna Vasquez RN - 11/21/2024 2:34 PM EDT Called patient, verified name and , message below given. Patient verbalizes understanding, denies further questions/concerns. Shaunna Vasquez RN [facility]09-11-2025 Telephone encounter Note* Telephone Encounter - Nancy Good MD - 11/21/2024 2:24 PM EDT Benign appearing left ovarian cyst, small fibroids and The posterior cervix is adherent to surrounding bowel with tethering. There is thickening of the left uterosacral ligament. Findings are cw endometriosis. Consult to migs placed.Migs will discuss treatment options [facility]09-11-2025 NoteHNO ID: [id number] Author: RICCO BERMUDEZ MD Service: ? 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 Please see report under the imaging tab. 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 Please see report under the imaging tab. Ricco Bermudez MD [facility]25 NoteHNO ID: [id number] Author: NANCY GOOD MD Service: ? Author Type: Physician Type: Progress Notes Filed: 11/19/2024 09:54 Note Text: Brad is a 39 year old who presents for an annual gynecologic exam with complaints, pain with intercourse. States at times occurs only with insertion but sometimes during the entire time and sometimes afterwards Still get period: Yes Bleeding amount bothersome: Yes Bleeding between periods: No Period symptoms: Acne; Cramps; Mood change; Pelvic pain Time with current partner: 10.5 years Number of lifetime partners: 5 control frequency: Never HPV vaccine: Unsure; HPV:negative Last pap smear: 2022 History of abnormal pap: Yes, history of abnormal PAP smears Leep: No. Cone biopsy: No. 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 OB History Gravida2 Para0 Term0 Preterm0 AB2 Living0 SAB1 IAB0 Ectopic1 Multiple0 Live Births0 Senior Director Marketing History LMP: 10/21/2024, Having periods Age at Menarche: 12 Age at First : Age at Menopause: Senior Director Marketing History Comments: Sexual Activity: Yes; Male Contraception: None Menstrual Tracking History Flowsheet Row Office Visit from 11/19/2024 in Obstetrics/Gynecology Period Cycle (Days) 30 Period Duration (Days) 5 Menstrual Flow Heavy PAST MEDICAL HISTORY Diagnosis Date Childhood asthma (HCC) Coitus painful for female Ectopic (HCC) 2014 at 5 weeks Essential hypertension Infertility, female Low iron PCOS (polycystic ovarian syndrome) Polycystic ovary syndrome Postcoital bleeding Little Primary hypertension 10/14/2020 SAB (spontaneous ) (HCC) 2012 with D AND C PAST SURGICAL HISTORY Procedure Laterality Date COLPOSCOPY CERVIX VAG LOOP ELTRD BX CERVIX DILATION AND CURETTAGE DXAND/THER NONOBSTETRIC 2011 Missed at 12 weeks ENDOMETRIAL BX W/WO ENDOCERVIX BX W/O DILAT SPX 2018 EXTRACTION ERUPTED TOOTH removal of wisdom teeth PAST SURGICAL HISTORY OF 10/28/2020 LAPROSCOPIC OVARY CYSTECTOMY (Right) REMOVAL GALLBLADDER 2008 FAMILY HISTORY Problem Relation [...] Never Smokeless tobacco: Never Vaping Use Vaping status: Never Used Substance Use Topics Alcohol use: Yes Comment: rare Drug use: Never REVIEW OF SYSTEMS Abdomen: No abdominal pain, nausea, vomiting, diarrhea, or constipation. No bloating, early satiety, indigestion, or increased flatulence. Bladder: No dysuria, gross hematuria, urinary frequency, urinary urgency, or incontinence. Breast: No breast lumps, nipple d/c, overlying skin changes, redness or skin retraction. Allergies and current medication updated:Yes SENSITIVE EXAM: The sensitive examination was discussed with the Patient or Patient's Authorized Edge Setter. As applicable, any other physician, advance practice provider, medical student, or other health professional student that will be observing or involved in the sensitive examination for educational or training purposes was discussed with the Patient or Authorized Edge Setter. The Patient or Authorized Edge Setter has agreed to proceed with the sensitive examination. (Sensitive examination includes inspection and/or palpation of the breasts, pelvis, prostate and anorectal regions). EXAM: BP 108/78 Ht 5' 1 (1.55m) Wt 207 lb 0.2 oz (93.9kg) LMP 10/21/2024 BMI 39.13 kg/(m2). GENERAL: pleasant, female in no apparent distress HEENT: Normocephalic, atraumatic, mucus membranes moist, and no lesions NECK: Supple, full range of motion, no adenopathy, and thyroid normal DERMATOLOGY: Normal, without lesions, non-icteric, and non-hirsute BREAST: soft, non-tender, symmetric, no dominant mass, normal nipple-areolar complex, no lymphadenopathy, and no nipple discharge CHEST: Normal inspiratory effort ABDOMEN: soft, non-tender, and no masses PELVIC: external genitalia normal, normal Bartholin's glands, urethra, [place]'s glands, left sided pigmented ? Skin tag vs lesion, right side pigmented lesions, no cervical lesions, good vaginal support, physiologic discharge present, normal appearing perineal body and perianal region BIMANUAL: uterus normal size, shape and consistency, no adnexal masses, and non-tender RECTOVAGINAL: deferred. NEURO: alert and oriented x3,exam grossly non-focal EXTREMITIES: normal ASSESSMENT/PLAN: 1) Health maintenance: Pap/H (more content not included)...[facility]09-09-2025 History of Present illness Narrative* Nancy Good MD - 11/19/2024 9:38 AM EDT Brad is a 39 year old who presents for an annual gynecologic exam with complaints, pain with intercourse. States at times occurs only with insertion but sometimes during the entire time and sometimes afterwards Still get period: Yes Bleeding amount bothersome: Yes Bleeding between periods: No Period symptoms: Acne; Cramps; Mood change; Pelvic pain Time with current partner: 10.5 years Number of lifetime partners: 5 control frequency: Never HPV vaccine: Unsure; HPV:negative Last pap smear: 2022 History of abnormal pap: Yes, history of abnormal PAP smears Leep: No. Cone biopsy: No. 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 OB History Gravida2 Para0 Term0 Preterm0 AB2 Living0 SAB1 IAB0 Ectopic1 Multiple0 Live Births0 Senior Director Marketing History LMP: 10/21/2024, Having periods Age at Menarche: 12 Age at First : Age at Menopause: Senior Director Marketing History Comments: Sexual Activity: Yes; Male Contraception: None Menstrual Tracking History Flowsheet Row Office Visit from 11/19/2024 in Obstetrics/Gynecology Period Cycle (Days) 30 Period Duration (Days) 5 Menstrual Flow Heavy PAST MEDICAL HISTORY Diagnosis Date Childhood asthma (HCC) Coitus painful for female Ectopic (HCC) 2015 at 5 weeks Essential hypertension Infertility, female Low iron PCOS (polycystic ovarian syndrome) Polycystic ovary syndrome Postcoital bleeding Little Primary hypertension 10/14/2020 SAB (spontaneous ) (HCC) 2011 with D & C PAST SURGICAL HISTORY Procedure Laterality Date COLPOSCOPY CERVIX VAG LOOP ELTRD BX CERVIX DILATION & CURETTAGE DX&/THER NONOBSTETRIC 2011 Missed at 12 weeks ENDOMETRIAL BX W/WO ENDOCERVIX BX W/O DILAT SPX 2018 EXTRACTION ERUPTED TOOTH removal of wisdom teeth PAST SURGICAL HISTORY OF 10/28/2020 LAPROSCOPIC OVARY CYSTECTOMY (Right) REMOVAL GALLBLADDER 2007 FAMILY HISTORY Problem Relation Age of Onset [...] Never Smokeless tobacco: Never Vaping Use Vaping status: Never Used Substance Use Topics Alcohol use: Yes Comment: rare Drug use: Never REVIEW OF SYSTEMS Abdomen: No abdominal pain, nausea, vomiting, diarrhea, or constipation. No bloating, early satiety, indigestion, or increased flatulence. Bladder: No dysuria, gross hematuria, urinary frequency, urinary urgency, or incontinence. Breast: No breast lumps, nipple d/c, overlying skin changes, redness or skin retraction. Allergies and current medication updated:Yes SENSITIVE EXAM: The sensitive examination was discussed with the Patient or Patient's Authorized Edge Setter. As applicable, any other physician, advance practice provider, medical student, or other health professional student that will be observing or involved in the sensitive examination for educational or training purposes was discussed with the Patient or Authorized Edge Setter. The Patient or Authorized Edge Setter has agreed to proceed with the sensitive examination. (Sensitive examination includes inspection and/or palpation of the breasts, pelvis, prostate and anorectal regions). EXAM: BP 108/78 Ht 5' 1 (1.55m) Wt 207 lb 0.2 oz (93.9kg) LMP 10/21/2024 BMI 39.13 kg/(m^2). GENERAL: pleasant, female in no apparent distress HEENT: Normocephalic, atraumatic, mucus membranes moist, and no lesions NECK: Supple, full range of motion, no adenopathy, and thyroid normal DERMATOLOGY: Normal, without lesions, non-icteric, and non-hirsute BREAST: soft, non-tender, symmetric, no dominant mass, normal nipple-areolar complex, no lymphadenopathy, and no nipple discharge CHEST: Normal inspiratory effort ABDOMEN: soft, non-tender, and no masses PELVIC: external genitalia normal, normal [place]'s glands, urethra, [place]'s glands, left sided pigmented ? Skin tag vs lesion, right side pigmented lesions, no cervical lesions, good vaginal support, physiologic discharge present, normal appearing perineal body and perianal region BIMANUAL: uterus normal size, shape and consistency, no adnexal masses, and non-tender RECTOVAGINAL: deferred. NEURO: alert and oriented x3,exam grossly non-focal EXTREMITIES: normal ASSESSMENT/PLAN: 1) Health maintenance: Pap/HPV up to date. Nutrition, exercise and routine health maintenance exams reviewed. Calcium/Vitamin D supplementation information provided. HPV vaccine: interested, literature given 2) Contraception: condoms. Contraceptive options reviewed and information provided. 3) STD screening: Declined STI check. 4) Follow up ultrasound and vulvar lesions ?endometriosis vs adenomyosis- treatment options dw pt ocps/iud/depo/nsaids. Nancy Good MD * Jacqueline Josue MA - 11/19/2024 9:09 AM EDT Senior Design Engineering Specialist offered: Patient declines. [facility] Instructions* Patient Instructions* Nancy Good MD - 11/19/2024 9:38 AM EDT Images from the original note were not included. ACOG Screening Guidelines The following health screening schedule is recommended by the [employer] (ACOG). Some of these tests may be ordered or performed by your primary care doctor. Pap test screening The pap test looks at cells on the cervix (the opening from the vagina to the uterus) to look for cancer or pre-cancerous changes. These changes are caused by the human papillomavirus (HPV). Studies estimate that half of all women will test positive for this virus within 3 years of starting sexual activity. For young women with a normal immune system, 90% of HPV infections will resolve within 2 years. There is a vaccine available against some forms of HPV. This is recommended for girls and women age 9-45. For ages 9-14, two injections are given at 0 and 6 months. For ages 15-45, three injections are given at 0,2 and 6 months. Because this vaccine does not protect against all HPV types whichcan cause cervical cancer, women who received the vaccine still need pap tests. Pap smear screening should be started at age 21. The pap test should be done every 3 years from [id number]. From age 30-65, pap smears can be done every 5 years if HPV test is negative or every 3 years if HPV testing is not done. For women over the age of 65, ACOG recommends against screening women who have had adequate prior screening and are not otherwise at high risk for cervical cancer. Women who have had a hysterectomy also do not need routine pap smear screening unless the pap smear was done for a cervical cancer or moderate to severe dysplasia. Breast cancer screening Mammogram should be performed every 1-2 years starting at age 40 and every year starting at age 50.Screening may be started earlier depending on family history. Cholesterol screening Lipid panel (cholesterol test) should be checked every 5 years starting at age 45. Diabetes screening Fasting glucose (blood sugar) test should be performed every 3 years starting at age 45. Colorectal cancer screening Starting at age 45, women should have a screening colonoscopy at least every 10 years. Screening may be started earlier depending on family history. Thyroid screening Thyroid function test (TSH) should be checked every 5 years starting at age 50. Bone mineral density screening All postmenopausal women age 65 and over and postmenopausal women with risk factors for osteoporosis should have a bone mineral density test performed. Risk factors include race, family history of osteoporosis, personal history of fractures, poor nutrition, smoking, heavy alcohol use, early menopause, low calcium intake and low body weight. Certain medical conditions and long-term use of some medications may also increase risk. Body Mass Index (BMI) For more information: [facility] BMI Screening for health risks with BMI If you have a BMI less than 18.5 (underweight), you may be at a higher risk for developing the following conditions: Malnutrition Anemia Weakened immune system, which could lead to more frequent infections and illnesses Osteoporosis Infertility If you have underweight, your healthcare provider will likely order certain blood tests and other tests to check your overall health and to see if you re malnourished. In general, the higher your BMI, the higher your risk for the following conditions: Heart disease High blood pressure (hypertension) Type 2 diabetes Gallstones Osteoarthritis Sleep apnea Certain cancers, including colon, breast, endometrial and gallbladder Depression and other mental health conditions It s important to remember that you could have any of the above health conditions without having a high BMI. Similarly, you could have a high BMI without having any of these conditions. Genetics and other factors, such as smoking cigarettes, play a large role in the development of these conditions. If your BMI reveals you may have obesity, your provider will likely order certain blood tests to check your general health, such as a comprehensive metabolic panel and lipid panel. Calcium and Vitamin D Supplementation For more information:[facility] Osteopenia Calcium Age Recommended Daily Allowance Age 19-50 1000 mg elemental calcium per day Age > 50 or menopausal 1200 mg elemental calcium per day Vitamin D Age Recommended Daily Allowance Age < 70 600 international units Vitamin D per day Age > 70 800 international units Vitamin D per day Centers for Disease Control and Prevention recommends that all adults engage in at least 150 to 300minutes per week of moderate-intensity activity or 75 minutes to 150 minutes per week of vigorous-intensity aerobic physical activity (or a combination of both). [employer] (ACOG) and several other major osteoporosis guidelinegroups recommend screening for osteoporosis with Dual- energy X-ray Absorptiometry (DXA) in all postmenopausal Control Options control is a way for men and women to prevent . There are many different methods of control. By learning more about the options, you can decide which method is right for you and your partner. If you are sexually active and don't want a baby, don't wait to use control. An unwanted can happen any time you have unprotected sex. IUD What is it? An IUD, or intrauterine device, is a small, plastic, flexible, T- shaped device that is placed into the uterus (womb). There two types of IUDs. One type, ParaGard , can be kept in place for 10 years. (It contains copper, which stops the sperm from making it through the vagina and uterus to reach the egg, thus preventing fertilization.) It does NOT contain hormones. There are four IUD sthat contain progesterone.Mirena is an IUD that contains a small amount of progesterone and is keptin place for 7 years. Kyleena is approved for 5 years and has a slightly lower dose. Corrie is similar but smaller and is good for 3 years. Liletta is also approved for 6 years and is ideal for those without insurance coverage. They all release the hormone progesterone, which causes the cervical mucus to become thicker so the sperm cannot reach the egg. The hormone also changes the lining of the uterus, so implantation of a fertilized egg cannot occur. How is it available? You must get a pelvic exam and your provider may check vaginal cultures. The IUD is placed into the uterus through the cervix during an exam in the office by a trained health care provider. How effective is it? The IUD is 99% effective. You should know: Side effects are different for the different IUDs. In some cases copper IUDs can cause more painful and heavy periods and backaches. All of the hormonal IUD s cause periods to be mail rider and some women will have spotting or stop getting periods all together. It is normal to have 3 months of light spotting after insertion. IUDs should not be used if you have a recent history of pelvic infections or are at risk for infections. IUDs do not protect against sexually transmitted diseases (STDs), including HIV (the virus that causes AIDS). The male condom provides the best protection against most STDs. THE CONTROL PILL (ORAL CONTRACEPTIVE) How does it work? Pills work by thickening the cervical mucus so the sperm cannot reach the egg. The hormone in the pills also changes the lining of the uterus, so implantation of a fertilized egg cannot occur. In most cases, pills stop ovulation (the release of an egg). How is it used? A pill is taken at the same time every day. There are several different types of pills. Some are designed to allow the woman to have a period every month and others allow the women tohave period every 3 months. You need to discuss which pill is best for you with your health care provider. How can I get it? The pill must be ordered for you by your health care provider. It is obtained by prescription. How effective is it? The pill is 99% effective, if taken correctly. However, up to 8% of women may get each year if they do not use it correctly. You should know: Certain medications, which your provider will discuss, cause the pill to lose effectiveness. You should use back-up control while taking these medications. The pill can cause minor side effects such as mood symptoms, breast tenderness, nausea and headaches. The hormones in pills can increase the risk of blood clots which usually form in the legs. This risk is higher in women who smoke. The pill is not recommended for women who are over 35 years of age and smoke, but can be used until menopause if you don't smoke cigarettes and are in good health. The Pill does not protect against STDs, including HIV (the virus that causes AIDS). VAGINAL RING (NuvaRing ) What is it? A small, flexible ring that slowly releases the hormones estrogen and progesterone intothe bloodstream through the vaginal wall. It works to prevent the same ways as the pill. How is it used? A vaginal ring is inserted high into the vagina like a tampon. It stays in place for 3 weeks in a row. It is removed for a 1-week break - when the menstrual period occurs - before a new ring is inserted. How can I get it? Your health care provider must order the vaginal ring, which is obtained by prescription. How effective is it? The vaginal ring is 99% effective, if used correctly. However, if used incorrectly, up to 8% of women might get within 1 year. If the ring is removed for more than 3 hours, an additional form of control should be used. You should know: The vaginal ring can cause side effects similar to control pills. The vaginal ring does not protect against STDs, including HIV (the virus that causes AIDS). ANNOVERA is a NEW reusable contraceptive ring approved for one year s use. It is used in a similar fashion as the [place], but when it is removed, it is stored in a compact case and reused each month for an entire year. ORTHO EVRA -- THE PATCH'' What is it? A patch that prevents by delivering continuous levels of the hormones estrogen and progesterone transdermally (through the skin) and into the bloodstream. It works to prevent the same ways as the pill. How is it used? Ortho Evra is a 1 -inch square patch with hormones embedded in its adhesive layer. It is worn on the lower abdomen, buttocks or upper arm. One patch is worn continuously for 1 week and is replaced with a new patch on the same day of the week (patch change day) for a total of 3 weeks. No patch is worn during the fourth week (patch-free week), when the menstrual period occurs. Although the patch is designed to remain in place during bathing, showering and swimming, you should not apply lotion or oil on or near the patch site. How can I get it? Your health care provider must order the patch, which is obtained by prescription. You apply the patch yourself. How effective is it? The patch is about 99% effective, if used correctly. It is slightly less effective (92%) in women weighing more than 198 pounds. You should know: The patch can cause side effects similar to control pills and can cause an allergic reaction to the adhesive. Some studies have shown the patch delivers higher levels of the hormone estrogen and women may be at greater risk for blood clots. The patch does not protect against STDs, including HIV (the virus that causes AIDS). DEPO-PROVERA What is it? Depo-Provera is a form of the hormone progestin. How is it used? It is given as an injection into the woman's buttocks or arm. Each injection provides protection against for 12 weeks. How is it available? Depo-Provera must be ordered by a health care provider. It is given every 3 months, usually given at the doctor's office. How effective is it? Depo-Provera is 99% effective. You should know: Depo-Provera can cause side effects including mood changes, headaches, breast tenderness, irregular periods and weight gain. Fifty percent of women who use Depo-Provera for more thana year stop getting their periods while on the medication. Because of the risk of bone loss, your provider may recommend calcium supplements for women who use Depo-Provera. Depo-Provera does not protect against STDs, including HIV (the virus that causes AIDS). IMPLANTED HORMONE - NEXPLANON What is it? Nexplanon is a single plastic ketty (1.5 inches long) that is placed directly under the skin of the upper arm by a physician. It delivers the hormone progesterone slowly over a 3-year period. How can I get it? Nexplanon is placed by a physician who is certified in this procedure. How effective is it? It is greater than 99% effective You should know: The side effects are similar to Depo-Provera. Specific side effects include swelling and/or pain at time of placement, breakage or internal scarring of tissue. The device is effective for 3 years and can be removed at any time before if desired. MALE CONDOM What is it? The male condom, or rubber, is a thin covering made of latex, plastic or animal membrane that is rolled over an erect penis. The covering prevents semen, the fluid that contains sperm, from entering a woman's vagina. Latex condoms are best for most people. Use plastic (Rubi ) condoms if you or your partner is allergic to latex. Condoms made from animal skins may not provide good protection from sexually transmitted diseases (STDs). How is it used? The condom is rolled over the erect penis before sexual activity begins. If the condom does not have a built-in nipple, leave -inch of the condom free at the tip of the penis so that semen has a place to collect. A new condom must be used each time you have sex. The condom must be in place before the penis gets near the vagina. How can I get it? Condoms can be purchased at most drug stores. Condoms also are sold in vending machines in restrooms. How effective is it? About 15% of women will get each year when condoms are used. However,condoms can be more effective when they are used exactly as intended. You should know: Latex condoms provide the best protection -- although not 100% protection -- from STDs by preventing the infected area from coming into contact with the partner. Use only water-basedlubricants, such as K-Y Jelly or Astroglide . Oil-based lubricants (Vaseline ) can cause condoms toleak or break. If a condom breaks, a woman is at increased risk of getting . She should seeher health care provider and consider emergency contraception. FEMALE CONDOM What is it? The female condom is a lubricated polyurethane (plastic) tube that has a flexible ring at each end. One end of the tube is closed. How is it used? Before sexual activity begins, the woman inserts the condom into her vagina so thatthe closed end of the tube covers the cervix, and the other end slightly covers the labia (lips on the outside of the vagina). The condom blocks sperm from entering the womb. How can I get it? Like the male condom, the female condom is available at drug stores without a prescription. How effective is it? About 21% of women get each year despite using a female condom, but the condom can be more effective when used exactly as instructed. You should know: Female condoms provide some protection against STDs, but the male condom provides the best protection. SPERMICIDES What is it? Spermicides are foams, jellies, tablets, sponges or suppositories that a woman places in her vagina and up next to the cervix (the opening leading from the vagina to the womb) before sex.Spermicides block the cervix and paralyze the sperm, making them unable to travel into the womb. Some women who choose this method will also use a diaphragm (a round piece of flexible rubber with a rigid rim which is inserted with spermicide prior to sex). How is it used? The woman places the spermicide inside the vagina within 1 hour before intercourse.More spermicide must be used each time you have sex. Follow the directions on the package carefully. How can I get it? Spermicides can be bought at most drug stores. Be careful not to confuse them with feminine hygiene products, such as douche or lubricants. Diaphragms are fitted in your doctor's office and if you gain or lose more than 10-15 pounds you may need to be re-fitted. How effective is it? About 29% of women get each year despite using spermicides, but they can be more effective when used exactly as instructed. You should know: Do not douche after sex when using a spermicide. You can wear a feminine pad to absorb spermicide that comes out. Spermicides do not protect against some STDs, including HIV (the virus that causes AIDS). EMERGENCY CONTRACEPTION What is it? Emergency contraception -- also called Plan B , Michelle , Next Choice or referred to as the morning after pill -- is a form of control that may be used by women within 120 hours (5 days) of having unprotected sex. It is more effective when taken soon after unprotected intercourse. The most commonly used emergency contraception consists of two doses of hormone pills taken in one day 12 hours apart. How does it work? The pill may prevent by temporarily blocking eggs from being produced, by stopping fertilization or keeping a fertilized egg from becoming implanted in the uterus. How is it available? Plan B can be purchased at a pharmacy without a prescription. For those under 17, a health care provider must order the medication. All pharmacies do not have to carry it, so youcan sometimes search ahead of time which pharmacy is likely to carry it. See the website: www.[employer].org. How effective is it? Plan B is about 90% effective when take within 72 hours of unprotected intercourse. Michelle is slightly more effective. You should know: Plan B is generally reserved for emergency situations and is not a regular method of control. Emergencies include being raped, having a condom break or slip off during sex, missing two or more control pills during a monthly cycle and having unplanned sex. ABSTINENCE Abstinence is also the best way to protect you against STDs. You may not be ready to have sex. Don't let someone pressure you into having sex if you don't feel ready. It is an important decision withserious emotional and physical consequences. VASECTOMY Vasectomy is a simple, safe operation that involves interrupting the tubes call the vas deferens that transport sperm. Vasectomy is a one-time procedure that provides permanent sterilization. The procedure is performed in the office under a local anesthetic. Most men are recovered within a few daysof the procedure. To schedule a consultation call [phone] or to learn more about vasectomy, visit [email or web address] Reference Centers for Disease Control: [place] medical eligibility criteria for contraceptive use. www.CDC.gov. Updated 06/30 EMERGENCY CONTRACEPTION INSTRUCTIONS What is the morning-after pill? The morning-after pill is a medication that can be used as emergency contraception ( control).Emergency contraception isn't the same as typical control pills that you might use daily or other forms of routine control. It's used in situations where your control has either failed or you were unable to use protection. Some situations where emergency contraception might be used can include: Having sexual intercourse without any form of control Experiencing control failure (a broken condom, forgotten control pill or missed dose ofthe control shot) Experiencing non-consensual sexual intercourse (rape) There are many different brand names for the morning-after pill. The progestin- only morning-after pill is levonorgestrel (Plan B One-Step ). This medication is available over the counter. Another type of morning-after pill called ulipristal (michelle ) is only available by prescription. Other options for emergency contraception aside from the pill include the intrauterine device (IUD). There are two types of IUDs available: the Copper IUD and the Levonorgestrel IUD. These devices are placed into your uterus by a healthcare provider. IUDs can also be used for emergency contraception if inserted up to five days after unprotected sex. Are there different types of morning-after pill? There are three main types of morning-after pill -- each with popular brand names you might have heard of. Progestin-only pill (Plan B One-Step ) Plan B is a type of emergency contraception that's taken as one pill. For the best results, you should take Plan B as soon as possible -- typically within the first three days after unprotected sex. You can take it up to five days after unprotected sex, but the effectiveness of the medication drops. Ulipristal (michelle ) This type of morning-after pill also works by preventing ovulation. Ulipristal can be more effective than other morning-after pill options when it's taken correctly (within the window of time when it's most effective). People can take ulipristal up to five days after unprotected sex. The most common brand name for this medication is michelle . Your healthcare provider needs to prescribe ulipristal. Combined control This type of emergency contraception involves taking control pills that contain both progestin and estrogen. Unlike a progestin-only medication like Plan B, this option is typically taken in two doses. It's important to talk to your healthcare provider or pharmacist about the exact dosage (amount of the medication) you'll need and how far apart you should take the two medications. When you use combination control as an emergency contraception option, you're taking a typical control pill at a higher dose. This isn't something you should do without talking to your provider because different brands of control can change the amount you need to take. Combined control (Yuzpe regimen) This type of emergency contraception involves taking extra pills from a regular control pack.It's referred to as the Yuzpe regimen. This method involves combining pills from an available birthcontrol pack to total 100 mcg of ethinyl estradiol and 0.5 mg levonorgestrel. A second dose is thenrepeated in 12 hours. It's important to know that this regimen is less effective and less well-john paul ated than other forms of emergency contraception. While the most common side effects include nauseaand vomiting, taking extra control pills can cause more serious side effects in some people. It increases your risk of blood clots. It should only be considered in cases where other forms of emergency contraception aren't readily available. How does the morning-after pill work? The morning-after pill doesn't reverse . Instead, it's a type of emergency control that prevents . The main way the morning-after pill works is by preventing ovulation. Ovulation is a part of your normal reproductive cycle. This is the phase when your ovaries release an egg that can then be fertilized by sperm and begin the development process. If you don't ovulate, you can't get . How effective is the morning-after pill? When you're thinking about how effective the morning-after pill is at preventing , it's important to factor in time. This is love to the medication's effectiveness. All forms of the emergencycontraception pill are more effective the sooner you take it. You don't need to wait to take these medications until the next day -- despite the name morning-after pill. There are certain time frames for each type of morning-after pill. The progestin-only option shouldbe taken within the first 72 hours (three days) after unprotected sexual intercourse. The ulipristal and combined options can be taken up to 120 hours (five days) after sex. Each day you wait outside of these recommended windows of time makes the medication less effective. Procedure Details How long after unprotected sex should I wait before taking the morning-after pill? You don't need to wait until the next morning to take the morning-after pill. Emergency contraception pills are most effective at preventing when they're taken as quickly as possible after unprotected sexual intercourse. The amount of time you have can vary between different medications. Progestin-only pills (Plan B One-Step ): For these medications, you typically have about a three-day window of time when Plan B will still be effective. It becomes less effective at preventing the longer you wait. If you take a progestin-only medication within five days of unprotected sex, it can be moderately effective. Ulipristal (Michelle ): This type of emergency contraception pill is more effective for a longer periodof time. With this medication, you have up to five days after unprotected sex where it's still effective at preventing . Combined control pills: Combining control pills that contain progestin and estrogen canbe used as emergency contraception for up to five days after intercourse. There can be a lot of variety between different brands of control pills, so it's a good idea to talk to your healthcareprovider about the exact timing and dosage. How many times can you take emergency contraception medications? Even though there isn't a set restriction on how many times you can take the morning-after pill, you shouldn't use it as routine control. This type of control is meant to be used in emergency situations when your control has failed, wasn't used or in cases of non-consensual intercourse. What are the signs that emergency contraception hasn't worked? If you take the morning-after pill in the immediate time window after having unprotected sex, it can be very effective. But it doesn't always work. Emergency contraception medications become less effective the longer you wait before taking them. One of the main signs that a morning-after pill hasn't worked is a missed menstrual period. If your period is more than seven days (a week) later than you expected, take a test. [facility] and [place] What are the side effects of the morning-after pill? For many people, there are no serious side effects of the morning-after pill. Some symptoms of taking a morning-after pill (Plan B One-Step or Michelle ) can include: Changes to your normal menstrual cycles (your period might be earlier or later than normal). Spotting (light bleeding) Nausea and vomiting Tiredness (fatigue) Headaches and dizziness Pain in your abdomen or breast The side effects of the morning-after pill are mild for most people. But if you notice more severe symptoms or have concerns after taking the morning-after pill, reach out to your healthcare provider. Is there bleeding after I take the morning-after pill? You might experience light bleeding -- called spotting -- after taking the morning-after pill. Eventhough this doesn't happen to everyone who takes the morning-after pill, it isn't something that should worry you. If you notice that the bleeding is heavier or happens after you've missed a period, reach out to your healthcare provider. Spotting that happens after a missed period could be implantation bleeding. This light bleeding happens early during development when the embryo embeds itself into the lining of your uterus (endometrium). Can morning-after pill make your period late or disrupt your cycle? The morning-after pill can cause your next period to be irregular. If your period is late or abnormal, contact your healthcare provider and consider taking a home test. Your provider will advise you on your next steps if your menstrual cycle doesn't return to normal. Can I get again after taking the morning-after pill? The morning-after pill isn't a permanent form of control. It won't harm your chances of getting in the future or impact your fertility. These medications (Plan B One-Step , michelle and other generic options) are a temporary way to prevent -- they aren't long-term forms of control. When to Call the Doctor Should I see my doctor after taking the morning-after pill? In most cases you won't need to see your healthcare provider after taking the morning-after pill. However, if you haven't gotten your period within a week of when you expect it or you experience unusual bleeding, it's often a good idea to talk to your healthcare provider. A missed period is one of the earlier signs of . It's also important to remember that the morning-after pill won't protect you from sexually transmitted infections (STIs). If you have any concerns that you might have been exposed to an STI, reach out to your provider. Frequently Asked Questions Does the morning-after pill work if I take it first and then have unprotected sex? The morning-after pill is designed to be taken shortly after unprotected sex to prevent . It's not meant to be regular control. Talk to your healthcare provider about your options for control to find an option that works best for your lifestyle. Can my weight impact the effectiveness of the morning-after pill? There's research that suggests that your weight can impact how effective the morning-after pill will be for you. People with a higher body mass index (BMI) may not experience the same level of effectiveness when using the morning-after pill as people with a lower BMI. One type of emergency contraception that's highly effective at any weight is an intrauterine device (IUD). Is the morning-after pill available over the counter? The Plan B One-Step pill and other progestin-only forms of emergency contraception are available over the counter. However, ulipristal (michelle ) is a prescription-only medication. You should also talk to your healthcare provider before taking combined control pills to make sure you take the correct dosage (amount). A note from [facility] The morning-after pill is a form of emergency contraception ( control) that's meant to help prevent . This medication doesn't end an already established . If you take a morning-after pill, it's important to remember that the medication will be the most effective the sooner you take it. You typically have between three to five days after unprotected sex when the morning-after pill is most effective at preventing . If you have any questions about emergency contraception, talk to your healthcare provider. References: [employer]. Emergency Contraception. (https://www.aafp.org/afp/0815/p707.html) Accessed 09/10/2021. Centers for Disease Control and Prevention. Emergency Contraception. (https://www.cdc.gov/reproductivehealth/contraception/mmwr/spr/emergency.html) Accessed 09/10/2021. National Health Service. Emergency contraception (morning after pill, IUD). (https://www.nhs.uk/conditions/contraception/emergency-contraception/) Accessed 09/10/2021. [employer]. Emergency Contraception. (https://www.acog.org/womens-health/faqs/emergency-contraception) Accessed 09/10/2021. U.S. Department of Health and Human Services, Office on Women's Health. Emergency contraception. (ht tps://www.womenshealth.gov/a-z-topics/emergency-contraception) Accessed 09/10/2021. Terms Linked In This Article: control (https://[employer]/health/articles/14169-wrmkl-cglpdjy-oibgyfm) condom (https://[employer]/health/drugs/9404-condoms) control pill (https://[employer]/health/drugs/3295-feaot-twflxta-the-pill) control shot (https://[employer]/health/drugs/2698-thbw-iucqluk%C2%XO-elqis-wvbgl ol-shot) rape (https://[employer]/health/articles/5451-qvdt-dnw-date-rape) Copper IUD (https://[employer]/health/drugs/16206-rbepqhwa%C2%HI-dqgjzk-ftd) Levonorgestrel IUD (https://[employer]/health/drugs/91590-ibopohwjgsjddz-yekoslblkttc-j evice-iud) normal reproductive cycle (https://[employer]/articles/7933-yyqasj-wtemqmpafhdq-system) development process (https://[employer]/health/articles/3577-sfwie-imjsrrwpgxd-sta cnc-hn-gklxtz) test (https://[employer]/health/articles/7719-pkdzwvfgr-kldes) Nausea and vomiting (https://[employer].org/health/symptoms/8106-nausea--vomiting) Headaches (https://[employer].org/health/diseases/9639-headaches) dizziness (https://[employer].org/health/symptoms/6422-dizziness) Pain in your abdomen (https://[employer]/health/symptoms/0170-hswgsjxpa-dgcv) earlier signs of (https://[employer]/health/articles/1197-cruudfzbm-zg-i-) sexually transmitted infections (STIs) (https://[employer].org/health/diseases/9138-sexually -transmitted-diseases--infections-stds--stis) body mass index (BMI) (https://my.[facility].org/health/articles/4175-wnug-rray-index-bmi) intrauterine device (IUD) (https://my.[facility]/health/drugs/57193-uxmkkpmi%C2%WE-ifwgae-nig) Last reviewed by a [facility] medical professional on 09/10/2021 Original Article https://my.[facility]/health/treatments/01092-fvpbonu-gjudx-zrah Date Published September 23, 2021 Call Appointment Center 03/10 [phone] Medroxyprogesterone acetate (Depo-Provera) For more information: My [facility] Depo Provera Commonly referred to as the control shot, Depo-Provera is an injectable form of control. It s a shot of progestin that you get every three months, most commonly in your arm or butt. You don t have to take a daily pill, and it s very effective when you take it as scheduled. What is Depo-Provera ? Depo-Provera (medroxyprogesterone acetate) is a type of control that comes as an injectable shot. It s sometimes called the Depo shot or control shot. Your healthcare provider injects it into your arm or buttocks. There is also a version of Depo that you can inject at home on your own. Depo-Provera protects against for up to 14 weeks -- though you typically need to receive one shot every 12 weeks. With perfect use, it can be 99% effective at preventing . But we re all human, and sometimes, people forget or miss their shot. So, its average effectiveness is about 96%. That means 4 in 100 users will get each year. Gardasil Gardasil is a vaccine to protect against Human Papillomavirus (HPV) types 6, 11, 16, 18, 31,33,45, 52, 58. These viruses cause cancer and precancerous lesions on the cervix (opening between vagina and uterus), in the vagina and on the vulva (skin around the outside of the vagina) as well as genitalwarts. The vaccine cannot cause these diseases and cannot treat them if already present. Gardasil works best if given before contact with HPV. Most people are exposed to HPV soon after starting sexual activity. The vaccine is recommended between the ages of 9 and 45. Gardasil does not protect against all strains of HPV. Women who receive the vaccine still need to have regular pelvic exams and cervical cancer screening with the pap smear. You should ask your doctor if Gardasil is right for you if you have a weakened immune system, a bleeding disorder, plan to become soon or have a current illness causing fever. Gardasil is not recommended for women. You should be sure your doctor is aware of any allergies you have and all medications and herbal supplements you take. Gardasil is given to those ages 9-14 in 2 doses at 0 and 8 months. In ages 15- 45, three injections are given at 0,2,6 months. Common side effects include pain, redness, itching and swelling at the injection site, nausea, fever, dizziness and fainting. Rare but potentially serious reactions have been reported. These include allergic reaction, swollen glands, joint and muscle pain, weakness and Guillain-Cove syndrome. [facility]25 NoteHNO ID: [id number] Author: JACQUELINE JOSUE MA Service: ? Author Type: Motion Picture Critic Type: Progress Notes Filed: 11/19/2024 09:54 Note Text: Senior Design Engineering Specialist offered: Patient declines.[facility]01-24-2025 Telephone encounter Note* Telephone Encounter - Ruthy Veliz RN - 04/05/2024 10:59 AM EST Annual 11/2024 [facility]-24[facility] Miscellaneous Notes* Telephone Encounter - Ruthy Veliz RN - 04/05/2024 10:59 AM EST Annual 11/2024 * Telephone Encounter - Marissa Mccabe RN - 04/05/2024 10:47 AM EST Received call from pharmacy requesting refill. Last TRAFFIC CONTROL FLAGGER annual: 01/03/2023 Upcoming TRAFFIC CONTROL FLAGGER annual: None (cancelled 01/09/2024) Requested Prescriptions Pending Prescriptions Disp Refills metFORMIN ER (GLUCOPHAGE XR) 750 mg 24 hr tablet 180 tablet 0 Sig: Take 1 tablet by mouth two times a day. Call placed to patient, transferred to PSS to schedule annual. Message sent to Jenny Ye CNP. Marissa Mccabe RN documented in [facility]01-24-2025 Telephone encounter Note * Telephone Encounter - Marissa Mccabe RN - 04/05/2024 10:47 AM EST Received call from pharmacy requesting refill. Last TRAFFIC CONTROL FLAGGER annual: 01/03/2023 Upcoming TRAFFIC CONTROL FLAGGER annual: None (cancelled 01/09/2024) Requested Prescriptions Pending Prescriptions Disp Refills metFORMIN ER (GLUCOPHAGE XR) 750 mg 24 hr tablet 180 tablet 0 Sig: Take 1 tablet by mouth two times a day. Call placed to patient, transferred to PSS to schedule annual. Message sent to Jenny Ye CNP. Marissa Mccabe RN [facility]11-01-2024 Telephone encounter Note* Telephone Encounter - Ruthy Veliz RN - 01/12/2024 11:10 AM EDT Call placed to the patient. Left a message for the patient to call the office and speak with a nurse for any further concerns with pain. [facility]11-01-[facility]24 Miscellaneous Notes* Telephone Encounter - Ruthy Veliz RN - 01/12/2024 11:10 AM EDT Call placed to the patient. Left a message for the patient to call the office and speak with a nurse for any further concerns with pain. * Telephone Encounter - Ruthy Veliz RN - 01/10/2024 10:23 AM EDT Call placed to the patient. Left a message for the patient to call the office and speak with a nurse. * Telephone Encounter - Shaunna Vasquez RN - 01/08/2024 9:52 AM EDT Left message on voicemail to return the call to the office for message below. Shaunna Vasquez RN * Telephone Encounter - Ruthy Maier - 01/08/2024 6:53 AM EDT Patient sent a message that she wants an appt for pain and medication. documented in [facility] encounter[facility]10-30-2024 Telephone encounter Note * Telephone Encounter - Ruthy Veliz RN - 01/10/2024 10:23 AM EDT Call placed to the patient. Left a message for the patient to call the office and speak with a nurse. [facility]-28-[facility] Telephone encounter Note* Telephone Encounter - Shaunna Vasquez RN - 01/08/2024 9:52 AM EDT Left message on voicemail to return the call to the office for message below. Shaunna Vasquez RN [facility]10-28-2024 Telephone encounter Note* Telephone Encounter - Ruthy Maier - 01/08/2024 6:53 AM EDT Patient sent a message that she wants an appt for pain and medication. [facility]-18-[facility] Telephone encounter Note* Telephone Encounter - Marissa Mccabe RN - 12/29/2023 10:36 AM EDT Received call from pharmacy for refill request. Last TRAFFIC CONTROL FLAGGER annual: 01/03/2023 Upcoming TRAFFIC CONTROL FLAGGER annual: 01/09/2024 (pt requesting before appt) Requested Prescriptions Pending Prescriptions Disp Refills metFORMIN ER (GLUCOPHAGE XR) 750 mg 24 hr tablet 180 tablet 0 Sig: Take 1 tablet by mouth two times a day. Message forwarded to Jenny Ye CNP. Marissa Mccabe RN [facility]10-18-2024 Miscellaneous Notes* Telephone Encounter - Marissa Mccabe RN - 12/29/2023 10:36 AM EDT Received call from pharmacy for refill request. Last TRAFFIC CONTROL FLAGGER annual: 01/03/2023 Upcoming TRAFFIC CONTROL FLAGGER annual: 01/09/2024 (pt requesting before appt) Requested Prescriptions Pending Prescriptions Disp Refills metFORMIN ER (GLUCOPHAGE XR) 750 mg 24 hr tablet 180 tablet 0 Sig: Take 1 tablet by mouth two times a day. Message forwarded to Jenny Ye CNP. Marissa Mccabe RN documented in this encounterSam[facility]itan Hospital10-28-2023 History of Present illness Narrative* Tayla Willard MD - 01/07/2023 5:14 PM EDT The patient presents for requested ultrasound. Full report available in the Imaging tab in Epic. Tayla Willard MD documented in this encounterSam[facility] Hospital10-27-2023 Miscellaneous Notes* Telephone Encounter - Shaunna Vasquez RN - 01/06/2023 11:23 AM EDT [facility] message sent with information below. Shaunna Vasquez RN * Telephone Encounter - Jenny Ye APRN.CNP - 01/06/2023 9:56 AM EDT Sounds good. Encourage the following: Fertility -- [...] Tracking cycles on an shanique, such as Glyde will help to assist in ovulatory timing and optimal intercourse timing. If you are having abnormal periods (less than 21 days or more than 35 days), negative ovulation kits, are unsuccessful within 6-12 months of consecutive trying, or having any other issues or concerns, please call the office. * Telephone Encounter - Shaunna Vasquez RN - 01/06/2023 9:25 AM EDT Called patient, verified name and , message below given. Patient verbalizes understanding, denies further questions/concerns. Patient does not want control at this time, she will be trying to conceive in the near future. Shaunna Vasquez RN * Telephone Encounter - Jenny Ye APRN.CNP - 01/05/2023 4:23 PM EDT US reviewed. No clear / structural cause of aub that occurred this month nor heavy, painful periods. Could be a/w pcos. Pls see if interested in bc. Ensure no contraindications including migraine w/ aura, htn, cva, dvt or smoking. Jenny Ye APRN.CNP documented in this encounterSam[facility]10-24-2023 Miscellaneous Notes* Addendum Note - Jenny Ye APRN.CNP - 01/03/2023 10:58 AM EDTAddended by: JENNY YE on: 01/03/2023 10:58 AM Modules accepted: Orders documented in this [facility]10-24-2023 Nurse Note* Michelle Pat MA - 01/03/2023 10:27 AM EDT Senior Design Engineering Specialist offered: Patient declines. documented in this [facility]10-24-2023 History of Present illness Narrative* Jenny Ye APRN.CNP - 01/03/2023 10:24 AM EDT Brad is a 37 year old who [...] L0 SAB1 IAB0 Ectopic1 Multiple0 Live Births0 Senior Director Marketing History LMP: 12/25/2022 (Exact Date), Having periods Age at Menarche: Age at First : Age at Menopause: Senior Director Marketing History Comments: Sexual Activity: Yes; Male Contraception: [...] external genitalia normal, normal Bartholin's glands, urethra, [place]'s glands, no vulvar lesions, no cervical lesions, [...] needed Jenny Ye APRN.CNP documented in this encounterSam[facility]12-14-2022 Miscellaneous Notes* Telephone Encounter - Terri Peters RN - 02/23/2022 12:[address] to patient who was identified by name and . Reviewed/discussed Jenny Ye CNP previous message in detail. Patient verbalized understanding and states has no questions at this time. Terri Peters RN * Telephone Encounter - Jenny Ye APRN.CNP - 02/23/2022 12:07 PM EST Pls let pt know +UTI. Continue macrobid as prescribed, increase water intake. Call if sx persist. Jenny Ye APRN.CNP documented in this encounterSam[facility] Hospital12-12-2022 Miscellaneous Notes* Telephone Encounter - Ashia Albright RN - 02/21/2022 1:38 PM EST Outgoing call placed to pt. Pt verified by name and . Pt notified of rx sent to pharmacy. Pt advised to complete UC first before starting medication. Pt verbalizes understanding. No further questions at this time. Ashia Albright RN * Telephone Encounter - Marian De Los Santos APRN.CNP - 02/21/2022 1:30 PM EST Rx Macrobid filed. Marian De Los Santos APRN.ANTONI * Telephone Encounter - Ashia Albright RN - 02/21/2022 1:25 PM EST Outgoing call placed to pt. Pt verified [...] Santos CNP for review. Ashia Albright RN * Telephone Encounter - Soledad Mcginnis Pss - 02/21/2022 12:57 PM EST Believes she has a UTI documented in this encounterSam[facility]09-15-2022 Miscellaneous Notes* Telephone Encounter - Ashia Albright RN - 11/25/2021 12:59 PM EDT Outgoing call placed to pt. Pt verified by name and . Reviewed Jenny Ye CNP message in detail. Pt verbalizes understanding. No further questions at this time. Ashia Albright RN * Telephone Encounter - Jenny Ye APRN.ANTONI - 11/25/2021 12:31 PM EDT Labs look fine. Vitamin B12 slightly low, which could be from metformin. I recommend taking a dailysupplement just to help boost this slightly. Also please let her know I changed her metformin to 750 BID from 850, as I want her to try the ER version. Thanks! Jenny Ye APRN.ANTONI documented in this encounterSam[facility]itan Hospital09-15-2022 Nurse Note* Michelle Pat MA - 11/25/2021 9:51 AM EDT Senior Design Engineering Specialist offered: Patient declines. documented in this encounterSam[facility]09-15-2022 History of Present illness Narrative* Jenny Ye APRN.CNP - 11/25/2021 9:41 AM EDT Brad is a 36 year old who [...] L0 SAB1 IAB0 Ectopic1 Multiple0 Live Births0 Senior Director Marketing History LMP: 11/05/2021 (Exact Date), Having periods Age at Menarche: Age at First : Age at Menopause: Senior Director Marketing History Comments: Sexual Activity: Yes; Male Contraception: [...] external genitalia normal, normal Bartholin's glands, urethra, [place]'s glands, no vulvar lesions, no cervical lesions, [...] year or sooner as needed Marian Clifton CORPORATE WEBMASTER TEACHING PROVIDER (Physician/PA/CUSTOMER SALES SPECIALIST) NOTE OF PERSONAL INVOLVEMENT IN CARE: I have personally seen and examined the patient and performed the medical decision-making components. I have reviewed the Advanced Practice Registered Nurse (CUSTOMER SALES SPECIALIST) Student's documentation and verified the findings in the note as written. Any additions or changes are noted in bold/italics. I agree with the above. Labs ordered. Pap utd. Metformin refilled. Signature: Jenny Ye Date: 11/25/2021 Time: 10:27 AM Jenny Ye APRN.SPECIAL ED ASSISTANT documented in this encounterSamaritan Hospital09-30-2021 NoteHNO ID: [id number] Author: Jasmina Jacinto APRN.ANTONI Service: ? Author [...] features. Consider surgical evaluation or consultation with TRAFFIC CONTROL FLAGGER Oncology 12/04/20 CT Abdomen/Pelvis IMPRESSION: 1. ?Ovoid [...] 2020- Negative Last colonoscopy: N/A Last Pap: 2019- Negative Last HPV: 2018 - Negative ECOG [...] and able t (more content not included)... [id number] NoteHNO ID: [id number] Author: Caitlyn Sneed MD Service: ? Author [...] of a mucinous cystadenoma (see comment). ? [facility] 11/03/2020 COMMENT The entire specimen was [...] features. Consider surgical evaluation or consultation with TRAFFIC CONTROL FLAGGER Oncology HEALTH MAINTENANCE: Last mammogram: Spring 2020- Negative Last colonoscopy: N/A Last Pap: 2019- Negative Last HPV: 2018 - Negative ECOG [...] all pre-disease performance without restriction). OBJECTIVE: Deferred 04/14 telemedicine visit ASSESSMENT: 1. 35 yo F with PCOS presenting with a right complex ovarian cyst - s/p Right ovarian cystectomy. Pathology positive for focal psammoma bodies with associated epithelium on the outer surface of the cyst. *PMHx of HTN, anemia, and prior ectopic (more content not included)...[facility] [id number] NoteHNO ID: [id number] Author: Jenaro Ribeiro APRN.SPECIAL ED ASSISTANT Service: ? Author Type: Nurse Practitioner Type: Progress Notes Filed: 11/13/2020 1:21 PM Note Text: DATE OF SERVICE: 11/12/2020 PROBLEM: Brad Fleming presents for postop visit. 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 ? [facility] 11/03/2020 COMMENT The entire specimen was [...] to further discuss pathology results. Jenaro Ribeiro APRN.[facility]08-18-2021 NoteHNO ID: [id number] Author: Sherry Braun (Employment Training Specialist) Service: Pharmacy Author Type: ? Type: Plan of Care Filed: 10/28/2020 12:55 PM Note Text: PHARMACY BEDSIDE DELIVERY SERVICE Patient Name: Brad Fleming The marked outpatient medications were FILLED AND PICKED UP AT [facility]. Medication List START taking these medications [...] or your Primary Care Provider. Sherry Braun ([place]) PAGER: [phone] October 28, 2020 12:55 [facility]08-18-2021 NoteHNO ID: [id number] Author: Desirae Dillon ([place]) Service: Pharmacy Author Type: ? Type: Plan [...] or your Primary Care Provider. Desirae Dillon (Employment Training Specialist) PAGER: [phone] October 28, 2020 12:43 [facility]08-18-2021 NoteHNO ID: [id number] Author: SYBIL Nixon Service: ? Author Type: Accounts Specialist Type: Anesthesia Procedure Notes Filed: 10/28/2020 9:08 AM Note Text: ANESTHESIOLOGY PROCEDURE NOTE PIV General Information Procedure Start Time/Medication Administration: 10/28/2020 8:55 AM Patient Location: OR Staffing Anesthesiologist: Antonio Ma I, MD CAA: SYBIL Nixon Student: SYBIL Mathews Student Performed by: KEVON lainez Preparation Sterility Preparation: hand hygiene performed prior to procedure Site Prep: alcohol Procedure Details Indication: need for IV access Needle Size/Type: 20 gauge angiocath Orientation: Right Location: Hand Imaging Guidance Used: No SIGNATURE: SYBIL Nixon PATIENT NAME: Brad Fleming DATE: October 28, 2020 TIME: 9:08 AM CSN: [id number] NoteHNO ID: [id number] Author: SYBIL Nixon Service: ? Author Type: Accounts Specialist Type: Anesthesia Procedure Notes Filed: 10/28/2020 9:01 AM Note Text: ANESTHESIOLOGY PROCEDURE NOTE Airway General Information Procedure Start Time/Medication Administration: 10/28/2020 8:53 AM Patient location during procedure: OR Patient identity confirmed: arm band Staffing CAA Student: SYBIL Mathews Student Performed by: KEVON lainez Indications and Patient Condition Preoxygenated: yes Patient [...] October 28, 2020 TIME: 9:01 AM CSN: [id number]* Diagnosis Encounter for gynecological examination (general) (routine) without abnormal findings- Primary Encounter for screening breast examination PCOS (polycystic ovarian syndrome) Polycystic ovaries Menorrhagia with regular cycle Excessive or frequent menstruation Medication management Encounter for long-term (current) use of other medications documented in this encounter [facility] note* Diagnosis Urinary urgency- Primary Urgency of urination documented in this encounter [facility] note* Diagnosis Encounter for gynecological examination [...] specified as infective documented in this encounter [facility] note* Diagnosis Abnormal uterine bleeding (AUB) PCOS (polycystic ovarian syndrome) Polycystic ovaries documented in this encounter [facility] note* Diagnosis Post-operative state Other postprocedural status Right lower quadrant abdominal pain Abdominal pain, right lower quadrant documented in this encounter [facility] note* Diagnosis Preop examination- Primary Preoperative examination, unspecified Cyst of right ovary Other and unspecified ovarian cyst Primary hypertension Unspecified essential hypertension Obesity (BMI 30-39.9) Obesity, unspecified PCOS (polycystic ovarian syndrome) Polycystic ovaries RLS (restless legs syndrome) Restless legs syndrome (RLS) Encounter for gynecological examination (general) (routine) without abnormal findings- Primary Pelvic pain in female Unspecified symptom associated with female genital organs Dyspareunia in female Vulvar lesion Other specified noninflammatory disorder of vulva and perineum documented in this encounter [facility] note* Diagnosis Preop examination- Primary Preoperative examination, unspecified Cyst of right ovary Other and unspecified ovarian cyst Primary hypertension Unspecified essential hypertension Obesity (BMI 30-39.9) Obesity, unspecified PCOS (polycystic ovarian syndrome) Polycystic ovaries RLS (restless legs syndrome) Restless legs syndrome (RLS) Pelvic pain in female Unspecified symptom associated with female genital organs Dyspareunia in female documented in this encounter [facility] note* Diagnosis Preop examination- Primary Preoperative examination, unspecified Cyst of right ovary Other and unspecified ovarian cyst Primary hypertension Unspecified essential hypertension Obesity (BMI 30-39.9) Obesity, unspecified PCOS (polycystic ovarian syndrome) Polycystic ovaries RLS (restless legs syndrome) Restless legs syndrome (RLS) Dyspareunia in female- Primary Endometriosis Endometriosis, site unspecified documented in this encounter [facility] course Narrative No data available for this section [facility] Discharge instructions No data available for this section [facility] [place] [facility] note No data available for this section [facility] [place] Reason for referral (narrative)* Diagnostic Procedure Only (Routine) - AuthorizedSpecialtyDiagnoses / ProceduresReferred By Contact Referred To ContactOB/TRAFFIC CONTROL FLAGGER Diagnoses Abnormal uterine bleeding (AUB) PCOS (polycystic ovarian syndrome) Procedures PELVIC US WHI US PELVIC NONOBSTETRIC REAL-TIME IMAGE COMPLETE Jenny Ye, JOSE ANTONIO [address] [facility] [place] [address] Instructor Apparel Manufacture [facility]ly [facility] [address] [place] [address] Referral IDStatusReasonStart DateExpiration DateVisits RequestedVisits [id number] Auto-Generated Referral / [facility] ClinicReason for visit Narrative* Diagnostic Procedure Only (Routine) - ClosedSpecialtyDiagnoses / ProceduresReferred By ContactReferred To Contact CAR PINCHER Diagnoses Abnormal uterine bleeding (AUB) PCOS (polycystic ovarian syndrome) Procedures PELVIC US [facility] PELVIC NONOBSTETRIC REAL-TIME IMAGE COMPLETE Jenny Ye APRN.SPECIAL ED ASSISTANT [address] [place] [address] Instructor Apparel Manufacture [facility] [address] [place] [address] Referral IDStatusReasonStart DateExpiration DateVisits RequestedVisits [id number] Auto-Generated Referral / [facility] Narrative* Diagnostic Procedure Only (Routine) - ClosedSpecialtyDiagnoses / ProceduresReferred By ContactReferred To Contact [facility] Diagnoses Pelvic pain in female Dyspareunia in female Procedures ENDOMETRIOSIS U/S [facility] PELVIC NONOBSTETRIC REAL-[place] [address] [place] [address] Phone: tel: fax: [facility] [address] [place] [address] Referral IDStatusReasonStart DateExpiration DateVisits RequestedVisits [id number] Auto-Generated Referral [facility] Summary Purpose Family History No Family History Records FoundNo Family History Records FoundNo Family History Records FoundNo Family History Records Found No data available for this section No Family History Records FoundNo Family History Records Found Advance Directives No Advanced Directives Records FoundNo Advanced Directives Records FoundNo Advanced Directives Records FoundNo Advanced Directives Records FoundNo Advanced Directives Records FoundNo Advanced Directives Records Found Reason for Referral SpecialtyDiagnoses / ProceduresReferred By ContactReferred To ContactCT IMAGING Diagnoses Post-operative state Right lower quadrant abdominal pain Procedures CT ABD/PEL W IVCON CT ABD & PELVIS W/CONTRAST Jasmina Jacinto APRN.SPECIAL ED ASSISTANT [address] [place] [address] [place] [address] Referral IDStatusReasonStjennifer DateExpiration DateVisits RequestedVisits [id number] Auto-Generated Referral / Additional Source Comments INFORMATION SOURCE (unrecogn ized section and content) DATE CREATED AUTHOR 10/10/2017 [facility] DATE CREATED AUTHOR AUTHOR'S ORGANIZ ATION 12/11/2020 [facility] DATE CREATED AUTHOR AUTHOR'S ORGANIZ ATION 05/25/2022 [facility] DATE CREATED AUTHOR AUTHOR'S ORGANIZ ATION 01/07/2023 [facility] DATE CREATED AUTHOR AUTHOR'S ORGANIZ ATION 01/16/2025 [facility] DATE CREATED AUTHOR AUTHOR'S ORGANIZ ATION 01/17/2025 [facility] Source Comments (unrecognize d section and content) In the event this informatio n is protected by the Federal Confidentiality of Alcohol and Drug Abuse Patient Records regulations: The Federal rules restrict any use of the information to criminally investigate or prosecute any alcohol or drug abuse patient.[facility] HospitalIn the event this information is protected by the Federal Confidentiality of Alcohol and Drug Abuse Patient Records regulations: The Federal rules restrict any use of the information to criminally investigate or prosecute any alcohol or drug abuse patient.[facility] HospitalIn the event this information is protected by the Federal Confidentiality of Alcohol and Drug Abuse Patient Records regulations: The Federal rules restrict any use of the information to criminally investigate or prosecute any alcohol or drug abuse patient.[facility] HospitalIn the event this information is protected by the Federal Confidentiality of Alcohol and Drug Abuse Patient Records regulations: The Federal rules restrict any use of the information to criminally investigate or prosecute any alcohol or drug abuse patient.[facility] HospitalIn the event this information is protected by the Federal Confidentiality of Alcohol and Drug Abuse Patient Records regulations: The Federal rules restrict any use of the information to criminally investigate or prosecute any alcohol or drug abuse patient.[facility] HospitalIn the event this information is protected by the Federal Confidentiality of Alcohol and Drug Abuse Patient Records regulations: The Federal rules restrict any use of the information to criminally investigate or prosecute any alcohol or drug abuse patient.[facility] HospitalIn the event this information is protected by the Federal Confidentiality of Alcohol and Drug Abuse Patient Records regulations: The Federal rules restrict any use of the information to criminally investigate or prosecute any alcohol or drug abuse patient.[facility] HospitalIn the event this information is protected by the Federal Confidentiality of Alcohol and Drug Abuse Patient Records regulations: The Federal rules restrict any use of the information to criminally investigate or prosecute any alcohol or drug abuse patient.[facility] HospitalIn the event this information is protected by the Federal Confidentiality of Alcohol and Drug Abuse Patient Records regulations: The Federal rules restrict any use of the information to criminally investigate or prosecute any alcohol or drug abuse patient.[facility] HospitalIn the event this information is protected by the Federal Confidentiality of Alcohol and Drug Abuse Patient Records regulations: The Federal rules restrict any use of the information to criminally investigate or prosecute any alcohol or drug abuse patient.[facility] HospitalIn the event this information is protected by the Federal Confidentiality of Alcohol and Drug Abuse Patient Records regulations: The Federal rules restrict any use of the information to criminally investigate or prosecute any alcohol or drug abuse patient.[facility] HospitalIn the event this information is protected by the Federal Confidentiality of Alcohol and Drug Abuse Patient Records regulations: The Federal rules restrict any use of the information to criminally investigate or prosecute any alcohol or drug abuse patient.[facility] HospitalIn the event this information is protected by the Federal Confidentiality of Alcohol and Drug Abuse Patient Records regulations: The Federal rules restrict any use of the information to criminally investigate or prosecute any alcohol or drug abuse patient.[facility] HospitalIn the event this information is protected by the Federal Confidentiality of Alcohol and Drug Abuse Patient Records regulations: The Federal rules restrict any use of the information to criminally investigate or prosecute any alcohol or drug abuse patient.[facility] HospitalIn the event this information is protected by the Federal Confidentiality of Alcohol and Drug Abuse Patient Records regulations: The Federal rules restrict any use of the information to criminally investigate or prosecute any alcohol or drug abuse patient.[facility] Reason for Visit (unrecogniz ed section and content) ReasonCommentsWell WomanLast pap and HPV was 09/2020--neg, irregular periods ReasonCommentsResultsReasonCommentsUrinary ProblemReasonCommentsWell WomanLast pap and HPV 09/30--neg,SpecialtyDiagnoses / ProceduresReferred By ContactReferred To ContactCT IMAGING Diagnoses Post-operative state Right lower quadrant abdominal pain Procedures CT ABD/PEL W IVCON CT ABD & PELVIS W/CONTRAST Jasmina Jacinto APRN.SPECIAL ED ASSISTANT [address] [place] [address] [facility] [place] [address] Referral IDStatusReasonStart DateExpiration DateVisits RequestedVisits [id number] Auto-Generated Referral [id number] DateCommentsRefill Kdebttu59/18/2024ReasonOnset DateCommentsRefill Vuoehqi9204/05/2024ReasonCommentsGyn ExamLast pap--12/2022--pap and hpv was neg patient having pain with intercourse Care Teams (unrecognized sec tion and content) Team MemberRelationshipSpecialtyStart DateEnd Date Keila Mccormick MD [address] [place] [address] PCP - GeneralFamily Practice10/14/20 Glenda Martínez ReferringOB/GYN4/Team MemberRelationshipSpecialtyStart DateEnd Date Keila Mccormick MD [address] [place] [facility] [address] PCP - GeneralFamily Practice10/14/20 Glenda Martínez ReferringOB/GYN4Team MemberRelationshipSpecialtyStart DateEnd Date Keila Mccormick MD [address] [place] [address] PCP - GeneralFamily Medicine10/14/20 Glenda Martínez ReferringOB/GYN4Team MemberRelationshipSpecialtyStart DateEnd Date Keila Mccormick MD [address] [place] [address] PCP - GeneralFamily Medicine10/14/20 Glenda Martínez ReferringOB/GYN4Team MemberRelationshipSpecialtyStart DateEnd Date Keila Mccormick MD PCP - GeneralFamily Medicine10/14/20 Glenda Martínez ReferringOB/GYN4Team MemberRelationshipSpecialtyStart DateEnd Date Keila Mccormick MD PCP - GeneralFamily Medicine10/14/20 Glenda Martínez ReferringOB/GYN4/Team MemberRelationshipSpecialtyStart DateEnd Date Keila Mccormick MD PCP - GeneralFamily Medicine10/14/20 Glenda Martínez ReferringOB/GYN4Team MemberRelationshipSpecialtyStart DateEnd Date Keila Mccormick MD PCP - GeneralFamily Medicine10/14/20 Glenda Martínez ReferringOB/GYN4/Team MemberRelationshipSpecialtyStart DateEnd Date Keila Mccormick MD PCP - GeneralFamily Medicine10/14/20 Glenda Martínez ReferringOb/Gyn4Team MemberRelationshipSpecialtyStart DateEnd Date Keila Mccormick MD PCP - GeneralFamily Medicine10/14/20 Glenda Martínez ReferringOb/Gyn4Team MemberRelationshipSpecialtyStart DateEnd Date Keila Mccormick MD PCP - GeneralFamily Medicine10/14/20 Glenda Martínez ReferringOb/Gyn4Team MemberRelationshipSpecialtyStart DateEnd Date Keila Mccormick MD PCP - GeneralFamily Medicine10/14/20 Glenda Martínez ReferringOb/Gyn4Team MemberRelationshipSpecialtyStart DateEnd Date Keila Mccormick MD PCP - GeneralFamily Medicine10/14/20 Glenda Martínez ReferringOb/Gyn06/26/20 FOR RECORDS PERTAINING TO PATIENTS WHO ARE [...] BE BASED ON THE PRIMARY CLINICAL RECORDS. [facility] [employer] [facility] provides no warranty or guarantee of the accuracy or completeness of information in this document.
== END 2025-02-04 11:00 | disposition home or self-care (01) ==
LOC: PST 10:59
PROVIDERS: PCP Family Medicine; Visit Provider Surgery
DX: Z01.818 Encounter for other preprocedural examination (principal); K62.5 Hemorrhage of anus and rectum

== ENCOUNTER 2025-02-12 08:18 | Day surgery (SDC) | payer BC, SELFPAY ==
--- NOTE | 2025-02-12 | OP_ITS ---
OPERATION DATE: 02/12/2025 PREOPERATIVE DIAGNOSIS: Rectal bleeding. POSTOPERATIVE DIAGNOSIS: Poor prep. PROCEDURE: Attempted colonoscopy, only to distal sigmoid, due to poor prep. SURGEON: Chico Chavez M.D. ANESTHESIA: Monitored anesthesia care. ESTIMATED BLOOD LOSS: Zero. INDICATIONS AND CONSENT: Patient is a 39-year-old female with a five year history of intermittent rectal bleeding, which has worsened over the last month. She reports frequent red blood with bowel movements and wiping. She has had no previous colonoscopies. Indications, risks, benefits, alternatives of proceeding with colonoscopy were explained extensively to the patient, including the risks of bleeding, colon perforation or anesthetic complications. All of her questions were answered. Informed consent was obtained. PROCEDURE: Patient brought to the operating room, placed in the left lateral decubitus position. Monitored anesthesia care was provided. Rectal exam was performed which showed some brown stool within the rectal vault. No masses or blood. There was noted to be some small internal/external hemorrhoids without active bleeding. The scope was inserted into the anal canal. Under direct visualization was advanced. There was noted to be a large amount of brown cloudy stool with particulate matter. The scope was only able to be advanced to the distal sigmoid, where visualization was poor. So the procedure was abandoned due to poor prep. No large polyps or mass lesions were noted in the distal sigmoid or rectum. There were no large internal hemorrhoids, prominent rectal veins. The scope was then withdrawn. Patient tolerated procedure well, was sent to recovery room in good condition. She will require a repeat colonoscopy with a two day prep. CC: Dino Collins M.D. MIKE
--- OUTSIDE RECORDS SUMMARY | 2025-02-12 08:21 | XMS_ITS | Clinical Summary ---
Demographics Address [address] [place] [address] Home Phone Work Phone Mobile Phone Email Address Preferred Language Unknown Marital Status Tenriism Affiliation Unknown Race White Ethnic Group Unknown Author Organization [facility] Address [address] [place] [address] Care Team Providers Care Pool Attendant Name Role Phone Unavailable Primary Care Provider Unavailabl e Social History Tobacco UseTypesPacks/DayYears UsedDateSmoking Tobacco: Never Assessed CommentsUnknownSex and Gender InformationValueDate RecordedSex Assigned at Not on fileLegal DjcWsxxeh98/15/2023 7:21 PM EDTGender IdentityNot on fileSexual OrientationNot on file Last Filed Vital Signs Vital SignReadingTime TakenCommentsBlood Vojubgif535/8101/23/2019 12:00 PM EST Pulse--Temperature--Respiratory Rate--Oxygen Saturation--Inhaled Oxygen Concentration--Tu[place]18.3 kg (208 lb)01/23/2019 12:00 PM TZVHedspt719.6 cm (5' 1.25 )01/19/2021 12:00 PM ESTBody Mass Index38.9801/23/2019 12:00 PM EST Plan of Treatment Not on file Insurance * Guarantor: Anjali Lehman TypeRelation to PatientDate of BirthPhone Billing AddressPersonal/KqhtrjKqml47/31/1986 [address] [place] [address]
--- OUTSIDE RECORDS SUMMARY | 2025-02-12 08:22 | XMS_ITS | CCD ---
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 [address] [place], [place] [address]Performed By: #### 63183-2 #### [facility] IA [id number] [address] [facility] [place] [address] [place] AMERICAMCV (RBC) [Entitic vol]88.1 fLNormal 80.0-100.0Avon HospitalComment on above:Order Comment: Specimen Type: BLOOD SPECIMEN Ordering Facility: [facility] Address: [address] [place], [place] [address]Performed By: #### 10419-2 #### [facility] IA [id number] [address] [facility] [place] [address] [facility] AMERICANucleated RBC (Bld) [#/Vol]10*3/uLNormal <0.01Av HospitalComment on above:Order Comment: Specimen Type: BLOOD SPECIMEN Ordering Facility: [facility] Address: [address] [place], [place] [address]Performed By: #### 96762-7 #### [facility] IA [id number] [address] [address] [place] AMERICAPlatelet mean volume (Bld) [Entitic vol] 9.1 fLNormal9.0-12.7Avon HospitalComment on above:Order Comment: Specimen Type: BLOOD SPECIMEN Ordering Facility: [facility] Address: [address] [place] [address]Performed By: #### 73202-1 #### [facility] IA [id number] [address] [address] [place] AMERICAPlatelets (Bld) [#/Vol]419 10*3/uLHigh 150-400Avon HospitalComment on above:Order Comment: Specimen Type: BLOOD SPECIMEN Ordering Facility: [facility] Address: [address] [place], [place] [address]Performed By: #### 32924-7 #### [facility] IA [id number] [address] [place] [address] [place] AMERICARBC (Bld) [#/Vol]4.52 10*6/uLNormal 3.90-5.20Avon HospitalComment on above:Order Comment: Specimen Type: BLOOD SPECIMEN Ordering Facility: [facility] Address: [address] [place], [place] [address]Ufxwlpojw By: #### 15429-7 #### [facility] CLIA [id number] [address] [place], [place] [address] [place], [place] [address]WBC (Bld) [#/Vol]6.74 10*3/uLNormal 3.70-11.00Pleasant Lake HospitalComment on above:Order Comment: Specimen Type: BLOOD SPECIMEN Ordering Facility: [facility] Address: [address] [place], [place] [address]Pdtesqwgo By: #### 58120-9 #### [facility] CLIA [id number] [address] [place] [address] [facility] BIRMINGHAMErythrocyte distribution width (RBC) [Ratio]13.7 %11.5 - 15.0 %[facility] HospitalHematocrit (Bld) [Volume fraction]39.8 %36.0 - 46.0 %[facility] HospitalHemoglobin (Bld) [Mass/Vol]12.5 g/dL11.5 - 15.5 g/dLMarietta Memorial HospitalH (RBC) [Entitic mass]27.7 pg26.0 - 34.0 pgClevelRegency Hospital of MinneapolisHC (RBC) [Mass/Vol]31.4 g/dL30.5 - 36.0 g/dLMarietta Memorial HospitalV (RBC) [Entitic vol]88.1 fL80.0 - 100.0 fLCleveland ClinicNucleated RBC (Bld) [#/Vol] <0.01 k/uLMercy Health West HospitalPlatelet mean volume (Bld) [Entitic vol]9.1 fL9.0 - 12.7 fLCleveland ClinicPlatelets (Bld) [#/Vol]419 10*3/hUUnrh661 - 400 k/uL [facility] HospitalRBC (Bld) [#/Vol]4.52 10*6/uL3.90 - 5.20 m/uLMercy Health West HospitalWBC (Bld) [#/Vol]6.74 10*3/uL3.70 - 11.00 k/uLMercy Health West HospitalDHEA-S BLDon 08-40-6135DTFC-S [Mass/Vol]140.6 ug/uCPjqfhb28.9-337.0Av HospitalComment on above:Order Comment: Specimen Type: BLOOD SPECIMEN Ordering Facility: [facility] Address: [address] [place], [place] [address]Jxkquk Comment: Reference ranges are age and gender specific. For additional information, referencerange tables can be found in the laboratory test directory. The normal values are based on the following source: Dehydroepiandrosterone sulfate (DHEA S) [package insert V 17.0 Wolof]. [facility], [place], [place]: October 2012.Performed By: #### 2986-8, DHEAS #### [facility] CLIA [id number] [address] [facility] [place] [address] [place] AMERICAGLUCOSE FASTING BLDon 39-67-2319Zqphsnu post fast [Mass/Vol]94 mg/dL74 - 99 mg/dLMercy Health West Hospital Glucose p fast SerPl-mCncon 25-86-9761Ztwmywp post fast [Mass/Vol]94 mg/dLNormal 74-99Av HospitalComment on above:Order Comment: Specimen Type: BLOOD SPECIMEN Ordering Facility: [facility] Address: [address] [place] [address]Zqgdjw Comment: [place] Diabetes Association guidelines state that a diabetes mellitus diagnosis is preliminarily made when the fasting plasma glucose meets or exceeds 126 mg/dL. In the absence of unequivocal hyperglycemia, results should be confirmed with repeat testing. Patients are at increasedrisk for diabetes mellitus (prediabetes) when the fasting glucose is 100 to 125 mg/dL.Performed By: #### 1558-6, 3016-3 #### [facility] CLIA [id number] [address] [facility] [place] [address] [place] AMERICAHCG QUANTITATIVEon 96-24-5668URY.beta subunit Qn<5.0 mIU/mLCleveland YauqssTqN5s (Bld)on 64-61-6606Opxipfm glucose Estimated from glycated hemoglobin (Bld) [Mass/Vol]111 mg/dLNoLifePoint Hospitals Comment on above:Order Comment: Specimen Type: BLOOD SPECIMEN Ordering Facility: [facility] Address: [address] [id number] Comment: eAG: (Estimated average glucose) is a calculated value from HgbA1c and is home furnishings sales representative of the average blood glucose level in the last 2-3 month period.Performed By: #### 59830-6 #### [facility] IA [id number] [address] [place] [address] [place] MEOMABLYfT2x (Bld) [Mass fraction] 5.5 %Normal4.3-5.6Avon HospitalComment on above:Order Comment: Specimen Type: BLOOD SPECIMEN Ordering Facility: [facility] Address: [address] [place], [place] [address]Result Comment: [place] Diabetes Association guidelines indicate that patients with HgbA1c in the range 5.7-6.4% are at increased risk for development of diabetes, and intervention by lifestyle modification may be beneficial. HgbA1c greater or equal to 6.5% is considered diagnostic of diabetes.Performed By: #### 53389-0 #### [facility] IA [id number] [address] [place] [address] [place] OF AMERICAINSULIN, FREEon 01-03-2023 Insulin Free Qn29.8 mU/LHigh3.0-25.0Av HospitalComment on above:Order Comment: Specimen Type: BLOOD SPECIMEN Ordering Facility: [facility] Address: [address] [place], [place] [address]Performed By: #### FINS #### [facility] IA [id number] [address] [place] [address] [place] AMERICATS BLDon 54-08-1159DAF Qn 2.950 m[IU]/L0.270 - 4.200 mIU/LCleveland Ortonville HospitalTS SerPl-aCncon 62-91-7055EWD Qn2.950 m[IU]/LNormal0.270-4.200Avon HospitalComment on above:Order Comment: Specimen Type: BLOOD SPECIMEN Ordering Facility: [facility] Address: [address] [place], [place] [address]Result Comment: If the patient is , TSH reference range varies by gestational period: First Trimester (weeks 9-12): 0.180-2.990 mIU/L Second Trimester: 0.110-3.980 mIU/L Third Trimester: 0.480-4.710 mIU/L Jono Reaves et al. A Practical Approach for the Verifications and Determination of Site- and Trimester-Specific Reference Intervals for Thyroid Function tests in . Thyroid, 2019:29:3:412-420.Isaac Damico, et al. 2017 Guidelines of the [place] Thyroid Association for the Diagnosis and Management of Thyroid Disease during and the . Thyroid, 2017:27:3:315-389. Performed By: #### 1558-6, 3016-3 #### [facility] CLIA [id number] [address] [place] [address] [place] AMERICATestost SerPl-mCncon 01-03-2023 Testosterone [Mass/Vol]23 ng/dLNormal<40Pleasant Lake HospitalComment on above:Order Comment: Specimen Type: BLOOD SPECIMEN Ordering Facility: [facility] Address: [address] [place] [address]Performed By: #### 2986-8, DHEAS #### [facility] CLIA [id number] [address] [facility]ALK [id number] [place] [address] [place] AMERICANICOTINE METABOLITESon 16-44-5759Xxbjzzee<1.0NoOhio State East HospitalComment on above:Result Comment: This test was developed and its performance characteristics determined by [facility]. It has not been cleared or approved by the Food and Drug Administration. Cotinine levels greater than 20.0 are consistent with the use of tobacco or tobacco cessation products.Performed By: #### NICTBLD #### [facility] [address] [address] [address] Jolynn Camara<1.0NormUniversity Hospitals Cleveland Medical CenterComment on above:Result Comment: This test was developed and its performance characteristics determined by [facility]. It has not been cleared or approved by the Food and Drug Administration. Nicotine levels greater than 2.0 are consistent with the use of tobacco or tobacco cessation products.Performed By: #### NICTBLD #### [facility] [address] [address] [address] Jolynn HuntINSULINon 95-26-7365Jlxcfxi32.2 uIU/mLCritically high2.6-24.9The [facility]S HospitalComment on above:Performed By: #### INSULIN ####[facility] [address] [address]Dr. Jolynn VargasC AUTO DIFFon 18-69-2816AXKG #0.0 103/ulNormal0.0-0.1The [facility]'S HospitalComment on above:Performed By: #### CBC #### [facility] [address] [address] [address] Jolynn HuntBasophils/100 WBC (Bld)0.4 %Normal0.2-2.0[facility] Comment on above:Performed By: #### CBC #### [facility] [address] [address] [address] Jolynn Soares #0.2 103/ulNormal0.0-0.7The [facility]'S HospitalComment on above: Performed By: #### CBC #### [facility] [address] [place] [address] Dr. Jolynn Fuentesosinophils/100 WBC (Bld)1.5 %Normal0.9-7.0The [facility] Comment on above:Performed By: #### CBC #### [facility] [address] [address] [address] Jolynn Fuentesrythrocyte distribution width (RBC) [Ratio]15.2 %Critically high 11.0-15.0The [facility]'S HospitalComment on above:Performed By: #### CBC #### [facility] [address] [place] [address] Dr. Jolynn HuntHematocrit (Bld) [Volume fraction]39.6 %Yhgehu93.0-48.0The [facility]'S HospitalComment on above:Performed By: #### CBC #### [facility] [address] [place], [place] [address] Dr. Jolynn HuntHemoglobin (Bld) [Mass/Vol]12.9 g/oYAcvwzo48.0-16.0The [facility]'S HospitalComment on above:Performed By: #### CBC #### [facility] [address] [place] [address] Dr. Jolynn Shipman #0.04 10e3/ulCritically high0.00-0.03The [facility] Comment on above:Performed By: #### CBC #### [facility] [address] [place] [address] Dr. Jolynn Shipman %0.4 %Normal0.0-0.5The [facility]'S HospitalComment on above: Performed By: #### CBC #### [facility] [address] [place] [address] Dr. Jolynn Brady #1.8 103/ulNormal1.2-3.8The [facility]'S HospitalComment on above:Performed By: #### CBC #### [facility] [address] [place] [address] Dr. Jolynn Scruggshocytes/100 WBC (Bld)18.5 %Critically low20.5-60.0The [facility]'S HospitalComment on above:Performed By: #### CBC #### [facility] [address] [place] [address] Dr. Jolynn MarieUAL DIFF REQNONormalThe [facility]'S HospitalComment on above: Performed By: #### CBC #### [facility] [address] [place] [address] Dr. Jolynn Torre (RBC) [Entitic mass]28.4 cbFcdzod82.7-34.0The [facility]'S HospitalComment on above:Performed By: #### CBC #### [facility] [address] [place] [address] Dr. Jolynn Torre (RBC) [Mass/Vol]32.6 g/hQYeeggn60.9-35.2The [facility]'S HospitalComment on above:Performed By: #### CBC #### [facility] [address] [address] [address] Jolynn TorreV (RBC) [Entitic vol]87.2 hZRfabdm91.0-99.0The [facility]S HospitalComment on above:Performed By: #### CBC #### [facility] [address] [place] [address] Dr. Jolynn Yu #0.6 103/ulNormal0.3-0.8The [facility]S HospitalComment on above:Performed By: #### CBC #### [facility] [address] [place] [address] Dr. Jolynn Whiteocytes/100 WBC (Bld)5.9 %Normal1.7-12.0The [facility] Comment on above:Performed By: #### CBC #### [facility] [address] [place] [address] Dr. Jolynn Beck #7.3 103/ulCritically high1.4-6.5The [facility] Comment on above:Performed By: #### CBC #### [facility] [address] [place] [address] Dr. Jolynn Dos Santosutrophils/100 WBC (Bld)73.3 %Nhmguc58.0-75.0The [facility]'S HospitalComment on above:Performed By: #### CBC #### [facility] [address] [place] [address] Dr. Jolynn Larkin mean volume (Bld) [Entitic vol]8.9 fLCritically low 9.5-13.5The [facility]S HospitalComment on above:Performed By: #### CBC #### [facility] [address] [place] [address] Dr. Jolynn HuntPLT438 103/trYnsgrh284-493Bgu [facility] HospitalComment on above: Performed By: #### CBC #### [facility] [address] [place] [address] Dr. Jolynn HuntRBC4.54 106/ulNormal4.20-5.40The [facility]'S HospitalComment on above:Performed By: #### CBC #### [facility] [address] [address] [address] Jolynn HuntWBC10.0 103/ulNormal4.0-11.0The [facility] on above:Performed By: #### CBC #### [facility] [address] [address] [address] Jolynn Lozoya THYROXINE INDEX T7on 66-71-8420KAE9.23Wuyabw9.30-4.50The [facility]'S HospitalComforest view hospital on above:Performed By: #### TSH, T7, CMP, LIPID ####[facility] [address] [address]DrColby HuntT3U29.0 %Critically low30.0-39.0The [facility] on above:Performed By: #### TSH, T7, CMP, LIPID ####[facility] [address] [address]Dr. Jolynn HuntT4 [Mass/Vol] 9.10 ug/dLNormal4.80-13.90The [facility] on above:Performed By: #### TSH, T7, CMP, LIPID ####[facility] [address] [address]Dr. Jolynn HuntGLYCOHEMOGLOBIN A1Con 25-30-5343FKF RECOMMENDATIONSEE [facility] CenterComforest view hospital on above:Result Comment: ADA RECOMMENDED LIMIT 4.0 - 6.0 ADA THERAPEUTIC TARGET < 7.0 ACTION SUGGESTED > 7.0Performed By: #### A1C #### [facility] [address] [address] [address] Jolynn HuntGlucose [Mass/Vol]108 mg/dLThe [facility] on above:Performed By: #### A1C #### [facility] [address] [address] [address] Jolynn HuntHbA1c (Bld) [Mass fraction]5.4 %Normal4.5-6.2The [facility] on above:Performed By: #### A1C #### [facility] [address] [address] [address] Jolynn HuntLIPID PROFILEon 71-73-5109ZDCF-HDL RATIO NORMSUniversity Hospitals Health SystemComforest view hospital on above:Result Comment: 3.3 - 4.4 LOW RISK 4.4 - 7.1 AVERAGE RISK 7.1 - 11.0 MODERATE RISK >11.0 HIGH RISKPerformed By: #### TSH, T7, CMP, LIPID ####[facility] [address] [address]Dr. Jolynn HuntCholesterol [Mass/Vol]175 mg/dLNormal<=200[facility] on above:Performed By: #### TSH, T7, CMP, LIPID ####[facility] I[address] [place], [place] [address]Dr. Jolynn Hunt Cholesterol in HDL [Mass/Vol]53 mg/xICvwwqi81-15Eky [facility] HospitalComforest view hospital on above:Performed By: #### TSH, T7, CMP, LIPID ####[facility] Vptjmztord[address] [address]Dr. Jolynn HuntCholesterol in LDL [Mass/Vol]89.8 mg/dLThe [facility] on above:Performed By: #### TSH, T7, CMP, LIPID ####[facility] Pubpcbtafk[address] [address]Dr. Jolynn HuntCholesterol.total/Cholesterol in HDL [Mass ratio]3.3 {ratio}NormalTrihealth Mccullough-Hyde Memorial HospitalComforest view hospital on above:Performed By: #### TSH, T7, CMP, LIPID ####[facility] [address] [address]Dr. Jolynn ChangHDL NORMAL> or = 60 mg/dl - LOW CARDIOVASCULAR RISK <40 mg/dl - HIGH CARDIOVASCULAR RISKSelect Medical Specialty Hospital - AkronComforest view hospital on above:Performed By: #### TSH, T7, CMP, LIPID ####[facility] [address]ol[address] [address]Dr. Yumikolan ChangLDL CALC NORMALSEE [facility] CenterComforest view hospital on above:Result Comment: <100 mg/dl OPTIMAL 100 - 129 mg/dl NEAR OR ABOVE OPTIMAL 130 - 159 mg/dl BORDERLINE HIGH 160 - 189 mg/dl HIGH >190 mg/dl VERY HIGHPerformed By: #### TSH, T7, CMP, LIPID ####[facility] [address]ks[address] [address]Dr. Jolynn HuntTriglyceride [Mass/Vol]161 mg/dLCritically high<=150The [facility] on above:Performed By: #### TSH, T7, CMP, LIPID ####[facility] [address]ipm[address] [address]Dr. Jolynn HuntVLDL CALC32.2 mg/dLNormalThe [facility]S HospitalComment on above: Performed By: #### TSH, T7, CMP, LIPID ####[facility] [address] [address]Dr. Jolynn ChangPROF 14(COMP METB)on 04-28-2022 Albumin [Mass/Vol]3.6 g/dLNormal3.4-5.0The [facility] on above: Performed By: #### TSH, T7, CMP, LIPID ####[facility] V[address]amg[address] [address]Dr. Jolynn HuntAlbumin/Globulin [Mass ratio]0.8 {ratio}NormalThe [facility] on above:Performed By: #### TSH, T7, CMP, LIPID ####[facility] [address]ma[address] [address]Dr. Jolynn HuntALP [Catalytic activity/Vol]78 U/IWtubgh56-895Sxu [facility] on above:Performed By: #### TSH, T7, CMP, LIPID ####[facility] Wi[address]wjfv[address] [address]Dr. Jolynn HuntALT [Catalytic activity/Vol]29 U/JGzbsxi87-60Amo [facility] on above: Performed By: #### TSH, T7, CMP, LIPID ####[facility] [address]asbx[address] [address]Dr. Jolynn HuntAnion gap [Moles/Vol]12.8 mmol/L NormalThe Eva HospitalComment on above:Performed By: #### TSH, T7, CMP, LIPID ####[facility] R[address]tecsoxuj[address] [address]Dr. Yilan ChangAST [Catalytic activity/Vol]20 U/SKotpep97-61Qaj [facility] on above:Performed By: #### TSH, T7, CMP, LIPID ####[facility] [address]mltnd[address] [address]Dr. Yilan Hunt Bilirubin [Mass/Vol]0.4 mg/dLNormal0.2-1.0The [facility] HospitalComforest view hospital on above: Performed By: #### TSH, T7, CMP, LIPID ####[facility] Qzawoeciew[address] [place], [place] [address]Dr. Yilan ChangCalcium [Mass/Vol]9.2 mg/dLNormal 8.5-10.1The [facility] on above:Performed By: #### TSH, T7, CMP, LIPID ####[facility] Xajnilyour[address] [place], [place] [address]Dr. Yilan ChangChloride [Moles/Vol]99 mmol/LJpjwrl75-695Ijs [facility] on above:Performed By: #### TSH, T7, CMP, LIPID ####[facility] Cqyxvgvhlu[address] [place], [place] [address]Dr. Yilan ChangCO2 [Moles/Vol]29.3 mmol/ZNgkiuy15.0-32.0The [facility] on above: Performed By: #### TSH, T7, CMP, LIPID ####[facility] Muwpeyzxzg[address] [place], [place] [address]Dr. Yilan ChangCreatinine [Mass/Vol]0.47 mg/dL Critically low0.55-1.02The [facility] on above:Performed By: #### TSH, T7, CMP, LIPID ####[facility] Mvgklselcm[address] [place], [place] [address]Dr. Yilan ChangEGFR-AF BELIZEAN>60Normal>=60The [facility] Mary Hospitalment on above:Performed By: #### TSH, T7, CMP, LIPID ####[facility] Ch[address]hcunon[address] [address]Dr. Yilan ChangEGFR-NON AF BELIZEAN>60Normal>=60The [facility] Mary Hospitalment on above:Performed By: #### TSH, T7, CMP, LIPID ####[facility] Y[address]pyne[address] [address]Dr. Jolynn HuntGlobulin (S) [Mass/Vol]4.5 g/dLNormalThe [facility]S HospitalComment on above:Performed By: #### TSH, T7, CMP, LIPID ####[facility] N[address]ubtvpybk[address] [address]Dr. Yilan ChangGlucose [Mass/Vol]91 mg/zRYxdbmq97-663 The [facility]S HospitalComment on above:Performed By: #### TSH, T7, CMP, LIPID ####[facility] Awcxfsyopu[address] [address]Dr. Jolynn HuntPotassium [Moles/Vol]3.1 mmol/LCritically low3.5-5.1The [facility]S HospitalComment on above:Performed By: #### TSH, T7, CMP, LIPID ####[facility] H[address]bkaitpxp[address] [address]Dr. Jolynn Hunt Protein [Mass/Vol]8.1 g/dLNormal6.4-8.2The [facility]S HospitalComment on above: Performed By: #### TSH, T7, CMP, LIPID ####[facility] Qoxkniccvz[address] [place], [place] [address]Dr. Yilan ChangSodium [Moles/Vol]138 mmol/L Hblxic776-732Emd [facility] Mary Hospitalment on above:Performed By: #### TSH, T7, CMP, LIPID ####[facility] Yoxtwxzrwa[address] [place], [place] [address]Dr. Yilan ChangUrea nitrogen [Mass/Vol]9.0 mg/dLNormal7.0-18.0The [facility] Hospitalment on above:Performed By: #### TSH, T7, CMP, LIPID ####[facility] Amlte[address] [place], [place] [address]DrColby HuntUrea nitrogen/Creatinine [Mass ratio]19.1 mg/mgNormalThe [facility]S HospitalComment on above:Performed By: #### TSH, T7, CMP, LIPID ####[facility] Swotmdqmvm[address] [place], [place] [address]KgDr. Jolynn Robledo 10-66-9259RLI0.052 uIU/mLCritically high0.358-3.740[facility] HospitalComforest view hospital on above:Performed By: #### TSH, T7, CMP, LIPID #### [facility] [address] [place], [place] [address] Dr. Jolynn Recinos 30-40-1287Ejzbgmqg identified Cx Nom (U) ORGANISM ID: 1 [...] S <=20 F Susceptible <=40 , Resistant >40AbClinton County HospitalComment on above:Performed By: #### 630-4 #### [facility] CLIA [id number] [address] [place] [address] OF AMERICACovid-19 PCR (CVDTBH)on 05-32-9302NWUP-CoV-2 (COVID-19) RNA STEF+probe Ql (Unsp spec)Not detectedNormal NOT DETECTEDThe [facility]S HospitalComment on above:Result Comment: When diagnostic testing [...] for this test is supported by the [place] of Health and Human Service's declaration that [...] no longer be used).Performed By: #### CVDTBH ####[facility] [address] [place] [address] Jolynn Díaz A AND B AGon 57-32-5374YSMQZXNLHZXYJ BELOWNormtx The [facility]'S HospitalComment on above:Result Comment: Negative for Flu A protein angiten. Infection due to Flu A cannot be ruled out. FluA angiten in the sample may be below the detection limit of the test.Performed By: #### INFLUAB #### [facility] [address] [place] [address] Dr. Jolynn HuntINFLUBNEGHSEE BELOWSelect Medical Specialty Hospital - AkronComment on above: Result Comment: Negative for Flu B protein antigen. Infection due to Flu B cannot be ruled out. FluB antigen in the sample may be below the detection limit of the test.Performed By: #### INFLUAB #### [facility] [address] [place] [address] Dr. Jolynn Mabry AGNegativeNormalNEGATIVE SEE COMMENTThe [facility] on above:Performed By: #### INFLUAB #### [facility] [address] [place] [address] Dr. Jolynn Gomez AGNegativeNormalNEGATIVE SEE COMMENTThe [facility] on above:Performed By: #### INFLUAB #### [facility] [address] [place] [address] Dr. Jolynn HuntINTERNAL CONTROLSWithin Normal LimitsNormalWithin Normal Limits [facility] HospitalComforest view hospital on above:Performed By: #### INFLUAB #### [facility] [address] [place] [address] Dr. Jolynn HuntEPHRAIM MCD[facility]ELL [facility] panel Auto (Bld)on [id number] distribution width (RBC) [Ratio]14.0 %11.5 - 15.0 %[facility] HospitalHematocrit (Bld) [Volume fraction]40.8 %36.0 - 46.0 %[facility] HospitalHemoglobin (Bld) [Mass/Vol]12.6 g/dL 11.5 - 15.5 g/dLPremier Health Miami Valley Hospital South (RBC) [Entitic mass]27.3 pg26.0 - 34.0 pg Jacques ClinicMCHC (RBC) [Mass/Vol]30.9 g/dL30.5 - 36.0 g/dLMercy Health West Hospital MCV (RBC) [Entitic vol]88.3 fL80.0 - 100.0 fLCleveland ClinicNucleated RBC (Bld) [#/Vol]<0.01 k/uLMercy Health West HospitalPlatelet mean volume (Bld) [Entitic vol]9.0 fL 9.0 - 12.7 fLCleveland ClinicPlatelets (Bld) [#/Vol]465 10*3/xTRgrh839 - 400 k/uLMercy Health West HospitalRBC (Bld) [#/Vol]4.62 10*6/uL3.90 - 5.20 m/uLMercy Health West HospitalWBC (Bld) [#/Vol]9.74 10*3/uL3.70 - 11.00 k/uLMercy Health West Hospital Comprehensive metabolic 2000 panelon 51-75-8750Qsvrhgx [Mass/Vol]4.5 g/dL3.9 - 4.9 g/dLGaithersburg ClinicALP [Catalytic activity/Vol]92 U/L34 - 123 U/LCleveland ClinicALT [Catalytic activity/Vol]21 U/L7 - 38 U/LCleveland ClinicAnion gap [Moles/Vol]11 mmol/L9 - 18 mmol/LCleveland ClinicAST [Catalytic activity/Vol]16 U/L13 - 35 U/LCleveland ClinicBilirubin [Mass/Vol]0.3 mg/dL0.2 - 1.3 mg/dL [facility] HospitalCalcium [Mass/Vol]9.6 mg/dL8.5 - 10.2 mg/dLMercy Health West Hospital Chloride [Moles/Vol]98 mmol/L97 - 105 mmol/LCleveland ClinicCO2 [Moles/Vol]30 mmol/L22 - 30 mmol/LCleveland ClinicCreatinine [Mass/Vol]0.57 mg/dLLow0.58 - 0.96 mg/dLMercy Health West HospitalEstimated Glomerular Filtration Xcij802 mL/min/1.73m >=60 mL/min/1.73mCleveland Ortonville HospitalGlucose [Mass/Vol]98 mg/dL74 - 99 mg/dL [facility] HospitalPotassium [Moles/Vol]3.4 mmol/LLow3.7 - 5.1 mmol/LCleveland ClinicProtein [Mass/Vol]8.1 g/dLHigh6.3 - 8.0 g/dLBlanchard Valley Health Systemodium [Moles/Vol]139 mmol/L136 - 144 mmol/LCleveland ClinicUrea nitrogen [Mass/Vol]12 mg/dL7 - 21 mg/dLMercy Health West HospitalVITAMIN B12 BLOODon 13-03-2866Wfyqhwobn (Vitamin B12) [Mass/Vol]224 pg/iSVzv772 - 1,245 pg/mLCleveland ClinicXR LSPINE MIN 4 VIEWSon 92-23-7280ES LSPINE MIN 4 VIEWSEXAMINATION: XR LSPINE MIN [...] Electronically authenticated by: DEANGELO MIGUEL Date: 2021-10-12 19:59NormBarberton Citizens Hospital AUTO DIFFon [id number] #0.0 103/ulNormal0.0-0.1[facility] Memorial HospitalComment on above:Performed By: #### CBC #### [facility] [address] [address] [address] Jolynn Proctorsophils/100 WBC (Bld)0.4 %Normal0.2-2.0[facility] Comment on above:Performed By: #### CBC #### [facility] [address] [address] [address] Jolynn Soares #0.1 103/ulNormal0.0-0.7ThVan Wert County HospitalComment on above: Performed By: #### CBC #### [facility] [address] [address] [address] Jolynn Fuentesosinophils/100 WBC (Bld)1.6 %Normal0.9-7.0[facility] Comment on above:Performed By: #### CBC #### [facility] [address] [place] [address] Dr. Jolynn Fuentesrythrocyte distribution width (RBC) [Ratio]13.9 %Bfjqzp10.0-15.0 [facility] on above:Performed By: #### CBC #### [facility] [address] [place] [address] Dr. Jolynn HuntHematocrit (Bld) [Volume fraction]39.9 %Pzdoqx95.0-48.0The [facility]'S HospitalComment on above:Performed By: #### CBC #### [facility] [address] [place] [address] Dr. Jolynn HuntHemoglobin (Bld) [Mass/Vol]12.2 g/nGPonosg88.0-16.0The [facility]S HospitalComment on above:Performed By: #### CBC #### [facility] [address] [place] [address] Dr. Jolynn Shipman #0.03 10e3/ulNormal0.00-0.03The [facility]S HospitalComforest view hospital on above:Performed By: #### CBC #### [facility] [address] [place] [address] Dr. Jolynn Shipman %0.4 %Normal0.0-0.5The [facility]S HospitalComforest view hospital on above: Performed By: #### CBC #### [facility] [address] [place] [address] Dr. Jolynn ScruggsH #1.5 103/ulNormal1.2-3.8The [facility]'S HospitalComment on above:Performed By: #### CBC #### [facility] [address] [place] [address] Dr. Jolynn Rdzmphocytes/100 WBC (Bld)17.8 %Critically low20.5-60.0The [facility]'S HospitalComforest view hospital on above:Performed By: #### CBC #### [facility] [address] [place] [address] Dr. Jolynn MarieUAL DIFF REQNONormalThe [facility]'S HospitalComment on above: Performed By: #### CBC #### [facility] [address] [address] [address] Jolynn Torre (RBC) [Entitic mass]26.5 pgCritically low26.7-34.0The [facility]'S HospitalComment on above:Performed By: #### CBC #### [facility] [address] [address] [address] Jolynn Torre (RBC) [Mass/Vol]30.6 g/jIKlnznl02.9-35.2The [facility] HospitalComment on above:Performed By: #### CBC #### [facility] [address] [place] [address] Dr. Jolynn TorreV (RBC) [Entitic vol]86.7 xTRxkvcc15.0-99.0The [facility]'S HospitalComment on above:Performed By: #### CBC #### [facility] [address] [place] [address] Dr. Jolynn Yu #0.6 103/ulNormal0.3-0.8The [facility]'S HospitalComment on above:Performed By: #### CBC #### [facility] [address] [place] [address] Dr. Jolynn Whiteocytes/100 WBC (Bld)6.8 %Normal1.7-12.0The [facility] Comment on above:Performed By: #### CBC #### [facility] [address] [address] [address] Jolynn Beck #6.0 103/ulNormal1.4-6.5The [facility]S HospitalComment on above:Performed By: #### CBC #### [facility] [address] [address] [address] Jolynn Dos Santosutrophils/100 WBC (Bld)73.0 %Bkaplm47.0-75.0The [facility]'S HospitalComment on above:Performed By: #### CBC #### [facility] [address] [place] [address] Dr. Jolynn Pylelet mean volume (Bld) [Entitic vol]9.2 fLCritically low 9.5-13.5The [facility]S HospitalComment on above:Performed By: #### CBC #### [facility] [address] [address] [address] Jolynn HuntPLT421 103/nqGyufsr464-900Wis [facility]S HospitalComment on above: Performed By: #### CBC #### [facility] [address] [address] [address] Jolynn HuntRBC4.60 106/ulNormal4.20-5.40The [facility]'S HospitalComment on above:Performed By: #### CBC #### [facility] [address] [address] [address] Jolynn HuntWBC8.2 103/ulNormal4.0-11.0The [facility]S HospitalComment on above: Performed By: #### CBC #### [facility] [address] [place] [address] Dr. Jolynn HuntCT ABD/PELVIS WO CONon [id number] ABD/PELVIS WO CONEXAMINATION: CT ABD/PELVIS WO CON, [...] Electronically authenticated by: BEENA CANAS Date: 2021-07-01 10:58NormUniversity Hospitals Cleveland Medical CenterPREG HCG QUALon [id number], QUALNegativeNormalNEGATIVE The [facility]S HospitalComment on above:Performed By: #### PREG #### [facility] [address] [place] [address] Dr. Jolynn HuntPROF CHEM 8 (BAS METB)on 96-56-7185Mizyo gap [Moles/Vol]13.4 mmol/LNormalTrihealth Mccullough-Hyde Memorial HospitalComment on above:Performed By: #### BMP #### [facility] [address] [place] [address] Dr. Jolynn HuntCalcium [Mass/Vol]8.9 mg/dLNormal8.5-10.1The [facility] Comment on above:Performed By: #### BMP #### [facility] [address] [address] [address] Jolynn HuntChloride [Moles/Vol]100 mmol/RLuvdmh86-193Zyq [facility] Comment on above:Performed By: #### BMP #### [facility] [address] [place] [address] Dr. Jolynn HuntCO2 [Moles/Vol]29.6 mmol/IQeglxa98.0-30.0The [facility] Comment on above:Performed By: #### BMP #### [facility] [address] [address] [address] Jolynn HuntCreatinine [Mass/Vol]0.56 mg/dLNormal0.52-1.04The [facility]S HospitalComment on above:Performed By: #### BMP #### [facility] [address] [address] [address] Neil ChangEGFR-AF BELIZEAN>60Normal>=60The [facility]'S HospitalComment on above:Performed By: #### BMP #### [facility] [address] [address] [address] Jolynn FuentesGFR-NON AF BELIZEAN>60Normal>=60The [facility]'S HospitalComment on above:Performed By: #### BMP #### [facility] [address] [address] [address] Jolynn HuntGlucose [Mass/Vol]96 mg/dLCcpkup23-859Ihc [facility] Comment on above:Performed By: #### BMP #### [facility] [address] [address] [address] Jolynn HuntPotassium [Moles/Vol]3.0 mmol/LCritically low3.4-5.0The [facility]S HospitalComment on above:Performed By: #### BMP #### [facility] [address] [place] [address] Dr. Jolynn HuntSodium [Moles/Vol]140 mmol/EIwpypo762-140Kmg [facility] Comment on above:Performed By: #### BMP #### [facility] [address] [address] [address] Jolynn HuntUrea nitrogen [Mass/Vol]9.0 mg/dLNormal7.0-18.0The [facility]'S HospitalComment on above:Performed By: #### BMP #### [facility] [address] [address] [address] Jolynn HuntUrea nitrogen/Creatinine [Mass ratio]16.1 mg/mgNormalThe [facility]S HospitalComment on above:Performed By: #### BMP #### [facility] [address] [address] [address] Jolynn Jacobo [id number] (SP) Office (GYNML) BRAD FLEMING ([id number]) 1985 F Date Time Provider Department 12/10/20 1:30 PM JASMINA JACINTO During your visit today, we recorded the following information about you: Temperature Pulse Respiration Blood pressure 98.3 degrees 96/minute 14/minute 135/94 Weight Last Period 92.5 kg 11/25/20 Jasmina Jacinto APRN.SUPERVISOR NUTRITIONAL YEAST 12/10/2020 3:45 PM Signed DATE OF SERVICE: [...] features. Consider surgical evaluation or consultation with DIDACTIC INSTRUCTOR Oncology 12/04/20 CT Abdomen/Pelvis IMPRESSION: 1. ?Ovoid [...] discharge yesterday, now res (more content not included)...[facility] [id number] Telephone (GYN) BRAD FLEMING ([id number]) 1985 F Date Time Provider Department 12/08/20 [...] 10/14/2020 Encounter Status:Closed by JOI SOARES on 12/08/20[facility] Telephone (GYNML) BRAD FLEMING ([id number]) 1985 F Date Time Provider Department 12/08/20 JOI SOARES [facility] During your visit today, we recorded the [...] 10/14/2020 Encounter Status:Closed by JOI SOARES on 12/09/20[facility] [id number] (GYNML) BRAD FLEMING ([id number]) 1985 F Date Time Provider Department 12/04/20 JASMINA JACINTO During your visit today, we recorded the following information about you: Jasmina Jacinto APRN.SUPERVISOR NUTRITIONAL YEAST 12/04/2020 4:47 PM Signed Called patient to [...] questions answered at this time. Jasmina Jacinto APRN.SUPERVISOR NUTRITIONAL YEAST December 04, 2020 4:46 PM Allergies As [...] 10/14/2020 Encounter Status:Closed by JASMINA JACINTO on 12/04/20[facility] CT ABD/PEL W IVCONon [id number] ClinicCNPNon 03-10-0212AAZIDqlnmoxfn (GYNML) BRAD FLEMING ([id number]) 1985 F Date Time Provider Department 12/02/20 [...] Signed Spoke with patient in regards to SUPERVISOR NUTRITIONAL YEAST recommendation to monitor pain and continue current [...] 10/14/2020 Encounter Status:Closed by SHO MILNER on 12/02/20[facility] [place] [id number] (GYNML) BRAD FLEMING ([id number]) 1985 F Date Time Provider Department 11/27/20 [...] Date Reviewed: 11/12/2020 Reviewed by: Jenaro Ribeiro APRN.SUPERVISOR NUTRITIONAL YEAST - Fully Assessed Reason for Visit: Appointment [...] 10/14/2020 Encounter Status:Closed by CANDELARIA REAVES on 11/27/20[facility] CNOVSPon [id number] (SP) Office (GYNML) BRAD FLEMING ([id number]) 1985 F Date Time Provider Department 11/12/20 10:15 AM JENARO RIBEIRO [facility] During your visit today, we recorded the following information about you: Temperature Pulse Blood pressure 98.1 degrees 98/minute 119/77 Jenaro Ribeiro APRN.SUPERVISOR NUTRITIONAL YEAST 11/13/2020 1:21 PM Signed DATE OF SERVICE: 11/12/2020 PROBLEM: Brad Fleming presents for postop visit. 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 ? [facility] 11/03/2020 COMMENT The entire [...] Jenaro Ribeiro APRN.ANTONI Referring Provider: CAITLYN SNEED [[id number]] Allergies As of Date: 11/12/2020 Noted Allergy Reaction BEE VENOM PROTEIN (HONEY BEE) 08/27/2020 2 - Rash Comments: Rash spreads from bee stings PENICILLINS 09/07/2014 4 - Hives TIZANIDINE 05/07/2020 1 - Mental Status Change TRAMADOL 08/27/2020 14 - Other: See Comments Comments: dizziness Date Reviewed: 11/12/2020 Reviewed by: Jenaro Ribeiro APRN.SUPERVISOR NUTRITIONAL YEAST - Fully Assessed Reason for Visit: Established [...] 10/14/2020 Encounter Status:Closed by JENARO RIBEIRO on 11/13/20[facility] 96-13-2868ZRSUAeracvmhh (GYNML) BRAD FLEMING ([id number]) 1985 F Date Time Provider Department 11/06/20 [...] 10/14/2020 Encounter Status:Closed by JASMINA JACINTO on 11/24/20[facility] [id number] (GYNML) BRAD FLEMING ([id number]) 1985 F Date Time Provider Department 11/03/20 [...] 10/14/2020 Encounter Status:Closed by NANCY JAMISON on 11/03/20[facility] POSTPROC EVALon 61-47-7313LBBD POSTPROC EVALHNO ID: [id number] Author: Antonio Ma I, MD Service: Anesthesiology [...] October 28, 2020 TIME: 12:34 PM CSN: [id number] [facility] PRE-OPon 52-19-2556AHZP PRE-OPHNO ID: [id number] Author: Antonio Ma I, MD Service: Anesthesiology [...] October 28, 2020 TIME: 8:10 AM CSN: [id number] HospitalCYTOLOGYon 78-94-2619VPAPTKTR Specimen originated from [facility] Specimen #: [id number] Submitting Physician: CAITLYN ROBLEDO MD SPECIMEN SUBMITTED [...] WASHING (THINPREP AND CELL BLOCK) THIN PREP Non-Particleboard Factory Worker, CELL BLOCK, H&E, Initial Date of Report: 10/29/2020 Date of Procedure: 10/28/2020 Date of Receipt: 10/29/2020 Submitted by: CAITLYN ROBLEDO MD Location: [facility] Diagnostic interpretation performed at [facility], [address] [place] [address] [place] [address]. CLIA Number: [id number] HospitalHISTORY PHYSICALon 75-54-9221WRCBVEG PHYSICALHNO ID: [id number] Author: Bo Galdamez MD Service: Gynecology Author [...] feel that it is necessary. Aidee Mclain MDCharlton Memorial Hospital 76-81-1592MUZSWKR PROGHNO ID: [id number] Author: Anahy Medley RN Service: Nursing Author [...] REFERRAL (RECOMMENDATION): None Electronically Signed By: Anahy BedoyaKenmore Hospital ANAM ID: [id number] Author: Yolanda Cifuentes RN Service: Nursing Author Type: Registered Nurse Type: Nursing Progress Note Filed: 10/28/2020 12:24 PM Note Text: Scopolamine Transdermal Patch URL of this page: http://www.nlm.nih.gov/medlineplus/druginfo/meds/d806721.html Why is this medication prescribed? Scopolamine is [...] patch, follow the directions provided by the incoming inspector and these steps: 1. After washing the [...] you have about refilling (more content not included)...[facility] CenterOPERATIVE NOon 15-70-1748LMRJCPNKY NOHNO ID: [id number] Author: Caitlyn Sneed MD Service: Gynecology Oncology Author Type: Physician Type: Operative Report Filed: 11/10/2020 6:38 PM Note Text: OPERATIVE/PROCEDURE REPORT LOG ID: [id number] SURGERY/PROCEDURE DATE: 10/28/2020 INCISION/PROCEDURE START TIME: 9:17 AM INCISION CLOSE/PROCEDURE END TIME: 10:49 AM SURGEON(S)/PROCEDURALIST(S) AND SINGLE WIRE SAW OPERATOR(S): Surgeon(s) and Role: Panel 1: * Caitlyn [...] Fleming DATE: November 07, 2020 TIME: 1:19 [facility] NOPETER [facility] ID: [id number] Author: Bo Galdamez MD Service: Gynecology Author Type: Physician Type: Operative Report Filed: 11/04/2020 6:14 PM Note Text: DIDACTIC INSTRUCTOR OPERATIVE/PROCEDURE REPORT LOG ID: [id number] Surgery/Procedure Date: 10/28/2020 Incision/Procedure Start Time: 9:17 AM Incision Close/Procedure End Time: Surgeon(s)/Proceduralist(s) and Sewer Line Repairer(s): Surgeon(s) and Role: Panel 1: * Caitlyn [...] 28, 2020 TIME: 10:41 AM PAGER/CONTACT #: .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 [facility] 11/03/2020 COMMENT The entire [...] evidence of borderline tumor or malignancy on home furnishings sales representative frozen section (Dr. Coles). Intraoperative consultation performed at [facility], [address] [place] [address] GROSS DESCRIPTION A. Received fresh for frozen [...] There is no normal appearing ovarian parenchyma. Choir Teacher sections are submitted as follows: FSA1 cyst for frozen section, A2-A7 cyst in formalin for permanent section. The remainder of the specimen is subsequently submitted in cassettes A8-A14. WE/virgilio 10/28/2020 MANISHA/jessica 10/30/2020 Gross examination performed at [place] [address] Date of Report: 11/03/2020 Date of Procedure: 10/28/2020 Date of Receipt: 10/28/2020 Submitted by: CAITLYN ROBLEDO MD Location: [facility] Diagnostic interpretation performed at [facility], [address] [place] [address]. [place] Number: [id number] HospitalCNPNon [id number] (GYNML) BRAD FLEMING ([id number]) 1985 F Date Time Provider Department 10/23/20 SHO MILNER GYN During your visit today, we recorded the following information about you: Sho Milner RN 10/23/2020 4:08 PM Signed Patient's FMLA form completed and faxed with confirmation. Will place to be scanned. Sho Milner RN 11/17/2020 11:58 AM Signed Spoke with patient. She stated that [facility] updated that they faxed additional paperwork to our office. Paperwork was not received. Patient will call [employer] to have them send papers to office. Correct fax number given. Allergies As of Date: 10/23/2020 Noted Allergy Reaction BEE VENOM PROTEIN (HONEY BEE) 08/27/2020 2 - Rash Comments: Rash spreads from bee stings PENICILLINS 09/07/2014 4 - Hives TIZANIDINE 05/07/2020 1 - Mental Status Change TRAMADOL 08/27/2020 14 - Other: See Comments Comments: dizziness Date Reviewed: 10/14/2020 Reviewed by: Neva Moore APRN.SUPERVISOR NUTRITIONAL YEAST - Fully Assessed Reason for Visit: [place] Paperwork [[id number]] Prescriptions as of 11/17/2020 - ibuprofen (MOTRIN) [...] 10/14/2020 Encounter Status:Closed by SHO MILNER on 10/23/20[facility] Type and SCR (30D)on 97-39-8028LQU/RH(D)PositiveAmesbury Health CenterComment on above:Performed By: #### [id number] ####[facility] [place], [place] [id number] [id number] (ABAD) BRAD FLEMING ([id number]) 1985 F Date Time Provider Department 10/09/20 NANCY JAMISON During your visit today, we recorded the following information about you: Nancy Jamison RN 10/09/2020 12:24 PM Signed Procedure: Ovarian cystectomy Physician: Caitlyn Owusu Location: [facility]: Date AND Time: 10/28/20 MEDICAL CLEARANCE: TBd [...] Naprosyn(naproxen) Agrylin NSAIDS Pepto-Bismol Aleve Ecotrin Persantine Martina[place] Excedrin Plaquenil Anacin Heparin Plavix Ascriptin Herbals [...] - IV pain medication after surgery, IV DISPATCHER SERVICE CHIEF if ordered by MD, discharged home with a prescription for PO pain medication, pain management after surgery, side effects of pain medication (including constipation, dizziness, drowsiness, and medication interactions). DVT PROPHYLAXIS - Early ambulation, SCDs, injectable anticoagulants (heparin, lovenox, etc) RESPIRATORY - Incentive spirometer, coughing/deep breathing exercises, ambulation. RETURN TO WORK - As directed by physician, please send any FMLA papers to physician's executive secretary. SYMPTOMS TO NOTIFY MD - Fever, [...] if after hours patient instructed to call pick pulling machine operator and ask for the doctor console assembler. Patient and family have phone number to call 24 hours/day. Patient Evaluation: Verbalizes understanding Patient and/or family express understanding of upcoming surgery and the operative process. Questions answered. Follow Up Plan: Follow up as needed Supplemental Material Given: Pre-operative teaching packet provided to the patient: INPATIENT/OUTPATIEN (more content not included)...[facility]Saint [facility] Vital Signs Date TimeVital SignValuePerforming YljbyqeqpCtdqriae61-36-1913 09:14-0400Body peikau695.9 Minal Good MD Work Phone: [facility]09-09-2025 09:14-0400Body mass index (BMI) [Ratio]39.11 kg/m2Nancy Good MD Work Phone: [facility]09-09-2025 09:14-0400Body fukffi76.9 kgNancy Good MD Work Phone: [facility]09-09-2025 09:14-0400Diastolic blood lsdzlxib88 mm[Hg]Nancy Good MD Work Phone: [facility]09-09-2025 09:14-0400Systolic blood mm[Hg]Nancy Good MD Work Phone: [facility]10-24-2023 10:27-0400Body hnikil998.9 cmErica Fog LIFESTYLE COORDINATOR.SUPERVISOR NUTRITIONAL YEAST Work Phone: [facility]10-24-2023 10:27-0400Body cirqon98.44 kgErica Fog LIFESTYLE COORDINATOR.SUPERVISOR NUTRITIONAL YEAST Work Phone: [facility]10-24-2023 10:27-0400Diastolic blood mm[Hg]Jenny Fog LIFESTYLE COORDINATOR.SUPERVISOR NUTRITIONAL YEAST Work Phone: [facility]10-24-2023 10:27-0400Systolic blood mm[Hg]Jenny Fog LIFESTYLE COORDINATOR.SUPERVISOR NUTRITIONAL YEAST Work Phone: [facility]09-15-2022 09:52-0400Body uiegso711.9 cmErica Fog LIFESTYLE COORDINATOR.SUPERVISOR NUTRITIONAL YEAST Work Phone: [facility]09-15-2022 09:52-0400Body ribgmt52.17 kgErica Fog LIFESTYLE COORDINATOR.SUPERVISOR NUTRITIONAL YEAST Work Phone: [facility]09-15-2022 09:52-0400Diastolic blood kixumogh23 mm[Hg]Jenny Fog LIFESTYLE COORDINATOR.SUPERVISOR NUTRITIONAL YEAST Work Phone: [facility]09-15-2022 09:52-0400Systolic blood flgyocmr032 mm[Hg]Jenny Fog LIFESTYLE COORDINATOR.SUPERVISOR NUTRITIONAL YEAST Work Phone: [facility] Encounters Encounter DateEncounter [facility] ProviderFacilityStart: 97-37-0424rwnewltunr MARCO FINKFacility:[facility] HospitalStart: 01-14-2025 End: 91-07-3743quflncqezuFgtuhcz Sakina NILLFacility:[facility] Hospitaltart: 01-14-2025 End: 99-55-0910Xswlkta encounter procedureMichael R NILL 390-1942Vjhprl-ThvfmAshtabula County Medical Center General Surgery Eva Start: 40-35-1543qjyejgcrzyBcxxfjm NILLFacility:[facility] HospitalueStart: 12-23-2024 End: 11-99-4004bcffmvjhiySMBWOZU HAIBACHFacility:[facility] Hospitaltart: 12-02-2024 End: 03-40-0768hfclhwsyvfEZT Jean Paul GOODFacility:[facility] Hospitaltart: 11-21-2024 End: 83-89-7306Ppntpo-up encounterNancy Good MD Work Phone: Obstetrics/GynecologyStart: 11-21-2024 End: 99-78-1640Ojnvekg encounter procedureOb Particleboard Factory Worker Main Us Work Phone: GynecologyComment on above:Pelvic pain in female; Dyspareunia in femaleStart: 11-21-2024 End: 46-65-6936dwpiazvigkFZW L STEPHENSFacility:[facility] [place] [facility] Hospitaltart: 11-19-2024 End: 99-84-4849Lsuoxth encounter procedureNancy Good MD Work Phone: Obstetrics/GynecologyComment on above:Encounter for gynecological examination (general) (routine) without abnormal findings (Primary Dx); Pelvic pain in female; Dyspareunia in female; Vulvar lesionStart: 11-19-2024 End: 14-63-2693Mniwkqv encounter statusNancy Good MD Work Phone: [facility] Systemtart: 11-19-2024 End: 22-23-4437bynifrjkvzCVT L STEPHENSFacility:[facility] [place] [facility] Hospitaltart: 90-04-4750Jsgzdxcgr for gynecological examination (general) (routine) without abnormal findingsNANCY LOTTOhioHealth Dublin Methodist HospitalStart: 04-05-2024 End: 10-48-0015NdrwulZsvhiLoreta Ye APRN.CNP Work Phone: Obstetrics/GynecologyComment on above:Refill Request Start: 01-08-2024 End: 69-28-7396Gorcrmhvg encounterJenny Ye APRN.ANTONI Work Phone: Obstetrics/GynecologyStart: 12-29-2023 End: 54-31-4758RjfuqkCyuus Lynne Fog APRN.SUPERVISOR NUTRITIONAL YEAST Work Phone: Obstetrics/GynecologyComment on above:Refill Request Start: 80-04-9459Ajqpjwsoy encounterJenny Ye APRN.SUPERVISOR NUTRITIONAL YEAST Work Phone: CB/GynecologyComment on above:ResultsStart: 01-05-2023 End: 08-56-0717fysooqyixlPikehclh Kshettry MD Work Phone: Obstetrics/GynecologyStart: 01-05-2023 End: 28-56-7288Wwtgjbd encounter Jet Willard MD Work Phone: cOLUMBIA ROADStart: 01-03-2023 End: 85-84-0435epykjpcfviFCMEO LYNNE FOGFacility:[facility] HospitalStart: 01-03-2023 End: 68-03-9268Rfjbctq encounter procedureJenny Ye APRN.SUPERVISOR NUTRITIONAL YEAST Work Phone: Obstetrics/GynecologyComment on above:Encounter for gynecological examination (general) (routine) without abnormal findings (Primary Dx); Screening for malignant neoplasm of cervix; History of abnormal cervical Pap smear; Counseling for initiation of control method; Encounter for screening breast examination; Abnormal uterine bleeding (AUB); PCOS (polycystic ovarian syndrome); Vaginal dischargeStart: 01-03-2023 End: 36-04-3987Yhhwgzv encounter statusJenny Ye APRN.CNP Work Phone: [facility] Work Phone: Start: 77-63-1396Kmonsqzku for general adult medical examination without abnormal findingsDR KEILA MCCORMICK .[facility]Start: 04-28-2022 End: 22-50-4521wvalpfxvvsUV KEILA HOY .Facility:G6Wnznu: 04-28-2022 End: 66-72-7381Mqbaqxhfr for general adult medical examination without abnormal findingsDR KEILA HOY .Facility:B1Ozjsd: 04-07-2022 End: 98-57-2243kayqnfalrvVD KEILA HOY .Facility:G5Ttbmn: 93-94-5545Wfdjqahlu encounterJenny Ye APRN.CNP Work Phone: CB/GynecologyComment on above:ResultsStart: 02-21-2022 End: 88-18-9855dpznsrajyfTYLDC LYNNE FOGFacility:[facility]ertart: 02-21-2022 Telephone encounterJenny Ye APRN.CNP Work Phone: Obstetrics/GynecologyComment on above:Urinary Problem Start: 02-17-2022 End: 60-31-6559kanvpvcdxaGY KEILA HOY .Facility:W5Veqit: 10-73-8791Ntotvexzw encounterJenny Ye APRN.CNP Work Phone: Obstetrics/GynecologyComment on above:ResultsStart: 11-25-2021 End: 76-04-9918Upjlwoj encounter procedureJenny Ye APRN.CNP Work Phone: Obstetrics/GynecologyComment on above:Encounter for gynecological examination (general) (routine) without abnormal findings (Primary Dx); Encounter for screening breast examination; PCOS (polycystic ovarian syndrome); Menorrhagia with regular cycle; Medication managementStart: 11-25-2021 End: 45-11-3856Jcggnlf encounter statusJenny Ye APRN.CNP Work Phone: Obstetrics/GynecologyStart: 10-21-2021 End: 81-21-8591yvwiyvncyrOQ KEILA HOY .Facility:U6Nikud: 10-12-2021 End: 17-05-8464krqpjscsbmVU KEILA HOY .Facility:T7Xcszt: 07-01-2021 End: 26-11-8616clqtqgesqpZJ KEILA HOY .Facility:R2Bqutd: 12-04-2020 End: 28-14-5096Odojponlpy hospital visit by physicianCt [facility] Radiology Ct ScanComment on above:Post-operative state [Z98.890]Start: 10-09-2017 End: 06-04-8534Koweolr encounterDEFAULT PHYSICIANFacility:[facility] Procedures DateProcedureProcedure DetailPerforming ClinicianStart: 85-38-3354Ki pelvic nonobstetric real-time image completeNancy Good MD Work Phone: Start: 38-13-5612Ar pelvic nonobstetric real-time image completeJenny Ye LIFESTYLE COORDINATOR.SUPERVISOR NUTRITIONAL YEAST Work Phone: Start: 38-39-0255Wr abdomen & pelvis w/contrast materialStepalicia Jacinto LIFESTYLE COORDINATOR.SUPERVISOR NUTRITIONAL YEAST Work Phone: Start: 24-55-1101Gggqevog screenComment on above: Performed By: #### [id number] ####[id number] [place], [place] [phone] NILL Dilation and curettageMichael NILL Excision of cyst of ovaryMichael NILL Plan of Treatment DateCare ActivityDetailAuthorStart: 28-46-1801BRP TestingHPV TestingBlanchard Valley Health Systemtart: 19-64-8040Asg TestingPap TestingGaithersburg ClinicStart: 01-04-2028 Screening for malignant neoplasm of cervixCervical Cancer ScreeningGaithersburg ClinicStart: 11-21-2025 End: 82-82-8206Nlrdtgy encounter lhwlsanot21/11/2026 10:45 AM EDT Office Visit Obstetrics/Gynecology [address] [place] [address] [place] [address] [address] [facility] [place] [address] annualObstetrics/GynecologyComment on above:annualStart: 61-80-8066ASB TESTINGHPV TESTINGBlanchard Valley Health Systemtart: 13-31-7959GHY TESTINGPAP TESTING [facility] Systemtart: 12-02-2024 End: 94-61-6360Yvxjnwf encounter gcpsdnowj51/22/2025 11:35 AM EDT Office Visit Obstetrics/Gynecology [address] [place] [address] [place] [address] [place] [address] Vulvar lesion [N90.89]Obstetrics/GynecologyComment on above:Vulvar lesion [N90.89]Start: 11-20-2024 End: 43-95-0730Frszhwa encounter wvvenkdhp49/10/2025 2:30 PM EDT Office Visit Gynecology [address] [address] Us, Brand Strategy Manager [address] [place] [address] Pelvic pain in female [R10.2]; Dyspareunia in female [N94.10]GynecologyComment on above:Pelvic pain in female [R10.2]; Dyspareunia in female [N94.10]Start: 11-19-2024 End: 50-26-5237Ngb endometriosis confirmed by laparoscopy [PhenX]ENDOMETRIOSIS [facility] Anc Imaging Routine Pelvic pain in female Dyspareunia in female Expected: 11/19/2024, Expires: 11/19/2025[facility] Work Phone: Comment on above:Expected: 11/19/2024, Expires: 11/19/2025Start: 11-19-2024 End: 17-78-0146Chguwae encounter nuypqcadj24/09/2025 9:20 AM EDT Office Visit Obstetrics/Gynecology [address] [place] [address] [place] [address] [place] [address] AnnualObstetrics/GynecologyComment on above:AnnualStart: 11-11-2024 Influenza vaccinationInfluenza Vaccine (#1)[facility] Systemtart: 01-09-2024 End: 59-55-4316Qjughfq encounter rvxpxeviy89/29/2024 11:00 AM EDT Office Visit Obstetrics/Gynecology [address] [facility] [place] [address] Jenny Ye APRN.SUPERVISOR NUTRITIONAL YEAST [address] [facility] [place] [address] annualObstetrics/GynecologyComment on above:annualStart: 45-75-0137Tdiqm-19 Vaccine ()Covid-19 Vaccine ()[facility]tart: 25-25-9063Guznehdtx vaccinationInfluenza Vaccine (#1)[facility] Systemtart: 01-03-2023 End: 38-85-1147NGJU-S BLDCUpper Valley Medical Center Work Phone: Comment on above:Expected: 01/03/2023, Expires: 01/04/2024Start: 01-03-2023 End: 27-42-0282Fzrcdhrkiz A1c in BloodPremier Health Atrium Medical Center Work Phone: Comment on above:Expected: 01/03/2023, Expires: 01/04/2024Start: 01-03-2023 End: 23-81-7839OFZFMIK, FREEPremier Health Atrium Medical Center Work Phone: Comment on above:Expected: 01/03/2023, Expires: 01/04/2024Start: 01-03-2023 End: 36-18-2913VAYGDK US WHIPELVIC US WHI Anc Imaging Routine Abnormal uterine bleeding (AUB) PCOS (polycystic ovarian syndrome) Expected: 01/03/2023, Expires: 01/04/2024[facility] Work Phone: Comment on above:Expected: 01/03/2023, Expires: 01/04/2024Start: 01-03-2023 End: 81-34-6745Cgcfodwzsdiz [Mass/volume] in Serum or PlasmaPremier Health Atrium Medical Center Work Phone: Comment on above:Expected: 01/03/2023, Expires: 01/04/2024Start: 84-90-1874Zbdit-19 Vaccine ()Covid-19 Vaccine ()[facility]: 01-95-5953Dqzdkdhyhr Assessment Depression AssessmentBlanchard Valley Health Systemtart: 02-21-2022 End: 40-57-5669Uyxnkoes identified in Urine by CulturePremier Health Atrium Medical Center Work Phone: Comment on above:Expected: 02/21/2022, Expires: 04/23/2022Start: 14-51-1181XZADR-19 VACCINE (4 - Booster for Pfizer series) COVID-19 VACCINE (4 - Booster for Pfizer series)[facility] Systemtart: 41-53-7217Snyvbtmlq vaccinationINFLUENZA (#1)[facility]tart: 10-27-2021 COVID-19 VACCINE (3 - Booster for Pfizer series)COVID-19 VACCINE (3 - Booster for Pfizer series)[facility]: 61-89-6846ZIBPRGQSWC ASSESSMENT DEPRESSION ASSESSMENTBlanchard Valley Health Systemtart: 06-18-1384CSI Vaccine (1 - 3-dose SCDM series)HPV Vaccine (1 - 3-dose SCDM series)[facility] Systemt[facility]: 28-15-9575Uyjkpwrad B Vaccine (1 of 3 - 19+ 3-dose series)Hepatitis B Vaccine (1 of 3 - 19+ 3-dose series)[facility]tart: 02-66-9744Lipxt microalbumin profileBlanchard Valley Health Systemtart: 84-78-8078SAXKIR PCP TEAM CHRONIC DISEASE VISIT ANNUAL PCP TEAM CHRONIC DISEASE VISITBlanchard Valley Health Systemtart: 94-93-3645Lwzmcvc ScreeningAnxiety ScreeningBlanchard Valley Health Systemtart: 76-97-4881RM CONTROLLED (<130/80)BP CONTROLLED (<130/80)[facility]: 92-42-6284Irmlgqlnnc ScreeningDepression ScreeningBlanchard Valley Health Systemtart: 61-73-2877VKVXCFQEV C SCREENINGHEPATITIS C SCREENINGBlanchard Valley Health Systemtart: 62-48-8329Eduumarem C screeningHepatitis C ScreeningBlanchard Valley Health Systemtart: 81-45-3581KEK SCREENINGHIV SCREENINGOur Lady of Mercy Hospital - Andersonrt: 16-24-9788UGX screeningHIV ScreeningBlanchard Valley Health Systemtart: 21-62-8040Briyl depression screening assessmentDEPRESSION SCREENING [facility]: 03-00-1812YJWKNQJMU B (1 of 3 - 3-dose series)HEPATITIS B (1 of 3 - 3-dose series)[facility] Systemtart: 62-66-4870Kzfbyepyk B Vaccine (1 of 3 - 3-dose series)Hepatitis B Vaccine (1 of 3 - 3-dose series)[facility] HospitalBACTERIAL VAGINOSIS NAATBACTERIAL VAGINOSIS NAAT Lab Routine Vaginal discharge 01/03/2023 11:00 AM [facility] Work Phone: Biopsy vulva/perineum 1 lesion spxBIOPSY OF VULVA Procedures Routine Vulvar lesion Ordered: 5CAshtabula General HospitalComment on above:Ordered: 5CANDIDA/TRICHOMONAS NAATCANDIDA/TRICHOMONAS NAAT Lab Routine Vaginal discharge 01/03/2023 11:00 AM [facility] Work Phone: PAP TESTPAP TEST Lab Routine Screening for malignant neoplasm of cervix History of abnormal cervical Pap smear 01/03/2023 10:50 AM [facility] Work Phone: [facility] Immunizations Immunization DateImmunizationNotesCare HqebxeypJmgqnkrs97-27-0343togjfvyzn virus vaccine, unspecified formulationNancy Good MD Work Phone: [facility] HospitalErayuw52-91-3804nqjartarf virus vaccine, unspecified formulationErica Chary LIFESTYLE COORDINATOR.SUPERVISOR NUTRITIONAL YEAST Work Phone: [facility] HospitalStsabm34-30-0144XFDCT-99 original vaccine, age 12+ yr, monovalent (PFIZER-BIONTECH - PURPLE TOP)Nancy Good MD Work Phone: [facility] HospitalOnedjn98-51-8712UVRWH-11 original vaccine, age 12+ yr, monovalent (PFIZER-BIONTECH - CURRIE TOP)Nancy Good MD Work Phone: [facility] HospitalZodyhv10-55-3192FCTI-KaY-9 mRNA (gocyyrtgvdc-etvx-ogpzpri) vaccineMichael NILL [phone]-ZzorbAshtabula County Medical Center General Surgery [place] 51-34-2479WIYAI-19 original vaccine, age 12+ yr, monovalent ([employer] - CURRIE TOP)Nancy Good MD Work Phone: [facility] HospitalCgnfmu94-55-9466IEWP-QyM-7 mRNA (ndxlixbmrqi-hnyj-pnkalfu) vaccineMichael NILL [phone]-RjkheAshtabula County Medical Center General Surgery [place] 80-96-4926zuufubbpn virus vaccine, unspecified formulationErica Fog LIFESTYLE COORDINATOR.SUPERVISOR NUTRITIONAL YEAST Work Phone: [facility] Payers DatePayer CategoryPayerPolicy [id number] Cross Blue ShieldBLUE CARD PPO OOS Member Subscriber Plan / Payer (Effective 2024-Present) Name: Annette Flemingember ID: [id number] Relation to Subscriber: Self Name: Brad Fleming Payer ID: [id number] (NAIC) Type: PPO Address: [facility] [id number] [place] [id number] [id number] 2..1.346205.3.57[id number] 2..1.520549.3.57[id number] 2..1.686107.3.57[id number] 2..1.917966.3.57[id number] 2..840.1.429071.3.57[id number] 2..840.1.147345.3.57[id number] 2.0.1.769642.3.579.2.25[id number] [id number] Social History DateTypeDetailFacilityStart: 08-27-2020 End: 99-67-9616Joeznix smoking status NHISNever smoked tobaccoMercy Health West Hospital Start: 08-27-2020 End: 44-38-5231Autqvxj use and exposureSmokeless tobacco non-userBlanchard Valley Health Systemtart: 11-25-2021 End: 55-01-2432Lcedayz intakeCurrent drinker of alcohol (finding)[facility] Systemtart: 32-48-1689Nggekhw SDOH Alcohol CommentrareClevelatrium health carolinas medical center ClinicStart: 99-81-1393Cky Assigned At BirthNot on fileBlanchard Valley Health Systemtart: 11-15-2021 End: 00-68-1480Ozhvusob to SARS-CoV-2 (event)Not sureBlanchard Valley Health Systemtart: 01-03-2023 End: 03-51-2960Nddpnwg of Social functionBlanchard Valley Health Systemtart: 01-03-2023 End: 33-92-3563Flffpbu use panelCrystal Clinic Orthopedic Centertart: 06-26-2020 National Score (1-100), lower number is lower cayz25UpjbsioeqBlanchard Valley Health Systemtart: 11-02-2020 End: 84-18-6473Ordibkvl to SARS-CoV-2 (event)Unable to assessMercy Health West Hospital Sexual OrientationAshtabula County Medical Center General Surgery [place] Start: 41-56-1914NrkScrwxx (finding)[facility] Clinical Notes 10-28-2020 to 01-15-2025 Note Date & ZrtcVnwzOcxatqgu55-70-0979 NoteHNO ID: [id number] Author: BONY RICHARDS RT(R) Service: Radiology Author [...] PATIENT PRESENTS WITH AN IMPLANTABLE OR ATTACHED PLASTER LATHER: No RADIOLOGY DEPARTMENT: MR; Exam(s) Completed: Body: Female Pelvis. Anesthesia: No. Aromatherapy Administered: No PERIPHERAL IV DATA: Site assessment: Clean,Dry and Intact, Site disposition Discontinued SIGNED BY: RT Frederick(R) January 15, 2025 7:52 [facility]11-05-2025 NoteHNO ID: [id number] Author: EMMA BURR RN Service: Nursing Author [...] Fleming DATE: January 15, 2025 TIME: 7:27 [facility]11-04-2025 NoteGeneral Surgery Office/Clinic Note Chief Complaint [...] Status SARS-CoV-2 (COVID-19) mRN (more content not included)...[facility] HospitalComment on above:Result Comment: Electronically Signed By: Chico COLE MD\Date and Time Signed: 01/14/25 15:21 LFA67-30-0327 NoteHNO ID: [id number] Author: MARCO FINK APRN.SUPERVISOR NUTRITIONAL YEAST Service: ? Author Type: Nurse Practitioner Type: Progress Notes Filed: 12/23/2024 12:10 Note Text: [facility] [place] Department of Benign Gynecology [facility] PATIENT NAME: Brad Fleming DATE: 12/23/2024 Patient Name and verified: Yes Patient Location: [place] This Virtual Visit was completed using My Chart Zoom platform. I have communicated my name and active licensure. The patient's identity and physical location were verified at the time of this visit. Either the patient or their legal home furnishings sales representative has been informed of the risks [...] surface of a mucinous cystadenoma (see comment). 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 [facility] 11/03/2020 CONVERTED CLINICAL HISTORY CYST OF RIGHT OVARY LAPAROSCOPIC OVARIAN CYSTECTOMY FSA1: Mucinous neoplasm. No evidence of borderline tumor or malignancy on home furnishings sales representative frozen section (Dr. Coles). Intraoperative consultation performed at [facility] 11/21/2024 2:11 PM - [facility], Scanning [...] 82.8 cm? Endometrial thicknes (more content not included)...[facility] 12-02-2024 NoteHNO ID: [id number] Author: NANCY GOOD MD Service: ? Author [...] and anesthetized with 3mL 1% lidocaine. 5mm [place] punch used to biopsy region. HEMOSTASIS: Obtained with suture 4-0 vicryl Procedure Summary: Patient tolerated procedure well. Pt tolerated the procedure well ASSESSMENT: left vulvar lesions PLAN: Specimens labeled and sent to Pathology. Will notify patient of results in 1-2 weeks. Post-procedure instructions reviewed and written material given to the patient. Nancy Good, [facility]09-22-2025 NoteHNO ID: [id number] Author: MICHELLE PAT MA Service: ? Author Type: Coal Chemist Type: Progress Notes Filed: 12/02/2024 11:27 Note Text: Tenter Frame Back Tender offered: Patient accepts, visit chaperoned by Michelle Pat MA. [facility]09-11-2025 Telephone encounter Note* Telephone Encounter - Shaunna Vasquez RN - 11/21/2024 3:18 PM EDT Patient calling back in to review message below. All questions answered. Patient's mom also has questions - advised would send information in [employer] can let mom review, message back or call in withany further needs/complaints. Patient verbalized understanding. Shaunna Vasquez RN [facility]09-11-2025 Miscellaneous Notes* Telephone Encounter - Shaunna Vasquez RN - 11/21/2024 3:18 PM EDT Patient calling back in to review message below. All questions answered. Patient's mom also has questions - advised would send information in [employer]), can let mom review, message back or [...] will discuss treatment options documented in this encounterMercy Health West Hospital09-11-2025 Telephone encounter Note * Telephone Encounter - Shaunna Vasquez RN - 11/21/2024 2:34 PM EDT Called patient, verified name and , message below given. Patient verbalizes understanding, denies further questions/concerns. Shaunna Vasquez RN [facility]09-11-2025 Telephone encounter Note* Telephone Encounter - Nancy Good MD - 11/21/2024 2:24 PM EDT Benign appearing left ovarian cyst, small fibroids and The posterior cervix is adherent to surrounding bowel with tethering. There is thickening of the left uterosacral ligament. Findings are cw endometriosis. Consult to migs placed.Migs will discuss treatment options [facility]09-11-2025 NoteHNO ID: [id number] Author: RICCO BERMUDEZ MD Service: ? 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 Please see report under the imaging tab. 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 Please see report under the imaging tab. Ricco Bermudez MD documented in this encounterMercy Health West Hospital09-09-2025 NoteHNO ID: [id number] Author: NANCY GOOD MD Service: ? Author [...] - has annually and ordered by her investment consultant Patient concerns for STD exposure: No. 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 As applicable, any other physician, advance practice provider, medical student, or other health professional student that will be observing or involved in the sensitive examination for educational or training purposes was discussed with the Patient or Authorized Choir Teacher. The Patient or Authorized Choir Teacher has agreed to proceed with the sensitive [...] external genitalia normal, normal Bartholin's glands, urethra, [place]'s glands, left sided pigmented ? Skin tag vs lesion, right side pigmented lesions, no cervical lesions, good vaginal support, physiologic discharge present, normal appearing perineal body and perianal region BIMANUAL: uterus normal size, shape and consistency, no adnexal masses, and non-tender RECTOVAGINAL: deferred. NEURO: alert and oriented x3,exam grossly non-focal EXTREMITIES: normal ASSESSMENT/PLAN: 1) Health maintenance: Pap/H (more content not included)...[facility]09-09-2025 History of Present illness Narrative* Nancy Good [...] - has annually and ordered by her investment consultant Patient concerns for STD exposure: No. 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 As applicable, any other physician, advance practice provider, medical student, or other health professional student that will be observing or involved in the sensitive examination for educational or training purposes was discussed with the Patient or Authorized Choir Teacher. The Patient or Authorized Choir Teacher has agreed to proceed with the sensitive [...] external genitalia normal, normal Bartholin's glands, urethra, [place]'s glands, left sided pigmented ? Skin tag [...] Josue MA - 11/19/2024 9:09 AM EDT Tenter Frame Back Tender offered: Patient declines. documented in this encounterMercy Health West Hospital09-09-2025 Instructions* Patient Instructions* Nancy Good MD - 11/19/2024 9:38 AM EDT Images from the original note were not included. ACOG Screening Guidelines The following health screening schedule is recommended by the [employer] (ACOG). Some [...] should be done every 3 years from gaq54-76. From age 30-65, pap smears can be [...] Mass Index (BMI) For more information: My [facility] BMI Screening for health risks with [...] and Vitamin D Supplementation For more information:My [facility] Osteopenia Calcium Age Recommended Daily Allowance [...] physical activity (or a combination of both). [employer] (ACOG) and [...] hormonal IUD s cause periods to be arborist climber and some women will have spotting or [...] likely to carry it. See the website: www.ecSanguinehel CoScale.org. How effective is it? Plan B is [...] the procedure. To schedule a consultation call [phone] or to learn more about vasectomy, visit [facility].org/vasectomy Reference Centers for Disease Control: [place] [...] you expected, take a test. Recovery and Clive What are the side effects of the [...] the correct dosage (amount). A note from [facility] The morning-after pill is a form [...] contraception, talk to your healthcare provider. References: Turkish Family Physician. Emergency Contraception. (https://www.aafp.org/afp/0815/p707.html) Accessed 09/10/2021. Centers for Disease Control and Prevention. Emergency Contraception. (https://www.cdc.gov/reproductivehealth/contraception/mmwr/spr/emergency.html) Accessed 09/10/2021. National Health Service. Emergency contraception (morning after pill, IUD). (https://www.nhs.uk/conditions/contraception/emergency-contraception/) Accessed 09/10/2021. [employer]. Emergency Contraception. (https://www.acog.org/womens-health/faqs/emergency-contraception) Accessed 09/10/2021. U.S. Department of Health and Human Services, Office on Women's Health. Emergency contraception. (ht tps://www.womenshealth.gov/a-z-topics/emergency-contraception) Accessed 09/10/2021. Terms Linked In This Article: control (https://LP33.TV.OneID.[place]/health/articles/31600-stods-traytbx-ekavzvo) condom (https://[employer]/health/drugs/9404-condoms) control pill (https://[employer]/health/drugs/7856-gxeic-wuwegpr-the-pill) control shot (https://[employer]/health/drugs/4570-rktz-joglang%C2%CX-qdzlu-kqrcp ol-shot) rape (https://[employer]/health/articles/1300-qpqq-pij-date-rape) Copper IUD (https://[employer]/health/drugs/47031-yehczkyu%C2%UA-uqwgqa-iac) Levonorgestrel IUD (https://[employer]/health/drugs/36721-hpgufywnjrgmhd-otwyovexpcis-l evice-iud) normal reproductive cycle (https://[employer]/articles/9550-gjirtw-fgsfpibmprdi-system) development process (https://[employer] [place]/health/articles/1374-vixpc-omxhpmtbphr-sta ngp-nk-ztmavr) test (https://[employer] [place]/health/articles/7772-viikcedbi-ziaoy) Nausea and vomiting (https://[employer] [place].org/health/symptoms/8106-nausea--vomiting) Headaches (https://[employer] [place].org/health/diseases/9639-headaches) dizziness (https://[employer] [place].org/health/symptoms/6422-dizziness) Pain in your abdomen (https://[employer]/health/symptoms/0297-gxflgcyvm-qpdw) earlier signs of (https://[employer] [place]/health/articles/9383-muheqyvuj-ev-i-) sexually transmitted infections (STIs) (https://[employer] [place].org/health/diseases/9138-sexually -transmitted-diseases--infections-stds--stis) body mass index (BMI) (https://my.[facility].org/health/articles/1070-zlvh-rfnp-index-bmi) intrauterine device (IUD) (https://my.[facility]/health/drugs/37207-vivfglkp%C2%FU-orhhyb-twh) Last reviewed by a [facility] medical professional on 09/10/2021 Original Article https://my.[facility]/health/treatments/48560-ztdnncf-exdsp-giuc Date Published September 23, 2021 Call Appointment Center 03/10 [phone] Medroxyprogesterone acetate (Depo-Provera) For more information: My [facility] Depo Provera Commonly referred to as [...] glands, joint and muscle pain, weakness and Guillain-[place] syndrome. documented in this encounterMer[facility] Hospital09-09-2025 NoteHNO ID: [id number] Author: JACQUELINE JOSUE MA Service: ? Author Type: Coal Chemist Type: Progress Notes Filed: 11/19/2024 09:54 Note Text: Tenter Frame Back Tender offered: Patient declines.[facility]01-24-2025 Telephone encounter Note* Telephone Encounter - Ruthy Veliz RN - 04/05/2024 10:59 AM EST Annual 11/2024 [facility]01-24-2025 Miscellaneous Notes* Telephone Encounter - Ruthy Veliz RN - 04/05/2024 10:59 AM EST Annual 11/2024 * Telephone Encounter - Marissa Mccabe RN - 04/05/2024 10:47 AM EST Received call from pharmacy requesting refill. Last DIDACTIC INSTRUCTOR annual: 01/03/2023 Upcoming DIDACTIC INSTRUCTOR annual: None (cancelled 01/09/2024) Requested Prescriptions Pending Prescriptions Disp Refills metFORMIN ER (GLUCOPHAGE XR) 750 mg 24 hr tablet 180 tablet 0 Sig: Take 1 tablet by mouth two times a day. Call placed to patient, transferred to PSS to schedule annual. Message sent to Jenny Ye CNP. Marissa Mccabe RN documented in this encounterMer[facility] Hospital01-24-2025 Telephone encounter Note * Telephone Encounter - Marissa Mccabe RN - 04/05/2024 10:47 AM EST Received call from pharmacy requesting refill. Last DIDACTIC INSTRUCTOR annual: 01/03/2023 Upcoming DIDACTIC INSTRUCTOR annual: None (cancelled 01/09/2024) Requested Prescriptions Pending Prescriptions Disp Refills metFORMIN ER (GLUCOPHAGE XR) 750 mg 24 hr tablet 180 tablet 0 Sig: Take 1 tablet by mouth two times a day. Call placed to patient, transferred to PSS to schedule annual. Message sent to Jenny Ye CNP. Marissa Mccabe RN [facility]11-01-2024 Telephone encounter Note* Telephone Encounter - Ruthy Veliz RN - 01/12/2024 11:10 AM EDT Call placed to the patient. Left a message for the patient to call the office and speak with a nurse for any further concerns with pain. [facility]11-01-2024 Miscellaneous Notes* Telephone Encounter - Ruthy [...] for pain and medication. documented in this encounterMercy [facility] Hospital10-30-2024 Telephone encounter Note * Telephone Encounter - Ruthy Veliz RN - 01/10/2024 10:23 AM EDT Call placed to the patient. Left a message for the patient to call the office and speak with a nurse. [facility]10-28-2024 Telephone encounter Note* Telephone Encounter - Shaunna Vasquez RN - 01/08/2024 9:52 AM EDT Left message on voicemail to return the call to the office for message below. Shaunna Vasquez RN [facility]10-28-2024 Telephone encounter Note* Telephone Encounter - Ruthy Maier - 01/08/2024 6:53 AM EDT Patient sent a message that she wants an appt for pain and medication. [facility]10-18-2024 Telephone encounter Note* Telephone Encounter - Marissa Mccabe RN - 12/29/2023 10:36 AM EDT Received call from pharmacy for refill request. Last DIDACTIC INSTRUCTOR annual: 01/03/2023 Upcoming DIDACTIC INSTRUCTOR annual: 01/09/2024 (pt requesting before appt) Requested Prescriptions Pending Prescriptions Disp Refills metFORMIN ER (GLUCOPHAGE XR) 750 mg 24 hr tablet 180 tablet 0 Sig: Take 1 tablet by mouth two times a day. Message forwarded to Jenny Ye CNP. Marissa Mccabe RN [facility]10-18-2024 Miscellaneous Notes* Telephone Encounter - Marissa Mccabe RN - 12/29/2023 10:36 AM EDT Received call from pharmacy for refill request. Last DIDACTIC INSTRUCTOR annual: 01/03/2023 Upcoming DIDACTIC INSTRUCTOR annual: 01/09/2024 (pt requesting before appt) Requested Prescriptions Pending Prescriptions Disp Refills metFORMIN ER (GLUCOPHAGE XR) 750 mg 24 hr tablet 180 tablet 0 Sig: Take 1 tablet by mouth two times a day. Message forwarded to Jenny Ye CNP. Marissa Mccabe RN documented in this encounterMercy [facility] Hospital10-28-2023 History of Present illness Narrative* Tayla Willard MD - 01/07/2023 5:14 PM EDT The patient presents for requested ultrasound. Full report available in the Imaging tab in Epic. Tayla Willard MD documented in this encounterMercy [facility] Hospital10-27-2023 Miscellaneous Notes* Telephone Encounter - Shaunna Vasquez RN - 01/06/2023 11:23 AM EDT [employer] message sent with information below. Shaunna Vasquez [...] Tracking cycles on an shanique, such as SonoPlot will help to assist in ovulatory timing [...] smoking. Jenny Ye APRN.CNP documented in this encounterMercy Health West Hospital10-24-2023 Miscellaneous Notes* Addendum Note - Jenny Ye APRN.CNP - 01/03/2023 10:58 AM EDTAddended by: JENNY YE on: 01/03/2023 10:58 AM Modules accepted: Orders documented in this [facility]10-24-2023 Nurse Note* Michelle Pat MA - 01/03/2023 10:27 AM EDT Tenter Frame Back Tender offered: Patient declines. 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 Jenny Ye APRN.CNP documented in this encounterMercy Health [facility] Hospital12-12-2022 Miscellaneous Notes* Telephone Encounter - Ashia [...] she has a UTI documented in this encounterMercy [facility] Hospital09-15-2022 Miscellaneous Notes* Telephone Encounter - Ashia [...] Thanks! Jenny Ye APRN.ANTONI documented in this encounterMercy Health [facility] Hospital09-15-2022 Nurse Note* Michelle Pat MA - 11/25/2021 9:51 AM EDT Tenter Frame Back Tender offered: Patient declines. 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 I have reviewed the Advanced Practice Registered Nurse (LIFESTYLE COORDINATOR) Student's documentation and verified the findings in the note as written. Any additions or changes are noted in bold/italics. I agree with the above. Labs ordered. Pap utd. Metformin refilled. Signature: Jenny Ye Date: 11/25/2021 Time: 10:27 AM Jenny Ye APRN.SUPERVISOR NUTRITIONAL YEAST documented in this encounterMercy Health West Hospital09-30-2021 NoteHNO ID: [id number] Author: Jasmina Jacinto APRN.ANTONI Service: ? Author [...] features. Consider surgical evaluation or consultation with DIDACTIC INSTRUCTOR Oncology 12/04/20 CT Abdomen/Pelvis IMPRESSION: 1. ?Ovoid [...] and able t (more content not included)... [id number] NoteHNO ID: [id number] Author: Caitlyn Sneed MD Service: ? Author [...] of a mucinous cystadenoma (see comment). ? [facility] 11/03/2020 COMMENT The entire [...] features. Consider surgical evaluation or consultation with DIDACTIC INSTRUCTOR Oncology HEALTH MAINTENANCE: Last mammogram: Spring 2020- [...] anemia, and prior ectopic (more content not included)...[facility] [id number] NoteHNO ID: [id number] Author: Jenaro Ribeiro APRN.SUPERVISOR NUTRITIONAL YEAST Service: ? Author Type: Nurse Practitioner Type: Progress Notes Filed: 11/13/2020 1:21 PM Note Text: DATE OF SERVICE: 11/12/2020 PROBLEM: Brad Fleming presents for postop visit. 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 ? [facility] 11/03/2020 COMMENT The entire [...] to further discuss pathology results. Jenaro Ribeiro APRN.[facility]08-18-2021 NoteHNO ID: [id number] Author: Sherry Braun (Power Digger Operator) Service: Pharmacy Author Type: ? Type: Plan of Care Filed: 10/28/2020 12:55 PM Note Text: PHARMACY BEDSIDE DELIVERY SERVICE Patient Name: Brad Fleming The marked outpatient medications were FILLED AND PICKED UP AT [facility]. Medication List START taking these medications [...] or your Primary Care Provider. Sherry Braun ([employer]auty Works) PAGER: [phone] October 28, 2020 12:55 [facility]08-18-2021 NoteHNO ID: [id number] Author: Desirae Dillon ([employer]) Service: Pharmacy Author Type: ? Type: Plan [...] or your Primary Care Provider. Desirae Dillon (Power Digger Operator) PAGER: [phone] October 28, 2020 12:43 [facility]08-18-2021 NoteHNO ID: [id number] Author: SYBIL Nixon Service: ? Author Type: Fire Equipment Inspector Type: Anesthesia Procedure Notes Filed: 10/28/2020 9:08 [...] October 28, 2020 TIME: 9:08 AM CSN: [id number] NoteHNO ID: [id number] Author: SYBIL Nixon Service: ? Author Type: Fire Equipment Inspector Type: Anesthesia Procedure Notes Filed: 10/28/2020 9:01 [...] October 28, 2020 TIME: 9:01 AM CSN: [id number] [facility]* Diagnosis Encounter for gynecological examination (general) (routine) without abnormal findings- Primary Encounter for screening breast examination PCOS (polycystic ovarian syndrome) Polycystic ovaries Menorrhagia with regular cycle Excessive or frequent menstruation Medication management Encounter for long-term (current) use of other medications documented in this encounter [facility] note* Diagnosis Urinary urgency- Primary Urgency of urination documented in this encounter [facility] note* Diagnosis Encounter for gynecological examination [...] specified as infective documented in this encounter [facility] note* Diagnosis Abnormal uterine bleeding (AUB) PCOS (polycystic ovarian syndrome) Polycystic ovaries documented in this encounter [facility] note* Diagnosis Post-operative state Other postprocedural status Right lower quadrant abdominal pain Abdominal pain, right lower quadrant documented in this encounter [facility] note* Diagnosis Preop examination- Primary Preoperative [...] vulva and perineum documented in this encounter [facility] note* Diagnosis Preop examination- Primary Preoperative examination, unspecified Cyst of right ovary Other and unspecified ovarian cyst Primary hypertension Unspecified essential hypertension Obesity (BMI 30-39.9) Obesity, unspecified PCOS (polycystic ovarian syndrome) Polycystic ovaries RLS (restless legs syndrome) Restless legs syndrome (RLS) Pelvic pain in female Unspecified symptom associated with female genital organs Dyspareunia in female documented in this encounter [facility] note* Diagnosis Preop examination- Primary Preoperative examination, unspecified Cyst of right ovary Other and unspecified ovarian cyst Primary hypertension Unspecified essential hypertension Obesity (BMI 30-39.9) Obesity, unspecified PCOS (polycystic ovarian syndrome) Polycystic ovaries RLS (restless legs syndrome) Restless legs syndrome (RLS) Dyspareunia in female- Primary Endometriosis Endometriosis, site unspecified documented in this encounter [facility] course Narrative No data available for this section [facility] Discharge instructions No data available for this section [facility] [place] Progress note No data available for this section [facility] Reason for referral (narrative)* Diagnostic Procedure Only (Routine) - AuthorizedSpecialtyDiagnoses / ProceduresReferred By Contact Referred To ContactOB/DIDACTIC INSTRUCTOR Diagnoses Abnormal uterine bleeding (AUB) PCOS (polycystic ovarian syndrome) Procedures PELVIC US WHI US PELVIC NONOBSTETRIC REAL-TIME IMAGE COMPLETE Jenny Ye, JOSE ANTONIO [address] [place] [address] Brand Strategy Manager [facility] [address] [facility] [address] [place] [address] Referral IDStatusReasonStart DateExpiration DateVisits RequestedVisits [id number] Auto-Generated Referral / [facility] ClinicReason for visit Narrative* Diagnostic Procedure Only (Routine) - ClosedSpecialtyDiagnoses / ProceduresReferred By ContactReferred To Contact EMAIL CAMPAIGN MANAGER Diagnoses Abnormal uterine bleeding (AUB) PCOS (polycystic ovarian syndrome) Procedures PELVIC US [facility] PELVIC NONOBSTETRIC REAL-TIME IMAGE COMPLETE Jenny Ye APRN.SUPERVISOR NUTRITIONAL YEAST [address] [place] [address] Brand Strategy Manager [facility] [address] [facility] [address] [place] [address] Referral IDStatusReasonStart DateExpiration DateVisits RequestedVisits [id number] Auto-Generated Referral / [facility] HospitalReason for visit Narrative* Diagnostic Procedure Only (Routine) - ClosedSpecialtyDiagnoses / ProceduresReferred By ContactReferred To Contact [facility] Diagnoses Pelvic pain in female Dyspareunia in female Procedures ENDOMETRIOSIS U/S [facility] PELVIC NONOBSTETRIC REAL[place] [address] [place] [address] Phone: tel: fax: [facility] [address] [place] [address] Referral IDStatusReasonStart DateExpiration DateVisits RequestedVisits [id number] Auto-Generated Referral [facility] Summary Purpose Family History No Family [...] CT ABD & PELVIS W/CONTRAST Jasmina Jacinto APRN.SUPERVISOR NUTRITIONAL YEAST [address] [place] [address] [place] [address] Referral IDStatusReasonStjennifer DateExpiration DateVisits RequestedVisits [id number] Auto-Generated Referral / Additional Source Comments INFORMATION SOURCE (unrecogn ized section and content) DATE CREATED AUTHOR 10/10/2017 [facility] DATE CREATED AUTHOR AUTHOR'S ORGANIZ ATION 12/11/2020 [facility] DATE CREATED AUTHOR AUTHOR'S ORGANIZ ATION 05/25/2022 [facility] DATE CREATED AUTHOR AUTHOR'S ORGANIZ ATION 01/07/2023 [facility] DATE CREATED AUTHOR AUTHOR'S ORGANIZ ATION 01/16/2025 [facility] DATE CREATED AUTHOR AUTHOR'S ORGANIZ ATION 01/17/2025 [facility] Source Comments (unrecognize d section and content) In the event this informatio n is protected by the Federal Confidentiality of Alcohol and Drug Abuse Patient Records regulations: The Federal rules restrict any use of the information to criminally investigate or prosecute any alcohol or drug abuse patient.[facility] HospitalIn the event this information is protected by the Federal Confidentiality of Alcohol and Drug Abuse Patient Records regulations: The Federal rules restrict any use of the information to criminally investigate or prosecute any alcohol or drug abuse patient.[facility] HospitalIn the event this information is protected by the Federal Confidentiality of Alcohol and Drug Abuse Patient Records regulations: The Federal rules restrict any use of the information to criminally investigate or prosecute any alcohol or drug abuse patient.[facility] HospitalIn the event this information is protected by the Federal Confidentiality of Alcohol and Drug Abuse Patient Records regulations: The Federal rules restrict any use of the information to criminally investigate or prosecute any alcohol or drug abuse patient.[facility] HospitalIn the event this information is protected by the Federal Confidentiality of Alcohol and Drug Abuse Patient Records regulations: The Federal rules restrict any use of the information to criminally investigate or prosecute any alcohol or drug abuse patient.[facility] HospitalIn the event this information is protected by the Federal Confidentiality of Alcohol and Drug Abuse Patient Records regulations: The Federal rules restrict any use of the information to criminally investigate or prosecute any alcohol or drug abuse patient.[facility] HospitalIn the event this information is protected by the Federal Confidentiality of Alcohol and Drug Abuse Patient Records regulations: The Federal rules restrict any use of the information to criminally investigate or prosecute any alcohol or drug abuse patient.[facility] HospitalIn the event this information is protected by the Federal Confidentiality of Alcohol and Drug Abuse Patient Records regulations: The Federal rules restrict any use of the information to criminally investigate or prosecute any alcohol or drug abuse patient.[facility] HospitalIn the event this information is protected by the Federal Confidentiality of Alcohol and Drug Abuse Patient Records regulations: The Federal rules restrict any use of the information to criminally investigate or prosecute any alcohol or drug abuse patient.[facility] HospitalIn the event this information is protected by the Federal Confidentiality of Alcohol and Drug Abuse Patient Records regulations: The Federal rules restrict any use of the information to criminally investigate or prosecute any alcohol or drug abuse patient.[facility] HospitalIn the event this information is protected by the Federal Confidentiality of Alcohol and Drug Abuse Patient Records regulations: The Federal rules restrict any use of the information to criminally investigate or prosecute any alcohol or drug abuse patient.[facility] HospitalIn the event this information is protected by the Federal Confidentiality of Alcohol and Drug Abuse Patient Records regulations: The Federal rules restrict any use of the information to criminally investigate or prosecute any alcohol or drug abuse patient.[facility] HospitalIn the event this information is protected by the Federal Confidentiality of Alcohol and Drug Abuse Patient Records regulations: The Federal rules restrict any use of the information to criminally investigate or prosecute any alcohol or drug abuse patient.[facility] HospitalIn the event this information is protected by the Federal Confidentiality of Alcohol and Drug Abuse Patient Records regulations: The Federal rules restrict any use of the information to criminally investigate or prosecute any alcohol or drug abuse patient.[facility] HospitalIn the event this information is protected by the Federal Confidentiality of Alcohol and Drug Abuse Patient Records regulations: The Federal rules restrict any use of the information to criminally investigate or prosecute any alcohol or drug abuse patient.[facility] Reason for Visit (unrecogniz ed section and content) ReasonCommentsWell WomanLast pap and HPV was 09/2020--neg, irregular periods ReasonCommentsResultsReasonCommentsUrinary ProblemReasonCommentsWell WomanLast pap and HPV 09/30--neg,SpecialtyDiagnoses / ProceduresReferred By ContactReferred To ContactCT IMAGING Diagnoses Post-operative state Right lower quadrant abdominal pain Procedures CT ABD/PEL W IVCON CT ABD & PELVIS W/CONTRAST Jasmina Jacinto APRN.SUPERVISOR NUTRITIONAL YEAST [address] [place] [address] [facility] [place] [address] Referral IDStatusReasonStart DateExpiration DateVisits RequestedVisits [id number] Auto-Generated Referral /[id number] DateCommentsRefill Tjcqkri51/18/2024ReasonOnset DateCommentsRefill Skfafxk5504/05/2024ReasonCommentsGyn ExamLast pap--12/2022--pap and hpv was neg patient having pain with intercourse Care Teams (unrecognized sec tion and content) Team MemberRelationshipSpecialtyStart DateEnd Date Keila Mccormick MD [address] [place] [address] PCP - GeneralFamily Practice10/14/20 Glenda Martínez ReferringOB/GYN4/Team MemberRelationshipSpecialtyStart DateEnd Date Keila Mccormick MD [address] [facility] [place] [address] PCP - GeneralFamily Practice10/14/20 Glenda Martínez ReferringOB/GYN4Team MemberRelationshipSpecialtyStart DateEnd Date Keila Mccormick MD [address] [place] [address] PCP - GeneralFamily Medicine10/14/20 Glenda Martínez ReferringOB/GYN4Team MemberRelationshipSpecialtyStart DateEnd Date Keila Mccormick MD [address] [place] [address] PCP - GeneralFamily Medicine10/14/20 Glenda Martínez ReferringOB/GYN4Team [...] BE BASED ON THE PRIMARY CLINICAL RECORDS. [facility] [employer] [facility]. provides no warranty or guarantee of the accuracy or completeness of information in this document.
[2025-02-12 08:34] VITALS: BP 150/102; PULSE 98; TEMP 36.2; O2SAT 98; BMI 39.0
[2025-02-12 08:42] VITALS: BMI 39.0
[2025-02-12 10:22] VITALS: BP 128/71; PULSE 96; TEMP 36.7; O2SAT 96
[2025-02-12 10:37] VITALS: BP 122/76; PULSE 82; O2SAT 98
[2025-02-12 10:52] VITALS: BP 116/73; PULSE 82; O2SAT 99
== END 2025-02-12 10:52 | disposition home or self-care (01) ==
LOC: SURGOUT 08:19
PROVIDERS: Anesthesiology; PCP Family Medicine; Visit Provider Surgery
PROC: (CPT 00811; principal; 2025-02-12 09:30)
DX: K62.5 Hemorrhage of anus and rectum (principal); K64.8 Other hemorrhoids; I10 Essential (primary) hypertension; E03.9 Hypothyroidism, unspecified; E11.9 Type 2 diabetes mellitus without complications; E28.2 Polycystic ovarian syndrome; Z79.84 Long term (current) use of oral hypoglycemic drugs; Z90.49 Acquired absence of other specified parts of digestive tract; G25.81 Restless legs syndrome
CPT/HCPCS: 00811; 45330; 36415; 82948; 84703; J2704